=== PATIENT | female | born 1930 | race Caucasian/White ===

== ENCOUNTER 2018-12-20 08:54 | Inpatient (IN) | payer MEDICARE ==
--- NOTE | 2018-12-20 09:23 | ED ---
General Adult HPI - General Chief complaint: Shortness of Breath Stated complaint: POSS PNEUMONIA, SENT BY DR CLEANING Time Seen by Provider: 12/20/18 09:06 Source: patient, family, RN notes reviewed Mode of arrival: wheelchair Limitations: no limitations - History of Present Illness Initial comments: Patient is a pleasant 88-year-old female presenting to the emergency department with complaints of difficulty breathing. Onset of symptoms was 3-4 days ago. Patient has had intermittent subjective fevers and chills. Cough is rarely productive with noncolored sputum. Patient has some mild nasal congestion. No chest pain. No leg pain or leg swelling. No history of chronic lung problems. No history of COPD or asthma. Patient does have a distant history of smoking however quit 40 years ago. Patient did see her doctor this morning and was advised come to the emergency department secondary to low oxygen level. - Related Data Home Medications Medication Instructions Recorded Confirmed ALPRAZolam [Xanax] 0.25 mg PO BID 07/20/17 12/20/18 Hydrochlorothiazide [Hydrodiuril] 25 mg PO DAILY 07/20/17 12/20/18 Metoprolol Succinate [Toprol XL] 200 mg PO DAILY 07/20/17 12/20/18 Multivitamins, Thera [Multivitamin 1 tab PO DAILY 07/20/17 12/20/18 (formulary)] Olmesartan Medoxomil [Benicar] 40 mg PO DAILY 07/20/17 12/20/18 Omeprazole [PriLOSEC] 20 mg PO DAILY 07/20/17 12/20/18 Pravastatin Sodium [Pravachol] 40 mg PO DAILY 07/20/17 12/20/18 amLODIPine [Norvasc] 10 mg PO DAILY 07/20/17 12/20/18 cloNIDine HCL [Catapres] 0.1 mg PO TID 07/20/17 12/20/18 Albuterol Inhaler [Ventolin Hfa 1 - 2 puff INHALATION RT-Q6H PRN 12/20/18 12/20/18 Inhaler] Apixaban [Eliquis] 2.5 mg PO BID 12/20/18 12/20/18 Aspirin EC [Ecotrin Low Dose] 81 mg PO DAILY 12/20/18 12/20/18 Cilostazol [Pletal] 50 mg PO BID 12/20/18 12/20/18 Losartan Potassium 50 mg PO DAILY 12/20/18 12/20/18 Allergies Allergy/AdvReac Type Severity Reaction Status Date / Time bacitracin Allergy Unknown Verified 12/20/18 09:42 [From Neosporin ([id number])] codeine Allergy Unknown Verified 12/20/18 09:42 neomycin Allergy Unknown Verified 12/20/18 09:42 [From Neosporin ([id number])] polymyxin B Allergy Unknown Verified 12/20/18 09:42 [From Neosporin ([id number])] procaine [From Novocain] Allergy Unknown Verified 12/20/18 09:42 Review of Systems ROS Statement: Those systems with pertinent positive or pertinent negative responses have been documented in the HPI. ROS Other: All systems not noted in ROS Statement are negative. Constitutional: Denies: fever Eyes: Denies: eye pain ENT: Denies: ear pain Respiratory: Reports: cough, dyspnea Cardiovascular: Denies: chest pain, palpitations Endocrine: Reports: fatigue Gastrointestinal: Denies: abdominal pain Genitourinary: Denies: dysuria Musculoskeletal: Denies: back pain Skin: Denies: rash Neurological: Denies: weakness Past Medical History Past Medical History: Atrial Fibrillation, Coronary Artery Disease (CAD), CVA/TIA, Hyperlipidemia, Hypertension History of Any Multi-Drug Resistant Organisms: None Reported Past Surgical History: Appendectomy Additional Past Surgical History / Comment(s): "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 Past Anesthesia/Blood Transfusion Reactions: No Reported Reaction Past Psychological History: No Psychological Hx Reported Smoking Status: Never smoker Past Alcohol Use History: None Reported Past Drug Use History: None Reported General Exam Limitations: no limitations General appearance: alert, in no apparent distress Head exam: Present: atraumatic Eye exam: Present: normal appearance, PERRL ENT exam: Present: normal oropharynx Neck exam: Present: normal inspection Respiratory exam: Present: normal lung sounds bilaterally Cardiovascular Exam: Present: tachycardia, irregular rhythm GI/Abdominal exam: Present: soft. Absent: tenderness Extremities exam: Present: normal inspection. Absent: pedal edema, calf tenderness Neurological exam: Present: alert Psychiatric exam: Present: normal affect, normal mood Skin exam: Present: normal color Course Vital Signs 12/20/18 12/20/18 12/20/18 09:06 09:20 09:39 Temperature 97.5 F L Pulse Rate 116 H Respiratory 20 22 Rate Blood Pressure 131/70 O2 Sat by Pulse 93 L 94 L Oximetry 12/20/18 12/20/18 10:00 10:30 Temperature Pulse Rate 109 H 101 H Respiratory 20 20 Rate Blood Pressure 132/85 120/77 O2 Sat by Pulse 96 96 Oximetry - Reevaluation(s) Reevaluation #1: 12/20/18 10:48 There is concern for pneumonia. Patient does meet sepsis criteria based on concern for pneumonia and blood culture and lactic acid will be ordered. IV antibiotics will be ordered. EKG Findings - EKG Comments: EKG Findings:: A. fib with rate of 111. QRS 80. QT 280. QTC 380. Left axis. Diffuse Q waves. No acute ST change. Medical Decision Making - Medical Decision Making Patient reevaluated and resting comfortably in bed. Patient and family updated on results and plan. Dr. Cleaning has been paged for admission. - Lab Data Result diagrams: 12/20/18 09:54 12/20/18 09:54 Lab Results 12/20/18 12/20/18 Range/Units 09:54 09:54 WBC 16.1 H (3.8-10.6) k/uL RBC 5.88 H (3.80-5.40) m/uL Hgb 14.9 (11.4-16.0) gm/dL Hct 46.0 (34.0-46.0) % MCV 78.2 L (80.0-100.0) fL MCH 25.3 (25.0-35.0) pg MCHC 32.3 (31.0-37.0) g/dL RDW 15.4 (11.5-15.5) % Plt Count 373 (150-450) k/uL Neutrophils % 79 % Lymphocytes % 11 % Monocytes % 8 % Eosinophils % 1 % Basophils % 0 % Neutrophils # 12.7 H (1.3-7.7) k/uL Lymphocytes # 1.7 (1.0-4.8) k/uL Monocytes # 1.3 H (0-1.0) k/uL Eosinophils # 0.2 (0-0.7) k/uL Basophils # 0.1 (0-0.2) k/uL Sodium 126 L (137-145) mmol/L Potassium 4.4 (3.5-5.1) mmol/L Chloride 88 L (98-107) mmol/L Carbon Dioxide 28 (22-30) mmol/L Anion Gap 10 mmol/L BUN 17 (7-17) mg/dL Creatinine 0.95 (0.52-1.04) mg/dL Est GFR (CKD-EPI)AfAm 63 (>60 ml/min/1.73 sqM) Est GFR (CKD-EPI)NonAf 55 (>60 ml/min/1.73 sqM) Glucose 134 H (74-99) mg/dL Calcium 9.6 (8.4-10.2) mg/dL Total Bilirubin 1.5 H (0.2-1.3) mg/dL AST 29 (14-36) U/L ALT 20 (9-52) U/L Alkaline Phosphatase 102 (38-126) U/L Creatine Kinase 66 (30-135) U/L Total Protein 6.9 (6.3-8.2) g/dL Albumin 4.1 (3.5-5.0) g/dL - Radiology Data Radiology results: image reviewed (Chest x-ray shows right upper lobe opacity. Possible mass or pneumonia. Associated right effusion and atelectasis.) Critical Care Time Critical Care Time: Yes Total Critical Care Time: 33 Disposition Clinical Impression: Pneumonia, Sepsis Disposition: ADMITTED IP TO THIS HOSP Condition: Serious Is patient prescribed a controlled substance at d/c from ED?: No Referrals: Lionel Cleaning MD [Primary Care Provider] - 1-2 days Decision Time: 10:48
[2018-12-20 10:14] LABS: Basophils # (A) 0.1 k/uL (0-0.2); Basophils % (A) 0 %; Eosinophils # (A) 0.2 k/uL (0-0.7); Eosinophils % (A) 1 %; HGB 14.9 gm/dL (11.4-16.0); Lymphocytes # (A) 1.7 k/uL (1.0-4.8); Lymphocytes % (A) 11 %; MCH 25.3 pg (25.0-35.0); MCHC 32.3 g/dL (31.0-37.0); MCV 78.2 fL (80.0-100.0); Monocytes # (A) 1.3 k/uL (0-1.0); Monocytes % (A) 8 %; Neutrophils # (A) 12.7 k/uL (1.3-7.7); Neutrophils % (A) 79 %; Platelet Count 373 k/uL (150-450); RBC 5.88 m/uL (3.80-5.40); RDW 15.4 % (11.5-15.5); WBC 16.1 k/uL (3.8-10.6)
--- NOTE | 2018-12-20 10:26 | XR ---
EXAMINATION TYPE: XR chest 2V DATE OF EXAM: 12/20/2018 COMPARISON: NONE HISTORY: Difficulty breathing, cough and congestion TECHNIQUE: Frontal and lateral views of the chest are obtained. FINDINGS: There is abnormal right upper lobe, paratracheal density present. No pneumothorax. There i s blunting the right costophrenic angle, obscured right diaphragm. Heart is enlarged. Aorta is dense and likely ectatic. Patient is rotated. There are overlying cardiac leads. IMPRESSION: Findings may represent mass in the right upper lobe rather than pneumonia with associate d right pleural effusion and associated atelectasis. There is likely underlying cardiomegaly, aortic aneurysm. Consider chest CT.
[2018-12-20 10:32] LABS: Albumin 4.1 g/dL (3.5-5.0); Calcium 9.6 mg/dL (8.4-10.2); Potassium 4.4 mmol/L (3.5-5.1); Total Bilirubin 1.5 mg/dL (0.2-1.3); Total Protein 6.9 g/dL (6.3-8.2)
[2018-12-20] MEDS ORDERED: IPRATROPIUM-ALBUTEROL 3 ML NEB INHALATION PRN (10:49)
[2018-12-20] MEDS ORDERED: AZITHROMYCIN 500 MG in SODIUM CHLORIDE 0.9% 250 ML IVPB STA (10:49)
[2018-12-20] MEDS ORDERED: PNEUMONIA PROTOCOL UTILIZED 1 EACH MISC PO PRN (10:49)
[2018-12-20] MEDS ORDERED: RX INFO: IV CONTRAST WAS GIVEN 1 EACH MISC MISCELLANE PRN (10:50)
--- NOTE | 2018-12-20 11:32 | CT ---
EXAMINATION TYPE: CT chest w con DATE OF EXAM: 12/20/2018 COMPARISON: NONE HISTORY: Dyspnea CT DLP: 272.1 mGycm. Automated Exposure Control for Dose Reduction was Utilized. TECHNIQUE: CT scan of the thorax is performed following with IV Contrast, patient injected with 80 m L of Isovue 300. FINDINGS: LUNGS: There is a heterogenous right upper lobe consolidation measuring up to 6.5 x 5.6 cm on image 1 7 with surrounding pleural effusion and atelectasis. There is complete right upper lobe are collapsed . A moderate to large right pleural effusion is also seen with associated compressive atelectasis. Th ere is a suspicious pulmonary nodule in the left lower lobe near the interlobar fissure on image 38 m easuring 6 mm and spiculated left lower lobe pulmonary nodule on image 40 measuring 9 mm. Both are hi ghly suggestive of metastasis. MEDIASTINUM: The heart is enlarged with severe three-vessel coronary artery calcifications. No perica rdial effusion is seen. The ascending thoracic aorta is also enlarged measuring 4 cm. No evidence of thoracic aortic dissection is seen. Severe atherosclerosis of the thoracic aorta and its branches are noted. Descending thoracic aorta is within normal limits of size in its midportion and upper portion measuring up to 2.5 cm however distally just before the diaphragmatic hiatus there is aneurysmal dil atation measuring 3.6 x 3.5 cm. Main pulmonary artery is enlarged measuring 3.5 cm suggesting underly ing pulmonary arterial hypertension. There is narrowing of the superior vena cava caliber, and very d iminutive from local mass effect such as on image 28. Right hilar and mediastinal adenopathy cannot b e from the right hilar mass and/or consolidation. Prominent node in the aorticopulmonary wi ndow measures 9 mm in short axis. Subcarinal lymph node measures up to 1.5 cm in short axis and is ab normally enlarged. OTHER: There is a right breast spiculated mass measuring up to 3.2 x 2.1 cm with associated skin retr action and invasion of the right pectoralis major muscle with abutment of the pectoralis minor muscle . There is abnormal right axillary adenopathy with lymph node on image 23 measuring 1 cm in short axi s. Of the thyroid gland is seen and thyroid ultrasound is recommended on a nonemergent basis. Largest nodules noted in the left thyroid lobe extending to the isthmus. There is diffuse low-density of the liver most compatible with hepatic steatosis limiting evaluation for underlying hepatic masses. The entirety of the liver is not visualized on this exam. Multifocal scarring from infarct or prior injur y are seen within the left kidney. Ill-defined posterior cortex is seen on image 69, poorly evaluated with mass not excluded at this location. Left renal cyst measures 2.1 cm. Scattered colonic divertic matteo are seen. There is diffuse osseous demineralization. Lower thoracic compression deformities at T11 and T12 are age indeterminant as well as compression deformity at T6. These are mild. IMPRESSION: 1. Highly suspicious right breast mass with invasion of the pectoralis major muscle and abutment of t he pectoralis minor muscle and associated skin retraction as well as right axillary adenopathy. This should be considered neoplasm until proven otherwise. 2. Lobar collapse of the right upper lobe that is diffusely heterogenous in concerning for either syn chronous lung cancer with obstruction or metastasis from breast cancer with postobstructive right upp er lobar atelectasis. 3. Moderate to large right pleural effusion and associated multifocal atelectasis. 4. Highly suspicious left lower lobe pulmonary nodules concerning for metastasis with mediastinal maria guadalupe nopathy. 5. Diffuse osseous demineralization and age indeterminant compression deformities of T6, T11, and T12 . These do not appear as pathologic compression deformities and are overall mild. Correlate with poin t tenderness to determine acuity. 6. Heterogeneity and nodularity of the thyroid gland for which nonemergent follow-up thyroid ultrasou nd is recommended. 7. Aneurysmal dilatation of the ascending thoracic aorta and lower aspect of the descending thoracic aorta without dissection. 8. Severe three-vessel coronary atherosclerosis.
[2018-12-20 12:05] LABS: D-Dimer 0.62 mg/L FEU (<0.60); INR 1.1 (<1.2); Prothrombin Time 11.7 sec (9.0-12.0)
[2018-12-20] MEDS: SODIUM CHLORIDE 0.9% 1,000 ML IV SCH ×2 (13:03→22:03)
[2018-12-20] MEDS: ALPRAZolam 0.25 MG TAB PO PRN ×2 (17:30→22:07)
[2018-12-20] MEDS: cloNIDine HCL 0.1 MG TAB PO SCH ×2 (17:30→22:03)
--- NOTE | 2018-12-20 17:44 | HP ---
HISTORY AND PHYSICAL The patient is an 88-year-old white female who presented to her primary care physician's office with a complaint of shortness of breath. She stated she had been short of breath for approximately 5 days. She states that she believes she has a fever because she is experiencing chills, she has no pain, she states she does have sputum production which is white. The patient was brought into the hospital and in the hospital was noted to have a "spot in her right breast. She states that she believes that it started 15 years ago when a bra fit improperly and rubbed across that area causing a sore which never healed. The patient states she does not have any pain in her breast and that the area of concern she does not believe has changed much in size. FAMILY HISTORY: Negative. HORMONAL HISTORY: Menarche: [age]. Seven pregnancies, 4 children, 3 miscarriages. She did not breast feed. Her 1st child was born at 23. PAST SURGICAL HISTORY: 1. Appendectomy. 2. Vein removed from her arm to her leg for poor circulation. PAST MEDICAL HISTORY: 1. Shortness of breath. 2. Poor circulation. SOCIAL HISTORY: Smoked: Less than 1 pack per day for 15 years. Stopped thirty-five years ago. Alcohol: Negative. Drugs: Negative. REVIEW OF SYSTEMS: HEENT: Decreased hearing. Wears hearing aids. LUNGS: Shortness of breath, former smoker. HEART: Atrial fibrillation. GI: Negative. : Postmenopausal. MUSCULOSKELETAL: Negative. SKIN: The patient has easy bruising related to Eliquis. PSYCHIATRIC: Negative. ALLERGIES: CODEINE, NOVOCAIN, NEOSPORIN. NEUROLOGIC: CVA. PHYSICAL EXAM: HEENT: Pupils equal, round, reactive to light. LUNGS bilateral wheezing. HEART: Irregular heart beat, S1, S2 noted. ABDOMEN: Soft with no guarding or rebound. BREAST EXAMINATION: Right breast: Right upper outer quadrant region approximately 4 cm mass with evidence of breaking through the skin. It is not fixed to the chest wall. Right axilla: No adenopathy of concern. Left breast: Multi positional exam. No dominant mass or nodules of concern. Left axilla: No adenopathy of concern. EXTREMITIES: Patient is noted to have ecchymosis over extremities believed to be related to blood thinners. IMPRESSION: 1. Shortness of breath. 2. Sputum production. 3. Fever/chills as per history. 4. Breast lesion which has been present for many years. Most likely breast cancer. 5. Atrial fibrillation. 6. Patient on blood thinners. PLAN: 1. Thoracentesis as per Pulmonary. 2. We will review radiographs. 3. I would recommend core biopsy of lesion of concern in the right breast. This most likely represents a cancer. 4. Concern that patient may have metastatic disease and the fluid in her lung may be malignant in nature. 5. We will plan to do a core biopsy of breast on . Thank you for this dictation. Please note the son's phone #[phone] home and second number ([phone]) cell. MMODL / IJN: [id number] /
--- NOTE | 2018-12-20 18:00 | US ---
EXAMINATION TYPE: US chest DATE OF EXAM: 12/20/2018 COMPARISON: CT same date CLINICAL HISTORY: right pleural effusion. Right pleural effusion TECHNIQUE: Targeted ultrasound of the posterior lower right hemithorax EXAM MEASUREMENTS: Right Pleural Effusion pocket size: 11.3 cm Right skin surface to fluid distance: 2.4 cm Right side marked for possible thoracentesis outside the dept. Pulmonologists are able to review the images in the patient?s EMR. IMPRESSIONS: Large right pleural effusion.
[2018-12-20] MEDS ORDERED: ALPRAZolam 0.25 MG TAB PO SCH (21:00)
--- NOTE | 2018-12-21 01:32 | CONS ---
CONSULTATION HISTORY OF PRESENT ILLNESS: The patient is a pleasant 88-year-old white female of Dr. Cleaning who presented to the emergency department on 12/20/2018 with complaints of difficulty breathing. The onset of symptoms was last Wednesday, and this started with intermittent subjective fevers and chills. The patient did have a cough with production of non colored sputum. Did have some mild nasal congestion, denied any chest pain, she did feel increased shortness of breath, did not have any leg pain or leg swelling. Denies history of chronic lung problems. She does have a history of smoking. She quit smoking 35 years ago, but did have 25-30 years of smoking history. She went to see Dr. Cleaning in the office for evaluation of her symptoms and was advised to come to the emergency department related to low oxygen level. She was afebrile on presentation, she was found to be in atrial fibrillation RVR with a rate of 111. Chest x-ray was completed showing a right upper lobe opacity, possibly related to an underlying mass or pneumonia, and there was an associated right-sided pleural effusion and atelectasis. She did have leukocytosis with white blood cell count of 16.1, hemoglobin of 14.9, platelet count is 373, serum sodium was 126, potassium was 4.4, chloride was 88, CO2 was 28, BUN was 17, creatinine was 0.95. CT chest with contrast was completed showing a highly suspicious right breast mass with invasion of the pectorals major muscle and abutment of the pectoralis minor muscle and associated skin retraction as well as right axillary adenopathy. Lobar collapse of the right upper lobe. There is diffusely heterogeneous and concerning for either synchronous lung cancer with obstruction or metastasis from breast cancer with postobstructive right upper lobe or atelectasis. Moderate to right pleural effusion and associated multifocal atelectasis, and highly suspicious left lower lobe pulmonary nodule concerning for metastasis with mediastinal adenopathy. There was also diffuse osseous demineralization and compression deformities of T6, T11 and T12 that do not appear to be pathologic. Severe 3 vessel coronary artery atherosclerosis, and aneurysmal dilatation of the ascending thoracic aorta without dissection. The patient has a history of chronic atrial fibrillation. She is on chronic anticoagulation in the form of Eliquis, she has peripheral vascular disease. She is on Pletal, and baby aspirin on a daily basis. Other medical history includes CAD, CVA/TIA, hyperlipidemia, hypertension. REVIEW OF SYSTEMS: Patient reports shortness of breath and occasional cough and wheezing, does report subjective fevers and chills. HEENT: Reports no dry eyes, no vision changes and no irritation, no difficulty hearing and no ear pain, reports no nosebleeds or sinus problems. No sore throat, no bleeding gums or snoring. Neck: No lumps, goiter or pain. Breasts: Right breast asymmetry in the outer right upper quadrant, and dimpling reportedly from a bra, no pain, no discharge. Respiratory: Please refer to the history of present illness. Cardiovascular: No heart disease or hypertension, does report shortness of breath, no orthopnea or palpitations. GI: No nausea, vomiting, or indigestion. No jaundice. : No frequency, dysuria, or hematuria. Peripheral vascular: No swollen ankles. Musculoskeletal: No muscle aches. No muscle weakness, no arthralgias, no back pain, no swelling in extremities. PSYCH: No history of depression or psych illness. Neurologic: No seizures. No motor or sensory loss. No headaches. PAST MEDICAL HISTORY: Chronic atrial fibrillation, coronary artery disease, CVA/TIA, hyperlipidemia, hypertension. PAST SURGICAL HISTORY: Appendectomy. PHYSICAL EXAM: General exam: The patient is a pleasant 88-year-old white female, alert and oriented x3, in no apparent distress. HEENT exam: Atraumatic, normocephalic, normal appearance, PERRLA, normal oropharynx. Neck exam: Normal inspection. Respiratory exam: Lung sounds: Diminished breath sounds over right lower lobe, with some crackles over the left posterior lower bases. Cardiovascular exam: Irregular rate and rhythm, slightly tachycardic. No murmurs. Normal S1 and S2, no gallops, no rubs. CHEST exam: Right breast with indentation and dimpling in the right upper quadrant. Nipple without discharge. GI/abdominal exam: Soft, nontender. No organomegaly and no rebound. No guarding. EXTREMITIES: No clubbing, no edema, no cyanosis. 2+ pulses in upper and lower extremities. Musculoskeletal: Muscle strength and tone is normal. Neurologic: Alert and oriented x3, no focal neurological deficits. Vital signs: Temperature 97.5 degrees Fahrenheit, pulse rate is 116, atrial fibrillation, respiratory rate is 20, blood pressure is 131/70, O2 saturation is 93% on room air. Chest x-ray notes shows a right upper lobe opacity, possible mass or pneumonia and there is an associated right-sided pleural effusion and atelectasis. CT chest with contrast as mentioned above, with findings of highly suspicious right breast mass with invasion of the pectoralis major muscle and pectoralis minor muscle with a right axillary adenopathy, lower collapse of the right upper lobe concerning for a synchronous lung cancer with obstruction or metastasis from breast cancer with postobstructive right upper lobe atelectasis. Moderate to large right pleural effusion and associated multifocal atelectasis. Highly suspicious left lower lobe pulmonary nodules concerning for metastasis with mediastinal adenopathy. ASSESSMENT: 1. Acute hypoxic respiratory failure secondary to the possibility of pneumonia, and chest x-ray showed right upper lobe opacity with right pleural effusion and atelectasis, CT chest with contrast showed the possibility of right breast mass and lobar collapse of the right upper lobe concerning for lung cancer with obstruction or metastasis from breast cancer with postobstructive right upper lobe atelectasis. 2. Large right pleural effusion and associated multifocal atelectasis, we will obtain ultrasound of the chest to evaluate for size of the right pleural effusion. 3. Highly suspicious left lower lobe pulmonary nodules concerning for metastasis with mediastinal adenopathy. 4. Atrial fibrillation with RVR. 5. Chronic atrial fibrillation on chronic anticoagulation. 6. History of peripheral vascular disease. 7. Coronary artery disease. 8. Hypertension. 9. Hyperlipidemia. 10.History of cerebrovascular accident/transient ischemic attack. 11.History of nicotine dependence, currently in remission. The patient carries a 25- 30 pack-year smoking history. PLAN: We will continue with current antibiotic coverage with Zithromax and Rocephin, obtain sputum culture, we will obtain an ultrasound of the chest to evaluate the size of the right-sided pleural effusion, and we will hold the Eliquis today and tomorrow, with the possibility of right-sided thoracentesis on , and the fluid will be sent for analysis and cytology. CT chest findings are highly suspicious for metastatic breast cancer and hopefully will be able to obtain a diagnosis from the pleural fluid. For now, continue with current medical treatment. I performed a History & Physical Examination of the patient and discussed their management with nurse practitioner. I reviewed the nurse practitioner's note and agree with the documented findings and plan of care. This patient was seen and evaluated by Dr. Basha, all diagnostics including chest x- rays, CT chest with contrast, EKG, and vital signs have been reviewed by Dr. Last, and case was discussed with Dr. Last. MMSCOTT / IJN: [id number] /
[2018-12-21] MEDS: PRAVASTATIN SODIUM 40 MG TAB PO SCH (08:47)
[2018-12-21] MEDS: SODIUM CHLORIDE 0.9% 1,000 ML IV SCH ×2 (08:47→16:38)
[2018-12-21] MEDS: amLODIPine 10 MG TAB PO SCH (08:48)
[2018-12-21] MEDS: MULTIVITAMINS, THERA 1 EACH TAB PO SCH (08:48)
[2018-12-21] MEDS: AZITHROMYCIN 500 MG TAB PO SCH (08:48)
[2018-12-21] MEDS: LOSARTAN 50 MG TAB PO SCH (08:48)
[2018-12-21] MEDS: PANTOPRAZOLE 40 MG TABLET PO SCH (08:48)
[2018-12-21] MEDS: cloNIDine HCL 0.1 MG TAB PO SCH ×3 (08:48→21:04)
[2018-12-21] MEDS: HYDROCHLOROTHIAZIDE 25 MG TAB PO SCH (08:54)
[2018-12-21] MEDS ORDERED: OLMESARTAN MEDOXOMIL 40 MG PO SCH (09:00)
[2018-12-21] MEDS ORDERED: METOPROLOL SUCCINATE (ER) 100 MG TAB.ER.24H PO SCH (09:00)
[2018-12-21] MEDS: ALPRAZolam 0.25 MG TAB PO PRN ×2 (09:20→21:07)
[2018-12-21] MEDS ORDERED: IPRATROPIUM-ALBUTEROL 3 ML NEB INHALATION PRN (10:04)
[2018-12-21] MEDS: IPRATROPIUM-ALBUTEROL 3 ML NEB INHALATION SCH ×3 (10:14→20:49)
--- NOTE | 2018-12-21 11:26 | P.HPIM ---
History of Present Illness 88-year-old female presented to family physician with complaints of increasing shortness of breath. Patient had been treated outpatient for upper respiratory infection for about 3 months. On examination the emergency room found to have pleural effusion and a CAT scan showed breast mass. Patient has been refusing mammograms. States she's had some problem with that right breast for about 10 years. Patient has a history of chronic atrial fibrillation and coronary disease with hypertension. 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 Past Anesthesia/Blood Transfusion Reactions: No Reported Reaction Smoking Status: Former smoker - Past Family History Father Family Medical History: No Reported History Mother Family Medical History: No Reported History Medications and Allergies Home Medications Medication Instructions Recorded Confirmed Type ALPRAZolam [Xanax] 0.25 mg PO BID 07/20/17 12/20/18 History Hydrochlorothiazide [Hydrodiuril] 25 mg PO DAILY 07/20/17 12/20/18 History Metoprolol Succinate [Toprol XL] 200 mg PO DAILY 07/20/17 12/20/18 History Multivitamins, Thera [Multivitamin 1 tab PO DAILY 07/20/17 12/20/18 History (formulary)] Olmesartan Medoxomil [Benicar] 40 mg PO DAILY 07/20/17 12/20/18 History Omeprazole [PriLOSEC] 20 mg PO DAILY 07/20/17 12/20/18 History Pravastatin Sodium [Pravachol] 40 mg PO DAILY 07/20/17 12/20/18 History amLODIPine [Norvasc] 10 mg PO DAILY 07/20/17 12/20/18 History cloNIDine HCL [Catapres] 0.1 mg PO TID 07/20/17 12/20/18 History Albuterol Inhaler [Ventolin Hfa 1 - 2 puff INHALATION RT-Q6H PRN 12/20/18 12/20/18 History Inhaler] Apixaban [Eliquis] 2.5 mg PO BID 12/20/18 12/20/18 History Aspirin EC [Ecotrin Low Dose] 81 mg PO DAILY 12/20/18 12/20/18 History Cilostazol [Pletal] 50 mg PO BID 12/20/18 12/20/18 History Losartan Potassium 50 mg PO DAILY 12/20/18 12/20/18 History Allergies Allergy/AdvReac Type Severity Reaction Status Date / Time bacitracin Allergy Unknown Verified 12/20/18 09:42 [From Neosporin ([id number])] codeine Allergy Unknown Verified 12/20/18 09:42 neomycin Allergy Unknown Verified 12/20/18 09:42 [From Neosporin ([id number])] polymyxin B Allergy Unknown Verified 12/20/18 09:42 [From Neosporin ([id number])] procaine [From Novocain] Allergy Unknown Verified 12/20/18 09:42 Physical Exam Vitals: Vital Signs Temp Pulse Pulse Resp BP BP Pulse Ox 12/21/18 10:26 78 12/21/18 10:15 76 12/21/18 09:10 24 12/21/18 06:16 97.4 F L 71 24 141/76 97 12/20/18 23:30 98.4 F 102 H 24 120/74 94 L 12/20/18 20:00 24 12/20/18 16:17 96 12/20/18 14:30 98.0 F 112 H 18 134/71 97 12/20/18 12:10 98.2 F 100 20 143/92 95 Intake and Output 12/20/18 12/21/18 12/21/18 22:59 06:59 14:59 Intake Total 200 100 Balance 200 100 Intake: Oral 200 100 Other: # Voids 4 3 - Constitutional General appearance: mild distress - EENT Eyes: PERRLA Ears: bilateral: normal - Neck Neck: normal ROM - Respiratory Respiratory: bilateral: diminished - Cardiovascular Rhythm: irregularly irregular - Gastrointestinal General gastrointestinal: soft - Integumentary Integumentary: normal - Neurologic Neurologic: CNII-XII intact - Musculoskeletal Musculoskeletal: generalized weakness - Psychiatric Psychiatric: A&O x's 3, appropriate affect, intact judgment & insight Results CBC & Chem 7: 12/20/18 09:54 12/20/18 09:54 Labs: Abnormal Lab Results - Last 24 Hours (Table) 12/20/18 Range/Units 11:11 D-Dimer 0.62 H (<0.60) mg/L FEU Chest x-ray: report reviewed CT scan - chest: report reviewed Thrombosis Risk Factor Assmnt - Choose All That Apply Any of the Below Risk Factors Present?: Yes Each Factor Represents 1 point: Sepsis (< 1month), Serious lung disease incl. pneumonia (< 1month) Other Risk Factors: Yes Each Risk Factor Represents 3 Points: Age 75 years or older Other congenital or acquired thrombophilia - If yes, enter type in comment: No Thrombosis Risk Factor Assessment Total Risk Factor Score: 5 Thrombosis Risk Factor Assessment Level: High Risk Assessment and Plan Plan: Assessment Pneumonia with sepsis Breast cancer with metastatic disease to lungs new-onset Chronic atrial fibrillation Coronary disease CVA/TIA Hypertension Hyperlipidemia Hypoxic respiratory failure secondary to pleural effusion Plan Consultation with oncology Breast surgeon Pulmonology Thoracentesis plan as is breast biopsy Infectious disease for chronic from infection Patient to be transferred to monitor bed for atrial fibrillation with cardiology consult
--- NOTE | 2018-12-21 11:29 | P.PN ---
Subjective Progress Note Date: 12/21/18 Principal diagnosis: Acute hypoxic respiratory failure secondary to the possibility of pneumonia,, or possibility of metastatic breast cancer with obstruction and postobstructive right upper lobe atelectasis On 12/21/2016 patient seen in follow-up on medical surgical floor. She is resting comfortably in bed, in no acute distress, denies any chest pain, denies any worsening dyspnea. Hemodynamically on 4 L of oxygen with a pulse ox of 97%, she is afebrile, hemodynamically stable, lung sounds reveal diminished breath sounds at the bases, and some scattered rhonchi. Patient has been started on breathing treatments, antibiotics in the form of Zithromax and Rocephin. She has not been able to provide a sputum specimen. Blood culture is pending. follow up chest x-rays pending. Objective - Vital Signs Vital signs: Vital Signs Temp 97.4 F L 12/21/18 06:16 Pulse 78 12/21/18 10:26 Resp 24 12/21/18 09:10 BP 141/76 12/21/18 06:16 Pulse Ox 97 12/21/18 06:16 Intake & Output 12/20/18 12/21/18 12/21/18 18:59 06:59 18:59 Intake Total 300 Balance 300 Weight 73.028 kg Intake: Oral 300 Other: # Voids 3 - Exam GENERAL EXAM: Alert, active, on 4 L of oxygen with a pulse ox of 97%, comfortable in no apparent distress. HEAD: Normocephalic/atraumatic. EYES: Normal reaction of pupils, equal size. Conjunctiva pink, sclera white. NOSE: Clear with pink turbinates. THROAT: No erythema or exudates. NECK: No masses, no JVD, no thyroid enlargement, no adenopathy. CHEST: No chest wall deformity. Symmetrical expansion. LUNGS: Equal air entry with diminished breath sounds at the bases, with scattered rhonchi CVS: Regular rate and rhythm, normal S1 and S2, no gallops, no murmurs, no rubs ABDOMEN: Soft, nontender. No hepatosplenomegaly, normal bowel sounds, no guarding or rigidity. EXTREMITIES: No clubbing, no edema, no cyanosis, 2+ pulses and upper and lower extremities. MUSCULOSKELETAL: Muscle strength and tone normal. SPINE: No scoliosis or deformity SKIN: No rashes CENTRAL NERVOUS SYSTEM: Alert and oriented -3. No focal deficits, tone is normal in all 4 extremities. PSYCHIATRIC: Alert and oriented -3. Appropriate affect. Intact judgment and insight. - Labs CBC & Chem 7: 12/20/18 09:54 12/20/18 09:54 Labs: Abnormal Lab Results - Last 24 Hours (Table) 12/20/18 Range/Units 11:11 D-Dimer 0.62 H (<0.60) mg/L FEU Assessment and Plan Plan: Assessment: #1. Acute hypoxic respiratory failure secondary to the possibility of pneumonia, and the chest x-ray showed right upper lobe opacity with right pleural effusion and atelectasis, CT chest with contrast showed the possibility of right breast mass and lower collapse of the right upper lobe concerning for lung cancer with obstruction or metastasis from breast cancer with postobstructive right upper lobe atelectasis #2. Large right pleural effusion and associated multifocal atelectasis, ultrasound of the chest showed 11.3 cm pocket on the right, right-sided thoracentesis is planned for tomorrow, on 12/22/2018 #3. Highly suspicious left lower lobe pulmonary nodules concerning for metastasis with mediastinal adenopathy #4. Afib with RVR #5. Chronic atrial fibrillation on chronic anticoagulation #6. History of peripheral vascular disease #7. Coronary artery disease #8. Hypertension #9. Hyperlipidemia #10. History of CVA/TIA #11. History of nicotine dependence, currently in remission, carries 61-52-entj-year smoking history Plan: Continue current medical treatment, consult cardiology for A. fib with RVR, we will await their recommendation for anticoagulation, Eliquis, Pletal and aspirin remain on hold for right-sided thoracentesis tomorrow on oral 12/22/2018, continue nebulized bronchodilators 4 times daily and every 2 hours as needed. Obtain sputum culture, I performed a history & physical examination of the patient and discussed their management with my nurse practitioner, Angelica Cross. I reviewed the nurse practitioner's note and agree with the documented findings and plan of care. Lung sounds are positive for coarse rhonchi. The findings and the impression was discussed with the patient. I attest to the documentation by the nurse practitioner. Time with Patient: Less than 30
--- NOTE | 2018-12-21 11:40 | XR ---
EXAMINATION TYPE: XR chest 2V DATE OF EXAM: 12/21/2018 COMPARISON: 12/20/2018 HISTORY: Shortness of breath. Pneumonia. TECHNIQUE: Frontal and lateral views of the chest are obtained. FINDINGS: There is increasing right pleural effusion with associated right basilar airspace disease. Persistent right perihilar airspace disease is also seen. There is a large cardiac mediastinal silho uette and worsening of the interstitial edema, moderate. IMPRESSION: Worsening no moderate right pleural effusion and worsening interstitial edema also now m oderate. Findings likely relate to decompensated congestive heart failure.
[2018-12-21] MEDS ORDERED: HEPARIN SODIUM,PORCINE 5,000 UNIT/ML 1 ML VIAL IV PRN ×2 (14:32→15:32)
--- NOTE | 2018-12-21 14:43 | P.CRDCN ---
History of Present Illness History of present illness: This is a pleasant 88-year-old female past medical history significant for chronic persistent atrial fibrillation on fci anticoagulation with Eliquis, CVA in the past, hypertension, dyslipidemia and former nicotine dependence. She follows in the office with Dr. Lehman. She presented to the hospital yesterday with symptoms of shortness of breath. This has been going on intermittently for the previous one to 2 weeks. She saw her primary care physician and was given an inhaler. Inhaler did not seem to really help her symptoms. She went back to the office to see him yesterday and was sent into the hospital for further evaluation. Upon arrival a chest x-ray was obtained revealing a mass in the right upper lobe with associated right pleural effusion and atelectasis. CT of the chest was obtained that was highly suspicious right breast mass with invasion of the pectoris major muscle associated skin retraction as well as right axillary adenopathy considered neoplasm until proven otherwise, lobar collapse of the right upper lobe diffusely heterogenesis concerning for lung cancer with obstruction or metastasis from the breast cancer, moderate to large right pleural effusion associated multifocal atelectasis, left lower lobe nodules concerning for metastasis with mediastinal adenopathy, aneurysmal dilatation of the ascending thoracic aorta and severe triple vessel atherosclerosis. Ultrasound of the chest reveals a large right pleural effusion measuring 11.3 cm. She is scheduled for a thoracentesis tomorrow morning as well as a breast biopsy. Eliquis has been placed on hold. She is seen and examined sitting up in bed in mild respiratory distress. In the process of being transferred to telemetry bed for monitoring of her a-fib. EKG reveals atrial fibrillation heart rate of 111, left axis deviation, PVC and poor R-wave progression. Laboratory data reviewed, WBC 16.1, hemoglobin 14.9, platelets 373, d-dimer 0.62, sodium 126, potassium 4.4, creatinine 0.95, cardiac enzymes negative 1, and T proBNP 992. At the time of my exam: CONSTITUTIONAL: Denies fever. Denies chills. EYES: Denies blurred vision. Denies vision changes. Denies eye pain. EARS, NOSE, MOUTH & THROAT: Denies headache. Denies sore throat. Denies ear pain. CARDIOVASCULAR: Denies chest pain. Complains of shortness of breath. Denies orthopnea. Denies PND. Denies palpitations. RESPIRATORY: Complains of cough. GASTROINTESTINAL: Denies abdominal pain. Denies diarrhea. Denies constipation. Denies nausea. Denies vomiting. MUSCULOSKELETAL: Denies myalgias. INTEGUMENTARY: Denies pruitis. Denies rash. NEUROLOGIC: Denies numbness. Denies tingling. Denies weakness. PSYCHIATRIC: Denies anxiety. Denies depression. ENDOCRINE: Denies fatigue. Denies weight change. Denies polydipsia. Denies polyurina. GENITOURINARY: Denies burning, hematuria or urgency with micturation. HEMATOLOGIC: Denies history of anemia. Denies bleeding. Blood pressure 141/67 heart rate 105 afebrile maintaining oxygen saturation on nasal cannula GENERAL: This is a 88-year-old female in no apparent distress at the time of my examination. HEENT: Head is atraumatic, normocephalic. Pupils are equal, round. Sclerae anicteric. Conjunctivae are clear. Mucous membranes of the mouth are moist. Neck is supple. There is no jugular venous distention. No carotid bruit is heard. LUNGS: Scattered rhonchi, expiratory wheezes and no rales. No chest wall tenderness is noted on palpation or with deep breathing. HEART: Irregular rate and rhythm without murmurs, rubs or gallops. S1 and S2 heard. ABDOMEN: Soft, nontender. Bowel sounds are heard. No organomegaly noted. EXTREMITIES: No evidence of peripheral edema and no calf tenderness noted. VASCULAR: Radial and dorsalis pedis pulses palpated, no evidence of clubbing. NEUROLOGIC: Patient is awake, alert and oriented x3. ASSESSMENT Acute hypoxic respiratory failure secondary to large pleural effusion with concern for metastasis Leukocytosis Pleural effusion Chronic persistent atrial fibrillation on intermediate designer anti-coagulation. Has been on hold. Hypertension Dyslipidemia History of CVA PLAN Due to her history of chronic a-fib with history of CVA in the past, recommend initiation of heparin infusion to be discontinued 2 hours prior to thora centesis. Change beta brigitte to lorpessor 100 mg BID. Ongoing medical management. Thank you kindly for this consultation. Nurse Practitioner note has been reviewed, I agree with a documented findings and plan of care. Patient was seen and examined. 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 Past Anesthesia/Blood Transfusion Reactions: No Reported Reaction Smoking Status: Former smoker - Past Family History Father Family Medical History: No Reported History Mother Family Medical History: No Reported History Medications and Allergies Home Medications Medication Instructions Recorded Confirmed Type ALPRAZolam [Xanax] 0.25 mg PO BID 07/20/17 12/20/18 History Hydrochlorothiazide [Hydrodiuril] 25 mg PO DAILY 07/20/17 12/20/18 History Metoprolol Succinate [Toprol XL] 200 mg PO DAILY 07/20/17 12/20/18 History Multivitamins, Thera [Multivitamin 1 tab PO DAILY 07/20/17 12/20/18 History (formulary)] Olmesartan Medoxomil [Benicar] 40 mg PO DAILY 07/20/17 12/20/18 History Omeprazole [PriLOSEC] 20 mg PO DAILY 07/20/17 12/20/18 History Pravastatin Sodium [Pravachol] 40 mg PO DAILY 07/20/17 12/20/18 History amLODIPine [Norvasc] 10 mg PO DAILY 07/20/17 12/20/18 History cloNIDine HCL [Catapres] 0.1 mg PO TID 07/20/17 12/20/18 History Albuterol Inhaler [Ventolin Hfa 1 - 2 puff INHALATION RT-Q6H PRN 12/20/18 12/20/18 History Inhaler] Apixaban [Eliquis] 2.5 mg PO BID 12/20/18 12/20/18 History Aspirin EC [Ecotrin Low Dose] 81 mg PO DAILY 12/20/18 12/20/18 History Cilostazol [Pletal] 50 mg PO BID 12/20/18 12/20/18 History Losartan Potassium 50 mg PO DAILY 12/20/18 12/20/18 History Allergies Allergy/AdvReac Type Severity Reaction Status Date / Time bacitracin Allergy Unknown Verified 12/20/18 09:42 [From Neosporin ([id number])] codeine Allergy Unknown Verified 12/20/18 09:42 neomycin Allergy Unknown Verified 12/20/18 09:42 [From Neosporin ([id number])] polymyxin B Allergy Unknown Verified 12/20/18 09:42 [From Neosporin ([id number])] procaine [From Novocain] Allergy Unknown Verified 12/20/18 09:42 Physical Exam Vitals: Vital Signs Temp Pulse Pulse Resp BP Pulse Ox 12/21/18 13:02 98 F 105 H 19 141/67 97 12/21/18 10:26 78 12/21/18 10:15 76 12/21/18 09:10 24 12/21/18 06:16 97.4 F L 71 24 141/76 97 12/20/18 23:30 98.4 F 102 H 24 120/74 94 L 12/20/18 20:00 24 12/20/18 16:17 96 12/20/18 14:30 98.0 F 112 H 18 134/71 97 Intake and Output 12/20/18 12/21/18 12/21/18 22:59 06:59 14:59 Intake Total 200 100 Balance 200 100 Intake: Oral 200 100 Other: # Voids 4 3 Results 12/20/18 09:54 12/20/18 09:54 Current Medications Generic Name Dose Route Start Last Admin Trade Name Freq PRN Reason Stop Dose Admin Albuterol/Ipratropium 3 ml 12/21/18 12:00 12/21/18 10:14 Duoneb 0.5 Mg-3 Mg/3 Ml Soln INHALATION 3 ml RT-QID SUNNY Administration Albuterol/Ipratropium 3 ml 12/21/18 10:04 Duoneb 0.5 Mg-3 Mg/3 Ml Soln INHALATION RT-Q2H PRN shortness of breath Alprazolam 0.25 mg 12/20/18 17:17 12/21/18 09:20 Xanax PO 0.25 mg BID PRN Administration Anxiety Amlodipine Besylate 10 mg 12/21/18 09:00 12/21/18 08:48 Norvasc PO 10 mg DAILY SUNNY Administration Azithromycin 500 mg 12/21/18 09:00 12/21/18 08:48 Zithromax PO 500 mg DAILY SUNNY Administration Cefdinir 300 mg 12/22/18 09:00 Omnicef PO 12/24/18 21:01 BID SNUNY Clonidine 0.1 mg 12/20/18 16:00 12/21/18 08:48 Catapres PO 0.1 mg TID SUNNY Administration Hydrochlorothiazide 25 mg 12/21/18 09:00 12/21/18 08:54 Hydrodiuril PO 25 mg DAILY SUNNY Administration Sodium Chloride 1,000 mls @ 100 mls/hr 12/20/18 11:00 12/21/18 08:47 Saline 0.9% IV 100 mls/hr .Q10H SUNNY Administration Losartan Potassium 50 mg 12/21/18 09:00 12/21/18 08:48 Cozaar PO 50 mg DAILY SUNNY Administration Metoprolol Succinate 200 mg 12/21/18 09:00 12/21/18 08:48 Toprol Xl PO 200 mg DAILY SUNNY Administration Miscellaneous Information 1 each 12/20/18 10:49 Pneumonia Protocol Utilized PO ONCE PRN Per Protocol Miscellaneous Information 1 each 12/20/18 10:50 Rx Info: Iv Contrast Was Given MISCELLANE 12/22/18 10:50 DAILY PRN Per Protocol Multivitamins 1 each 12/21/18 09:00 12/21/18 08:48 Theragran PO 1 each DAILY SUNNY Administration Pantoprazole Sodium 40 mg 12/21/18 07:30 12/21/18 08:48 Protonix PO 40 mg [id number] SUNNY Administration Pravastatin Sodium 40 mg 12/21/18 09:00 12/21/18 08:47 Pravachol PO 40 mg DAILY SUNNY Administration Intake and Output 12/20/18 12/21/18 12/21/18 22:59 06:59 14:59 Intake Total 200 100 Balance 200 100 Intake: Oral 200 100 Other: # Voids 4 3 12/20/18 09:54 12/20/18 09:54
[2018-12-21] MEDS ORDERED: HEPARIN SOD,PORK IN 0.45% NACL 25,000 UNIT in 0.45% NACL 1 250ML.BAG IV SCH ×2 (14:45→15:45)
[2018-12-21 15:21] LABS: Partial Thromboplastin Time 22.8 sec (22.0-30.0); Prothrombin Time 11.1 sec (9.0-12.0)
[2018-12-21] MEDS ORDERED: HEPARIN SODIUM,PORCINE 5,000 UNIT/ML 1 ML VIAL IV ONE (15:32)
[2018-12-21 15:46] LABS: Basophils % (A) 0 %; Eosinophils # (A) 0.1 k/uL (0-0.7); Eosinophils % (A) 1 %; HCT 43.4 % (34.0-46.0); Hypochromasia Slight; Lymphocytes # (A) 1.1 k/uL (1.0-4.8); Lymphocytes % (A) 8 %; MCH 25.7 pg (25.0-35.0); MCHC 32.4 g/dL (31.0-37.0); MCV 79.2 fL (80.0-100.0); Mean Platelet Volume 8.5; Monocytes # (A) 1.2 k/uL (0-1.0); Monocytes % (A) 9 %; Neutrophils # (A) 10.8 k/uL (1.3-7.7); Neutrophils % (A) 81 %; Platelet Count 332 k/uL (150-450); RBC 5.47 m/uL (3.80-5.40); RDW 14.9 % (11.5-15.5); WBC 13.4 k/uL (3.8-10.6)
[2018-12-21] MEDS: METOPROLOL TARTRATE 50 MG TAB PO SCH (21:04)
--- NOTE | 2018-12-21 22:41 | P.CONS ---
History of Present Illness - Reason for Consult Consult date: 12/21/18 Right foot plantar wound Requesting physician: Lionel Cleaning - Chief Complaint Shortness of breath x weeks , pain right foot - History of Present Illness Patient is 88-year-old female well known to my service as the patient to follow with us in the wound care for her chronic callus to the right foot and a previous history of wound at the same location she was supposed to follow-up in the wound care center tomorrow, however the patient and her presenting to [facility] with chief complaints of increasing shortness of breath the patient missed her breathing has been getting worse for the last few weeks and has been taking outpatient setting with antibiotic and bronchodilator without any improvement with symptom has been shortness of breath with minimal exertion the patient denies significant chest pain did have very minimal cough Mobic up any sputum and no URI symptoms denies having any fever or chills patient on presentation did have a chest x-ray that was suspicious for right- sided mass is CT was done which has been suspicious for right breast tumor with collapse of the right upper lobe and concern for possible pneumonia this patient has been started on Rocephin and Zithromax and pulmonary swallowing the patient, as for as her right foot plantar callus patient has been complaining of some discomfort associated with it especially when she walks on it more of a dull aching pain 1-2 out of 10 and no radiation currently do not have any open wound or any drainage no swelling swelling or redness Review of Systems Positive points has been mentioned in HPI rest of the systems are negative Past Medical History Past Medical History: Atrial Fibrillation, CVA/TIA, GERD/Reflux, Hyperlipidemia, Hypertension Additional Past Medical History / Comment(s): 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 Past Anesthesia/Blood Transfusion Reactions: No Reported Reaction Smoking Status: Former smoker - Past Family History Father Family Medical History: No Reported History Mother Family Medical History: No Reported History Medications and Allergies Home Medications Medication Instructions Recorded Confirmed Type ALPRAZolam [Xanax] 0.25 mg PO BID 07/20/17 12/20/18 History Hydrochlorothiazide [Hydrodiuril] 25 mg PO DAILY 07/20/17 12/20/18 History Metoprolol Succinate [Toprol XL] 200 mg PO DAILY 07/20/17 12/20/18 History Multivitamins, Thera [Multivitamin 1 tab PO DAILY 07/20/17 12/20/18 History (formulary)] Olmesartan Medoxomil [Benicar] 40 mg PO DAILY 07/20/17 12/20/18 History Omeprazole [PriLOSEC] 20 mg PO DAILY 07/20/17 12/20/18 History Pravastatin Sodium [Pravachol] 40 mg PO DAILY 07/20/17 12/20/18 History amLODIPine [Norvasc] 10 mg PO DAILY 07/20/17 12/20/18 History cloNIDine HCL [Catapres] 0.1 mg PO TID 07/20/17 12/20/18 History Albuterol Inhaler [Ventolin Hfa 1 - 2 puff INHALATION RT-Q6H PRN 12/20/18 12/20/18 History Inhaler] Apixaban [Eliquis] 2.5 mg PO BID 12/20/18 12/20/18 History Aspirin EC [Ecotrin Low Dose] 81 mg PO DAILY 12/20/18 12/20/18 History Cilostazol [Pletal] 50 mg PO BID 12/20/18 12/20/18 History Losartan Potassium 50 mg PO DAILY 12/20/18 12/20/18 History Allergies Allergy/AdvReac Type Severity Reaction Status Date / Time bacitracin Allergy Unknown Verified 12/20/18 09:42 [From Neosporin ([id number])] codeine Allergy Unknown Verified 12/20/18 09:42 neomycin Allergy Unknown Verified 12/20/18 09:42 [From Neosporin ([id number])] polymyxin B Allergy Unknown Verified 12/20/18 09:42 [From Neosporin ([id number])] procaine [From Novocain] Allergy Unknown Verified 12/20/18 09:42 Physical Exam Vitals: Vital Signs Temp Pulse Pulse Resp BP Pulse Ox 12/21/18 13:02 98 F 105 H 19 141/67 97 12/21/18 10:26 78 12/21/18 10:15 76 12/21/18 09:10 24 12/21/18 06:16 97.4 F L 71 24 141/76 97 12/20/18 23:30 98.4 F 102 H 24 120/74 94 L 12/20/18 20:00 24 12/20/18 16:17 96 12/20/18 14:30 98.0 F 112 H 18 134/71 97 Intake and Output 12/20/18 12/21/18 12/21/18 22:59 06:59 14:59 Intake Total 200 100 Balance 200 100 Intake: Oral 200 100 Other: # Voids 4 3 GENERAL DESCRIPTION: An elderly female lying in bed, no distress. No tachypnea or accessory muscle of respiration use. HEENT: Shows Pallor , no scleral icterus. Oral mucous membrane is dry. No pharyngeal erythema or thrush NECK: Trachea central, no thyromegaly. LUNGS: Unlabored breathing. Decreased breath sound at the base. No wheeze or crackle. HEART: S1, S2, regular rate and rhythm. No loud murmur ABDOMEN: Soft, no tenderness , guarding or rigidity, no organomegaly EXTREMITIES: Right foot plantar aspect did have a callus with some overhanging margins and those were trimmed currently with no open wound no surrounding swelling redness or any drainage SKIN: No rash, no masses palpable. NEUROLOGICAL: The patient is awake, alert, oriented x3, mood and affect normal Results CBC & Chem 7: 12/21/18 14:56 12/20/18 09:54 Labs: Microbiology - Last 24 Hours (Table) 12/20/18 11:11 Blood Culture - Preliminary Blood No Growth after 24 hours Assessment and Plan Assessment: 1-patient with right foot plantar callus currently with no evidence of any open wound or cellulitis callus did have some overhanging edges that has been trimmed off at the bedside may have been contributing to some of the discomfort es pecially on walking 2-patient with increasing shortness of breath now with evidence of possible righ t breast tumor with secondary metastases to the lungs and a question of possible postoperative atelectasis versus pneumonia less likely but not entirely excluded in this patient currently with no fever or elevated white count Plan: 1-padding to the right foot plantar callus and may apply Vicks vapor rub to keep it soft 2-continue with Rocephin and Zithromax empirically 3-await breast biopsy and try to obtain sputum we will follow on clinical condition and culture to further adjust medication if needed Thank you for this consultation will follow this patient along with the Time with Patient: Greater than 30
--- NOTE | 2018-12-22 00:24 | P.CONS ---
History of Present Illness - Reason for Consult Consult date: 12/21/18 Breast mass, lung mass, shortness of breath - History of Present Illness The patient is an 88-year-old white female, who presented to the emergency room with complains of "just not feeling well", over the past week or so. Symptoms have been worse over the last 2-3 days, including progressive shortness of breath. The patient denies any pain or cough. In the emergency room, the patient underwent a CT scan which revealed a mass in the right breast with invasion into the pectoralis. In addition there was dense consolidation in the right upper lobe of the lung suggestive of mass with postobstructive changes, as well as a significant right pleural effusion. The patient was therefore admitted for further management and consult placed. She denied any prior history of malignancy. She stated that she has never had a mammogram done. She has been aware of the mass in the right breast and states that has been there for "years". Review of Systems Constitutional: Reports fatigue, Reports poor appetite, Reports weakness Eyes: denies blurred vision, denies pain Ears: bilateral: decreased hearing Ears, nose, mouth and throat: Denies headache, Denies sore throat Breasts: right: as per HPI, change in shape, masses, skin changes Cardiovascular: Reports palpitations, Reports shortness of breath Respiratory: Reports dyspnea Gastrointestinal: Denies abdominal pain, Denies diarrhea, Denies nausea, Denies vomiting Genitourinary: Denies dysuria, Denies hematuria Menstruation: Reports postmenopausal Musculoskeletal: Reports muscle weakness Integumentary: Reports lesions (Skin overlying the right breast) Neurological: Reports weakness Psychiatric: Denies anxiety, Denies depression Endocrine: Reports fatigue Hematologic/Lymphatic: Reports as per HPI Past Medical History Past Medical History: Atrial Fibrillation, CVA/TIA, GERD/Reflux, Hyperlipidemia, Hypertension Additional Past Medical History / Comment(s): 2012 CVA with slight R sided weakness, UTI, hematuria in the past, past plantar ulcer, PVD. 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 Past Anesthesia/Blood Transfusion Reactions: No Reported Reaction Smoking Status: Former smoker - Past Family History Father Family Medical History: No Reported History Mother Family Medical History: No Reported History Medications and Allergies Home Medications Medication Instructions Recorded Confirmed Type ALPRAZolam [Xanax] 0.25 mg PO BID 07/20/17 12/20/18 History Hydrochlorothiazide [Hydrodiuril] 25 mg PO DAILY 07/20/17 12/20/18 History Metoprolol Succinate [Toprol XL] 200 mg PO DAILY 07/20/17 12/20/18 History Multivitamins, Thera [Multivitamin 1 tab PO DAILY 07/20/17 12/20/18 History (formulary)] Olmesartan Medoxomil [Benicar] 40 mg PO DAILY 07/20/17 12/20/18 History Omeprazole [PriLOSEC] 20 mg PO DAILY 07/20/17 12/20/18 History Pravastatin Sodium [Pravachol] 40 mg PO DAILY 07/20/17 12/20/18 History amLODIPine [Norvasc] 10 mg PO DAILY 07/20/17 12/20/18 History cloNIDine HCL [Catapres] 0.1 mg PO TID 07/20/17 12/20/18 History Albuterol Inhaler [Ventolin Hfa 1 - 2 puff INHALATION RT-Q6H PRN 12/20/18 12/20/18 History Inhaler] Apixaban [Eliquis] 2.5 mg PO BID 12/20/18 12/20/18 History Aspirin EC [Ecotrin Low Dose] 81 mg PO DAILY 12/20/18 12/20/18 History Cilostazol [Pletal] 50 mg PO BID 12/20/18 12/20/18 History Losartan Potassium 50 mg PO DAILY 12/20/18 12/20/18 History Allergies Allergy/AdvReac Type Severity Reaction Status Date / Time bacitracin Allergy Unknown Verified 12/20/18 09:42 [From Neosporin ([id number])] codeine Allergy Unknown Verified 12/20/18 09:42 neomycin Allergy Unknown Verified 12/20/18 09:42 [From Neosporin ([id number])] polymyxin B Allergy Unknown Verified 12/20/18 09:42 [From Neosporin ([id number])] procaine [From Novocain] Allergy Unknown Verified 12/20/18 09:42 Physical Exam Vitals: Vital Signs Temp Pulse Pulse Resp BP BP Pulse Ox 12/21/18 10:26 78 12/21/18 10:15 76 12/21/18 09:10 24 12/21/18 06:16 97.4 F L 71 24 141/76 97 12/20/18 23:30 98.4 F 102 H 24 120/74 94 L 12/20/18 20:00 24 12/20/18 16:17 96 12/20/18 14:30 98.0 F 112 H 18 134/71 97 12/20/18 12:10 98.2 F 100 20 143/92 95 Intake and Output 12/20/18 12/21/18 12/21/18 22:59 06:59 14:59 Intake Total 200 100 Balance 200 100 Intake: Oral 200 100 Other: # Voids 4 3 - Constitutional General appearance: mild distress - EENT Eyes: EOMI, PERRLA ENT: hard of hearing Ears: bilateral: other (Bilateral hearing aids) - Respiratory Respiratory: right: diminished (rt lower 1/2), other (bronchial breath sounds RUL) - Cardiovascular Rhythm: irregularly irregular Heart sounds: normal: S1, S2 - Gastrointestinal General gastrointestinal: normal bowel sounds, soft - Integumentary Integumentary: ulcer (rt breast) - Neurologic Neurologic: CNII-XII intact - Musculoskeletal Possible mild lymphedema right upper extremity Musculoskeletal: generalized weakness, strength equal bilaterally - Psychiatric Psychiatric: A&O x's 3 Right breast examined, with RN as copyright manager Obvious mass hard, fixed, occupying lower outer quadrant of right breast. Skin is retracted and fixed to the mass, with overlying ulcer. Mass is fixed to underlying chest wall. Results CBC & Chem 7: 12/21/18 14:56 12/20/18 09:54 Labs: Abnormal Lab Results - Last 24 Hours (Table) 12/20/18 Range/Units 11:11 D-Dimer 0.62 H (<0.60) mg/L FEU Comments: Chest US report reviewed Chest x-ray: report reviewed CT scan - chest: report reviewed Assessment and Plan (1) Breast mass, right Narrative/Plan: The patient has a right-sided breast mass, with physical exam features highly suggestive of malignancy. This most likely is a neglected lesion, as the patient states it has been there for years. She has never had a mammogram before. The patient also has other lesions, as described in the CT scan. This time metastasis from breast cancer is most likely. However a separate primary such as lung cancer cannot be ruled out. The above clinical impression was discussed in detail with the patient. She was advised that the next step would be to get a tissue diagnosis. Breast biopsy is planned for 12/22/18. The patient will also need evaluation of her other lesions, rule out second primary, and also for staging. Thoracentesis was planned this time. I will also order breast cancer tumor markers, as well as complete staging studies with CT abdomen and pelvis and bone scan The patient had questions about treatment options. She was advised that he'll be able to give a more accurate information once pathology is finalized. If metastatic breast cancer is confirmed, then treatment options would depend on the marker status Current Visit: Yes Status: Acute Code(s): N63.10 - UNSPECIFIED LUMP IN THE RIGHT BREAST, UNSPECIFIED QUADRANT SNOMED Code(s): 16209285 (2) Lung mass Narrative/Plan: On based on imaging study, the patient likely has a mass in the right lung causing postobstructive pneumonia. She quit smoking more than 30 years ago. While primary lung cancer is in the differential, metastasis from the breast is more likely. The patient was therefore need evaluation of the same. Current Visit: Yes Status: Acute Code(s): R91.8 - OTHER NONSPECIFIC ABNORMAL FINDING OF LUNG FIELD SNOMED Code(s): 924058393 (3) Pleural effusion Narrative/Plan: Given the clinical situation, malignant etiology is suspected though parapneumonic effusion is also possible. As the patient is having difficulty breathing, thoracentesis planned for both therapeutic and diagnostic purposes. This is felt to be quite appropriate. Await cytology on the pleural fluid. If cytology were to show metastatic breast cancer, then it would prove stage IV disease Current Visit: Yes Status: Acute Code(s): J90 - PLEURAL EFFUSION, NOT ELSEWHERE CLASSIFIED SNOMED Code(s): 17597552 Plan: Therefore to the admitting service and other consultants for management of her other medical problem
[2018-12-22] MEDS: SODIUM CHLORIDE 0.9% 1,000 ML IV SCH ×2 (06:01→15:46)
[2018-12-22] MEDS: IPRATROPIUM-ALBUTEROL 3 ML NEB INHALATION SCH ×4 (07:49→20:26)
[2018-12-22] MEDS: METOPROLOL TARTRATE 50 MG TAB PO SCH ×2 (08:12→22:07)
[2018-12-22] MEDS: cloNIDine HCL 0.1 MG TAB PO SCH ×3 (08:13→23:36)
[2018-12-22] MEDS: LOSARTAN 50 MG TAB PO SCH (08:13)
[2018-12-22] MEDS: CEFDINIR 300 MG CAP PO SCH ×2 (08:13→22:08)
[2018-12-22] MEDS: PANTOPRAZOLE 40 MG TABLET PO SCH (08:13)
[2018-12-22] MEDS: HYDROCHLOROTHIAZIDE 25 MG TAB PO SCH (08:13)
[2018-12-22] MEDS: amLODIPine 10 MG TAB PO SCH (08:13)
[2018-12-22] MEDS: MULTIVITAMINS, THERA 1 EACH TAB PO SCH (08:13)
[2018-12-22] MEDS: AZITHROMYCIN 500 MG TAB PO SCH (08:14)
[2018-12-22] MEDS: PRAVASTATIN SODIUM 40 MG TAB PO SCH (08:14)
[2018-12-22 08:19] LABS: Basophils # (A) 0.1 k/uL (0-0.2); Basophils % (A) 1 %; Eosinophils # (A) 0.1 k/uL (0-0.7); Eosinophils % (A) 1 %; HCT 45.5 % (34.0-46.0); HGB 14.2 gm/dL (11.4-16.0); Hypochromasia Slight; Lymphocytes # (A) 1.7 k/uL (1.0-4.8); Lymphocytes % (A) 14 %; MCH 25.3 pg (25.0-35.0); MCHC 31.3 g/dL (31.0-37.0); MCV 80.9 fL (80.0-100.0); Mean Platelet Volume 7.6; Monocytes # (A) 0.9 k/uL (0-1.0); Monocytes % (A) 8 %; Neutrophils # (A) 9.1 k/uL (1.3-7.7); Neutrophils % (A) 75 %; Platelet Count 350 k/uL (150-450); RBC 5.62 m/uL (3.80-5.40); RDW 15.2 % (11.5-15.5); WBC 12.1 k/uL (3.8-10.6)
--- NOTE | 2018-12-22 08:48 | P.PN ---
Subjective Progress Note Date: 12/22/18 Principal diagnosis: Acute hypoxic respiratory failure secondary to possibility of pneumonia, possibility of metastatic breast cancer with obstruction and postobstructive right upper lobe atelectasis. The patient is seen today 12/22/2018 in follow-up on the regular medical floor. She is currently sitting up at the bedside. Awake and alert in no acute distress. Maintaining O2 saturations in the 90s on 4 L/m per nasal cannula. She's afebrile. Hemodynamically stable. Sputum and blood cultures reveal no growth. White count 12.1. Hemoglobin 14.2. Remains on DuoNeb inhalations, antibiotics in the form of Omnicef and azithromycin. Heparin drip. Objective - Vital Signs Vital signs: Vital Signs Temp 98.3 F 12/22/18 04:52 Pulse 104 H 12/22/18 08:02 Resp 20 12/22/18 08:00 BP 125/68 12/22/18 04:52 Pulse Ox 94 L 12/22/18 07:51 Intake & Output 12/21/18 12/22/18 12/22/18 18:59 06:59 18:59 Intake Total 240 198.996 Balance 240 198.996 Weight 75.5 kg Intake: Intake, IV Titration 198.996 Amount Heparin Sod,Pork in 0.45% 158.996 NaCl 25,000 unit In 0.45 % NaCl 1 250ml.bag @ 12 UNITS/KG/HR 8.763 mls/hr IV .Q24H SUNNY Rx#: [id number] Sodium Chloride 0.9% 1, 40 000 ml @ 100 mls/hr IV . Q10H SUNNY Rx#:[id number] Oral 240 Other: Voiding Method Toilet Toilet # Voids 1 3 - Exam - Exam GENERAL EXAM: Alert, active, on 4 L of oxygen with a pulse ox of 97%, comfortable in no apparent distress. HEAD: Normocephalic/atraumatic. EYES: Normal reaction of pupils, equal size. Conjunctiva pink, sclera white. NOSE: Clear with pink turbinates. THROAT: No erythema or exudates. NECK: No masses, no JVD, no thyroid enlargement, no adenopathy. CHEST: No chest wall deformity. Symmetrical expansion. LUNGS: Equal air entry with diminished breath sounds at the bases, with scattered rhonchi CVS: Regular rate and rhythm, normal S1 and S2, no gallops, no murmurs, no rubs ABDOMEN: Soft, nontender. No hepatosplenomegaly, normal bowel sounds, no guarding or rigidity. EXTREMITIES: No clubbing, no edema, no cyanosis, 2+ pulses and upper and lower extremities. MUSCULOSKELETAL: Muscle strength and tone normal. SPINE: No scoliosis or deformity SKIN: No rashes CENTRAL NERVOUS SYSTEM: No focal deficits, tone is normal in all 4 extremities. PSYCHIATRIC: Alert and oriented -3. Appropriate affect. Intact judgment and insight. - Labs CBC & Chem 7: 12/22/18 07:41 12/20/18 09:54 Labs: Abnormal Lab Results - Last 24 Hours (Table) 12/21/18 12/21/18 12/22/18 Range/Units 14:56 22:18 07:41 WBC 13.4 H 12.1 H (3.8-10.6) k/uL RBC 5.47 H 5.62 H (3.80-5.40) m/uL MCV 79.2 L (80.0-100.0) fL Neutrophils # 10.8 H 9.1 H (1.3-7.7) k/uL Monocytes # 1.2 H (0-1.0) k/uL APTT 49.6 H (22.0-30.0) sec Microbiology - Last 24 Hours (Table) 12/21/18 16:45 Gram Stain - Preliminary Sputum Sputum Culture - Preliminary 12/20/18 11:11 Blood Culture - Preliminary Blood No Growth after 24 hours Assessment and Plan Assessment: Assessment: #1. Acute hypoxic respiratory failure secondary to the possibility of pneumonia, and the chest x-ray showed right upper lobe opacity with right pleural effusion and atelectasis, CT chest with contrast showed the possibility of right breast mass and lower collapse of the right upper lobe concerning for lung cancer with obstruction or metastasis from breast cancer with postobstructive right upper lobe atelectasis #2. Large right pleural effusion and associated multifocal atelectasis, ult rasound of the chest showed 11.3 cm pocket on the right, right-sided thoracentesis is planned for today 12/22/2018 #3. Highly suspicious left lower lobe pulmonary nodules concerning for metastasis with mediastinal adenopathy #4. Afib with RVR, currently on a heparin drip. #5. Chronic atrial fibrillation on chronic anticoagulation #6. History of peripheral vascular disease #7. Coronary artery disease #8. Hypertension #9. Hyperlipidemia #10. History of CVA/TIA #11. History of nicotine dependence, currently in remission, carries 75-95-flgc-year smoking history Plan: The patient was seen and evaluated by Dr. Last. The plan is for a right-sided thoracentesis to be done today. Fluid will be sent for analysis and pathology. Heparin drip currently on hold. We will have a follow-up chest x-ray. Titrate down the FiO2 as tolerated. We'll continue with her current medications. Antibiotics per ID. Cardiology is on the case regarding the atrial fibrillation with rapid ventricular response. We will continue to follow make further recommendations based on her clinical status. I, the cosigning physician, performed a history & physical examination of the patient. Lungs sounds crackles in the bilateral posterior bases right greater than left. Maintaining good O2 saturations in the 90s on 4 L/m per nasal cannula.. I discussed the assessment and plan of care with my nurse practitioner, Dunia Jauregui. I attest to the above note as dictated by her.
--- NOTE | 2018-12-22 09:56 | XR ---
EXAMINATION TYPE: XR chest 1V DATE OF EXAM: 12/22/2018 COMPARISON: 12/21/2018 INDICATION: Postthoracentesis, right pleural effusion TECHNIQUE: Single frontal view of the chest is obtained. FINDINGS: The heart size is enlarged. The pulmonary vasculature is normal. There is a small right pleural effusion. This is diminished from comparison. Some residual adjacent c ompressive atelectasis may remain present. Minimal infiltrate may be at the left base. IMPRESSION: 1. No pneumothorax is evident post thoracentesis. 2. Small right pleural effusion, diminished postthoracentesis. 3. Mild bibasilar infiltrates.
[2018-12-22] MEDS: IOPAMIDOL-300 CONTRAST 30 ML VIAL (ORAL USE) PO PRN ×2 (10:49→11:43)
--- NOTE | 2018-12-22 11:15 | P.PCN ---
Date of Procedure: 12/22/18 Preoperative Diagnosis: Mass right breast Postoperative Diagnosis: same Procedure(s) Performed: Right breast core biopsy Anesthesia: local Surgeon: Daysi Estrelal Estimated Blood Loss (ml): 0 Pathology: other (Breast tissue) Condition: stable Disposition: floor Indications for Procedure: Palpable mass right breast Operative Findings: Palpable mass right breast with breakthrough the skin Description of Procedure: The patient was positioned on her hospital bed after informed consent was obtained. The area of concern was prepped using Betadine. A 9-gauge spring- loaded core biopsy needle was utilized to obtain the specimen. The skin was anesthetized using 1% lidocaine. A small kevan was made in the skin. 3 core biopsies were obtained. The specimen was sent to pathology. The patient tolerated the procedure in stable condition.
--- NOTE | 2018-12-22 12:03 | P.PN ---
Subjective Patient's respiratory status improved post thoracentesis. Breast biopsy completed. Had consultation with oncology PET scan and CAT scans ordered. Patient had consultation with cardiology regarding atrial fibrillation. Awaiting results from mild from Path nephrology and plan by Dr. Black Shaffer and Dr. Asher Objective - Vital Signs Vital signs: Vital Signs Temp 98.3 F 12/22/18 04:52 Pulse 104 H 12/22/18 08:02 Resp 20 12/22/18 08:00 BP 125/68 12/22/18 04:52 Pulse Ox 94 L 12/22/18 07:51 Intake & Output 12/21/18 12/22/18 12/22/18 18:59 06:59 18:59 Intake Total 240 198.996 Balance 240 198.996 Weight 75.5 kg Intake: Intake, IV Titration 198.996 Amount Heparin Sod,Pork in 0.45% 158.996 NaCl 25,000 unit In 0.45 % NaCl 1 250ml.bag @ 12 UNITS/KG/HR 8.763 mls/hr IV .Q24H SUNNY Rx#: [id number] Sodium Chloride 0.9% 1, 40 000 ml @ 100 mls/hr IV . Q10H SUNNY Rx#:[id number] Oral 240 Other: Voiding Method Toilet Toilet # Voids 1 3 - Constitutional General appearance: Present: mild distress - EENT Eyes: Present: PERRLA Ears: bilateral: normal - Neck Neck: Present: normal ROM - Respiratory Respiratory: bilateral: diminished - Cardiovascular Rhythm: regular - Gastrointestinal General gastrointestinal: Present: soft - Integumentary Integumentary: Present: normal - Neurologic Neurologic: Present: CNII-XII intact - Musculoskeletal Musculoskeletal: Present: generalized weakness - Psychiatric Psychiatric: Present: A&O x's 3, appropriate affect, intact judgment & insight - Labs CBC & Chem 7: 12/22/18 07:41 12/22/18 07:41 Labs: Abnormal Lab Results - Last 24 Hours (Table) 12/21/18 12/21/18 12/22/18 Range/Units 14:56 22:18 07:41 WBC 13.4 H 12.1 H (3.8-10.6) k/uL RBC 5.47 H 5.62 H (3.80-5.40) m/uL MCV 79.2 L (80.0-100.0) fL Neutrophils # 10.8 H 9.1 H (1.3-7.7) k/uL Monocytes # 1.2 H (0-1.0) k/uL APTT 49.6 H (22.0-30.0) sec Microbiology - Last 24 Hours (Table) 12/21/18 16:45 Gram Stain - Preliminary Sputum Sputum Culture - Preliminary 12/20/18 11:11 Blood Culture - Preliminary Blood No Growth after 24 hours - Imaging and Cardiology Chest x-ray: report reviewed Assessment and Plan Plan: Assessment Pneumonia sepsis Hypoxic respiratory failure secondary to pleural effusion Atrial fibrillation chronic History of coronary disease History of CVA/TIA Hypertension Hyperlipidemia 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 Black Shaffer Continue consultation with pulmonology and cardiology
[2018-12-22] MEDS: ACETAMINOPHEN TAB 500 MG TAB PO PRN (14:49)
--- NOTE | 2018-12-22 14:52 | NM ---
EXAMINATION TYPE: NM bone scan whole body DATE OF EXAM: 12/22/2018 COMPARISON: CT chest dated 12/20/[address] chest, abdomen, and pelvis of the same date. HISTORY: Breast mass and lung mass. Delayed whole-body scanning was performed following the injection of 22.6 mCi Tc 99m MDP. Images acq uired 4 hours post injection. FINDINGS: There is focal hypermetabolic uptake at the left lateral aspect of L1. When correlated with the CT ab domen pelvis of the same date there appears to be endplate destruction and Schmorl's node formation a t the site such as on coronal series 7 image 53. Additionally there is focal asymmetric uptake within the left sternoclavicular joint. There is osseous erosion on CT at this site on series 3 image 12 al though likely degenerative given the location. There is focal uptake within the right greater trochan ter without associated lesion on CT. There is symmetric uptake at the sacroiliac joints, mildly throu ghout the spine, and within the femoral acetabular joints. The multiple compression deformities withi n the thoracic spine do not exhibit focal uptake. IMPRESSION: 1. Focal radiotracer uptake of the left lateral margin of L1 corresponds to degenerative Schmorl's no de formation on CT and does not appear as a typical lytic lesion on CT. 2. Focal radiotracer uptake at the left sternoclavicular joint is seen with osseous erosion of the di stal clavicle however this appears also degenerative and is a typical location of degenerative change . 3. Focal radiotracer uptake of the right greater trochanter has no CT correlate and is also likely de generative. 4. No findings to suspect osseous metastatic disease at this time.
[2018-12-22] MEDS: ALPRAZolam 0.25 MG TAB PO PRN ×2 (16:50→23:36)
[2018-12-22 17:53] LABS: Appearance,BF Hazy; Nucleated Cells, Body Fluid 1300 /uL; RBC, Body Fluid 5800 /uL
--- NOTE | 2018-12-22 18:26 | CT ---
EXAMINATION TYPE: CT ChestAbdPelvis w con DATE OF EXAM: 12/22/2018 INDICATION: Breast/lung mass COMPARISON: 12/20/[address] DLP: 1094.7 mGycm CONTRAST: Performed with Oral Contrast and with IV Contrast, patient injected with 100 mL of Isovue 300. TECHNIQUE: Axial images at 5 mm thick sections. Reconstructed images in the coronal plane. Delayed images through the kidneys. FINDINGS: CT CHEST:3 cm mass along the right lateral breast region is evident. This does have extension which m ay pass the pectoralis major muscle. Thyroid as visualized appears heterogenous. Appears to be scattered hypodensities within the thyroid lobes. There is a consolidation at the superior medial right lobe. A small right pleural effusion is present . Some compressive atelectasis is adjacent to the pleural effusion. There are scattered areas of pneu monitis within the right middle lobe. A 0.4 cm nodular density is within the posterior right lower lo be. This may have been present previously but is better visualized on the current exam. The pleural e ffusion is smaller than prior. The pneumonitis changes in the right middle lobe is new. 0.6 cm densit y within the periphery of the right midlung may have been present previously as well, this could be l arger. Series 4 image 33. The left lung base is a 1.2 cm spiculated density suspicious for metastatic lesion. Series 4 image 40. Small nodule measuring 0.5 cm is at the left diaphragm. A posterior later al right diaphragm mass against the pleural margin may measure 0.7 cm. Nodular density within the vargas gula suspicious for metastatic lesion measuring 0.8 cm. Series 4 image 38. The soft tissue mass extending into the right hilum is surrounding the right main pulmonary artery wi th some narrowing present No enlarged mediastinal or hilar adenopathy is evident. The mass compressing the superior vena cava i s again demonstrated. Maximum narrowing is lateral dimension measuring 0.7 cm. The ascending aorta diameter at the level of the main pulmonary artery is 3.7 cm. The main pulmonary artery diameter at the bifurcation is 3.6 cm. The distal right main pulmonary artery measures 1.0 cm . The distal left main pulmonary artery measures 1.[address] ABDOMEN: Liver: Normal Spleen: Normal Pancreas: Normal Adrenal glands: The adrenal glands are normal. Gallbladder: Gallstones are present. Kidneys: No masses are evident. No hydronephrosis is present. There is a 2.0 cm cyst on the posteri or mid left kidney present previously Delayed images were obtained through the kidneys, which remain unremarkable. Aorta: Vascular calcification is within the aorta. Maximum AP dimension is 3.2 cm in the mid abdomin al aorta. Inferior vena cava: Normal. CT PELVIS: Multiple diverticuli are through the sigmoid colon. Oral contrast extends to the ascending colon. Aidan e persistent thickening through the proximal stomach is not excluded. This could be related to nondis tention. There are loops of bowel which are incompletely distended or lack oral contrast limiting the ir evaluation. Appendix: Not visualized Urinary bladder: Normal. Genitourinary structures: Uterus and adnexa are normal. No free fluid is within the pelvis. Osseous structures: No suspicious lytic or sclerotic lesions. Facet degenerative changes are within t he lower lumbar spine. IMPRESSIONS: 1. A mass within the right medial upper lobe extending into the mediastinum has compression of the padilla perior vena cava as well as the circumferential narrowing of the right distal main pulmonary artery. 2. Right breast mass. 3. Small to moderate right pleural effusion. 4. Bilateral lung masses suspicious for metastatic disease.
[2018-12-22 18:37] LABS: Mononuclear WBC,Body Fluid 96 %; Polynuclear WBC,Body Fluid 4 %; Total Cells Counted,Body Fluid 100
--- NOTE | 2018-12-22 19:43 | PN ---
PROGRESS NOTE DATE OF SERVICE: 12/22/2018. REASON FOR FOLLOWUP: 1. Right heel callus and wound. 2. Possible pneumonia. INTERVAL HISTORY: The patient is currently afebrile. The patient is status post breast biopsy and thoracocentesis. The patient's breathing has improved. No chest pain. No nausea, vomiting, abdominal pain, or denies any pain in the right foot wound area. PHYSICAL EXAMINATION: Blood pressure 118/72 with a pulse of 90, temperature 97.3, 99% on 4 L nasal cannula. General description is an elderly female up in the chair in no distress. Respiratory system: Unlabored breathing. Clear to auscultation. No wheeze or crackles. Heart S1, S2. Regular rate and rhythm. Abdomen soft, no tenderness. Right foot is currently dressed up. LABS: Hemoglobin is 14.8, white count 12.1, BUN of 14, creatinine 0.80. Sputum culture currently pending. DIAGNOSTIC IMPRESSION AND PLAN: 1. Patient admitted to the hospital with difficulty breathing. The patient did have evidence of right-sided pleural effusion and a question of possible malignancy versus pneumonia, clinically not behaving as pneumonia. Currently covered with Rocephin and Zithromax. Waiting for the culture to finalize. 2. Right foot plantar callus. Local care as ordered. Keep the area off the pressure. 3. Continue supportive care. MMODL / IJN: [id number] / [id number]
[2018-12-22] MEDS: APIXABAN 2.5 MG TABLET PO SCH (22:08)
--- NOTE | 2018-12-22 22:43 | PCN ---
PROCEDURE NOTE PROCEDURE PERFORMED: Right thoracentesis. OPERATORS: Dr. Last and Dr. Jauregui. REASON FOR PROCEDURES: Right pleural effusion. POSTOP DIAGNOSIS: Right pleural effusion. Indication Pleural effusion. A time-out was completed verifying correct patient, procedure, site, positioning , and implant (s) or special equipment if applicable. Ultrasound guidance was/was not used and appropriate fluid pocket was identified and marked. Patient was positioned, prepped and draped in usual sterile fashion. Lidocaine was used to anesthetize the area. A Thoracentesis catheter was introduced into the pleural space and fluid was removed. Blood loss was none. A chest x-ray was ordered to evaluate for pneumothorax. Total Fluid Removed: 950 mL Color of Fluid Fluid was sent for appropriate laboratory tests. Patient tolerated the procedure well and there were no complications. The right posterior chest was marked by ultrasound. The patient tolerated the procedure well. 950 mL of fluid was removed. The fluid was sent for analysis including microbiology chemistry and cytology. The chest x-ray will be ordered after the procedure to rule out pneumothorax. There was no immediate complication. The patient tolerated the procedure well. MMODL / IJN: [id number] /
[2018-12-23] MEDS: SODIUM CHLORIDE 0.9% 1,000 ML IV SCH ×2 (05:44→10:34)
[2018-12-23] MEDS: LOSARTAN 50 MG TAB PO SCH (07:56)
[2018-12-23] MEDS: HYDROCHLOROTHIAZIDE 25 MG TAB PO SCH (07:56)
[2018-12-23] MEDS: AZITHROMYCIN 500 MG TAB PO SCH (07:56)
[2018-12-23] MEDS: APIXABAN 2.5 MG TABLET PO SCH ×2 (07:57→20:52)
[2018-12-23] MEDS: amLODIPine 10 MG TAB PO SCH (07:57)
[2018-12-23] MEDS: PANTOPRAZOLE 40 MG TABLET PO SCH (07:57)
[2018-12-23] MEDS: CEFDINIR 300 MG CAP PO SCH ×2 (07:57→20:51)
[2018-12-23] MEDS: METOPROLOL TARTRATE 50 MG TAB PO SCH ×2 (08:00→20:51)
[2018-12-23] MEDS: MULTIVITAMINS, THERA 1 EACH TAB PO SCH (08:00)
[2018-12-23] MEDS: PRAVASTATIN SODIUM 40 MG TAB PO SCH (08:00)
[2018-12-23] MEDS: cloNIDine HCL 0.1 MG TAB PO SCH ×3 (08:03→20:52)
[2018-12-23 08:04] LABS: Basophils # (A) 0.1 k/uL (0-0.2); Basophils % (A) 0 %; Eosinophils # (A) 0.1 k/uL (0-0.7); Eosinophils % (A) 1 %; HCT 46.1 % (34.0-46.0); HGB 14.4 gm/dL (11.4-16.0); Hypochromasia Slight; Lymphocytes # (A) 1.5 k/uL (1.0-4.8); Lymphocytes % (A) 13 %; MCH 25.3 pg (25.0-35.0); MCHC 31.3 g/dL (31.0-37.0); MCV 80.8 fL (80.0-100.0); Mean Platelet Volume 7.7; Monocytes # (A) 0.8 k/uL (0-1.0); Monocytes % (A) 7 %; Neutrophils # (A) 8.5 k/uL (1.3-7.7); Neutrophils % (A) 77 %; Platelet Count 347 k/uL (150-450); RBC 5.71 m/uL (3.80-5.40); RDW 14.8 % (11.5-15.5)
--- NOTE | 2018-12-23 08:21 | PN ---
PROGRESS NOTE DATE OF SERVICE: December 23, 2018 This is an 88-year-old female who we were asked to see. She was admitted with a diagnosis of acute hypoxemic respiratory failure secondary to possible postobstructive pneumonia. The patient has a number of findings in her chest, which will be detailed later. Anyway, yesterday, we did a thoracentesis on the patient. She had a large right pleural effusion. About a L was removed. It does look suspicious for malignancy. It was darker in color and had some blood in it. It was sent for analysis. Most of the results are currently pending and cytology is pending. She did feel better after the procedure. In addition, the patient was thought to have suspicious left lower lobe pulmonary nodules, atrial fibrillation, peripheral vascular disease, CAD, hypertension, hyperlipidemia, and CVA. She was a smoker in the past. The CT scan of the chest shows a mass in the right medial upper lobe extending into the mediastinum with compression of the superior vena cava as well as circumferential narrowing of the right distal main pulmonary artery. There was a right breast mass, small moderate right-sided pleural effusion which was drained yesterday and bilateral lung masses suspicious for metastatic disease. Currently, the patient is feeling better. She is much less short of breath after the thoracentesis yesterday. I did not empty the entire lung. PHYSICAL EXAMINATION: VITAL SIGNS: Current vital signs include a temperature 98.3 heart rate 97, respiratory rate 20, blood pressure 137/84 mean 101. 4 L saturation 96% percent. GENERAL: She appears in no acute distress. She is breathing easier. HEENT examination is grossly unremarkable. Mucous membranes are moist. NECK: Supple. Full range of motion. No adenopathy. Neck veins are flat. CARDIOVASCULAR examination reveals regular rhythm and rate. Heart rate about 90 beats per minute. S1, S2 normal. No murmur. LUNGS: Diminished breath sounds at the right base. There is some dullness at the right base. A few scattered rhonchi and crackles are appreciated bilaterally. No wheezes. ABDOMEN: Soft. Bowel sounds are heard. EXTREMITIES are intact. No edema or cyanosis or clubbing. SKIN without rash. NEUROLOGIC examination is brief but nonfocal. LABS: No new labs from today as yet. The fluid was hazy in color. There is 5800 RBCs, 1300 WBCs. Of the WBCs, most were 96% were mononuclear cells, 4% polymorphonuclears neutrophils. Glucose in the fluid was 117. This does not look like an infectious pleural effusion. The rest of the chemistries are pending and cytology and microbiology of the fluid is also pending. Medications are reviewed. From the pulmonary standpoint, she remains on good antibiotics. She is both on Zithromax and Omnicef. I do not believe she needs both. Other medications include updrafts. ASSESSMENT: 1. Acute hypoxemic respiratory failure secondary to possible postobstructive pneumonia. 2. Abnormal CT scan of the chest showing a significant lesion in the right mid lung with involvement of the superior vena cava as well as narrowing of the right distal main pulmonary artery. In addition, the patient has a right breast mass, right- sided pleural effusion which was drained yesterday and bilateral lung masses suspicious for metastatic disease. 3. Large right-sided pleural effusion, status post thoracentesis on 12/22/2018. 4. Atrial fibrillation with RVR in a patient with chronic atrial fibrillation. 5. History of peripheral vascular disease. 6. Coronary artery disease. 7. Benign essential hypertension. 8. Hyperlipidemia. 9. Cerebrovascular accident. 10.Previous history of tobacco use. PLAN: The patient was placed back on the heparin after the procedure. The chest x-ray shows significantly reduced pleural effusion on the right, but the patient has still has some residual fluid. Chemistry and analysis of the fluid including cytology are currently pending. Respiratory status is improved. Her prognosis is very guarded. I suspect either primary lung cancer and/or metastatic breast cancer. MMODL / IJN: [id number] /
[2018-12-23] MEDS: IPRATROPIUM-ALBUTEROL 3 ML NEB INHALATION SCH ×4 (08:39→22:01)
--- NOTE | 2018-12-23 09:05 | P.PN ---
Progress Note - Text Progress Note Date: 12/23/18 This is a pleasant 88-year-old female patient who sees Dr. Cheung in the office as an outpatient with a past medical history significant for chronic persistent atrial fibrillation on oral anticoagulation, hypertension, and dyslipidemia, was admitted to the hospital was acute hypoxic respiratory failure and she was found to have large right pleural effusion. There was some concern about malignancy component. The patient underwent right thoracentesis 2 days ago. Around the procedure, we did stop the oral anticoagulation and started the patient on IV heparin and she is back on oral anticoagulation now. On follow-up with her today, December [id number], the patient seems to be feeling better indeterminable shortness of breath. No chest pain or chest discomfort which she is back on oral anticoagulation. Hemodynamically she is stable with a heart rate in the upper 90s to 100 but she is on 100 mg by mouth twice a day of metoprolol. From the cardiac standpoint of view, the patient can be discharged home. The results of the pathology still pending.
[2018-12-23 13:05] LABS: Total Protein, Body Fluid 2200 mg/dL
[2018-12-23] MEDS: ALPRAZolam 0.25 MG TAB PO PRN ×2 (14:32→22:51)
--- NOTE | 2018-12-23 14:35 | P.PN ---
Subjective 88-year-old the female was admitted for hypoxic respiratory failure found to have right-sided pleural effusion patient appears to have malignant effusion primary the being longer the breast mostly breast and patient underwent core biopsy of the breast. Patient is on 4 L of onset doesn't use any oxygen at home. appears to have postobstructive pneumonia for which patient is on antibiotic with Omnicef. There is a significant lesion in the my and mid right lung with involvement of superoir Vena cava. Constitutional: Denied any fatigue denied any fever. Cardio vascular: denied any chest pain, palpitations Gastrointestinal denied any nausea vomiting Pulmonary: Denied any shortness of breath cough Neurologic denied any new focal deficits All inpatient medications were reviewed and appropriate changes in these medications as dictated in the interval history and assessment and plan. Objective - Vital Signs Vital signs: Vital Signs Temp 98.1 F 12/23/18 12:01 Pulse 111 H 12/23/18 12:01 Resp 18 12/23/18 12:01 BP 136/66 12/23/18 12:01 Pulse Ox 96 12/23/18 12:01 Intake & Output 12/22/18 12/23/18 12/23/18 18:59 06:59 18:59 Intake Total 200 1000 Balance 200 1000 Weight 74.9 kg Intake: Intake, IV Titration 150 Amount Sodium Chloride 0.9% 1, 150 000 ml @ 100 mls/hr IV . Q10H [facility] Rx#:[id number] Oral 200 850 Other: Voiding Method Toilet Toilet # Voids 3 3 # Bowel Movements 1 - Exam PHYSICAL EXAMINATION: GENERAL: The patient is alert and oriented x3, not in any acute distress. Well developed, well nourished. HEENT: Pupils are round and equally reacting to light. EOMI. No scleral icterus. No conjunctival pallor. Normocephalic, atraumatic. No pharyngeal erythema. No thyromegaly. CARDIOVASCULAR: S1 and S2 present. No murmurs, rubs, or gallops. PULMONARY: Rhonchus breath sounds ABDOMEN: Soft, nontender, nondistended, normoactive bowel sounds. No palpable organomegaly. MUSCULOSKELETAL: No joint swelling or deformity. EXTREMITIES: No cyanosis, clubbing, or pedal edema. NEUROLOGICAL: Gross neurological examination did not reveal any focal deficits. SKIN: No rashes. - Labs CBC & Chem 7: 12/23/18 07:26 06/06/19 07:41 Labs: Abnormal Lab Results - Last 24 Hours (Table) 12/23/18 Range/Units 07:26 WBC 11.0 H (3.8-10.6) k/uL RBC 5.71 H (3.80-5.40) m/uL Hct 46.1 H (34.0-46.0) % Neutrophils # 8.5 H (1.3-7.7) k/uL Microbiology - Last 24 Hours (Table) 12/20/18 11:11 Blood Culture - Preliminary Blood No Growth after 72 hours 12/21/18 16:45 Gram Stain - Final Sputum Sputum Culture - Final 12/22/18 11:00 Gram Stain - Preliminary Pleural Fluid Body Fluid Culture - Preliminary 12/22/18 11:00 Acid Fast Bacilli Smear - Final Pleural Fluid Acid Fast Bacilli Culture - Preliminary 12/22/18 11:00 Fungal Culture - Preliminary Pleural Fluid Assessment and Plan Plan: Acute hypoxic respiratory failure secondary to the right-sided pleural effusion and postobstructive pneumonia patient is an above-mentioned antibiotics we'll continue to wean off oxygen and the patient 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 -Possible breast cancer, with possible metastases to the lung patient underwent core biopsy . Atrial fibrillation presently rate controlled, patient is on Eliquis which will be continued Peripheral vascular disease e Abdomen benign prostatic appropriate -Hyperlipidemia -CVA in the past
--- NOTE | 2018-12-24 00:05 | P.PN ---
Progress Note - Text Progress Note Date: 12/23/18 PROGRESS NOTE DATE OF SERVICE: 12/23/2018. REASON FOR FOLLOWUP: 1. Right heel callus and wound. 2. Possible pneumonia. INTERVAL HISTORY: The patient remains to be afebrile. The patient is status post breast biopsy and thoracocentesis on 12/22/2018. The patient is breathing comfortably No chest pain. No nausea, vomiting, abdominal pain, or denies any pain in the right foot wound area. PHYSICAL EXAMINATION: Blood pressure 138/82 with a pulse of 87, temperature 97.3, 99% on 4 L nasal cannula. General description is an elderly female up in the chair in no distress. Respiratory system: Unlabored breathing. Clear to auscultation. No wheeze or crackles. Heart S1, S2. Regular rate and rhythm. Abdomen soft, no tenderness. Right foot is currently dressed up. LABS: Reviewed. Sputum culture currently pending. DIAGNOSTIC IMPRESSION AND PLAN: 1. Patient admitted to the hospital with difficulty breathing source is multifactorial in this patient did have evidence of right-sided pleural effusion and a question of possible malignancy versus pneumonia, patient is currently covered with Rocephin and Zithromax, to continue while Waiting for the culture to finalize. 2. Right foot plantar callus. Local care as ordered. Keep the area off the pressure. Family at the bedside questions were answered
[2018-12-24 08:21] LABS: Calcium 9.6 mg/dL (8.4-10.2); Potassium 4.5 mmol/L (3.5-5.1)
[2018-12-24 08:27] LABS: Basophils % (A) 0 %; Eosinophils # (A) 0.1 k/uL (0-0.7); Eosinophils % (A) 1 %; HCT 45.2 % (34.0-46.0); HGB 14.4 gm/dL (11.4-16.0); Lymphocytes # (A) 1.4 k/uL (1.0-4.8); Lymphocytes % (A) 12 %; MCH 25.5 pg (25.0-35.0); MCHC 31.9 g/dL (31.0-37.0); Mean Platelet Volume 7.4; Monocytes # (A) 0.9 k/uL (0-1.0); Monocytes % (A) 8 %; Neutrophils # (A) 9.4 k/uL (1.3-7.7); Neutrophils % (A) 78 %; Platelet Count 441 k/uL (150-450); RBC 5.66 m/uL (3.80-5.40); RDW 14.3 % (11.5-15.5); WBC 12.1 k/uL (3.8-10.6)
[2018-12-24] MEDS: APIXABAN 2.5 MG TABLET PO SCH ×2 (08:41→20:24)
[2018-12-24] MEDS: PANTOPRAZOLE 40 MG TABLET PO SCH (08:41)
[2018-12-24] MEDS: LOSARTAN 50 MG TAB PO SCH (08:41)
[2018-12-24] MEDS: METOPROLOL TARTRATE 50 MG TAB PO SCH ×2 (08:41→20:24)
[2018-12-24] MEDS: cloNIDine HCL 0.1 MG TAB PO SCH ×3 (08:41→20:24)
[2018-12-24] MEDS: MULTIVITAMINS, THERA 1 EACH TAB PO SCH (08:41)
[2018-12-24] MEDS: amLODIPine 10 MG TAB PO SCH (08:41)
[2018-12-24] MEDS: AZITHROMYCIN 500 MG TAB PO SCH (08:42)
[2018-12-24] MEDS: PRAVASTATIN SODIUM 40 MG TAB PO SCH (08:42)
[2018-12-24] MEDS: CEFDINIR 300 MG CAP PO SCH ×2 (08:42→20:24)
--- NOTE | 2018-12-24 08:55 | PN ---
PROGRESS NOTE DATE OF SERVICE: 12/24/2018 This is an 88-year-old female who we were asked to see because of shortness of breath. The patient had a large pleural effusion. We did do a thoracentesis on her. It was a right-sided pleural effusion. About 1 L was removed. The fluid was suspicious for malignancy in my opinion. In addition, she had a breast lesion, which was biopsied by Dr. Zeny Estrella. It did come back showing malignancy. I suspect the fluid is malignant and likely related to the underlying breast cancer diagnosis. The fluid cytology is currently pending though. She is feeling clinically better. She does have a history of chronic atrial fibrillation, peripheral vascular disease, CAD, hypertension, hyperlipidemia, and CVA. Currently resting comfortably. Current vital signs show a temperature of 97.7 heart rate 100, respiratory rate 16, blood pressure 138/82 mean 100, 4 L saturations 95%. Appears in no acute distress. HEENT: Examination is grossly unremarkable. NECK: Supple. Full range of motion. No adenopathy. Neck veins are flat. CARDIOVASCULAR: Examination reveals a regular rhythm and rate. S1, S2 normal. No murmur. LUNGS: Reveal mostly clear breath sounds. There is some dullness at the right base. Crackles at the right base. Otherwise, breath sounds are equal bilaterally. ABDOMEN: Soft. Bowel sounds are heard. EXTREMITIES: Intact. No cyanosis, clubbing, or edema. SKIN: Without rash. NEUROLOGIC: Examination is brief but nonfocal. LAB DATA: Reviewed. Nothing back from today as yet. The pleural fluid appears not to be an exudate based on the chemistry. Pleural fluid cytology is currently pending. 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 Medications are reviewed. ASSESSMENT: 1. Acute hypoxemic respiratory failure secondary to possible postobstructive pneumonia. 2. Abnormal CT scan of the chest showing significant lesions in the right mid lung with involvement of the superior vena cava as well as narrowing of the right distal main pulmonary artery. In addition, the patient has a right breast mass which was recently biopsied and turned out to be positive for ductal carcinoma. 3. Large right-sided pleural effusion, status post thoracentesis on December 22, cytology pending. 4. Atrial fibrillation with rapid ventricular rate in a patient with chronic atrial fibrillation. 5. History of peripheral vascular disease. 6. Coronary artery disease. 7. Benign essential hypertension. 8. Hyperlipidemia. 9. Cerebrovascular accident. 10.Previous history of tobacco use. PLAN: The patient's overall prognosis remains very poor. Cytology is pending on the pleural fluid. The biopsy of the right breast was positive for ductal carcinoma. Additional recommendations and suggestions are forthcoming. Again prognosis in my opinion is very bad. Will continue to follow. MMODL / IJN: [id number] /
[2018-12-24] MEDS: IPRATROPIUM-ALBUTEROL 3 ML NEB INHALATION SCH ×4 (09:46→20:25)
[2018-12-24] MEDS ORDERED: ZOLPIDEM 5 MG TAB PO PRN (14:39)
--- NOTE | 2018-12-24 14:43 | P.PN ---
Subjective 88-year-old the female was admitted for hypoxic respiratory failure found to have right-sided pleural effusion patient appears to have malignant effusion primary the being longer the breast mostly breast and patient underwent core biopsy of the breast. Patient is on 4 L of onset doesn't use any oxygen at home. appears to have postobstructive pneumonia for which patient is on antibiotic with Omnicef. There is a significant lesion in the my and mid right lung with involvement of superoir Vena cava. 12/24/2018 Patient respiratory status improved, patient remains hyponatremic etiology of hyponatremia is not clear. Patient was started on free water restriction along with IV normal saline and will obtain urine random sodium urine random creatinine urine and serum osmolarity TSH and nephrology consultation Constitutional: Denied any fatigue denied any fever. Cardio vascular: denied any chest pain, palpitations Gastrointestinal denied any nausea vomiting Pulmonary: Denied any shortness of breath cough Neurologic denied any new focal deficits All inpatient medications were reviewed and appropriate changes in these medications as dictated in the interval history and assessment and plan. Objective - Vital Signs Vital signs: Vital Signs Temp 97.6 F 12/24/18 12:05 Pulse 86 12/24/18 12:21 Resp 16 12/24/18 12:05 BP 148/77 12/24/18 12:05 Pulse Ox 95 12/24/18 12:05 Intake & Output 12/23/18 12/24/18 12/24/18 18:59 06:59 18:59 Intake Total 1000 590 Balance 1000 590 Weight 75.07 kg Intake: Intake, IV Titration 150 Amount Sodium Chloride 0.9% 1, 150 000 ml @ 100 mls/hr IV . Q10H [facility] Rx#:[id number] Oral 850 590 Other: Voiding Method Bedside Commode Bedside Commode # Voids 3 7 1 # Bowel Movements 1 1 - Exam PHYSICAL EXAMINATION: GENERAL: The patient is alert and oriented x3, not in any acute distress. Well developed, well nourished. HEENT: Pupils are round and equally reacting to light. EOMI. No scleral icterus. No conjunctival pallor. Normocephalic, atraumatic. No pharyngeal erythema. No thyromegaly. CARDIOVASCULAR: S1 and S2 present. No murmurs, rubs, or gallops. PULMONARY: Rhonchus breath sounds ABDOMEN: Soft, nontender, nondistended, normoactive bowel sounds. No palpable organomegaly. MUSCULOSKELETAL: No joint swelling or deformity. EXTREMITIES: No cyanosis, clubbing, or pedal edema. NEUROLOGICAL: Gross neurological examination did not reveal any focal deficits. SKIN: No rashes. - Labs CBC & Chem 7: 12/24/18 07:43 12/24/18 07:43 Labs: Abnormal Lab Results - Last 24 Hours (Table) 12/22/18 12/24/18 12/24/18 Range/Units 11:00 07:43 07:43 WBC 12.1 H (3.8-10.6) k/uL RBC 5.66 H (3.80-5.40) m/uL Neutrophils # 9.4 H (1.3-7.7) k/uL Sodium 124 L (137-145) mmol/L Chloride 85 L (98-107) mmol/L Glucose 127 H (74-99) mg/dL Viral Test See Below H Microbiology - Last 24 Hours (Table) 12/20/18 11:11 Blood Culture - Preliminary Blood No Growth after 96 hours 12/22/18 11:00 Gram Stain - Preliminary Pleural Fluid Body Fluid Culture - Preliminary 12/21/18 16:45 Gram Stain - Final Sputum Sputum Culture - Final Assessment and Plan Plan: Acute hypoxic respiratory failure secondary to the right-sided pleural effusion and postobstructive pneumonia patient is an above-mentioned antibiotics we'll continue to wean off oxygen and the patient 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 Hyponatremia: Further evaluation as mentioned above patient appears to euvolemic hyponatremia -Possible breast cancer, with possible metastases to the lung patient underwent core biopsy . Atrial fibrillation presently rate controlled, patient is on Eliquis which will be continued Peripheral vascular disease e Abdomen benign prostatic appropriate -Hyperlipidemia -CVA in the past -Insomnia secondary to hospitalization asked nursing staff not to continuous pickling line pickler the patient in the middle of night and will use Ambien instead of Xanax
[2018-12-24 17:38] LABS: Creatinine,Urine Random 111.2 mg/dL
[2018-12-24] MEDS: SODIUM CHLORIDE 0.9% 1,000 ML IV SCH ×2 (18:17→20:30)
--- NOTE | 2018-12-24 19:37 | PN ---
PROGRESS NOTE DATE OF SERVICE: 12/24/2018. REASON FOR FOLLOWUP: 1. Abnormal x-ray with question of pneumonia. 2. Right foot plantar callus. INTERVAL HISTORY: The patient is currently afebrile. Patient has been breathing more comfortably. Patient denies having any chest pain or cough. No nausea, vomiting. No abdominal pain or any pain to the right foot area. PHYSICAL EXAMINATION: Blood pressure 142/77 with a pulse of 100, temperature 97.6. She is 95% on 2 L nasal cannula. General description is an elderly female up in the chair in no distress. RESPIRATORY SYSTEM: Unlabored breathing with decreased breath sounds in the base. No wheeze. HEART: S1, S2. Regular rate and rhythm. ABDOMEN: Soft, no tenderness. Right foot wound is currently dressed up. LABS: Hemoglobin is 14.4, white count 12.9, BUN of 13, creatinine 0.74. The sputum and the pleural culture so far negative. Blood cultures have been negative. DIAGNOSTIC IMPRESSION AND PLAN: 1. Patient admitted to the hospital with difficulty breathing. The patient did have evidence of a pleural effusion with CT done for possible mass to the lung versus possible pneumonia. The patient is not behaving as pneumonia, but currently covered with Rocephin and Zithromax. If cultures remain negative antibiotic can be safely discontinued. 2. Patient with right foot plantar callus. Local care to continue as ordered. Continue supportive care. MMODL / IJN: [id number] /
[2018-12-24] MEDS: ALPRAZolam 0.25 MG TAB PO PRN (22:22)
--- NOTE | 2018-12-25 00:10 | P.PN ---
Subjective Progress Note Date: 12/24/18 The patient remained short of breath, on oxygen. She states that she feels somewhat better after thoracentesis. Generalized weakness persists. No fevers or chills. Objective - Vital Signs Vital signs: Vital Signs Temp 98.4 F 12/24/18 20:23 Pulse 120 H 12/24/18 20:41 Resp 18 12/24/18 20:23 BP 134/75 12/24/18 20:23 Pulse Ox 97 12/24/18 20:26 Intake & Output 12/24/18 12/24/18 12/25/18 06:59 18:59 06:59 Intake Total 590 Balance 590 Weight 75.07 kg Intake: Oral 590 Other: Voiding Method Bedside Commode Toilet # Voids 7 1 1 # Bowel Movements 1 1 - Constitutional General appearance: Present: mild distress - EENT Eyes: Present: EOMI ENT: Present: hearing grossly normal, normal oropharynx - Respiratory Respiratory: right: diminished - Cardiovascular Rhythm: regular Heart sounds: normal: S1, S2 - Gastrointestinal General gastrointestinal: Present: soft - Neurologic Neurologic: Present: CNII-XII intact - Musculoskeletal Musculoskeletal: Present: generalized weakness, strength equal bilaterally - Psychiatric Psychiatric: Present: A&O x's 3, appropriate affect - Labs CBC & Chem 7: 12/24/18 07:43 12/24/18 19:01 Labs: Abnormal Lab Results - Last 24 Hours (Table) 12/22/18 12/24/18 12/24/18 Range/Units 11:00 07:43 07:43 WBC 12.1 H (3.8-10.6) k/uL RBC 5.66 H (3.80-5.40) m/uL Neutrophils # 9.4 H (1.3-7.7) k/uL Sodium 124 L (137-145) mmol/L Chloride 85 L (98-107) mmol/L Glucose 127 H (74-99) mg/dL Osmolality (280-301) mosm/kg Viral Test See Below H 12/24/18 12/24/18 Range/Units 07:43 19:01 WBC (3.8-10.6) k/uL RBC (3.80-5.40) m/uL Neutrophils # (1.3-7.7) k/uL Sodium 122 L (137-145) mmol/L Chloride (98-107) mmol/L Glucose (74-99) mg/dL Osmolality 259 L (280-301) mosm/kg Viral Test Microbiology - Last 24 Hours (Table) 12/20/18 11:11 Blood Culture - Preliminary Blood No Growth after 96 hours 12/22/18 11:00 Gram Stain - Preliminary Pleural Fluid Body Fluid Culture - Preliminary Assessment and Plan (1) Breast mass, right Narrative/Plan: The biopsy results are now available, and confirm ductal carcinoma of the breast. By markers are pending at this time. The pathology and implications were discussed with her in detail. The breast cancer is at least locally advanced. It is not known if the lung mass and pleural effusion represent metastatic disease or separate primary. The patient was advised that if the pleural fluid cytology also showed breast cancer, then this would prove stage IV disease. In that case the intent of treatment would be palliative. The actual treatment regimen will depend on the biomarker status. If the tumor was hormone receptor positive, then upfront hormonal manipulation would be the mainstay of treatment. However in case of triple negative disease, chemotherapeutic regimens would be the only treatment options. Current Visit: Yes Status: Acute Code(s): N63.10 - UNSPECIFIED LUMP IN THE RIGHT BREAST, UNSPECIFIED QUADRANT SNOMED Code(s): 22470760 (2) Lung mass Narrative/Plan: At this time it is not known of this represents metastatic disease or second primary. Cytology of the pleural fluid is pending. The patient was advised that - if the cytology shows breast cancer, then this would prove metastatic breast cancer. - If the cytology showed lung cancer, then this would indicate 2 separate primaries, with metastatic lung cancer and locally advanced breast cancer. - If the cytology was negative, and the nature of the lung mass and the pleural effusion would be still unknown. In that situation additional tissue diagnosis from the lung mass would need to be obtained. The patient and her family expressed understanding. Await cytology results. Current Visit: Yes Status: Acute Code(s): R91.8 - OTHER NONSPECIFIC ABNORMAL FINDING OF LUNG FIELD SNOMED Code(s): 826992465 (3) Pleural effusion Narrative/Plan: The patient is status post thoracentesis with cytology pending. As noted above cytology results will give us significant diagnostic and staging information. The patient still appears somewhat short of breath. If she has rapid recurrence of pleural effusion, then drainage catheter placement will need to be considered Current Visit: Yes Status: Acute Code(s): J90 - PLEURAL EFFUSION, NOT ELSEWHERE CLASSIFIED SNOMED Code(s): 92120863
[2018-12-25] MEDS: IPRATROPIUM-ALBUTEROL 3 ML NEB INHALATION SCH ×4 (07:40→21:24)
[2018-12-25] MEDS: PANTOPRAZOLE 40 MG TABLET PO SCH (07:43)
[2018-12-25 07:46] LABS: Basophils % (A) 0 %; Eosinophils # (A) 0.1 k/uL (0-0.7); Eosinophils % (A) 1 %; HCT 43.7 % (34.0-46.0); HGB 13.7 gm/dL (11.4-16.0); Hypochromasia Slight; Lymphocytes # (A) 1.3 k/uL (1.0-4.8); Lymphocytes % (A) 11 %; MCH 25.1 pg (25.0-35.0); MCHC 31.4 g/dL (31.0-37.0); Mean Platelet Volume 7.5; Monocytes # (A) 0.8 k/uL (0-1.0); Monocytes % (A) 7 %; Neutrophils # (A) 9.1 k/uL (1.3-7.7); Neutrophils % (A) 80 %; Platelet Count 378 k/uL (150-450); RBC 5.47 m/uL (3.80-5.40); RDW 15.1 % (11.5-15.5); WBC 11.5 k/uL (3.8-10.6)
[2018-12-25 08:04] LABS: Calcium 8.8 mg/dL (8.4-10.2); Magnesium 1.3 mg/dL (1.6-2.3); Potassium 4.4 mmol/L (3.5-5.1)
[2018-12-25] MEDS ORDERED: FUROSEMIDE 10 MG/ML 2 ML VIAL IV ONE ×2 (08:18→21:32)
--- NOTE | 2018-12-25 08:27 | P.NPCON ---
History of Present Illness - Reason for Consult hyponatremia - History of Present Illness Reason for consultation: Hyponatremia History of present illness: Patient is a 88-year-old female seen in consultation for hyponatremia. Patient presented to the hospital on December 20. At that time her sodium level was 126. Patient was taking hydrochlorothiazide as an outpatient. Patient presented to the hospital with shortness of breath going on for 3-4 days duration. She denies cough or fever. However she was noted to have a right-sided pleural effusion and underwent thoracentesis on December 22 1950 mL drained. She also underwent a biopsy of the breast mass which came positive for ductal carcinoma. Additionally she is noted to have bilateral lung masses as well as a mass within the right medial upper lobe extending into the mediastinum. Yesterday the patient was started on normal saline at 75 mL an hour and in the evening her sodium level dropped to 122. Overnight the fluids were decreased. Sodium level this morning is 125. Oral intake is fair. Patient does not like hospital food. No vomiting or diarrhea. She does have loose bowel movement. She has been voiding. No hematuria or dysuria. Denies any prior history of kidney disease. GFR is currently at baseline. Hemodynamically stable. Vital signs are stable. General: The patient appeared well nourished and normally developed. HEENT: Head exam is unremarkable. Neck is without jugular venous distension. LUNGS: Breath sounds decreased. HEART: Rate and Rhythm are regular. First and second heart sounds normal. No murmurs, rubs or gallops. ABDOMEN: Abdominal exam reveals normal bowel sounds. Non-tender and non- distended. No evidence of peritonitis. EXTREMITITES: No clubbing, cyanosis, or edema. 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 Past Anesthesia/Blood Transfusion Reactions: No Reported Reaction Smoking Status: Former smoker - Past Family History Father Family Medical History: No Reported History Mother Family Medical History: No Reported History Medications and Allergies Home Medications Medication Instructions Recorded Confirmed Type ALPRAZolam [Xanax] 0.25 mg PO BID 07/20/17 12/20/18 History Hydrochlorothiazide [Hydrodiuril] 25 mg PO DAILY 07/20/17 12/20/18 History Metoprolol Succinate [Toprol XL] 200 mg PO DAILY 07/20/17 12/20/18 History Multivitamins, Thera [Multivitamin 1 tab PO DAILY 07/20/17 12/20/18 History (formulary)] Olmesartan Medoxomil [Benicar] 40 mg PO DAILY 07/20/17 12/20/18 History Omeprazole [PriLOSEC] 20 mg PO DAILY 07/20/17 12/20/18 History Pravastatin Sodium [Pravachol] 40 mg PO DAILY 07/20/17 12/20/18 History amLODIPine [Norvasc] 10 mg PO DAILY 07/20/17 12/20/18 History cloNIDine HCL [Catapres] 0.1 mg PO TID 07/20/17 12/20/18 History Albuterol Inhaler [Ventolin Hfa 1 - 2 puff INHALATION RT-Q6H PRN 12/20/18 12/20/18 History Inhaler] Apixaban [Eliquis] 2.5 mg PO BID 12/20/18 12/20/18 History Aspirin EC [Ecotrin Low Dose] 81 mg PO DAILY 12/20/18 12/20/18 History Cilostazol [Pletal] 50 mg PO BID 12/20/18 12/20/18 History Losartan Potassium 50 mg PO DAILY 12/20/18 12/20/18 History Allergies Allergy/AdvReac Type Severity Reaction Status Date / Time bacitracin Allergy Unknown Verified 12/20/18 09:42 [From Neosporin ([id number])] codeine Allergy Unknown Verified 12/20/18 09:42 neomycin Allergy Unknown Verified 12/20/18 09:42 [From Neosporin ([id number]-[id number])] polymyxin B Allergy Unknown Verified 12/20/18 09:42 [From Neosporin ([id number])] procaine [From Novocain] Allergy Unknown Verified 12/20/18 09:42 Physical Exam Vitals: Vital Signs Temp Pulse Pulse Resp BP Pulse Ox 12/25/18 05:29 98.4 F 100 20 140/78 91 L 12/24/18 20:41 120 H 12/24/18 20:26 120 H 97 12/24/18 20:23 98.4 F 120 H 18 134/75 96 12/24/18 12:21 86 12/24/18 12:11 84 12/24/18 12:05 97.6 F 100 16 148/77 95 12/24/18 10:00 90 12/24/18 09:46 88 Intake and Output 12/24/18 12/25/18 12/25/18 22:59 06:59 14:59 Other: Voiding Method Toilet # Voids 1 2 # Bowel Movements 1 Weight 76.7 kg Results - Lab Results Most recent lab results Calcium 8.8 mg/dL (8.4-10.2) 12/25/18 06:56 Magnesium 1.3 mg/dL (1.6-2.3) L 12/25/18 06:56 12/25/18 06:56 12/25/18 06:56 Assessment and Plan Plan: Assessment: 1. Hyponatremia. Patient appears hypervolemic. Sodium level 125 this morning. Sodium level dropped to normal saline was started yesterday. Urine sodium is 57 and urine osmolality 544. 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 2. Hypomagnesemia from poor oral intake. 3. Breast mass status post biopsy which came back positive for ductal carcinoma. 4. Right-sided pleural effusion status post thoracentesis on December 22 - 950 mL drained. 5. Benign hypertension. Controlled. Plan: Hep-Lock IV fluids. Lasix 20 mg IV once today. 1500 mL fluid restriction. Encouraged oral intake. I will add ensure 3 times daily. Check TSH and uric acid level. Repeat sodium level this evening. Replace magnesium. 3 mg IV today. Thank you for the consultation. I will continue to follow the patient with you during her hospital stay.
[2018-12-25] MEDS: METOPROLOL TARTRATE 50 MG TAB PO SCH ×2 (08:37→21:06)
[2018-12-25] MEDS: cloNIDine HCL 0.1 MG TAB PO SCH ×3 (08:38→21:06)
[2018-12-25] MEDS: APIXABAN 2.5 MG TABLET PO SCH ×2 (08:38→21:06)
[2018-12-25] MEDS: amLODIPine 10 MG TAB PO SCH (08:38)
[2018-12-25] MEDS: MULTIVITAMINS, THERA 1 EACH TAB PO SCH (08:38)
[2018-12-25] MEDS: LOSARTAN 50 MG TAB PO SCH (08:38)
[2018-12-25] MEDS: PRAVASTATIN SODIUM 40 MG TAB PO SCH (08:40)
[2018-12-25] MEDS: AZITHROMYCIN 500 MG TAB PO SCH (08:40)
[2018-12-25] MEDS: MAGNESIUM SULFATE-D5W PMX 1 GM in DEXTROSE/WATER 1 100ML.BAG IVPB SCH ×3 (10:17→17:10)
[2018-12-25] MEDS: ONDANSETRON 4 MG/2 ML VIAL IVP PRN ×2 (11:14→21:08)
--- NOTE | 2018-12-25 12:51 | XR ---
EXAMINATION TYPE: XR chest 2V DATE OF EXAM: 12/25/2018 HISTORY: pleural effusion. REFERENCE: Previous study dated 12/22/2018. FINDINGS: There is an enlarging right pleural effusion. Heart size is obscured. Visualized portions o f the lungs are clear. IMPRESSION: ENLARGING RIGHT PLEURAL EFFUSION.
--- NOTE | 2018-12-25 14:27 | PN ---
PROGRESS NOTE . DATE OF SERVICE: 12/25/2018 This is an 88-year-old female who was admitted with a diagnosis of shortness of breath. She was found to have a large pleural effusion. We did a thoracentesis. Cytology is pending. She also had a right breast lesion biopsied by Dr. Zeny Chan. It did come back showing malignancy. It was positive for ductal carcinoma. Anyway, the cytology on the fluid is still pending. Today, she feels like she is breathing worse. She has got more shortness of breath. She does have a history of chronic atrial fibrillation, peripheral vascular occlusive disease, CAD, hypertension, hyperlipidemia, and CVA. She was given some IV Lasix today according to the nurse. PHYSICAL EXAMINATION: VITAL SIGNS: Currently, vital signs are reviewed. Temperature 98.4. Heart rate 100, respiratory rate 20, blood pressure 140/78, mean 98, 4 L saturation 91%. GENERAL: Appears in no acute distress. Does not appear to be tachypneic. No conversational dyspnea. No audible wheezing. She has got nasal O2 in place. HEENT examination is grossly unremarkable. NECK: Supple. Full range of motion. No adenopathy or thyromegaly. Neck veins are flat. CARDIOVASCULAR examination reveals regular rhythm rate. Heart rate 100. S1, S2 normal. No S3, S4, or murmur. LUNGS: Diminished breath sounds at both bases, right greater than left. There is some dullness at the right base. No crackles. A few scattered rhonchi. ABDOMEN: Soft. Bowel sounds are heard. EXTREMITIES are intact. No cyanosis, clubbing, or significant edema. SKIN without rash. NEUROLOGIC examination is brief but nonfocal. LABORATORY DATA: White count 11.5, hemoglobin 13.7, hematocrit 43.7, platelet count 378,000. Sodium 125, potassium 4.4, chloride 87, CO2 28, anion gap is 10, BUN and creatinine were 12 and 0.72. TSH is normal. A repeat chest x-ray is done by myself today. It shows a large reaccumulated right- sided effusion. Medications are reviewed. ASSESSMENT: 1. Acute hypoxemic respiratory failure secondary to postobstructive pneumonia. 2. Abnormal CT scan of the chest showing significant lesions in the right mid lung with involvement of the superior vena cava as well as narrowing of the right distal main pulmonary artery. In addition, the patient has a right breast mass which was recently biopsied and turned out to be positive for ductal carcinoma. 3. Large right-sided pleural effusion, status post thoracentesis on December 22, cytology pending, with significant recurrence of the fluid today. 4. Atrial fibrillation with RVR in a patient with chronic atrial fibrillation. 5. History of peripheral vascular disease. 6. Coronary artery disease. 7. Benign essential hypertension. 8. Hyperlipidemia. 9. Cerebrovascular accident. 10.Previous history of tobacco use. PLAN: The patient actually may have 2 primaries. The breast cancer may have spread to the lung and all the changes to relate to the breast cancer or she could have another cancer, i.e., lung cancer in addition to the breast malignancy. The patient's pleural fluid cytology is pending. That will help a lot. She will be back by tomorrow. In the meantime, she may benefit from another thoracentesis and/or PleurX catheter depending on what the fluid shows. Additional recommendations and suggestions are forthcoming. Prognosis is very poor given her age and current situation. We will continue to follow. MMODL / IJN: [id number] /
--- NOTE | 2018-12-25 15:53 | P.PN ---
Subjective 88-year-old the female was admitted for hypoxic respiratory failure found to have right-sided pleural effusion patient appears to have malignant effusion primary the being longer the breast mostly breast and patient underwent core biopsy of the breast. Patient is on 4 L of onset doesn't use any oxygen at home. appears to have postobstructive pneumonia for which patient is on antibiotic with Omnicef. There is a significant lesion in the my and mid right lung with involvement of superoir Vena cava. 12/24/2018 Patient respiratory status improved, patient remains hyponatremic etiology of hyponatremia is not clear. Patient was started on free water restriction along with IV normal saline and will obtain urine random sodium urine random creatinine urine and serum osmolarity TSH and nephrology consultation 12/25/2018 Patient's serum sodium did drop with IV fluids and appears to have hypervolemic hyponatremia patient was started on Lasix and patient had increasing pleural effusion on the right side which led to have an episode of hypoxemia last night Constitutional: Denied any fatigue denied any fever. Cardio vascular: denied any chest pain, palpitations Gastrointestinal denied any nausea vomiting Pulmonary: Patient does have shortness of breath Neurologic denied any new focal deficits All inpatient medications were reviewed and appropriate changes in these medications as dictated in the interval history and assessment and plan. Objective - Vital Signs Vital signs: Vital Signs Temp 98.1 F 12/25/18 14:30 Pulse 101 H 12/25/18 14:30 Resp 16 12/25/18 14:30 BP 127/72 12/25/18 14:30 Pulse Ox 94 L 12/25/18 14:30 Intake & Output 12/24/18 12/25/18 12/25/18 18:59 06:59 18:59 Intake Total 850 Balance 850 Weight 75.07 kg 76.7 kg Intake: Intake, IV Titration 250 Amount Magnesium Sulfate-D5w Pmx 100 1 gm In Dextrose/Water 1 100ml.bag @ 100 mls/hr IVPB Q1H [facility] Rx#: [id number] Sodium Chloride 0.9% 1, 150 000 ml @ 75 mls/hr IV . [id number] [facility] Rx#:[id number] Oral 600 Other: Voiding Method Toilet Bedside Commode # Voids 1 2 4 # Bowel Movements 1 1 3 - Exam PHYSICAL EXAMINATION: GENERAL: The patient is alert and oriented x3, not in any acute distress. Well developed, well nourished. HEENT: Pupils are round and equally reacting to light. EOMI. No scleral icterus. No conjunctival pallor. Normocephalic, atraumatic. No pharyngeal erythema. No thyromegaly. CARDIOVASCULAR: S1 and S2 present. No murmurs, rubs, or gallops. PULMONARY: Rhonchus breath sounds ABDOMEN: Soft, nontender, nondistended, normoactive bowel sounds. No palpable organomegaly. MUSCULOSKELETAL: No joint swelling or deformity. EXTREMITIES: No cyanosis, clubbing, or pedal edema. NEUROLOGICAL: Gross neurological examination did not reveal any focal deficits. SKIN: No rashes. - Labs CBC & Chem 7: 12/25/18 06:56 12/25/18 06:56 Labs: Abnormal Lab Results - Last 24 Hours (Table) 12/24/18 12/24/18 12/25/18 Range/Units 07:43 19:01 06:56 WBC 11.5 H (3.8-10.6) k/uL RBC 5.47 H (3.80-5.40) m/uL Neutrophils # 9.1 H (1.3-7.7) k/uL Sodium 122 L (137-145) mmol/L Chloride (98-107) mmol/L Glucose (74-99) mg/dL Osmolality 259 L (280-301) mosm/kg Magnesium (1.6-2.3) mg/dL 12/25/18 Range/Units 06:56 WBC (3.8-10.6) k/uL RBC (3.80-5.40) m/uL Neutrophils # (1.3-7.7) k/uL Sodium 125 L (137-145) mmol/L Chloride 87 L (98-107) mmol/L Glucose 115 H (74-99) mg/dL Osmolality (280-301) mosm/kg Magnesium 1.3 L (1.6-2.3) mg/dL Microbiology - Last 24 Hours (Table) 12/20/18 11:11 Blood Culture - Preliminary Blood No Growth after 120 hours 12/22/18 11:00 Gram Stain - Preliminary Pleural Fluid Body Fluid Culture - Preliminary Assessment and Plan Plan: Acute hypoxic respiratory failure secondary to the right-sided pleural effusion and postobstructive pneumonia patient is an above-mentioned antibiotics we'll continue to wean off oxygen and the patient 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 Patient's effusion appears to be getting worse Hyponatremia: Patient appears to have hypervolemic hyponatremia still remains a concern of his ADH patient was started on Lasix. will be on free water restriction -Possible breast cancer, with possible metastases to the lung patient underwent core biopsy . Atrial fibrillation presently rate controlled, patient is on Eliquis which will be continued Peripheral vascular disease e Abdomen benign prostatic appropriate -Hyperlipidemia -CVA in the past -Insomnia secondary to hospitalization asked nursing staff not to pickle maker the patient in the middle of night and will use Ambien instead of Xanax
--- NOTE | 2018-12-25 20:02 | PN ---
PROGRESS NOTE DATE OF SERVICE: 12/25/2018. REASON FOR FOLLOWUP: 1. Abnormal x-ray and question pneumonia. 2. Right foot callus. INTERVAL COURSE: Patient is afebrile. The patient did have a problem with shortness of breath this morning, but no chest pain. No cough. No nausea, vomiting. No abdominal pain or any diarrhea. Denies pain to the right foot area. PHYSICAL EXAMINATION: Blood pressure 127/72 with a pulse of 101, temperature 98.1. She is 94% on 4 L nasal cannula. General description is an elderly female up in a chair in no distress. RESPIRATORY SYSTEM: Unlabored breathing. Decreased breath sounds in the bases. No wheeze. HEART: S1, S2. Regular rate and rhythm. ABDOMEN: Soft, no tenderness. LABS: Hemoglobin is 13.4, white count of 11.5. BUN of 12, creatinine 0.72 improved. Culture has been negative so far. DIAGNOSTIC IMPRESSION AND PLAN: 1. Patient with admission to the hospital with difficulty breathing with evidence of possible pneumonia and pleural fluid. The patient did have a CT this morning showing large right-sided effusion. Pulmonary is following the patient, currently covered with . 2. Right foot plantar callus. Offloading. Keep the area moist. Continue supportive care. MMODL / IJN: [id number] /
[2018-12-25] MEDS: ALPRAZolam 0.25 MG TAB PO PRN (21:55)
[2018-12-26] MEDS: amLODIPine 10 MG TAB PO SCH (07:58)
[2018-12-26] MEDS: PRAVASTATIN SODIUM 40 MG TAB PO SCH (07:58)
[2018-12-26] MEDS: LOSARTAN 50 MG TAB PO SCH (07:58)
[2018-12-26] MEDS: MULTIVITAMINS, THERA 1 EACH TAB PO SCH (07:59)
[2018-12-26] MEDS: METOPROLOL TARTRATE 50 MG TAB PO SCH ×2 (07:59→21:41)
[2018-12-26] MEDS: APIXABAN 2.5 MG TABLET PO SCH ×2 (07:59→21:40)
[2018-12-26] MEDS: cloNIDine HCL 0.1 MG TAB PO SCH ×3 (07:59→21:41)
[2018-12-26] MEDS: PANTOPRAZOLE 40 MG TABLET PO SCH (07:59)
[2018-12-26] MEDS: AZITHROMYCIN 500 MG TAB PO SCH (07:59)
[2018-12-26 08:28] LABS: Basophils % (A) 0 %; Eosinophils # (A) 0.1 k/uL (0-0.7); Eosinophils % (A) 1 %; HCT 41.3 % (34.0-46.0); Hypochromasia Slight; Lymphocytes # (A) 1.1 k/uL (1.0-4.8); Lymphocytes % (A) 11 %; MCH 25.3 pg (25.0-35.0); MCHC 31.5 g/dL (31.0-37.0); MCV 80.4 fL (80.0-100.0); Mean Platelet Volume 7.9; Monocytes # (A) 0.8 k/uL (0-1.0); Monocytes % (A) 8 %; Neutrophils # (A) 7.9 k/uL (1.3-7.7); Neutrophils % (A) 79 %; Platelet Count 390 k/uL (150-450); RBC 5.13 m/uL (3.80-5.40); RDW 15.1 % (11.5-15.5)
[2018-12-26 08:46] LABS: Calcium 8.6 mg/dL (8.4-10.2); Magnesium 1.7 mg/dL (1.6-2.3); Potassium 4.5 mmol/L (3.5-5.1)
[2018-12-26] MEDS: IPRATROPIUM-ALBUTEROL 3 ML NEB INHALATION SCH ×4 (08:57→20:16)
--- NOTE | 2018-12-26 12:58 | PN ---
PROGRESS NOTE DATE OF SERVICE: 12/26/2018 REASON FOR FOLLOWUP: 1. Abnormal x-ray, question of pneumonia. 2. Right foot callus. INTERVAL HISTORY: The patient is afebrile. The patient has been comfortably. She denies having any chest pain. Occasional cough. No sputum production. No nausea, vomiting, abdominal pain or diarrhea. No pain to the right foot area. PHYSICAL EXAMINATION: On examination, blood pressure 150/78 with a pulse of 89, temperature 97.9. She is 93% on 4 L nasal cannula. General description is an elderly female up in the chair in no distress. RESPIRATORY SYSTEM: Unlabored breathing with decreased breath sounds in the bases. No wheeze. HEART: S1, S2. Regular rate and rhythm. ABDOMEN: Soft, no tenderness. LABS: Hemoglobin 13, white count of 10. BUN of 14, creatinine 0.75. Her blood and sputum cultures have been negative. DIAGNOSTIC IMPRESSION AND PLAN: 1. Patient with abnormal x-ray with pleural effusion, possible with question of possible disease, status post thoracocentesis with cytology currently pending. Cultures have been negative. Breast biopsy has been positive for malignancy. pneumonia. 2. Right foot plantar callus. Local care with . Continue supportive care. MMODL / IJN: [id number] /
--- NOTE | 2018-12-26 14:52 | P.PN ---
Subjective Progress Note Date: 12/26/18 Principal diagnosis: pleural Effusion Cytology reviewed and negative for malignant cells Objective - Vital Signs Vital signs: Vital Signs Temp 98.0 F 12/26/18 12:22 Pulse 80 12/26/18 13:36 Resp 16 12/26/18 12:22 BP 135/80 12/26/18 12:22 Pulse Ox 97 12/26/18 12:22 Intake & Output 12/25/18 12/26/18 12/26/18 18:59 06:59 18:59 Intake Total 1048 240 600 Balance 1048 240 600 Weight 75.9 kg Intake: Intake, IV Titration 250 Amount Magnesium Sulfate-D5w Pmx 100 1 gm In Dextrose/Water 1 100ml.bag @ 100 mls/hr IVPB Q1H [facility] Rx#: [id number] Sodium Chloride 0.9% 1, 150 000 ml @ 75 mls/hr IV . [id number] [facility] Rx#:[id number] Oral 798 240 600 Other: Voiding Method Bedside Commode Bedside Commode # Voids 4 1 2 # Bowel Movements 3 - Exam - Constitutional General appearance: Present: mild distress - EENT Eyes: Present: EOMI ENT: Present: hearing grossly normal, normal oropharynx - Respiratory Respiratory: right: diminished - Cardiovascular Rhythm: regular Heart sounds: normal: S1, S2 - Gastrointestinal General gastrointestinal: Present: soft - Neurologic Neurologic: Present: CNII-XII intact - Musculoskeletal Musculoskeletal: Present: generalized weakness, strength equal bilaterally - Psychiatric Psychiatric: Present: A&O x's 3, appropriate affect - Labs CBC & Chem 7: 12/26/18 07:07 12/26/18 07:07 Labs: Abnormal Lab Results - Last 24 Hours (Table) 12/25/18 12/26/18 12/26/18 Range/Units 17:14 07:07 07:07 Neutrophils # 7.9 H (1.3-7.7) k/uL Sodium 124 L 126 L (137-145) mmol/L Chloride 87 L (98-107) mmol/L Glucose 107 H (74-99) mg/dL Microbiology - Last 24 Hours (Table) 12/20/18 11:11 Blood Culture - Final Blood No Growth after 144 hours 12/22/18 11:00 Gram Stain - Final Pleural Fluid Body Fluid Culture - Final Assessment and Plan Plan: Neglected Right Breast mass: - The biopsy results are now available, and confirm ductal carcinoma of the breast. By markers are pending at this time. The pathology and implications were discussed with her in detail. The breast cancer is at least locally advanced. It is not known if the lung mass and pleural effusion represent metastatic disease or separate primary. The patient was advised that if the pleural fluid cytology also showed breast cancer, then this would prove stage IV disease. In that case the intent of treatment would be palliative. The actual treatment regimen will depend on the biomarker status. If the tumor was hormone receptor positive, then upfront hormonal manipulation would be the mainstay of treatment. However in case of triple negative disease, chemotherapeutic regimens would be the only treatment options. Lung mass: - At this time it is not known of this represents metastatic disease or second primary. Cytology of the pleural fluid is negative. The patient was advised that as this cytology was negative, and the nature of the lung mass and the pleural effusion would be still unknown. In that situation additional tissue diagnosis from the lung mass would need to be obtained. Right Pleural effusion - The patient is status post thoracentesis with cytology negative. Recommend Follow-up in office after discharge as molecular testing for ER/CO/HER2 are still pending, if positive can discuss initiation of hormonal or HER2 treatment
--- NOTE | 2018-12-26 14:53 | P.PN ---
Subjective 88-year-old the female was admitted for hypoxic respiratory failure found to have right-sided pleural effusion patient appears to have malignant effusion primary the being longer the breast mostly breast and patient underwent core biopsy of the breast. Patient is on 4 L of onset doesn't use any oxygen at home. appears to have postobstructive pneumonia for which patient is on antibiotic with Omnicef. There is a significant lesion in the my and mid right lung with involvement of superoir Vena cava. 12/24/2018 Patient respiratory status improved, patient remains hyponatremic etiology of hyponatremia is not clear. 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 Patient remains on 2 L of oxygen. Patient is requesting to go home patient heart rate is controlled patient is quite weak patient is high risk for readmission, because of high chance of recurrence of pleural effusion. Patient wanted to go home as well at rehab Constitutional: Denied any fatigue denied any fever. Cardio vascular: denied any chest pain, palpitations Gastrointestinal denied any nausea vomiting Pulmonary: Patient does have shortness of breath Neurologic denied any new focal deficits All inpatient medications were reviewed and appropriate changes in these medications as dictated in the interval history and assessment and plan. Objective - Vital Signs Vital signs: Vital Signs Temp 98.0 F 12/26/18 12:22 Pulse 80 12/26/18 13:36 Resp 16 12/26/18 12:22 BP 135/80 12/26/18 12:22 Pulse Ox 97 12/26/18 12:22 Intake & Output 12/25/18 12/26/18 12/26/18 18:59 06:59 18:59 Intake Total 1048 240 600 Balance 1048 240 600 Weight 75.9 kg Intake: Intake, IV Titration 250 Amount Magnesium Sulfate-D5w Pmx 100 1 gm In Dextrose/Water 1 100ml.bag @ 100 mls/hr IVPB Q1H [facility] Rx#: [id number] Sodium Chloride 0.9% 1, 150 000 ml @ 75 mls/hr IV . [id number] [facility] Rx#:[id number] Oral 798 240 600 Other: Voiding Method Bedside Commode Bedside Commode # Voids 4 1 2 # Bowel Movements 3 - Exam PHYSICAL EXAMINATION: GENERAL: The patient is alert and oriented x3, not in any acute distress. Well developed, well nourished. HEENT: Pupils are round and equally reacting to light. EOMI. No scleral icterus. No conjunctival pallor. Normocephalic, atraumatic. No pharyngeal erythema. No thyromegaly. CARDIOVASCULAR: S1 and S2 present. No murmurs, rubs, or gallops. PULMONARY: Rhonchus breath sounds ABDOMEN: Soft, nontender, nondistended, normoactive bowel sounds. No palpable organomegaly. MUSCULOSKELETAL: No joint swelling or deformity. EXTREMITIES: No cyanosis, clubbing, or pedal edema. NEUROLOGICAL: Gross neurological examination did not reveal any focal deficits. SKIN: No rashes. - Labs CBC & Chem 7: 12/26/18 07:07 12/26/18 07:07 Labs: Abnormal Lab Results - Last 24 Hours (Table) 12/25/18 12/26/18 12/26/18 Range/Units 17:14 07:07 07:07 Neutrophils # 7.9 H (1.3-7.7) k/uL Sodium 124 L 126 L (137-145) mmol/L Chloride 87 L (98-107) mmol/L Glucose 107 H (74-99) mg/dL Microbiology - Last 24 Hours (Table) 12/20/18 11:11 Blood Culture - Final Blood No Growth after 144 hours 12/22/18 11:00 Gram Stain - Final Pleural Fluid Body Fluid Culture - Final Assessment and Plan Plan: Acute hypoxic respiratory failure secondary to the right-sided pleural effusion and postobstructive pneumonia patient is an above-mentioned antibiotics we'll continue to wean off oxygen and the patient 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 Patient's effusion appears to be stable today Hyponatremia: Patient appears to have hypervolemic hyponatremia still remains a concern of his ADH patient was started on Lasix. will be on free water restriction no improvement in serum sodium -Possible breast cancer, with possible metastases to the lung patient underwent core biopsy . Which is showing invasive ductal carcinoma Atrial fibrillation presently rate controlled, patient is on Eliquis which will be continued Peripheral vascular disease e Abdomen benign prostatic appropriate -Hyperlipidemia -CVA in the past -Insomnia secondary to hospitalization
--- NOTE | 2018-12-26 15:28 | CDI ---
Documentation Clarification Form Date: 12/26/2018 3:16:32 PM From: Garima EstebanMelissaSADAF ji, CCDS Admit Date: 12/21/2018 10:49:00 AM Patient Name: Nikki Faith Visit Number: [id number] Discharge Date: ATTENTION: The Clinical Documentation Specialists (CDI) and [facility] Coding Staff appreciate your assistance in clarifying documentation. Please respond to the clarification below the line at the bottom and electronically sign. The CDI & [facility] Coding staff will review the response and follow-up if needed. Please note: Queries are made part of the Legal Health Record. If you have any questions, please contact the author of this message via ITS. Dr. Isabella Davis: Per the attending/admitting physician History & Physical: "Pneumonia with sepsis." Per the subsequent attending progress notes: "Patient appears to have postobstructive pneumonia on antibiotic Omnicef." History/Risk Factors: Atrial fibrillation, former smoker. Clinical Indicators: Presented with SOB & sputum production, fever & chills, diagnosed with pneumonia & sepsis, breast lesion which has now been diagnosed with possible stage IV breast CA with malignant pleural effusion & possible metastatic or primary lung lesion. Admission VS: T 97.5*, P 116^, R 20 (cough), BP 131/70, PO 93 ra Admission LAB: WBC 16.1^, neut 12.7^, Lactic acid (1.3) Blood culture: neg after 144 hrs, Sputum cs final: rare positive cocci, Body fluid culture: no organisms. Treatment: Albuterol INH, IV Azithromycin, IV Rocephin, IV fluid rate 100, Omnicef. Please clarify if the above diagnosis of pneumonia with sepsis was: Present/active this admission Treated and resolved this admission Ruled out Other, please specify Clinically unable to determine (Last Revision: April 2018-New) Present/active this admission MTDD
[2018-12-26] MEDS: FUROSEMIDE 10 MG/ML 2 ML VIAL IV SCH ×2 (15:48→21:42)
--- NOTE | 2018-12-26 15:55 | PN ---
PROGRESS NOTE The patient is seen for followup for hyponatremia. The patient had been on hydrochlorothiazide as outpatient, which is currently on hold. She was diagnosed with breast cancer. She also has bilateral lung masses. The serum sodium had dropped to 122 while patient was on saline from August 13 and therefore, currently she is off of IV fluids. The patient does state that she feels her legs are more swollen. She is currently not on any Lasix. She did receive a dose of IV Lasix yesterday at 20 mg. PHYSICAL EXAMINATION: On examination today, blood pressure is 135/80, heart rate 84 per minute. She is afebrile. Examination of the heart S1, S2. Examination of the lungs, bilateral breath sounds are heard. Decreased breath sounds at bases. Abdomen is soft, obese, nontender. Examination of lower extremities shows trace edema bilaterally. 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 LAB: Shows sodium 126 this morning, potassium 4.5, BUN 14, serum creatinine 0.75, hemoglobin of 13.0 g/dL. ASSESSMENT: 1. Hyponatremia. The patient is currently hypervolemic. 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 At this time, I will diurese the patient. Her sodium has improved since yesterday and she did get one dose of IV Lasix yesterday. I will repeat another dose of Lasix this morning and this evening and if her sodium does not improve significantly following the diuretics, she will be started on tolvaptan. The patient is encouraged to increase her oral intake and maintain some degree of free water restriction. 2. Breast cancer with lung masses with right pleural effusion, likely malignant. 3. Atrial fibrillation with controlled ventricular response maintained on Eliquis. PLAN: Repeat IV Lasix this morning and tonight. Repeat sodium this evening and had tolvaptan if serum sodium does not continue to improve. MMODL / IJN: [id number] /
--- NOTE | 2018-12-26 16:21 | P.PN ---
Subjective Progress Note Date: 12/26/18 Principal diagnosis: Acute hypoxic respiratory failure secondary to the possibility of pneumonia,, or possibility of metastatic breast cancer with obstruction and postobstructive right upper lobe atelectasis On 12/21/2016 patient seen in follow-up on medical surgical floor. She is resting comfortably in bed, in no acute distress, denies any chest pain, denies any worsening dyspnea. Hemodynamically on 4 L of oxygen with a pulse ox of 97%, she is afebrile, hemodynamically stable, lung sounds reveal diminished breath sounds at the bases, and some scattered rhonchi. Patient has been started on breathing treatments, antibiotics in the form of Zithromax and Rocephin. She has not been able to provide a sputum specimen. Blood culture is pending. follow up chest x-rays pending. On 12/26/2018 patient seen in follow-up on medical surgical floor. She is sitting up in the chair, in no acute distress, pulse ox on 4 L of oxygen is 97%, afebrile, hemodynamically stable, she does still get some shortness of breath with activity, otherwise no evidence of acute distress, no use of accessory muscles of breathing. Lung sounds are diminished. No rhonchi, no wheezing. Does have a congested nonproductive cough. Blood and sputum cultures show no growth, pleural blood cultures are negative thus far, preliminary Gram stain showed no growth after 4 days. The fluid cytology revealed no cytologically malignant cells. 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 Medical oncology is following, and awaiting the results of biomarkers. These labs have been reviewed, showing a white blood cell, 10.0, hemoglobin of 13.0, serum sodium of 126, potassium is 4.5, chloride is 87, CO2 is 30, BUN is 14, creatinine 0.75. Patient continues on Zithromax, nebulized bronchodilators. She was given a dose of Lasix today per nephrology. Objective - Vital Signs Vital signs: Vital Signs Temp 98.0 F 12/26/18 12:22 Pulse 80 12/26/18 13:36 Resp 16 12/26/18 12:22 BP 135/80 12/26/18 12:22 Pulse Ox 97 12/26/18 12:22 Intake & Output 12/25/18 12/26/18 12/26/18 18:59 06:59 18:59 Intake Total 1048 240 600 Balance 1048 240 600 Weight 75.9 kg 75.9 kg Intake: Intake, IV Titration 250 Amount Magnesium Sulfate-D5w Pmx 100 1 gm In Dextrose/Water 1 100ml.bag @ 100 mls/hr IVPB Q1H [facility] Rx#: [id number] Sodium Chloride 0.9% 1, 150 000 ml @ 75 mls/hr IV . [id number] [facility] Rx#:[id number] Oral 798 240 600 Other: Voiding Method Bedside Commode Bedside Commode # Voids 4 1 2 # Bowel Movements 3 - Exam GENERAL EXAM: Alert, active, on 4 L of oxygen with a pulse ox of 97%, comfortable in no apparent distress. HEAD: Normocephalic/atraumatic. EYES: Normal reaction of pupils, equal size. Conjunctiva pink, sclera white. NOSE: Clear with pink turbinates. THROAT: No erythema or exudates. NECK: No masses, no JVD, no thyroid enlargement, no adenopathy. CHEST: No chest wall deformity. Symmetrical expansion. LUNGS: Equal air entry with diminished breath sounds at the bases CVS: Regular rate and rhythm, normal S1 and S2, no gallops, no murmurs, no rubs ABDOMEN: Soft, nontender. No hepatosplenomegaly, normal bowel sounds, no guarding or rigidity. EXTREMITIES: No clubbing, no edema, no cyanosis, 2+ pulses and upper and lower extremities. MUSCULOSKELETAL: Muscle strength and tone normal. SPINE: No scoliosis or deformity SKIN: No rashes CENTRAL NERVOUS SYSTEM: Alert and oriented -3. No focal deficits, tone is normal in all 4 extremities. PSYCHIATRIC: Alert and oriented -3. Appropriate affect. Intact judgment and insight. - Labs CBC & Chem 7: 12/26/18 07:07 12/26/18 07:07 Labs: Abnormal Lab Results - Last 24 Hours (Table) 12/25/18 12/26/18 12/26/18 Range/Units 17:14 07:07 07:07 Neutrophils # 7.9 H (1.3-7.7) k/uL Sodium 124 L 126 L (137-145) mmol/L Chloride 87 L (98-107) mmol/L Glucose 107 H (74-99) mg/dL Microbiology - Last 24 Hours (Table) 12/20/18 11:11 Blood Culture - Final Blood No Growth after 144 hours 12/22/18 11:00 Gram Stain - Final Pleural Fluid Body Fluid Culture - Final Assessment and Plan Plan: Assessment: #1. Acute hypoxic respiratory failure secondary to the possibility of pneumonia, and the chest x-ray showed right upper lobe opacity with right pleural effusion and atelectasis, CT chest with contrast showed the possibility of right breast mass and lower collapse of the right upper lobe concerning for lung cancer with obstruction or metastasis from breast cancer with postobstructive right upper lobe atelectasis. Patient had right-sided thoracentesis on 12/22/2018 removal of 950 mL of pleural fluid and cytology and cultures were negative. Pleural fluid analysis showed transudative fluid #2. Large right pleural effusion and associated multifocal atelectasis, ultrasound of the chest showed 11.3 cm pocket on the right, right-sided thoracentesis is planned for tomorrow, on 12/22/2018 patient had right-sided thoracentesis, pleural fluid liters and cytology were negative #3. Highly suspicious left lower lobe pulmonary nodules concerning for metastasis with mediastinal adenopathy #4. Right breast lesion with biopsies positive for invasive moderately differentiated ductal carcinoma at least locally advanced #4. Afib with RVR #5. Chronic atrial fibrillation on chronic anticoagulation #6. History of peripheral vascular disease #7. Coronary artery disease #8. Hypertension #9. Hyperlipidemia #10. 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 Her now continue to monitor, continue current medical treatment. We'll obtain follow-up chest x-ray tomorrow I performed a history & physical examination of the patient and discussed their management with my nurse practitioner, Angelica Cross. I reviewed the nurse practitioner's note and agree with the documented findings and plan of care. Lung sounds are positive for coarse rhonchi. The findings and the impression was discussed with the patient. I attest to the documentation by the nurse practitioner. Time with Patient: Less than 30
[2018-12-26 16:35] LABS: CA27.29 Breast Ca Marker 62.5 U/mL (0.0-38.5)
[2018-12-26] MEDS ORDERED: TEMAZEPAM 7.5 MG CAP PO PRN (19:30)
[2018-12-26] MEDS: ALPRAZolam 0.25 MG TAB PO PRN (22:36)
[2018-12-26] MEDS: ACETAMINOPHEN TAB 500 MG TAB PO PRN (22:36)
[2018-12-27] MEDS: IPRATROPIUM-ALBUTEROL 3 ML NEB INHALATION SCH ×4 (08:18→20:29)
--- NOTE | 2018-12-27 09:18 | XR ---
EXAMINATION TYPE: XR chest 2V DATE OF EXAM: 12/27/2018 COMPARISON: 12/25/2018 HISTORY: Follow-up for right pleural effusion TECHNIQUE: Frontal and lateral views of the chest are obtained. FINDINGS: There is now complete opacification of the right hemithorax. No significant mediastinal sh ift is seen as it is unchanged from the prior and the patient is slightly rotated. There is mild diff use osseous demineralization and old fracture deformity of the right humerus. Mild degenerative ascencio es of the spine and moderate acromioclavicular arthropathy are also noted. Mild interstitial pulmonar y edema seen on the left. IMPRESSION: Now complete opacification of the right hemithorax, enlarging pleural effusion with comp onent of atelectasis suspected. Mild pulmonary vascular congestion is also seen on the left.
[2018-12-27] MEDS: AZITHROMYCIN 500 MG TAB PO SCH (09:35)
[2018-12-27] MEDS: PRAVASTATIN SODIUM 40 MG TAB PO SCH (09:35)
[2018-12-27] MEDS: FUROSEMIDE 10 MG/ML 2 ML VIAL IV SCH (09:35)
[2018-12-27] MEDS: LOSARTAN 50 MG TAB PO SCH (09:35)
[2018-12-27] MEDS: APIXABAN 2.5 MG TABLET PO SCH (09:35)
[2018-12-27] MEDS: MULTIVITAMINS, THERA 1 EACH TAB PO SCH (09:35)
[2018-12-27] MEDS: amLODIPine 10 MG TAB PO SCH (09:36)
[2018-12-27] MEDS: cloNIDine HCL 0.1 MG TAB PO SCH ×3 (09:36→22:14)
[2018-12-27] MEDS: METOPROLOL TARTRATE 50 MG TAB PO SCH ×2 (09:36→22:14)
[2018-12-27] MEDS: PANTOPRAZOLE 40 MG TABLET PO SCH (09:36)
[2018-12-27 12:19] LABS: Basophils % (A) 0 %; Eosinophils # (A) 0.1 k/uL (0-0.7); Eosinophils % (A) 1 %; HCT 41.4 % (34.0-46.0); HGB 13.3 gm/dL (11.4-16.0); Lymphocytes # (A) 0.7 k/uL (1.0-4.8); Lymphocytes % (A) 7 %; MCH 25.5 pg (25.0-35.0); MCHC 32.2 g/dL (31.0-37.0); MCV 79.4 fL (80.0-100.0); Mean Platelet Volume 7.2; Monocytes # (A) 0.7 k/uL (0-1.0); Monocytes % (A) 7 %; Neutrophils # (A) 7.7 k/uL (1.3-7.7); Neutrophils % (A) 83 %; Platelet Count 410 k/uL (150-450); RBC 5.21 m/uL (3.80-5.40); WBC 9.3 k/uL (3.8-10.6)
[2018-12-27 12:29] LABS: Calcium 8.7 mg/dL (8.4-10.2); Potassium 4.3 mmol/L (3.5-5.1)
--- NOTE | 2018-12-27 13:01 | P.PN ---
Subjective Progress Note Date: 12/27/18 Principal diagnosis: Acute hypoxic respiratory failure secondary to the possibility of pneumonia,, or possibility of metastatic breast cancer with obstruction and postobstructive right upper lobe atelectasis On 12/21/2016 patient seen in follow-up on medical surgical floor. She is resting comfortably in bed, in no acute distress, denies any chest pain, denies any worsening dyspnea. Hemodynamically on 4 L of oxygen with a pulse ox of 97%, she is afebrile, hemodynamically stable, lung sounds reveal diminished breath sounds at the bases, and some scattered rhonchi. Patient has been started on breathing treatments, antibiotics in the form of Zithromax and Rocephin. She has not been able to provide a sputum specimen. Blood culture is pending. follow up chest x-rays pending. On 12/26/2018 patient seen in follow-up on medical surgical floor. She is sitting up in the chair, in no acute distress, pulse ox on 4 L of oxygen is 97%, afebrile, hemodynamically stable, she does still get some shortness of breath with activity, otherwise no evidence of acute distress, no use of accessory muscles of breathing. Lung sounds are diminished. No rhonchi, no wheezing. Does have a congested nonproductive cough. Blood and sputum cultures show no growth, pleural blood cultures are negative thus far, preliminary Gram stain showed no growth after 4 days. The fluid cytology revealed no cytologically malignant cells. 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 Medical oncology is following, and awaiting the results of biomarkers. These labs have been reviewed, showing a white blood cell, 10.0, hemoglobin of 13.0, serum sodium of 126, potassium is 4.5, chloride is 87, CO2 is 30, BUN is 14, creatinine 0.75. Patient continues on Zithromax, nebulized bronchodilators. She was given a dose of Lasix today per nephrology. On 12/27/2018 patient seen in follow-up on medical surgical floor. She is sitting up in the chair, in no acute distress. She is on 4 L of oxygen with a pulse ox of 91-94%, afebrile, hemodynamically stable. Denies any worsening shortness of breath, lung sounds reveal some coarse rhonchi throughout, today's chest x-ray shows now complete opacification of the right hemithorax and enlarging pleural effusion with component of atelectasis and mild pulmonary vascular congestion. Patient is on IV Lasix 20 mg every 12 hours. We spoke today about possibility of bronchoscopy with biopsies of the right upper lobe mass, and the patient is undecided for now. Objective - Vital Signs Vital signs: Vital Signs Temp 97.7 F 12/27/18 11:17 Pulse 85 12/27/18 11:17 Resp 18 12/27/18 11:17 BP 121/65 12/27/18 11:17 Pulse Ox 91 L 12/27/18 11:17 Intake & Output 12/26/18 12/27/18 12/27/18 18:59 06:59 18:59 Intake Total 718 716 240 Balance 718 716 240 Weight 75.9 kg 75.4 kg Intake: Oral 718 716 240 Other: Voiding Method Bedside Commode Bedside Commode Bedside Commode # Voids 2 3 - Exam GENERAL EXAM: Alert, active, on 4 L of oxygen with a pulse ox of 94%, comfortable in no apparent distress. HEAD: Normocephalic/atraumatic. EYES: Normal reaction of pupils, equal size. Conjunctiva pink, sclera white. NOSE: Clear with pink turbinates. THROAT: No erythema or exudates. NECK: No masses, no JVD, no thyroid enlargement, no adenopathy. CHEST: No chest wall deformity. Symmetrical expansion. LUNGS: Equal air entry with diminished breath sounds at the bases, and scattered rhonchi CVS: Regular rate and rhythm, normal S1 and S2, no gallops, no murmurs, no rubs ABDOMEN: Soft, nontender. No hepatosplenomegaly, normal bowel sounds, no guarding or rigidity. EXTREMITIES: No clubbing, no edema, no cyanosis, 2+ pulses and upper and lower extremities. MUSCULOSKELETAL: Muscle strength and tone normal. SPINE: No scoliosis or deformity SKIN: No rashes CENTRAL NERVOUS SYSTEM: Alert and oriented -3. No focal deficits, tone is normal in all 4 extremities. PSYCHIATRIC: Alert and oriented -3. Appropriate affect. Intact judgment and insight. - Labs CBC & Chem 7: 12/27/18 11:42 12/27/18 11:42 Labs: Abnormal Lab Results - Last 24 Hours (Table) 12/26/18 12/26/1819 Range/Units 07:07 19:44 11:42 MCV 79.4 L (80.0-100.0) fL Lymphocytes # 0.7 L (1.0-4.8) k/uL Sodium 125 L (137-145) mmol/L Chloride (98-107) mmol/L Carbon Dioxide (22-30) mmol/L Glucose (74-99) mg/dL CA 27-29 62.5 H (0.0-38.5) U/mL 12/27/18 Range/Units 11:42 MCV (80.0-100.0) fL Lymphocytes # (1.0-4.8) k/uL Sodium 125 L (137-145) mmol/L Chloride 85 L (98-107) mmol/L Carbon Dioxide 32 H (22-30) mmol/L Glucose 116 H (74-99) mg/dL CA 27-29 (0.0-38.5) U/mL Microbiology - Last 24 Hours (Table) 12/20/18 11:11 Blood Culture - Final Blood No Growth after 144 hours 12/22/18 11:00 Gram Stain - Final Pleural Fluid Body Fluid Culture - Final Assessment and Plan Plan: Assessment: #1. Acute hypoxic respiratory failure secondary to the possibility of pneumonia, and the chest x-ray showed right upper lobe opacity with right pleural effusion and atelectasis, CT chest with contrast showed the possibility of right breast mass and lower collapse of the right upper lobe concerning for lung cancer with obstruction or metastasis from breast cancer with postobstructive right upper lobe atelectasis. Patient had right-sided thoracentesis on 12/22/2018 removal of 950 mL of pleural fluid and cytology and cultures were negative. Pleural fluid analysis showed transudative fluid #2. Large right pleural effusion and associated multifocal atelectasis, ultrasound of the chest showed 11.3 cm pocket on the right, right-sided thoracentesis is planned for tomorrow, on 12/22/2018 patient had right-sided thoracentesis, pleural fluid liters and cytology were negative #3. Highly suspicious left lower lobe pulmonary nodules concerning for metastasis with mediastinal adenopathy #4. Right breast lesion with biopsies positive for invasive moderately differentiated ductal carcinoma at least locally advanced #4. Afib with RVR #5. Chronic atrial fibrillation on chronic anticoagulation #6. History of peripheral vascular disease #7. Coronary artery disease #8. Hypertension #9. 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 Recurrent right pleural effusion, and today's chest x-ray shows complete opacification of the right hemithorax, and large pleural effusion with adjacent atelectasis. Clinically stable, on IV diuretics Plan: Chest x-ray has been reviewed, showing recurrent right-sided pleural effusion, and complete opacification of the right hemothorax, we'll continue with IV Lasix, clinically patient is stable, discussed possibility of bronchoscopy with biopsies the right upper lobe and the patient is undecided about that right now, will proceed with repeat right thoracentesis tomorrow. I performed a history & physical examination of the patient and discussed their management with my nurse practitioner, Angelica Cross. I reviewed the nurse practitioner's note and agree with the documented findings and plan of care. Lung sounds are positive for coarse rhonchi. The findings and the impression was discussed with the patient. I attest to the documentation by the nurse practitioner. Time with Patient: Less than 30
[2018-12-27] MEDS ORDERED: TOLVAPTAN 15 MG 1/2 TABLET PO ONE (13:14)
--- NOTE | 2018-12-27 14:02 | PN ---
PROGRESS NOTE Patient is seen for followup for hyponatremia which appears to be hypervolemic. Patient was started on Lasix yesterday. Her sodium level has stayed about the same at about 125 mEq/L. Overall, she states she is feeling slightly better. The patient is maintained on fluid restriction. Her urine osmolality was elevated at 544. CA 27 was elevated at 62.5. PHYSICAL EXAMINATION: Blood pressure this morning 121/65, heart rate 85 per minute. She is afebrile. Examination of the heart, S1, S2. Examination of the lungs, bilateral breath sounds are heard. Abdomen is soft, nontender. Examination of the lower extremities shows trace edema bilaterally. [employer] exam is grossly intact. ASSESSMENT: 1. Hyponatremia, mildly hypervolemic, maintained on Lasix. Serum sodium is about the same. 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 Continue with the Lasix for now. 2. Breast cancer with lung masses and right pleural effusion, likely malignant. 3. Atrial fibrillation with controlled ventricular response, maintained on Eliquis. PLAN: Continue with the Lasix, add tolvaptan and change the Lasix to p.o. Repeat labs this evening and again in a.m. MMODL / IJN: [id number] /
--- NOTE | 2018-12-27 14:02 | P.PN ---
Subjective Progress Note Date: 12/27/18 Principal diagnosis: pleural Effusion Cytology reviewed and negative for malignant cells therefore recommendations for Bronchoscopy and lung mass biopsy has been made. Objective - Vital Signs Vital signs: Vital Signs Temp 97.7 F 12/27/18 11:17 Pulse 85 12/27/18 11:17 Resp 18 12/27/18 11:17 BP 121/65 12/27/18 11:17 Pulse Ox 91 L 12/27/18 11:17 Intake & Output 12/26/18 12/27/18 12/27/18 18:59 06:59 18:59 Intake Total 718 716 240 Balance 718 716 240 Weight 75.9 kg 75.4 kg Intake: Oral 718 716 240 Other: Voiding Method Bedside Commode Bedside Commode Bedside Commode # Voids 2 3 - Exam - Constitutional General appearance: Present: mild distress - EENT Eyes: Present: EOMI ENT: Present: hearing grossly normal, normal oropharynx - Respiratory Respiratory: right: diminished - Cardiovascular Rhythm: regular Heart sounds: normal: S1, S2 - Gastrointestinal General gastrointestinal: Present: soft - Neurologic Neurologic: Present: CNII-XII intact - Musculoskeletal Musculoskeletal: Present: generalized weakness, strength equal bilaterally - Psychiatric Psychiatric: Present: A&O x's 3, appropriate affect - Labs CBC & Chem 7: 12/27/18 11:42 12/27/18 11:42 Labs: Abnormal Lab Results - Last 24 Hours (Table) 12/26/18 12/26/18 12/27/18 Range/Units 07:07 19:44 11:42 MCV 79.4 L (80.0-100.0) fL Lymphocytes # 0.7 L (1.0-4.8) k/uL Sodium 125 L (137-145) mmol/L Chloride (98-107) mmol/L Carbon Dioxide (22-30) mmol/L Glucose (74-99) mg/dL CA 27-29 62.5 H (0.0-38.5) U/mL 12/27/18 Range/Units 11:42 MCV (80.0-100.0) fL Lymphocytes # (1.0-4.8) k/uL Sodium 125 L (137-145) mmol/L Chloride 85 L (98-107) mmol/L Carbon Dioxide 32 H (22-30) mmol/L Glucose 116 H (74-99) mg/dL CA 27-29 (0.0-38.5) U/mL Microbiology - Last 24 Hours (Table) 12/20/18 11:11 Blood Culture - Final Blood No Growth after 144 hours Assessment and Plan Plan: Neglected Right Breast mass: - The biopsy results are now available, and confirm ductal carcinoma of the breast. ER/KS/HER2 testing still pending - The breast cancer is at least locally advanced. - If the tumor was hormone receptor positive, then upfront hormonal manipulation would be the mainstay of treatment. However in case of triple negative disease, chemotherapeutic regimens would be the only treatment options. Lung mass: - At this time it is not known of this represents metastatic disease or second primary. Cytology of the pleural fluid is negative. The patient was advised that as this cytology was negative, and the nature of the lung mass and the pleural effusion would be still unknown. In that situation additional tissue diagnosis from the lung mass would need to be obtained. - Dr. Antoine has discussed with pulmonary and will plan tissue biopsy of lung mass via bronchoscopy. Right Pleural effusion - The patient is status post thoracentesis with cytology negative. Await Biopsy of Lung mass and Pathology.
--- NOTE | 2018-12-27 14:21 | P.PN ---
Subjective 88-year-old the female was admitted for hypoxic respiratory failure found to have right-sided pleural effusion patient appears to have malignant effusion primary the being longer the breast mostly breast and patient underwent core biopsy of the breast. Patient is on 4 L of onset doesn't use any oxygen at home. appears to have postobstructive pneumonia for which patient is on antibiotic with Omnicef. There is a significant lesion in the my and mid right lung with involvement of superoir Vena cava. 12/24/2018 Patient respiratory status improved, patient remains hyponatremic etiology of hyponatremia is not clear. 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 Patient remains on 2 L of oxygen. Patient is requesting to go home patient heart rate is controlled patient is quite weak patient is high risk for readmission, because of high chance of recurrence of pleural effusion. Patient wanted to go home as well at rehab 12/27/2018 Apart from adenocarcinoma of the right breast patient may have another malignancy is a high school a possibility that patient has lung cancer. Had a lengthy discussion with the patient. A she has 2 options 1 to have treatment for her cancer #2 hospice. To make either decision will require a biopsy of the lung mass if it turns out to be lung cancer which has extremely poor prognosis , comfort care and hospice should because did at that time or if patient has breast cancer it's reasonable for her to get chemotherapy considering her good functionality in spite of his age. Patient is agreeable for bronchoscopy tomorrow. Her serum sodium remains at 125 minutes 4-5 Lasix. 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 Cardio vascular: denied any chest pain, palpitations Gastrointestinal denied any nausea vomiting Pulmonary: Patient does have shortness of breath Neurologic denied any new focal deficits All inpatient medications were reviewed and appropriate changes in these medications as dictated in the interval history and assessment and plan. Objective - Vital Signs Vital signs: Vital Signs Temp 97.7 F 12/27/18 11:17 Pulse 85 12/27/18 11:17 Resp 18 12/27/18 11:17 BP 121/65 12/27/18 11:17 Pulse Ox 91 L 12/27/18 11:17 Intake & Output 12/26/18 12/27/18 12/27/18 18:59 06:59 18:59 Intake Total 718 716 240 Balance 718 716 240 Weight 75.9 kg 75.4 kg Intake: Oral 718 716 240 Other: Voiding Method Bedside Commode Bedside Commode Bedside Commode # Voids 2 3 - Exam PHYSICAL EXAMINATION: GENERAL: The patient is alert and oriented x3, not in any acute distress. Well developed, well nourished. HEENT: Pupils are round and equally reacting to light. EOMI. No scleral icterus. No conjunctival pallor. Normocephalic, atraumatic. No pharyngeal erythema. No thyromegaly. CARDIOVASCULAR: S1 and S2 present. No murmurs, rubs, or gallops. PULMONARY: Rhonchus breath sounds bilaterally ABDOMEN: Soft, nontender, nondistended, normoactive bowel sounds. No palpable organomegaly. MUSCULOSKELETAL: No joint swelling or deformity. EXTREMITIES: No cyanosis, clubbing, or pedal edema. NEUROLOGICAL: Gross neurological examination did not reveal any focal deficits. SKIN: No rashes. - Labs CBC & Chem 7: 12/27/18 11:42 12/27/18 11:42 Labs: Abnormal Lab Results - Last 24 Hours (Table) 12/26/18 12/26/18 12/27/18 Range/Units 07:07 19:44 11:42 MCV 79.4 L (80.0-100.0) fL Lymphocytes # 0.7 L (1.0-4.8) k/uL Sodium 125 L (137-145) mmol/L Chloride (98-107) mmol/L Carbon Dioxide (22-30) mmol/L Glucose (74-99) mg/dL CA 27-29 62.5 H (0.0-38.5) U/mL 12/27/18 Range/Units 11:42 MCV (80.0-100.0) fL Lymphocytes # (1.0-4.8) k/uL Sodium 125 L (137-145) mmol/L Chloride 85 L (98-107) mmol/L Carbon Dioxide 32 H (22-30) mmol/L Glucose 116 H (74-99) mg/dL CA 27-29 (0.0-38.5) U/mL Microbiology - Last 24 Hours (Table) 12/20/18 11:11 Blood Culture - Final Blood No Growth after 144 hours Assessment and Plan Plan: Acute hypoxic respiratory failure secondary to the right-sided pleural effusion and postobstructive pneumonia patient is an above-mentioned antibiotics we'll continue to wean off oxygen and the patient 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 Patient's effusion appears to be stable today. 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 -Possible breast cancer, with possible metastases to the lung patient underwent core biopsy . Which is showing invasive ductal carcinoma Atrial fibrillation presently rate controlled, patient is on Eliquis which will be continued Peripheral vascular disease e Abdomen benign prostatic appropriate -Hyperlipidemia -CVA in the past -Insomnia secondary to hospitalization
--- NOTE | 2018-12-27 17:35 | PN ---
PROGRESS NOTE DATE OF SERVICE: 12/27/2018 REASON FOR FOLLOWUP: 1. Abnormal x-ray with possible effusion. 2. Right foot callus. INTERVAL HISTORY: The patient is currently afebrile. She is breathing more comfortably. Denies having any chest pain. Occasional cough. No abdominal pain or any diarrhea. No with the right foot callus area. PHYSICAL EXAMINATION: Blood pressure is 121/65 with a pulse of 85, temperature 97.7. She is 91% on 4 L nasal cannula. General description is an elderly female up in the chair in no distress. RESPIRATORY SYSTEM: Unlabored breathing with decreased breath sounds in the bases. No wheeze. HEART: S1, S2. Regular rate and rhythm. ABDOMEN: Soft. No tenderness. LABS: Hemoglobin 13.3, white count 9.3, BUN of 16, creatinine 0.71. Cultures remain negative. DIAGNOSTIC IMPRESSION AND PLAN: 1. Patient with abnormal x-ray with concern for likely underlying mass. Clinical suspicion low for underlying pneumonia; status post thoracocentesis cultures have been negative. 2. Right foot callus. No evidence of any cellulitis. Local care as ordered. Continue with supportive care. MMODL / IJN: [id number] /
[2018-12-27] MEDS ORDERED: HEPARIN SODIUM,PORCINE 5,000 UNIT/ML 1 ML VIAL IV PRN (20:00)
[2018-12-27] MEDS: HEPARIN SOD,PORK IN 0.45% NACL 25,000 UNIT in 0.45% NACL 1 250ML.BAG IV SCH (20:06)
[2018-12-27] MEDS: ALPRAZolam 0.25 MG TAB PO PRN (20:12)
[2018-12-27] MEDS: MELATONIN 5 MG TABLET PO SCH (22:14)
[2018-12-28] MEDS: IPRATROPIUM-ALBUTEROL 3 ML NEB INHALATION SCH ×4 (08:02→20:36)
[2018-12-28] MEDS ORDERED: FUROSEMIDE 40 MG TAB PO SCH (09:00)
[2018-12-28 09:31] LABS: Calcium 9.9 mg/dL (8.4-10.2); Potassium 4.7 mmol/L (3.5-5.1)
[2018-12-28 09:43] LABS: Basophils # (A) 0.1 k/uL (0-0.2); Basophils % (A) 1 %; Eosinophils # (A) 0.1 k/uL (0-0.7); Eosinophils % (A) 1 %; HCT 46.8 % (34.0-46.0); HGB 14.8 gm/dL (11.4-16.0); Hypochromasia Slight; Lymphocytes % (A) 17 %; MCH 25.7 pg (25.0-35.0); MCHC 31.6 g/dL (31.0-37.0); MCV 81.3 fL (80.0-100.0); Mean Platelet Volume 8.3; Monocytes # (A) 0.8 k/uL (0-1.0); Monocytes % (A) 7 %; Neutrophils # (A) 8.7 k/uL (1.3-7.7); Neutrophils % (A) 74 %; Platelet Count 366 k/uL (150-450); RBC 5.76 m/uL (3.80-5.40); WBC 11.8 k/uL (3.8-10.6)
[2018-12-28] MEDS: amLODIPine 10 MG TAB PO SCH (09:53)
[2018-12-28] MEDS: cloNIDine HCL 0.1 MG TAB PO SCH ×3 (09:54→21:17)
[2018-12-28] MEDS: LOSARTAN 50 MG TAB PO SCH (09:55)
[2018-12-28] MEDS: MULTIVITAMINS, THERA 1 EACH TAB PO SCH (09:55)
[2018-12-28] MEDS: METOPROLOL TARTRATE 50 MG TAB PO SCH ×2 (09:56→21:17)
[2018-12-28] MEDS: PRAVASTATIN SODIUM 40 MG TAB PO SCH (09:58)
[2018-12-28] MEDS: PANTOPRAZOLE 40 MG TABLET PO SCH (09:59)
[2018-12-28] MEDS: AZITHROMYCIN 500 MG TAB PO SCH (09:59)
--- NOTE | 2018-12-28 12:08 | PN ---
PROGRESS NOTE DATE OF SERVICE: 12/28/2018 REASON FOR FOLLOWUP: 1. Abnormal x-ray likely underlying malignancy less likely pneumonia. 2. Right foot callus. INTERVAL HISTORY: The patient is afebrile. The patient has been shortness of breath this morning. The bronchoscopy was and scheduled for a thoracocentesis today. No chest pain. No nausea, no vomiting. No abdominal pain or pain to the right foot plantar wound area. PHYSICAL EXAMINATION: On examination, her blood pressure is 151/82 with a pulse of 124, temperature 97.4. She is 92% on 6 L nasal cannula. General description is an elderly female up in the chair in no distress. RESPIRATORY SYSTEM: Unlabored breathing with decreased breath sounds at the bases. HEART: S1, S2. Regular rate and rhythm. ABDOMEN: Soft, no tenderness. Right foot currently with open wound. LABS: Hemoglobin is 14.8, white count 11.8. BUN of 15, creatinine 0.76. Pleural fluid culture negative. Blood culture negative. Sputum was negative. DIAGNOSTIC IMPRESSION AND PLAN: 1. Patient admitted to the hospital with difficulty breathing. The patient did have abnormal chest x-ray, more likely underlying malignancy less likely pneumonia. Scheduled for repeat thoracentesis to be done today followed by bronchoscopy. With the culture negative, no need for any systemic antibiotic therapy. 2. Patient with right foot plantar callus. Local care is ordered. Keep the area off the pressure. MMODL / IJN: [id number] /
--- NOTE | 2018-12-28 13:32 | CT ---
EXAMINATION TYPE: CT chest wo con DATE OF EXAM: 12/28/2018 COMPARISON: Chest x-ray 12/27/[address] dated 12/22/2018 HISTORY: Rt pleural effusion CT DLP: 518 mGycm. Automated Exposure Control for Dose Reduction was Utilized. TECHNIQUE: CT scan of the thorax is performed without IV contrast. FINDINGS: Lack of contrast could compromise sensitivity. LUNGS: The right hemithorax shows abnormal increased fluid with compressive atelectasis and right upp er lobe lung mass, the right lung is airless, right mainstem bronchus is occluded. Volume loss presen t in the right hemithorax. Stable nodularity present in the left lung. MEDIASTINUM: Lack of IV contrast is noted to limit evaluation for mediastinal and especially hilar ad enopathy. There are no definitive greater than 1 cm hilar or mediastinal lymph nodes. No cardiomega ly or pericardial effusion is seen. There are coronary artery calcifications, aorta is showing athero matous calcification, suspect there may be a calcified mitral annulus. OTHER: Right breast mass is again noted. IMPRESSION: Progression of findings seen on prior exam, occlusion of the right mainstem bronchus with an airless right hemithorax. Metastatic disease.
--- NOTE | 2018-12-28 14:01 | P.PN ---
Subjective Progress Note Date: 12/28/18 Principal diagnosis: pleural Effusion Cytology reviewed and negative for malignant cells therefore recommendations for Bronchoscopy and lung mass biopsy has been made. She was quite undecided on this as of yesterday. In the picture of requiring anticoagulation, SIADH, and possib le metastatic versus two primary cancers should assess for metastatic disease to brain. She has agreed to bronchoscopy although refuses imaging of brain Objective - Vital Signs Vital signs: Vital Signs Temp 97.8 F 12/28/18 12:05 Pulse 103 H 12/28/18 12:05 Resp 22 12/28/18 12:05 BP 123/72 12/28/18 12:05 Pulse Ox 92 L 12/28/18 12:05 Intake & Output 12/27/18 12/28/18 12/28/18 18:59 06:59 18:59 Intake Total 480 39.811 91.837 Balance 480 39.811 91.837 Weight 73.6 kg Intake: Intake, IV Titration 39.811 91.837 Amount Heparin Sod,Pork in 0.45% 39.811 91.837 NaCl 25,000 unit In 0.45 % NaCl 1 250ml.bag @ 12 UNITS/KG/HR 9.048 mls/hr IV .Q24H [facility] Rx#: [id number] Oral 480 Other: Voiding Method Bedside Commode Bedside Commode Bedside Commode # Voids 4 2 - Exam - Constitutional General appearance: Present: mild distress - EENT Eyes: Present: EOMI ENT: Present: hearing grossly normal, normal oropharynx - Respiratory Respiratory: right: diminished - Cardiovascular Rhythm: regular Heart sounds: normal: S1, S2 - Gastrointestinal General gastrointestinal: Present: soft - Neurologic Neurologic: Present: CNII-XII intact - Musculoskeletal Musculoskeletal: Present: generalized weakness, strength equal bilaterally - Psychiatric Psychiatric: Present: A&O x's 3, appropriate affect - Labs CBC & Chem 7: 12/28/18 08:51 12/28/18 08:51 Labs: Abnormal Lab Results - Last 24 Hours (Table) 12/27/18 12/28/18 12/28/18 Range/Units 23:53 08:51 08:51 WBC 11.8 H (3.8-10.6) k/uL RBC 5.76 H (3.80-5.40) m/uL Hct 46.8 H (34.0-46.0) % Neutrophils # 8.7 H (1.3-7.7) k/uL APTT 42.0 H (22.0-30.0) sec Sodium 133 L (137-145) mmol/L Chloride 91 L (98-107) mmol/L Carbon Dioxide 35 H (22-30) mmol/L Glucose 130 H (74-99) mg/dL 12/28/18 Range/Units 08:51 WBC (3.8-10.6) k/uL RBC (3.80-5.40) m/uL Hct (34.0-46.0) % Neutrophils # (1.3-7.7) k/uL APTT 56.5 H (22.0-30.0) sec Sodium (137-145) mmol/L Chloride (98-107) mmol/L Carbon Dioxide (22-30) mmol/L Glucose (74-99) mg/dL Assessment and Plan Plan: Neglected Right Breast mass: - The biopsy results are now available, and confirm ductal carcinoma of the breast. ER/CO/HER2 testing still pending - The breast cancer is at least locally advanced. - If the tumor was hormone receptor positive, then upfront hormonal manipulation would be the mainstay of treatment. However in case of triple negative disease, chemotherapeutic regimens would be the only treatment options. Lung mass: - At this time it is not known of this represents metastatic disease or second primary. Cytology of the pleural fluid is negative. The patient was advised that as this cytology was negative, and the nature of the lung mass and the pleural effusion would be still unknown. In that situation additional tissue diagnosis from the lung mass would need to be obtained. - Dr. Antoine has discussed with pulmonary and will plan tissue biopsy of lung mass via bronchoscopy. Right Pleural effusion - The patient is status post thoracentesis with cytology negative. Await Biopsy of Lung mass and Pathology. MRI Brain to Assess for metastatic Disease, patient initially refuses. CT Head with contrast if patient agrees Discussion regarding bronchoscopy and biopsy, she is agreeable, pulmonary plan to obtain tissue biopsy - prefer tissue biopsy as if pulmonary primary having enough tissue will give us options of molecular tests and potential treatments with Targeted therapies: (such as TKI) if positive which would be resonable and are relatively tolerable even at her age and other co-morbidities continue on heparin drip at this time in anticipation of procedure.
--- NOTE | 2018-12-28 14:18 | P.PN ---
Subjective Progress Note Date: 12/28/18 Principal diagnosis: Acute hypoxic respiratory failure secondary to the possibility of pneumonia,, or possibility of metastatic breast cancer with obstruction and postobstructive right upper lobe atelectasis On 12/21/2016 patient seen in follow-up on medical surgical floor. She is resting comfortably in bed, in no acute distress, denies any chest pain, denies any worsening dyspnea. Hemodynamically on 4 L of oxygen with a pulse ox of 97%, she is afebrile, hemodynamically stable, lung sounds reveal diminished breath sounds at the bases, and some scattered rhonchi. Patient has been started on breathing treatments, antibiotics in the form of Zithromax and Rocephin. She has not been able to provide a sputum specimen. Blood culture is pending. follow up chest x-rays pending. On 12/26/2018 patient seen in follow-up on medical surgical floor. She is sitting up in the chair, in no acute distress, pulse ox on 4 L of oxygen is 97%, afebrile, hemodynamically stable, she does still get some shortness of breath with activity, otherwise no evidence of acute distress, no use of accessory muscles of breathing. Lung sounds are diminished. No rhonchi, no wheezing. Does have a congested nonproductive cough. Blood and sputum cultures show no growth, pleural blood cultures are negative thus far, preliminary Gram stain showed no growth after 4 days. The fluid cytology revealed no cytologically malignant cells. 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 Medical oncology is following, and awaiting the results of biomarkers. These labs have been reviewed, showing a white blood cell, 10.0, hemoglobin of 13.0, serum sodium of 126, potassium is 4.5, chloride is 87, CO2 is 30, BUN is 14, creatinine 0.75. Patient continues on Zithromax, nebulized bronchodilators. She was given a dose of Lasix today per nephrology. On 12/27/2018 patient seen in follow-up on medical surgical floor. She is sitting up in the chair, in no acute distress. She is on 4 L of oxygen with a pulse ox of 91-94%, afebrile, hemodynamically stable. Denies any worsening shortness of breath, lung sounds reveal some coarse rhonchi throughout, today's chest x-ray shows now complete opacification of the right hemithorax and enlarging pleural effusion with component of atelectasis and mild pulmonary vascular congestion. Patient is on IV Lasix 20 mg every 12 hours. We spoke today about possibility of bronchoscopy with biopsies of the right upper lobe mass, and the patient is undecided for now. On 12/28/2018 patient seen in follow-up on medical surgical floor. SHe is currently on 6 L of oxygen with a pulse ox of 92%, she is afebrile. In no acute distress, oxygen requirement has increased. Yesterday chest x-ray revealed complete opacification of the right hemithorax and enlarging pleural effusion with component of atelectasis and pulmonary vascular congestion. However on phy sical exam there is air entry noted on the right side, and is unclear if pleural effusion is very large, and could possibly be related to postobstructive atelectasis, volume loss on the right. It was decided to proceed with the CT chest, and it showed right hemothorax the abnormal increased fluid with compressive atelectasis and right upper lobe lung mass, the right lung is airless, in the right mainstem bronchus is occluded, there is on loss present in the right hemothorax, and stable nodularity present in the left lung. Patient's Eliquis is on hold, patient was placed on IV heparin, which is on hold since this morning, for possibility of right-sided thoracentesis. Objective - Vital Signs Vital signs: Vital Signs Temp 97.8 F 12/28/18 12:05 Pulse 103 H 12/28/18 12:05 Resp 22 12/28/18 12:05 BP 123/72 12/28/18 12:05 Pulse Ox 92 L 12/28/18 12:05 Intake & Output 12/27/18 12/28/18 12/28/18 18:59 06:59 18:59 Intake Total 480 39.811 91.837 Balance 480 39.811 91.837 Weight 73.6 kg Intake: Intake, IV Titration 39.811 91.837 Amount Heparin Sod,Pork in 0.45% 39.811 91.837 NaCl 25,000 unit In 0.45 % NaCl 1 250ml.bag @ 12 UNITS/KG/HR 9.048 mls/hr IV .Q24H [facility] Rx#: [id number] Oral 480 Other: Voiding Method Bedside Commode Bedside Commode Bedside Commode # Voids 4 2 - Exam GENERAL EXAM: Alert, active, on 6 L of oxygen with a pulse ox of 94%, comfortable in no apparent distress. HEAD: Normocephalic/atraumatic. EYES: Normal reaction of pupils, equal size. Conjunctiva pink, sclera white. NOSE: Clear with pink turbinates. THROAT: No erythema or exudates. NECK: No masses, no JVD, no thyroid enlargement, no adenopathy. CHEST: No chest wall deformity. Symmetrical expansion. LUNGS: Equal air entry with diminished breath sounds at the bases, and scattered rhonchi CVS: Regular rate and rhythm, normal S1 and S2, no gallops, no murmurs, no rubs ABDOMEN: Soft, nontender. No hepatosplenomegaly, normal bowel sounds, no guarding or rigidity. EXTREMITIES: No clubbing, no edema, no cyanosis, 2+ pulses and upper and lower extremities. MUSCULOSKELETAL: Muscle strength and tone normal. SPINE: No scoliosis or deformity SKIN: No rashes CENTRAL NERVOUS SYSTEM: Alert and oriented -3. No focal deficits, tone is normal in all 4 extremities. PSYCHIATRIC: Alert and oriented -3. Appropriate affect. Intact judgment and insight. - Labs CBC & Chem 7: 12/28/18 08:51 12/28/18 08:51 Labs: Abnormal Lab Results - Last 24 Hours (Table) 12/27/18 12/28/18 12/28/18 Range/Units 23:53 08:51 08:51 WBC 11.8 H (3.8-10.6) k/uL RBC 5.76 H (3.80-5.40) m/uL Hct 46.8 H (34.0-46.0) % Neutrophils # 8.7 H (1.3-7.7) k/uL APTT 42.0 H (22.0-30.0) sec Sodium 133 L (137-145) mmol/L Chloride 91 L (98-107) mmol/L Carbon Dioxide 35 H (22-30) mmol/L Glucose 130 H (74-99) mg/dL 12/28/18 Range/Units 08:51 WBC (3.8-10.6) k/uL RBC (3.80-5.40) m/uL Hct (34.0-46.0) % Neutrophils # (1.3-7.7) k/uL APTT 56.5 H (22.0-30.0) sec Sodium (137-145) mmol/L Chloride (98-107) mmol/L Carbon Dioxide (22-30) mmol/L Glucose (74-99) mg/dL Assessment and Plan Plan: Assessment: #1. Acute hypoxic respiratory failure secondary to the possibility of pneumonia, and the chest x-ray showed right upper lobe opacity with right pleural effusion and atelectasis, CT chest with contrast showed the possibility of right breast mass and lower collapse of the right upper lobe concerning for lung cancer with obstruction or metastasis from breast cancer with postobstructive right upper lobe atelectasis. Patient had right-sided thoracentesis on 12/22/2018 removal of 950 mL of pleural fluid and cytology and cultures were negative. Pleural fluid analysis showed transudative fluid #2. Large right pleural effusion and associated multifocal atelectasis, ultrasound of the chest showed 11.3 cm pocket on the right, right-sided thoracentesis is planned for tomorrow, on 12/22/2018 patient had right-sided thoracentesis, pleural fluid liters and cytology were negative #3. Highly suspicious left lower lobe pulmonary nodules concerning for metastasis with mediastinal adenopathy #4. Right breast lesion with biopsies positive for invasive moderately differentiated ductal carcinoma at least locally advanced #4. Afib with RVR #5. Chronic atrial fibrillation on chronic anticoagulation #6. History of peripheral vascular disease #7. Coronary artery disease #8. Hypertension #9. Hyperlipidemia #10. 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 Recurrent right pleural effusion, and today's chest x-ray shows complete opacification of the right hemithorax, and large pleural effusion with adjacent atelectasis. Clinically stable, on IV diuretics Plan: Continue holding heparin, CT chest was obtained showing right hemithorax with abnormal increased fluid, and compressive atelectasis, volume loss, and occlusion of the right mainstem bronchus. We'll proceed with right-sided thoracentesis today, plan is proceed with bronchoscopy tomorrow for biopsies of the right upper lobe mass. I performed a history & physical examination of the patient and discussed their management with my nurse practitioner, Angelica Cross. I reviewed the nurse practitioner's note and agree with the documented findings and plan of care. Lung sounds are positive for coarse rhonchi. The findings and the impression was discussed with the patient. I attest to the documentation by the nurse prac titioner. Time with Patient: Less than 30
--- NOTE | 2018-12-28 15:21 | P.PN ---
Subjective 88-year-old the female was admitted for hypoxic respiratory failure found to have right-sided pleural effusion patient appears to have malignant effusion primary the being longer the breast mostly breast and patient underwent core biopsy of the breast. Patient is on 4 L of onset doesn't use any oxygen at home. appears to have postobstructive pneumonia for which patient is on antibiotic with Omnicef. There is a significant lesion in the my and mid right lung with involvement of superoir Vena cava. 12/24/2018 Patient respiratory status improved, patient remains hyponatremic etiology of hyponatremia is not clear. 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 Patient remains on 2 L of oxygen. Patient is requesting to go home patient heart rate is controlled patient is quite weak patient is high risk for readmission, because of high chance of recurrence of pleural effusion. Patient wanted to go home as well at rehab 12/27/2018 Apart from adenocarcinoma of the right breast patient may have another malignancy is a high school a possibility that patient has lung cancer. Had a lengthy discussion with the patient. A she has 2 options 1 to have treatment for her cancer #2 hospice. To make either decision will require a biopsy of the lung mass if it turns out to be lung cancer which has extremely poor prognosis , comfort care and hospice should because did at that time or if patient has breast cancer it's reasonable for her to get chemotherapy considering her good functionality in spite of his age. Patient is agreeable for bronchoscopy tomorrow. Her serum sodium remains at 125 minutes 4-5 Lasix. 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 Patient has other masses in the lung as well possibility of metastatic disease cannot be ruled out. Patient probably will need a bronchoscopy tomorrow have respiratory status is worse and is requiring more oxygen. Constitutional: Denied any fatigue denied any fever. Cardio vascular: denied any chest pain, palpitations Gastrointestinal denied any nausea vomiting Pulmonary: Patient does have shortness of breath Neurologic denied any new focal deficits All inpatient medications were reviewed and appropriate changes in these medications as dictated in the interval history and assessment and plan. Objective - Vital Signs Vital signs: Vital Signs Temp 97.8 F 12/28/18 12:05 Pulse 103 H 12/28/18 12:05 Resp 22 12/28/18 12:05 BP 123/72 12/28/18 12:05 Pulse Ox 92 L 12/28/18 12:05 Intake & Output 12/27/18 12/28/18 12/28/18 18:59 06:59 18:59 Intake Total 480 39.811 91.837 Balance 480 39.811 91.837 Weight 73.6 kg Intake: Intake, IV Titration 39.811 91.837 Amount Heparin Sod,Pork in 0.45% 39.811 91.837 NaCl 25,000 unit In 0.45 % NaCl 1 250ml.bag @ 12 UNITS/KG/HR 9.048 mls/hr IV .Q24H [facility] Rx#: [id number] Oral 480 Other: Voiding Method Bedside Commode Bedside Commode Bedside Commode # Voids 4 2 4 - Exam PHYSICAL EXAMINATION: GENERAL: The patient is alert and oriented x3, not in any acute distress. Well developed, well nourished. HEENT: Pupils are round and equally reacting to light. EOMI. No scleral icterus. No conjunctival pallor. Normocephalic, atraumatic. No pharyngeal erythema. No thyromegaly. CARDIOVASCULAR: S1 and S2 present. No murmurs, rubs, or gallops. PULMONARY: Rhonchus breath sounds in the left side very little air movement on the right side ABDOMEN: Soft, nontender, nondistended, normoactive bowel sounds. No palpable organomegaly. MUSCULOSKELETAL: No joint swelling or deformity. EXTREMITIES: No cyanosis, clubbing, or pedal edema. NEUROLOGICAL: Gross neurological examination did not reveal any focal deficits. SKIN: No rashes. - Labs CBC & Chem 7: 12/28/18 08:51 12/28/18 08:51 Labs: Abnormal Lab Results - Last 24 Hours (Table) 12/27/18 12/28/18 12/28/18 Range/Units 23:53 08:51 08:51 WBC 11.8 H (3.8-10.6) k/uL RBC 5.76 H (3.80-5.40) m/uL Hct 46.8 H (34.0-46.0) % Neutrophils # 8.7 H (1.3-7.7) k/uL APTT 42.0 H (22.0-30.0) sec Sodium 133 L (137-145) mmol/L Chloride 91 L (98-107) mmol/L Carbon Dioxide 35 H (22-30) mmol/L Glucose 130 H (74-99) mg/dL 12/28/18 Range/Units 08:51 WBC (3.8-10.6) k/uL RBC (3.80-5.40) m/uL Hct (34.0-46.0) % Neutrophils # (1.3-7.7) k/uL APTT 56.5 H (22.0-30.0) sec Sodium (137-145) mmol/L Chloride (98-107) mmol/L Carbon Dioxide (22-30) mmol/L Glucose (74-99) mg/dL Assessment and Plan Plan: Acute hypoxic respiratory failure secondary to the right-sided pleural effusion and postobstructive pneumonia patient is an above-mentioned antibiotics patient has complete right lung collapse because of the obstruction of the mass on the right main stem bronchus. 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 Improved now with Tolvaptan -Possible breast cancer, with possible metastases to the lung patient underwent core biopsy . Which is showing invasive ductal carcinoma Atrial fibrillation presently rate controlled, patient is on Eliquis which will be continued Peripheral vascular disease e Abdomen benign prostatic appropriate -Hyperlipidemia -CVA in the past -Insomnia secondary to hospitalization
--- NOTE | 2018-12-28 18:19 | XR ---
EXAMINATION: XR chest 1V DATE AND TIME: 12/28/2018 5:55 PM CLINICAL INDICATION: Dyspnea; thoracentesis TECHNIQUE: AP upright portable COMPARISON: 12/27/2018 at 8:54 AM FINDINGS: A white out of the right hemithorax remains, but the upper half of the right hemithorax is more lucen t than the prior study, consistent with the history of thoracentesis. A meniscus is seen at the right hilar level, consistent with at least moderate right pleural effusion presently, with complete silho uetting of the right hemidiaphragm. On the left, the lung is clear and well-expanded. The left pleural space is negative. No pneumothorax or other abnormal gas collections. No new radiographic findings. IMPRESSION: Postthoracentesis.
--- NOTE | 2018-12-28 20:41 | PN ---
PROGRESS NOTE Patient is seen for followup for hyponatremia. She did get a dose of tolvaptan yesterday. Patient is also maintained on Lasix. Her sodium did go up to 133 today. I will hold off on any further tolvaptan. We will repeat labs in a.m. At this time patient denies any significant complaints. PHYSICAL EXAMINATION: On examination today, she is comfortable. Blood pressure was 141/73, heart rate of about 100 per minute. Patient is afebrile. Examination of the heart S1 and S2. Examination of the lungs, bilateral breath sounds are heard. Decreased breath sounds bilateral bases, more on the right side. Abdomen is soft, nontender. Examination lower extremities shows no significant edema. LABS: Show sodium 133, potassium 4.7, hemoglobin 14.8. ASSESSMENT: 1. Hyponatremia secondary to SIADH status post one dose of tolvaptan yesterday. I will discontinue the Lasix and we will repeat labs in a.m. Serum sodium is up to 133 today. 2. Breast cancer with lung masses and right pleural effusion with a significant large effusion on the right side. 3. Atrial fibrillation with controlled ventricular response. PLAN: DC Lasix. Repeat labs in a.m.. MMODL / IJN: [id number] /
[2018-12-28] MEDS: ALPRAZolam 0.25 MG TAB PO PRN (21:17)
[2018-12-28] MEDS: MELATONIN 5 MG TABLET PO SCH (21:18)
[2018-12-28] MEDS: HEPARIN SOD,PORK IN 0.45% NACL 25,000 UNIT in 0.45% NACL 1 250ML.BAG IV SCH (21:20)
[2018-12-29] MEDS: TEMAZEPAM 7.5 MG CAP PO PRN ×2 (01:09→22:16)
--- NOTE | 2018-12-29 01:15 | PCN ---
PROCEDURE NOTE PREOPERATIVE DIAGNOSIS: Right-sided pleural effusion. POSTOP DIAGNOSIS: Right sided pleural effusion. Indication Pleural effusion. A time-out was completed verifying correct patient, procedure, site, positioning , and implant (s) or special equipment if applicable. Ultrasound guidance was not used and appropriate fluid pocket was identified and marked. Patient was positioned, prepped and draped in usual sterile fashion. Lidocaine was used to anesthetize the area. A Thoracentesis catheter was introduced into the pleural space and fluid was removed. Blood loss was none. A chest x-ray was ordered to evaluate for pneumothorax. Total Fluid Removed 1.2 L. Color of Fluid: Dark turbid yellowish in color. Fluid was sent for appropriate laboratory tests. Patient tolerated the procedure well and there were no complications. Same. Procedure was done without ultrasound guidance. A total of 1.2 L of pleural fluid was aspirated from the right lung without any major difficulties. No complications. No pneumothorax. The fluid was turbid yellowish in color. Bronchoscopy is to follow knowing that there was a cutoff sign and obstruction of the right mainstem bronchus is suspected on the CT scan findings. Bronchoscopies to follow in a.m. MMODL / IJN: [id number] /
[2018-12-29] MEDS: IPRATROPIUM-ALBUTEROL 3 ML NEB INHALATION SCH ×4 (07:30→19:32)
[2018-12-29] MEDS: METOPROLOL TARTRATE 50 MG TAB PO SCH ×2 (08:20→20:57)
[2018-12-29 09:37] LABS: Basophils # (A) 0.1 k/uL (0-0.2); Basophils % (A) 1 %; Eosinophils # (A) 0.1 k/uL (0-0.7); Eosinophils % (A) 1 %; HCT 47.6 % (34.0-46.0); HGB 14.8 gm/dL (11.4-16.0); Hypochromasia Slight; Lymphocytes # (A) 2.1 k/uL (1.0-4.8); Lymphocytes % (A) 16 %; MCH 25.2 pg (25.0-35.0); MCHC 31.1 g/dL (31.0-37.0); MCV 81.1 fL (80.0-100.0); Mean Platelet Volume 6.8; Monocytes # (A) 0.7 k/uL (0-1.0); Monocytes % (A) 6 %; Neutrophils # (A) 9.8 k/uL (1.3-7.7); Neutrophils % (A) 76 %; Platelet Count 382 k/uL (150-450); RBC 5.86 m/uL (3.80-5.40); RDW 15.3 % (11.5-15.5)
[2018-12-29 09:52] LABS: Calcium 9.4 mg/dL (8.4-10.2); Potassium 4.2 mmol/L (3.5-5.1)
[2018-12-29] MEDS ORDERED: IV FLUID CONTINUATION 1,000 ML IV ONE (11:00)
[2018-12-29] MEDS ORDERED: MIDAZOLAM 2 MG/2 ML VIAL ONE (11:19)
[2018-12-29] MEDS ORDERED: PROPOFOL 10 MG/ML 20 ML VIAL IV ONE (11:19)
[2018-12-29] MEDS ORDERED: KETAMINE 10 MG/ML 20 ML VIAL ONE (11:19)
[2018-12-29] MEDS ORDERED: LIDOCAINE 1% INJ 10MG/ML (20 ML MDV) ONE (11:19)
[2018-12-29] MEDS ORDERED: LIDOCAINE 2% INJ 20 MG/ML INTRATRACH ONE (11:23)
[2018-12-29] MEDS: HEPARIN SOD,PORK IN 0.45% NACL 25,000 UNIT in 0.45% NACL 1 250ML.BAG IV SCH (11:47)
[2018-12-29] MEDS: amLODIPine 10 MG TAB PO SCH (12:57)
[2018-12-29] MEDS: cloNIDine HCL 0.1 MG TAB PO SCH ×3 (12:57→20:56)
[2018-12-29] MEDS: LOSARTAN 50 MG TAB PO SCH (12:57)
[2018-12-29] MEDS: PANTOPRAZOLE 40 MG TABLET PO SCH (12:57)
[2018-12-29] MEDS: PRAVASTATIN SODIUM 40 MG TAB PO SCH (12:58)
[2018-12-29] MEDS: MULTIVITAMINS, THERA 1 EACH TAB PO SCH (12:58)
--- NOTE | 2018-12-29 13:39 | P.PN ---
Subjective Progress Note Date: 12/29/18 Principal diagnosis: Acute hypoxic respiratory failure secondary to possibility of pneumonia, possibility of metastatic breast cancer with obstruction and postobstructive right upper lobe atelectasis. Patient is seen today 12/29/2018 in follow-up on the regular medical floor. C urrently awake and alert in no acute distress. She is maintaining O2 saturations in the mid 90s on 6 L high flow nasal cannula. Currently afebrile. Hemodynamically stable. She is status post right-sided thoracentesis with 1.2 L of pleural fluid removed. Cultures and cytology pending. Sputum cultures revealed no growth. Blood cultures revealed no growth. White count 13.0. Hemoglobin 14.8. Creatinine 0.91. The plan is for bronchoscopy and possible biopsies today. Objective - Vital Signs Vital signs: Vital Signs Temp 98.2 F 12/29/18 12:50 Pulse 99 12/29/18 12:50 Resp 18 12/29/18 12:50 BP 123/67 12/29/18 12:50 Pulse Ox 96 12/29/18 12:50 Intake & Output 12/28/18 12/29/18 12/29/18 18:59 06:59 18:59 Intake Total 91.837 100 Output Total 1100 Balance -1008.163 100 Weight 70.1 kg Intake: IV 100 Intake, IV Titration 91.837 Amount Heparin Sod,Pork in 0.45% 91.837 NaCl 25,000 unit In 0.45 % NaCl 1 250ml.bag @ 12 UNITS/KG/HR 9.048 mls/hr IV .Q24H [facility] Rx#: [id number] Output: Other 1100 Other: Voiding Method Bedside Commode Bedside Commode Bedside Commode # Voids 4 2 - Exam - Exam GENERAL EXAM: Alert, active, on 6 L of oxygen with a pulse ox of 96%, comfortable in no apparent distress. HEAD: Normocephalic/atraumatic. EYES: Normal reaction of pupils, equal size. Conjunctiva pink, sclera white. NOSE: Clear with pink turbinates. THROAT: No erythema or exudates. NECK: No masses, no JVD, no thyroid enlargement, no adenopathy. CHEST: No chest wall deformity. Symmetrical expansion. LUNGS: Equal air entry with diminished breath sounds at the bases, with scattered rhonchi CVS: Regular rate and rhythm, normal S1 and S2, no gallops, no murmurs, no rubs ABDOMEN: Soft, nontender. No hepatosplenomegaly, normal bowel sounds, no guarding or rigidity. EXTREMITIES: No clubbing, no edema, no cyanosis, 2+ pulses and upper and lower extremities. MUSCULOSKELETAL: Muscle strength and tone normal. SPINE: No scoliosis or deformity SKIN: No rashes CENTRAL NERVOUS SYSTEM: No focal deficits, tone is normal in all 4 extremities. PSYCHIATRIC: Alert and oriented -3. Appropriate affect. Intact judgment and insight. - Labs CBC & Chem 7: 12/29/18 08:33 12/29/18 08:33 Labs: Abnormal Lab Results - Last 24 Hours (Table) 12/29/18 12/29/18 Range/Units 08:33 08:33 WBC 13.0 H (3.8-10.6) k/uL RBC 5.86 H (3.80-5.40) m/uL Hct 47.6 H (34.0-46.0) % Neutrophils # 9.8 H (1.3-7.7) k/uL Sodium 135 L (137-145) mmol/L Chloride 90 L (98-107) mmol/L Carbon Dioxide 37 H (22-30) mmol/L BUN 18 H (7-17) mg/dL Glucose 126 H (74-99) mg/dL Assessment and Plan Assessment: Assessment: #1. Acute hypoxic respiratory failure secondary to right upper lobe opacity with right pleural effusion and atelectasis, CT chest with contrast showed the possibility of right breast mass and lower collapse of the right upper lobe concerning for lung cancer with obstruction or metastasis from breast cancer with postobstructive right upper lobe atelectasis. Status post bronchoscopy with biopsies on 12/29/2018. #2. Large right pleural effusion and associated multifocal atelectasis, status post right-sided thoracentesis on 12/22/2018 and again on 12/28/2018 #3. Highly suspicious left lower lobe pulmonary nodules concerning for metastasis with mediastinal adenopathy #4. 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 #5. Chronic atrial fibrillation on chronic anticoagulation #6. History of peripheral vascular disease #7. Coronary artery disease #8. Hypertension #9. Hyperlipidemia #10. History of CVA/TIA #11. History of nicotine dependence, currently in remission, carries [id number]-year smoking history Plan: The patient was seen and evaluated by Dr. Mosley. The plan is for bronchoscopy with biopsies today. In the interim, we'll continue with the current treatment plan. Oncology is on the case. We will continue to follow and make further recommendations based on her clinical status. I, the cosigning physician, performed a history & physical examination of the patient. Lungs sounds crackles in the bilateral posterior bases right greater than left. Maintaining good O2 saturations in the 90s on 6 L/m per nasal cannula.. I discussed the assessment and plan of care with my nurse practitioner, Dunia Jauregui. I attest to the above note as dictated by her.
--- NOTE | 2018-12-29 14:04 | PN ---
PROGRESS NOTE Patient is seen for followup for hyponatremia. She received a dose of tolvaptan yesterday. His serum sodium continues to improve. Today it is at 135. Patient is off of her diuretics. Overall, she states she is feeling better. She did have thoracentesis done yesterday. PHYSICAL EXAMINATION: This morning, blood pressure was 121/67, heart rate 92 per minute. She is afebrile. Examination of the heart, S1, S2. Examination of the lungs, bilateral breath sounds are heard. Abdomen is soft, nontender. Examination of the lower extremities shows no significant edema. LABS: Show sodium 135, potassium 4.2, chloride 90, BUN 18, creatinine 0.9, hemoglobin 14.8 g/dL. ASSESSMENT: 1. Hyponatremia, euvolemic, significantly improved. Patient received one dose of tolvaptan on 12/27/2018. She is currently off of Lasix. Serum sodium continues to improve. Patient liberalized her fluid restriction. 2. Breast cancer with lung masses and right pleural effusion. Highly suspicious for malignant effusion. 3. Atrial fibrillation with controlled ventricular response. PLAN: Continue off of Lasix. Repeat labs in a.m. Liberalize fluid restriction and serum sodium is higher tomorrow. MMODL / IJN: [id number] /
--- NOTE | 2018-12-29 15:01 | P.PN ---
Subjective 88-year-old the female was admitted for hypoxic respiratory failure found to have right-sided pleural effusion patient appears to have malignant effusion primary the being longer the breast mostly breast and patient underwent core biopsy of the breast. Patient is on 4 L of onset doesn't use any oxygen at home. appears to have postobstructive pneumonia for which patient is on antibiotic with Omnicef. There is a significant lesion in the my and mid right lung with involvement of superoir Vena cava. 12/24/2018 Patient respiratory status improved, patient remains hyponatremic etiology of hyponatremia is not clear. 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 Patient remains on 2 L of oxygen. Patient is requesting to go home patient heart rate is controlled patient is quite weak patient is high risk for readmission, because of high chance of recurrence of pleural effusion. Patient wanted to go home as well at rehab 12/27/2018 Apart from adenocarcinoma of the right breast patient may have another malignancy is a high school a possibility that patient has lung cancer. Had a lengthy discussion with the patient. A she has 2 options 1 to have treatment for her cancer #2 hospice. To make either decision will require a biopsy of the lung mass if it turns out to be lung cancer which has extremely poor prognosis , comfort care and hospice should because did at that time or if patient has breast cancer it's reasonable for her to get chemotherapy considering her good functionality in spite of his age. Patient is agreeable for bronchoscopy tomorrow. Her serum sodium remains at 125 minutes 4-5 Lasix. 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 Patient has other masses in the lung as well possibility of metastatic disease cannot be ruled out. Patient probably will need a bronchoscopy tomorrow have respiratory status is worse and is requiring more oxygen. 12/29/2018 Patient remains on 6 L with saturating at 96% as well as the nursing staff to cut down the oxygen. Patient had a 1.2 L of fluid removed yesterday did patient had a bronchoscopy in biopsy today. Apparently her breast biopsy his hormone positive. Which has normally good prognosis. Constitutional: Denied any fatigue denied any fever. Cardio vascular: denied any chest pain, palpitations Gastrointestinal denied any nausea vomiting Pulmonary: Patient does have shortness of breath Neurologic denied any new focal deficits All inpatient medications were reviewed and appropriate changes in these medications as dictated in the interval history and assessment and plan. Objective - Vital Signs Vital signs: Vital Signs Temp 98.2 F 12/29/18 12:50 Pulse 99 12/29/18 12:50 Resp 18 12/29/18 12:50 BP 123/67 12/29/18 12:50 Pulse Ox 96 12/29/18 12:50 Intake & Output 12/28/18 12/29/18 12/29/18 18:59 06:59 18:59 Intake Total 91.837 100 Output Total 1100 Balance -1008.163 100 Weight 70.1 kg Intake: IV 100 Intake, IV Titration 91.837 Amount Heparin Sod,Pork in 0.45% 91.837 NaCl 25,000 unit In 0.45 % NaCl 1 250ml.bag @ 12 UNITS/KG/HR 9.048 mls/hr IV .Q24H [facility] Rx#: [id number] Output: Other 1100 Other: Voiding Method Bedside Commode Bedside Commode Bedside Commode # Voids 4 2 - Exam PHYSICAL EXAMINATION: GENERAL: The patient is alert and oriented x3, not in any acute distress. Well developed, well nourished. HEENT: Pupils are round and equally reacting to light. EOMI. No scleral icterus. No conjunctival pallor. Normocephalic, atraumatic. No pharyngeal erythema. No thyromegaly. CARDIOVASCULAR: S1 and S2 present. No murmurs, rubs, or gallops. PULMONARY: left-sided is clear good air entry right side decreased air entry with some rhonchus breath sounds ABDOMEN: Soft, nontender, nondistended, normoactive bowel sounds. No palpable organomegaly. MUSCULOSKELETAL: No joint swelling or deformity. EXTREMITIES: No cyanosis, clubbing, or pedal edema. NEUROLOGICAL: Gross neurological examination did not reveal any focal deficits. SKIN: No rashes. - Labs CBC & Chem 7: 12/29/18 08:33 12/29/18 08:33 Labs: Abnormal Lab Results - Last 24 Hours (Table) 12/29/18 12/29/18 Range/Units 08:33 08:33 WBC 13.0 H (3.8-10.6) k/uL RBC 5.86 H (3.80-5.40) m/uL Hct 47.6 H (34.0-46.0) % Neutrophils # 9.8 H (1.3-7.7) k/uL Sodium 135 L (137-145) mmol/L Chloride 90 L (98-107) mmol/L Carbon Dioxide 37 H (22-30) mmol/L BUN 18 H (7-17) mg/dL Glucose 126 H (74-99) mg/dL Assessment and Plan Plan: Acute hypoxic respiratory failure secondary to the right-sided pleural effusion and postobstructive pneumonia patient is an above-mentioned antibiotics patient has complete right lung collapse because of the obstruction of the mass on the right main stem bronchus. 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 Improved now with Tolvaptan, Tolvaptone was discontinued -Possible breast cancer, with possible metastases to the lung patient underwent core biopsy . Which is showing invasive ductal carcinoma, hormone positive Atrial fibrillation presently rate controlled, patient is on Eliquis which will be continued Peripheral vascular disease e Abdomen benign prostatic appropriate -Hyperlipidemia -CVA in the past -Insomnia secondary to hospitalization
--- NOTE | 2018-12-29 15:27 | P.PCN ---
Date of Procedure: 12/29/18 Preoperative Diagnosis: Right lung opacification secondary to atelectasis/pleural effusion Postoperative Diagnosis: 1 complete loss of the right upper lobe bronchus secondary to endobronchial tumor and extrinsic compression 2 narrowing of the bronchus intermedius, by around 50%, mainly due to extrinsic compression 3 atelectatic changes in the segments of the right lower lobe and the right middle lobe Procedure(s) Performed: \ Flexible bronchoscopy, endobronchial biopsy of the right upper lobe, endobronchial brushing of the right upper lobe Anesthesia: MAC Surgeon: Kennedy Mosley Estimated Blood Loss (ml): 0 Pathology: other Condition: stable Disposition: floor Operative Findings: This is a flexible bronchoscopy that was done in the endoscopy suite. Noted the patient underwent a right-sided thoracentesis yesterday knowing that the patient had a completely opacified right lung. CAT scan of the chest also showed compressive atelectasis of the right lung in addition to a right upper lobe mass that was causing complete obstruction of the right upper lobe bronchus. For that reason, the flexible bronchoscope was done to visualize the patency of the bronchus intermedius and in same time established patient diagnoses regarding the right upper lobe mass. This patient was brought into the endoscopy suite. A timeout was obtained. Consent was obtained. Under conscious sedation the flexible bronchoscope was inserted to the right nostril. Left upper airway. The bronchoscope was gradually advanced into the posterior nasopharynx, oropharynx, and then to the larynx. All of these upper airway structures were within normal limits. No evidence of any abnormalities in the upper airway. No evidence of any dynamic obstruction. Epiglottis was visualized. It was within normal limits. Bronchoscope was moved to the vallecula and then to the arytenoids and then to the course. The true and the false vocal cords were within normal limits. A total of 2 mL of 1% lidocaine was applied to the vocal cord and following that the bronchoscope was advanced into the upper trachea. Examination of the trachea was within normal limits. The distal trachea there was some bloody hemorrhagic secretions and the secretions were suctioned out. The bronchoscope was moved to the right mainstem bronchus. The right upper lobe uptake was identified. It was a slit opening with evidence of endobronchial tumor completely obstructing the right upper lobe bronchus. In fact I was unable to pass the bronchoscope into the right upper lobe. The inflammatory changes in the mucosa growth in the right upper lobe bronchus was probably malignant in nature was very friable especially to minor touch induced by the bronchoscope. Then the bronchoscope was moved to the bronchus intermedius and the airway was found to be narrowed and there was diminished of the airway caliber by around 50%. This was mainly extrinsic compression of auscultation. There was some bloody this or secretions that were playing the bronchus intermedius there were suctioned out. I was able to identify the right middle lobe and right lower lobe bronchus and the various segments of these airways were compressed probably related to passive atelectasis from underlying pleural effusion. No other bronchial lesions identified at this level. Then the bronchoscope was moved to the left side and examination of the left mainstem bronchus left upper lobe bronchus left lower lobe bronchus and the various segments were done and they were all within normal limits. The bronchoscope was then moved to the right upper lobe and endobronchial biopsies of the right upper lobe was done using a forceps and a total of 4-5 passes were taken. Following that, and the bronchial brushing of the right upper lobe was done. The samples were sent. No evidence of any active bleeding. The residual rest or secretions were suctioned out and the bronchoscope was removed and the patient was transferred to recovery in stable condition. The procedure was terminated. No complications. Further recommendations are to follow based on the findings.
--- NOTE | 2018-12-29 17:36 | P.PN ---
Subjective Progress Note Date: 12/29/18 Principal diagnosis: pleural Effusion Status post bronch and mass lung Objective - Vital Signs Vital signs: Vital Signs Temp 98.2 F 12/29/18 12:50 Pulse 95 12/29/18 16:00 Resp 18 12/29/18 15:47 BP 123/67 12/29/18 12:50 Pulse Ox 96 12/29/18 12:50 Intake & Output 12/28/18 12/29/18 12/29/18 18:59 06:59 18:59 Intake Total 91.837 340 Output Total 1100 Balance -1008.163 340 Weight 70.1 kg Intake: IV 100 Intake, IV Titration 91.837 Amount Heparin Sod,Pork in 0.45% 91.837 NaCl 25,000 unit In 0.45 % NaCl 1 250ml.bag @ 12 UNITS/KG/HR 9.048 mls/hr IV .Q24H [facility] Rx#: [id number] Oral 240 Output: Other 1100 Other: Voiding Method Bedside Commode Bedside Commode Bedside Commode # Voids 4 2 3 - Exam - Constitutional General appearance: Present: mild distress - EENT Eyes: Present: EOMI ENT: Present: hearing grossly normal, normal oropharynx - Respiratory Respiratory: right: diminished - Cardiovascular Rhythm: regular Heart sounds: normal: S1, S2 - Gastrointestinal General gastrointestinal: Present: soft - Neurologic Neurologic: Present: CNII-XII intact - Musculoskeletal Musculoskeletal: Present: generalized weakness, strength equal bilaterally - Psychiatric Psychiatric: Present: A&O x's 3, appropriate affect - Labs CBC & Chem 7: 12/29/18 08:33 12/29/18 08:33 Labs: Abnormal Lab Results - Last 24 Hours (Table) 12/29/18 12/29/18 Range/Units 08:33 08:33 WBC 13.0 H (3.8-10.6) k/uL RBC 5.86 H (3.80-5.40) m/uL Hct 47.6 H (34.0-46.0) % Neutrophils # 9.8 H (1.3-7.7) k/uL Sodium 135 L (137-145) mmol/L Chloride 90 L (98-107) mmol/L Carbon Dioxide 37 H (22-30) mmol/L BUN 18 H (7-17) mg/dL Glucose 126 H (74-99) mg/dL Assessment and Plan Plan: Neglected Right Breast mass: - The biopsy results are now available, and confirm ductal carcinoma of the breast. ER/[place]/HER2 testing still pending - The breast cancer is at least locally advanced. - If the tumor was hormone receptor positive, then upfront hormonal manipulation would be the mainstay of treatment. However in case of triple negative disease, chemotherapeutic regimens would be the only treatment options. Lung mass: - At this time it is not known of this represents metastatic disease or second primary. Cytology of the pleural fluid is negative. The patient was advised that as this cytology was negative, and the nature of the lung mass and the pleural effusion would be still unknown. In that situation additional tissue diagnosis from the lung mass would need to be obtained. - Dr. Antoine has discussed with pulmonary and will plan tissue biopsy of lung mass via bronchoscopy. Right Pleural effusion - The patient is status post thoracentesis with cytology negative. Await Biopsy of Lung mass and Pathology. refusing MRI brain Await results of mass
--- NOTE | 2018-12-29 18:19 | P.PN ---
Subjective Progress Note Date: 12/29/18 The patient is an 88-year-old white female who was admitted with shortness of breath. Patient on this admission was noted to have a palpable mass in her right breast. Core biopsy was obtained at the bedside which revealed an invasive ductal carcinoma which was ER/ID positive and HER-2 negative. The pat ient was also noted to have a pleural effusion which has been tapped and this was negative for malignancy. However a CAT scan revealed a cutoff sign in the bronchus any bronchoscopy was performed today. Results of this are pending. This information was discussed with the patient's daughter. Objective - Vital Signs Vital signs: Vital Signs Temp 98.2 F 12/29/18 12:50 Pulse 95 12/29/18 16:00 Resp 18 12/29/18 15:47 BP 123/67 12/29/18 12:50 Pulse Ox 96 12/29/18 12:50 Intake & Output 12/28/18 12/29/18 12/29/18 18:59 06:59 18:59 Intake Total 91.837 340 Output Total 1100 Balance -1008.163 340 Weight 70.1 kg Intake: IV 100 Intake, IV Titration 91.837 Amount Heparin Sod,Pork in 0.45% 91.837 NaCl 25,000 unit In 0.45 % NaCl 1 250ml.bag @ 12 UNITS/KG/HR 9.048 mls/hr IV .Q24H [facility] Rx#: [id number] Oral 240 Output: Other 1100 Other: Voiding Method Bedside Commode Bedside Commode Bedside Commode # Voids 4 2 3 - Constitutional General appearance: Present: average body habitus - Respiratory Respiratory: right: diminished, left: CTA - Cardiovascular Heart sounds: normal: S1, S2 - Musculoskeletal Musculoskeletal Comment(s): reclining in bed - Additional findings Additional findings: awaiting results of bronchoscopy - Labs CBC & Chem 7: 12/29/18 08:33 12/29/18 08:33 Labs: Abnormal Lab Results - Last 24 Hours (Table) 12/29/18 12/29/18 Range/Units 08:33 08:33 WBC 13.0 H (3.8-10.6) k/uL RBC 5.86 H (3.80-5.40) m/uL Hct 47.6 H (34.0-46.0) % Neutrophils # 9.8 H (1.3-7.7) k/uL Sodium 135 L (137-145) mmol/L Chloride 90 L (98-107) mmol/L Carbon Dioxide 37 H (22-30) mmol/L BUN 18 H (7-17) mg/dL Glucose 126 H (74-99) mg/dL Assessment and Plan Assessment: Impression/plan: 1. Right breast malignancy 2. fluid right pleural space 3. s/p bronchoscopy await pathology
[2018-12-29] MEDS: MELATONIN 5 MG TABLET PO SCH (20:57)
[2018-12-29] MEDS: ALPRAZolam 0.25 MG TAB PO PRN (22:16)
[2018-12-29] MEDS: LACTATED RINGERS 1,000 ML IV SCH (22:17)
[2018-12-30] MEDS: IPRATROPIUM-ALBUTEROL 3 ML NEB INHALATION SCH ×4 (07:29→19:29)
[2018-12-30] MEDS: PRAVASTATIN SODIUM 40 MG TAB PO SCH (08:15)
[2018-12-30] MEDS: MULTIVITAMINS, THERA 1 EACH TAB PO SCH (08:16)
[2018-12-30] MEDS: amLODIPine 10 MG TAB PO SCH (08:16)
[2018-12-30] MEDS: PANTOPRAZOLE 40 MG TABLET PO SCH (08:16)
[2018-12-30] MEDS: LOSARTAN 50 MG TAB PO SCH (08:16)
[2018-12-30] MEDS: METOPROLOL TARTRATE 50 MG TAB PO SCH ×2 (08:16→21:25)
[2018-12-30] MEDS: cloNIDine HCL 0.1 MG TAB PO SCH ×3 (08:16→21:25)
[2018-12-30 09:03] LABS: Basophils # (A) 0.1 k/uL (0-0.2); Basophils % (A) 1 %; Eosinophils # (A) 0.2 k/uL (0-0.7); Eosinophils % (A) 1 %; HCT 46.1 % (34.0-46.0); HGB 14.4 gm/dL (11.4-16.0); Hypochromasia Slight; Lymphocytes # (A) 1.8 k/uL (1.0-4.8); Lymphocytes % (A) 14 %; MCH 26.1 pg (25.0-35.0); MCHC 31.2 g/dL (31.0-37.0); MCV 83.8 fL (80.0-100.0); Mean Platelet Volume 7.1; Monocytes # (A) 0.7 k/uL (0-1.0); Monocytes % (A) 5 %; Neutrophils # (A) 9.8 k/uL (1.3-7.7); Neutrophils % (A) 78 %; Platelet Count 400 k/uL (150-450); RDW 14.3 % (11.5-15.5); WBC 12.6 k/uL (3.8-10.6)
--- NOTE | 2018-12-30 09:08 | PN ---
PROGRESS NOTE Patient is seen for followup for hyponatremia which was secondary to SIADH. The patient received a dose of tolvaptan yesterday. His serum sodium has improved to 135. We do not have labs from today yet. Patient also has a significant pleural effusion for which she received thoracenteses. Patient also had bronchoscopy which showed complete loss of right upper lobe bronchus secondary to the lung tumor as well as narrowing of the bronchus intermedius from extrinsic compression. On examination today, patient is comfortable. Blood pressure was 117/70, heart rate 80 per minute. She is afebrile. Examination of the heart, S1, S2. Examination of the lungs, bilateral breath sounds are heard. Abdomen is soft, nontender. Examination of the lower extremities shows no significant edema. [employer] exam is grossly intact. LABS: Show sodium 135, potassium 4.2, BUN 18, serum creatinine 0.9. ASSESSMENT: 1. Hyponatremia from SIADH, improved with one dose of tolvaptan and fluid restriction. Patient is comfortable. We will repeat labs today. Patient is stable for discharge from Nephrology standpoint. 2. Lung cancer with large pleural effusion. PLAN: Follow up as outpatient on the serum sodium levels and avoid excessive free water intake. MMODL / IJN: [id number] /
--- NOTE | 2018-12-30 12:29 | XR ---
EXAMINATION TYPE: XR chest 2V DATE OF EXAM: 12/30/2018 COMPARISON: 12/28/2018 HISTORY: Right lung opacity and pleural effusion TECHNIQUE: Frontal and lateral views of the chest are obtained. FINDINGS: There is improved aeration of the right lung in comparison to the prior of 12/28/2018. Ther e remains a smaller right pleural effusion and right basilar airspace disease. There is strand-like l eft basilar airspace disease also seen. There is a partially obscured cardiomediastinal silhouette wi th hazy border over the medial right upper lobe near the superior vena cava and azygos confluence. Th ere is generalized osseous demineralization present. IMPRESSION: Overall improved aeration of the lungs however there remains a small layering right pleu ral effusion and bibasilar airspace disease as well as hazy opacity overlying the medial right upper lobe.
--- NOTE | 2018-12-30 12:50 | P.PN ---
Subjective Progress Note Date: 12/30/18 Principal diagnosis: Acute hypoxic respiratory failure secondary to the possibility of pneumonia,, or possibility of metastatic breast cancer with obstruction and postobstructive right upper lobe atelectasis On 12/21/2016 patient seen in follow-up on medical surgical floor. She is resting comfortably in bed, in no acute distress, denies any chest pain, denies any worsening dyspnea. Hemodynamically on 4 L of oxygen with a pulse ox of 97%, she is afebrile, hemodynamically stable, lung sounds reveal diminished breath sounds at the bases, and some scattered rhonchi. Patient has been started on breathing treatments, antibiotics in the form of Zithromax and Rocephin. She has not been able to provide a sputum specimen. Blood culture is pending. follow up chest x-rays pending. On 12/26/2018 patient seen in follow-up on medical surgical floor. She is sitting up in the chair, in no acute distress, pulse ox on 4 L of oxygen is 97%, afebrile, hemodynamically stable, she does still get some shortness of breath with activity, otherwise no evidence of acute distress, no use of accessory muscles of breathing. Lung sounds are diminished. No rhonchi, no wheezing. Does have a congested nonproductive cough. Blood and sputum cultures show no growth, pleural blood cultures are negative thus far, preliminary Gram stain showed no growth after 4 days. The fluid cytology revealed no cytologically malignant cells. 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 Medical oncology is following, and awaiting the results of biomarkers. These labs have been reviewed, showing a white blood cell, 10.0, hemoglobin of 13.0, serum sodium of 126, potassium is 4.5, chloride is 87, CO2 is 30, BUN is 14, creatinine 0.75. Patient continues on Zithromax, nebulized bronchodilators. She was given a dose of Lasix today per nephrology. On 12/27/2018 patient seen in follow-up on medical surgical floor. She is sitting up in the chair, in no acute distress. She is on 4 L of oxygen with a pulse ox of 91-94%, afebrile, hemodynamically stable. Denies any worsening shortness of breath, lung sounds reveal some coarse rhonchi throughout, today's chest x-ray shows now complete opacification of the right hemithorax and enlarging pleural effusion with component of atelectasis and mild pulmonary vascular congestion. Patient is on IV Lasix 20 mg every 12 hours. We spoke today about possibility of bronchoscopy with biopsies of the right upper lobe mass, and the patient is undecided for now. On 12/28/2018 patient seen in follow-up on medical surgical floor. SHe is currently on 6 L of oxygen with a pulse ox of 92%, she is afebrile. In no acute distress, oxygen requirement has increased. Yesterday chest x-ray revealed complete opacification of the right hemithorax and enlarging pleural effusion with component of atelectasis and pulmonary vascular congestion. However on phy sical exam there is air entry noted on the right side, and is unclear if pleural effusion is very large, and could possibly be related to postobstructive atelectasis, volume loss on the right. It was decided to proceed with the CT chest, and it showed right hemothorax the abnormal increased fluid with compressive atelectasis and right upper lobe lung mass, the right lung is airless, in the right mainstem bronchus is occluded, there is on loss present in the right hemothorax, and stable nodularity present in the left lung. Patient's Eliquis is on hold, patient was placed on IV heparin, which is on hold since this morning, for possibility of right-sided thoracentesis. On 12/30/2018 patient seen in follow-up on medical surgical floor. Is on 6 L of oxygen with a pulse ox of 97%, FiO2 down to 4 L. We'll continue to wean, no worsening dyspnea. Follow-up chest x-ray was done today showing overall improved aeration of the lungs, however there remains a small layering right pleural effusion and bibasilar airspace disease and hazy opacity over the medial right upper lobe. Pleural fluid cytology and his transbronchial needle biopsy still pending. Cultures are negative thus far. No fever or chills. Today's labs have been reviewed, with blood cell count is 12.6, hemoglobin is 14.4, no BMP was done. Sounds reveal some limited crackles at the right lower lobe, otherwise good air entry bilaterally, no rhonchi or wheezing. Objective - Vital Signs Vital signs: Vital Signs Temp 97.9 F 12/30/18 05:24 Pulse 82 12/30/18 07:40 Resp 18 12/30/18 05:24 BP 117/70 12/30/18 05:24 Pulse Ox 97 12/30/18 05:24 Intake & Output 12/29/18 12/30/18 12/30/18 18:59 06:59 18:59 Intake Total 340 240 Balance 340 240 Weight 70.8 kg Intake: IV 100 Oral 240 240 Other: Voiding Method Bedside Commode Bedside Commode Bedside Commode # Voids 3 1 - Exam GENERAL EXAM: Alert, active, on 4 L of oxygen with a pulse ox of 94%, comfortable in no apparent distress. HEAD: Normocephalic/atraumatic. EYES: Normal reaction of pupils, equal size. Conjunctiva pink, sclera white. NOSE: Clear with pink turbinates. THROAT: No erythema or exudates. NECK: No masses, no JVD, no thyroid enlargement, no adenopathy. CHEST: No chest wall deformity. Symmetrical expansion. LUNGS: Equal air entry with rales at right lower lobe, no rhonchi, no wheezes CVS: Regular rate and rhythm, normal S1 and S2, no gallops, no murmurs, no rubs ABDOMEN: Soft, nontender. No hepatosplenomegaly, normal bowel sounds, no guarding or rigidity. EXTREMITIES: No clubbing, no edema, no cyanosis, 2+ pulses and upper and lower extremities. MUSCULOSKELETAL: Muscle strength and tone normal. SPINE: No scoliosis or deformity SKIN: No rashes CENTRAL NERVOUS SYSTEM: Alert and oriented -3. No focal deficits, tone is normal in all 4 extremities. PSYCHIATRIC: Alert and oriented -3. Appropriate affect. Intact judgment and insight. - Labs CBC & Chem 7: 12/30/18 07:53 12/29/18 08:33 Labs: Abnormal Lab Results - Last 24 Hours (Table) 12/30/18 Range/Units 07:53 WBC 12.6 H (3.8-10.6) k/uL RBC 5.50 H (3.80-5.40) m/uL Hct 46.1 H (34.0-46.0) % Neutrophils # 9.8 H (1.3-7.7) k/uL Assessment and Plan Plan: Assessment: #1. Acute hypoxic respiratory failure secondary to the possibility of pneumonia, and the chest x-ray showed right upper lobe opacity with right pleural effusion and atelectasis, CT chest with contrast showed the possibility of right breast mass and lower collapse of the right upper lobe concerning for lung cancer with obstruction or metastasis from breast cancer with postobstructive right upper lobe atelectasis. Patient had right-sided thoracentesis on 12/22/2018 removal of 950 mL of pleural fluid and cytology and cultures were negative. Pleural fluid analysis showed transudative fluid #2. Large right pleural effusion and associated multifocal atelectasis, ultrasound of the chest showed 11.3 cm pocket on the right, right-sided thoracentesis is planned for tomorrow, on 12/22/2018 patient had right-sided thoracentesis, pleural fluid cultures and cytology were negative #3. Highly suspicious left lower lobe pulmonary nodules concerning for metastasis with mediastinal adenopathy #4. Right breast lesion with biopsies positive for invasive moderately differentiated ductal carcinoma at least locally advanced #4. Afib with RVR #5. Chronic atrial fibrillation on chronic anticoagulation #6. History of peripheral vascular disease #7. Coronary artery disease #8. Hypertension #9. Hyperlipidemia #10. 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 Recurrent right pleural effusion, and today's chest x-ray shows complete opacification of the right hemithorax, and large pleural effusion with adjacent atelectasis. Clinically stable, on IV diuretics Plan: Biopsies, pleural fluid cytology still pending at this time, cultures are pending, no fever or chills, breathing is improving, no acute events overnight, wean FiO2, increase activity as tolerated, from pulmonary perspective patient is stable for discharge to subacute rehab, possibly [facility] today. Repeat chest x- ray has been reviewed by Dr. Mosley, showing overall improved aeration of the lungs and the small layering right pleural effusion and bibasilar airspace disease and opacity overlying the medial right upper lobe. She will need outpatient follow-up with Dr. Last in the office in 7-10 days. I performed a history & physical examination of the patient and discussed their management with my nurse practitioner, Angelica Cross. I reviewed the nurse practitioner's note and agree with the documented findings and plan of care. Lung sounds are positive for coarse rhonchi. The findings and the impression was discussed with the patient. I attest to the documentation by the nurse practitioner. Time with Patient: Less than 30
[2018-12-30] MEDS ORDERED: RX INFO: IV CONTRAST WAS GIVEN 1 EACH MISC MISCELLANE PRN (13:00)
--- NOTE | 2018-12-30 13:05 | P.PN ---
Subjective Progress Note Date: 12/30/18 Principal diagnosis: pleural Effusion Status post bronch and mass lung, await path. Molecular Breast testing did return and ER/MD 90% positive, HER2 0-1+ (neg) Will Initiate Arimidex and since Refusing MRI Brain will order CT Head Objective - Vital Signs Vital signs: Vital Signs Temp 98 F 12/30/18 12:55 Pulse 106 H 12/30/18 12:55 Resp 17 12/30/18 12:55 BP 132/72 12/30/18 12:55 Pulse Ox 96 12/30/18 12:55 Intake & Output 12/29/18 12/30/18 12/30/18 18:59 06:59 18:59 Intake Total 340 240 Balance 340 240 Weight 70.8 kg Intake: IV 100 Oral 240 240 Other: Voiding Method Bedside Commode Bedside Commode Bedside Commode # Voids 3 1 - Exam - Constitutional General appearance: Present: mild distress - EENT Eyes: Present: EOMI ENT: Present: hearing grossly normal, normal oropharynx - Respiratory Respiratory: right: diminished - Cardiovascular Rhythm: regular Heart sounds: normal: S1, S2 - Gastrointestinal General gastrointestinal: Present: soft - Neurologic Neurologic: Present: CNII-XII intact - Musculoskeletal Musculoskeletal: Present: generalized weakness, strength equal bilaterally - Psychiatric Psychiatric: Present: A&O x's 3, appropriate affect - Labs CBC & Chem 7: 12/30/18 07:53 12/29/18 08:33 Labs: Abnormal Lab Results - Last 24 Hours (Table) 12/30/18 Range/Units 07:53 WBC 12.6 H (3.8-10.6) k/uL RBC 5.50 H (3.80-5.40) m/uL Hct 46.1 H (34.0-46.0) % Neutrophils # 9.8 H (1.3-7.7) k/uL Assessment and Plan Plan: Neglected Right Breast mass: - The biopsy results are now available, and confirm ductal carcinoma of the breast. ER/MD/HER2 testing still pending - The breast cancer is at least locally advanced. - If the tumor was hormone receptor positive, then upfront hormonal manipulation would be the mainstay of treatment. However in case of triple negative disease, chemotherapeutic regimens would be the only treatment options. Lung mass: - At this time it is not known of this represents metastatic disease or second primary. Cytology of the pleural fluid is negative. The patient was advised that as this cytology was negative, and the nature of the lung mass and the pleural effusion would be still unknown. In that situation additional tissue diagnosis from the lung mass would need to be obtained. - Dr. Antoine has discussed with pulmonary and will plan tissue biopsy of lung mass via bronchoscopy. Right Pleural effusion - The patient is status post thoracentesis with cytology negative. Await Biopsy of Lung mass and Pathology. refusing MRI brain, CT with contrast ordered Molecular testing on Breast mass resulted, will order Anastrazole to start now and continue Follow-up Dr. Antoine next week Await results of mass patient and educated on anastrazole (hormonal therapy). the treatment plan related to recommendations for chemotherapy or radiation are unknown at thi s time until the pathology is resulted. If TRUDI is needed to improve overall performance status first than she will continue on anastrazole prior to initiation of chemotherapy
[2018-12-30] MEDS: ANASTROZOLE 1 MG TAB PO SCH (14:36)
--- NOTE | 2018-12-30 16:41 | CT ---
EXAMINATION TYPE: CT brain w con DATE OF EXAM: 12/30/2018 COMPARISON: Correlation CT chest 12/28/2018 HISTORY: 88-year-old female initial staging. History of breast cancer. TECHNIQUE: Contiguous axial scanning of the brain performed with IV Contrast, patient injected with 8 0ml mL of Isovue 300. Coronal/sagittal reconstructions performed. CT DLP: 1171 mGycm Automated exposure control for dose reduction was used. FINDINGS: Encephalomalacia along the left postcentral gyrus. Secondary ex vacuo enlargement of the adjacent atr ium of the left lateral ventricle. Mild generalized ventriculomegaly likely secondary to central cere bral atrophy. Moderate to severe confluent white matter hypodensities both cerebral hemispheres. 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 No midline shift or herniation. No effacement of basal subarachnoid cisterns. Dural venous sinuses are patent. There is a vague 4 mm focus of nodular enhancement in the left basal ganglia probably vasculature (re rossi to axial image 26). MRI can increase sensitivity. Leftward nasal septal deviation. Paranasal sinuses and mastoid air cells are well pneumatized. Orbits and globes are intact. IMPRESSION: 1. VAGUE NODULAR FOCUS OF ENHANCEMENT WITHIN THE LEFT BASAL GANGLIA SUSPECTED TO REPRESENT VASCULATUR E RATHER THAN A SOLITARY TINY BRAIN METASTASIS THERE IS NO SURROUNDING VASOGENIC EDEMA. MRI CAN PA OVIDE HIGHER SENSITIVITY. 2. OLD LEFT PARIETAL LOBE INFARCT AND MODERATE TO SEVERE CONFLUENT CHANGES OF CHRONIC SMALL VESSEL IS CHEMIC DISEASE. 3. 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
--- NOTE | 2018-12-30 16:47 | P.PN ---
Subjective 88-year-old the female was admitted for hypoxic respiratory failure found to have right-sided pleural effusion patient appears to have malignant effusion primary the being longer the breast mostly breast and patient underwent core biopsy of the breast. Patient is on 4 L of onset doesn't use any oxygen at home. appears to have postobstructive pneumonia for which patient is on antibiotic with Omnicef. There is a significant lesion in the my and mid right lung with involvement of superoir Vena cava. 12/24/2018 Patient respiratory status improved, patient remains hyponatremic etiology of hyponatremia is not clear. 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 Patient remains on 2 L of oxygen. Patient is requesting to go home patient heart rate is controlled patient is quite weak patient is high risk for readmission, because of high chance of recurrence of pleural effusion. Patient wanted to go home as well at rehab 12/27/2018 Apart from adenocarcinoma of the right breast patient may have another malignancy is a high school a possibility that patient has lung cancer. Had a lengthy discussion with the patient. A she has 2 options 1 to have treatment for her cancer #2 hospice. To make either decision will require a biopsy of the lung mass if it turns out to be lung cancer which has extremely poor prognosis , comfort care and hospice should because did at that time or if patient has breast cancer it's reasonable for her to get chemotherapy considering her good functionality in spite of his age. Patient is agreeable for bronchoscopy tomorrow. Her serum sodium remains at 125 minutes 4-5 Lasix. 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 Patient has other masses in the lung as well possibility of metastatic disease cannot be ruled out. Patient probably will need a bronchoscopy tomorrow have respiratory status is worse and is requiring more oxygen. 12/29/2018 Patient remains on 6 L with saturating at 96% as well as the nursing staff to cut down the oxygen. Patient had a 1.2 L of fluid removed yesterday did patient had a bronchoscopy in biopsy today. Apparently her breast biopsy his hormone positive. Which has normally good prognosis. 12/30/2018 Patient has significant clinical improvement in her respiratory status we're able to bring down her arms and to 3 L. Patient can be discharged to subacute rehabilitation on 3 L hopefully she'll not require that either down the line. Patient had a CAT scan of the head she showed some suspicious nodular lesion can be metastatic lesion MRi will be done as an outpatient. Patient is ready to be discharged but unfortunately patient will need prior authorization because of which patient may end up needing to stay until Wednesday Constitutional: Denied any fatigue denied any fever. Cardio vascular: denied any chest pain, palpitations Gastrointestinal denied any nausea vomiting Pulmonary: Patient does have shortness of breath Neurologic denied any new focal deficits All inpatient medications were reviewed and appropriate changes in these medications as dictated in the interval history and assessment and plan. Objective - Vital Signs Vital signs: Vital Signs Temp 98 F 12/30/18 12:55 Pulse 106 H 12/30/18 12:55 Resp 17 12/30/18 12:55 BP 132/72 12/30/18 12:55 Pulse Ox 96 12/30/18 16:39 Intake & Output 12/29/18 12/30/18 12/30/18 18:59 06:59 18:59 Intake Total 340 240 Balance 340 240 Weight 70.8 kg 70.8 kg Intake: IV 100 Oral 240 240 Other: Voiding Method Bedside Commode Bedside Commode Bedside Commode # Voids 3 1 - Exam PHYSICAL EXAMINATION: GENERAL: The patient is alert and oriented x3, not in any acute distress. Well developed, well nourished. HEENT: Pupils are round and equally reacting to light. EOMI. No scleral icterus. No conjunctival pallor. Normocephalic, atraumatic. No pharyngeal erythema. No thyromegaly. CARDIOVASCULAR: S1 and S2 present. No murmurs, rubs, or gallops. PULMONARY: left-sided is clear good air entry right side decreased air entry with some rhonchus breath sounds ABDOMEN: Soft, nontender, nondistended, normoactive bowel sounds. No palpable organomegaly. MUSCULOSKELETAL: No joint swelling or deformity. EXTREMITIES: No cyanosis, clubbing, or pedal edema. NEUROLOGICAL: Gross neurological examination did not reveal any focal deficits. SKIN: No rashes. - Labs CBC & Chem 7: 12/30/18 07:53 12/29/18 08:33 Labs: Abnormal Lab Results - Last 24 Hours (Table) 12/30/18 Range/Units 07:53 WBC 12.6 H (3.8-10.6) k/uL RBC 5.50 H (3.80-5.40) m/uL Hct 46.1 H (34.0-46.0) % Neutrophils # 9.8 H (1.3-7.7) k/uL Assessment and Plan Plan: Acute hypoxic respiratory failure secondary to the right-sided pleural effusion and postobstructive pneumonia patient is an above-mentioned antibiotics patient has complete right lung collapse because of the obstruction of the mass on the right main stem bronchus. 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 Improved now with Tolvaptan, Tolvaptone was discontinued -Possible breast cancer, with possible metastases to the lung patient underwent core biopsy . Which is showing invasive ductal carcinoma, hormone positive Puja patient has a solitary nodular suspicious lesion on the CAT scan will need an MRI. Atrial fibrillation presently rate controlled, patient is on Eliquis which will be continued Peripheral vascular disease e Abdomen benign prostatic appropriate -Hyperlipidemia -CVA in the past -Insomnia secondary to hospitalization
[2018-12-30] MEDS: LACTATED RINGERS 1,000 ML IV SCH (19:36)
[2018-12-30] MEDS: MELATONIN 5 MG TABLET PO SCH (20:59)
[2018-12-30] MEDS: TEMAZEPAM 7.5 MG CAP PO PRN (22:17)
[2018-12-30] MEDS: ALPRAZolam 0.25 MG TAB PO PRN (22:17)
[2018-12-31 07:32] LABS: Basophils # (A) 0.1 k/uL (0-0.2); Basophils % (A) 1 %; Eosinophils # (A) 0.2 k/uL (0-0.7); Eosinophils % (A) 2 %; HCT 41.6 % (34.0-46.0); HGB 13.2 gm/dL (11.4-16.0); Lymphocytes # (A) 0.9 k/uL (1.0-4.8); Lymphocytes % (A) 9 %; MCH 25.6 pg (25.0-35.0); MCHC 31.7 g/dL (31.0-37.0); MCV 80.8 fL (80.0-100.0); Mean Platelet Volume 6.9; Monocytes # (A) 0.6 k/uL (0-1.0); Monocytes % (A) 6 %; Neutrophils # (A) 8.3 k/uL (1.3-7.7); Neutrophils % (A) 81 %; Platelet Count 388 k/uL (150-450); RBC 5.14 m/uL (3.80-5.40); RDW 14.1 % (11.5-15.5); WBC 10.2 k/uL (3.8-10.6)
[2018-12-31] MEDS: IPRATROPIUM-ALBUTEROL 3 ML NEB INHALATION SCH ×4 (07:37→20:25)
[2018-12-31] MEDS: LOSARTAN 50 MG TAB PO SCH (09:21)
[2018-12-31] MEDS: MULTIVITAMINS, THERA 1 EACH TAB PO SCH (09:21)
[2018-12-31] MEDS: METOPROLOL TARTRATE 50 MG TAB PO SCH ×2 (09:21→23:09)
[2018-12-31] MEDS: cloNIDine HCL 0.1 MG TAB PO SCH ×3 (09:22→23:09)
[2018-12-31] MEDS: PANTOPRAZOLE 40 MG TABLET PO SCH (09:22)
[2018-12-31] MEDS: PRAVASTATIN SODIUM 40 MG TAB PO SCH (09:22)
[2018-12-31] MEDS: amLODIPine 10 MG TAB PO SCH (09:22)
[2018-12-31] MEDS: ANASTROZOLE 1 MG TAB PO SCH (09:22)
--- NOTE | 2018-12-31 11:13 | P.PN ---
Subjective 88-year-old the female was admitted for hypoxic respiratory failure found to have right-sided pleural effusion patient appears to have malignant effusion primary the being longer the breast mostly breast and patient underwent core biopsy of the breast. Patient is on 4 L of onset doesn't use any oxygen at home. appears to have postobstructive pneumonia for which patient is on antibiotic with Omnicef. There is a significant lesion in the my and mid right lung with involvement of superoir Vena cava. 12/24/2018 Patient respiratory status improved, patient remains hyponatremic etiology of hyponatremia is not clear. 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 Patient remains on 2 L of oxygen. Patient is requesting to go home patient heart rate is controlled patient is quite weak patient is high risk for readmission, because of high chance of recurrence of pleural effusion. Patient wanted to go home as well at rehab 12/27/2018 Apart from adenocarcinoma of the right breast patient may have another malignancy is a high school a possibility that patient has lung cancer. Had a lengthy discussion with the patient. A she has 2 options 1 to have treatment for her cancer #2 hospice. To make either decision will require a biopsy of the lung mass if it turns out to be lung cancer which has extremely poor prognosis , comfort care and hospice should because did at that time or if patient has breast cancer it's reasonable for her to get chemotherapy considering her good functionality in spite of his age. Patient is agreeable for bronchoscopy tomorrow. Her serum sodium remains at 125 minutes 4-5 Lasix. 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 Patient has other masses in the lung as well possibility of metastatic disease cannot be ruled out. Patient probably will need a bronchoscopy tomorrow have respiratory status is worse and is requiring more oxygen. 12/29/2018 Patient remains on 6 L with saturating at 96% as well as the nursing staff to cut down the oxygen. Patient had a 1.2 L of fluid removed yesterday did patient had a bronchoscopy in biopsy today. Apparently her breast biopsy his hormone positive. Which has normally good prognosis. 12/30/2018 Patient has significant clinical improvement in her respiratory status we're able to bring down her arms and to 3 L. Patient can be discharged to subacute rehabilitation on 3 L hopefully she'll not require that either down the line. Patient had a CAT scan of the head she showed some suspicious nodular lesion can be metastatic lesion MRi will be done as an outpatient. Patient is ready to be discharged but unfortunately patient will need prior authorization because of which patient may end up needing to stay until Wednesday12/31/2018 Patient is bit tachycardic clinically doing well no overnight events patient is awaiting disposition to subacute rehabilitation on Wednesday. Patient is presently on 4 L of oxygen and will try to wean it down Constitutional: Denied any fatigue denied any fever. Cardio vascular: denied any chest pain, palpitations Gastrointestinal denied any nausea vomiting Pulmonary: Patient does have shortness of breath Neurologic denied any new focal deficits All inpatient medications were reviewed and appropriate changes in these medications as dictated in the interval history and assessment and plan. Objective - Vital Signs Vital signs: Vital Signs Temp 97.7 F 12/31/18 05:36 Pulse 104 H 12/31/18 07:47 Resp 19 12/31/18 05:36 BP 146/89 12/31/18 05:36 Pulse Ox 94 L 12/31/18 05:36 Intake & Output 12/30/18 12/31/18 12/31/18 18:59 06:59 18:59 Intake Total 480 120 Balance 480 120 Weight 70.8 kg Intake: Oral 480 120 Other: Voiding Method Bedside Commode Bedside Commode # Voids 2 2 - Exam PHYSICAL EXAMINATION: GENERAL: The patient is alert and oriented x3, not in any acute distress. Well developed, well nourished. HEENT: Pupils are round and equally reacting to light. EOMI. No scleral icterus. No conjunctival pallor. Normocephalic, atraumatic. No pharyngeal erythema. No thyromegaly. CARDIOVASCULAR: S1 and S2 present. No murmurs, rubs, or gallops. PULMONARY: left-sided is clear good air entry right side decreased air entry with some rhonchus breath sounds ABDOMEN: Soft, nontender, nondistended, normoactive bowel sounds. No palpable organomegaly. MUSCULOSKELETAL: No joint swelling or deformity. EXTREMITIES: No cyanosis, clubbing, or pedal edema. NEUROLOGICAL: Gross neurological examination did not reveal any focal deficits. SKIN: No rashes. - Labs CBC & Chem 7: 12/31/18 06:54 12/29/18 08:33 Labs: Abnormal Lab Results - Last 24 Hours (Table) 12/31/18 Range/Units 06:54 Neutrophils # 8.3 H (1.3-7.7) k/uL Lymphocytes # 0.9 L (1.0-4.8) k/uL Assessment and Plan Plan: Acute hypoxic respiratory failure secondary to the right-sided pleural effusion and postobstructive pneumonia patient is an above-mentioned antibiotics patient has complete right lung collapse because of the obstruction of the mass on the right main stem bronchus. 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 Improved now with Tolvaptan, Tolvaptone was discontinued -Possible breast cancer, with possible metastases to the lung patient underwent core biopsy . Which is showing invasive ductal carcinoma, hormone positive pat ient has a solitary nodular suspicious lesion on the CAT scan will need an MRI. Atrial fibrillation presently rate controlled, patient is on Eliquis which will be continued Peripheral vascular disease e -Hyperlipidemia -CVA in the past -Insomnia secondary to hospitalization
--- NOTE | 2018-12-31 13:45 | P.PN ---
Subjective Progress Note Date: 12/31/18 Principal diagnosis: Acute hypoxic respiratory failure secondary to possibility of pneumonia, possibility of metastatic breast cancer with obstruction and postobstructive right upper lobe atelectasis. The patient is seen today 12/31/2018 in follow-up on the regular medical floor. She is currently sitting up at the bedside. Awake and alert in no acute distress. Maintaining O2 saturations in the 90s on 3 L/m per nasal cannula. She's afebrile. Bronchoscopy wash cultures reveal no growth. White count 10.2. Hemoglobin 13.2. Objective - Vital Signs Vital signs: Vital Signs Temp 98 F 12/31/18 12:28 Pulse 100 12/31/18 12:31 Resp 20 12/31/18 12:28 BP 120/70 12/31/18 12:28 Pulse Ox 94 L 12/31/18 12:28 Intake & Output 12/30/18 12/31/18 12/31/18 18:59 06:59 18:59 Intake Total 480 120 Balance 480 120 Weight 70.8 kg 71.781 kg Intake: Oral 480 120 Other: Voiding Method Bedside Commode Bedside Commode # Voids 2 2 - Exam - Exam GENERAL EXAM: Alert, active, on 3 L of oxygen with a pulse ox of 94%, comfortable in no apparent distress. HEAD: Normocephalic/atraumatic. EYES: Normal reaction of pupils, equal size. Conjunctiva pink, sclera white. NOSE: Clear with pink turbinates. THROAT: No erythema or exudates. NECK: No masses, no JVD, no thyroid enlargement, no adenopathy. CHEST: No chest wall deformity. Symmetrical expansion. LUNGS: Equal air entry with diminished breath sounds at the bases, with scattered rhonchi CVS: Regular rate and rhythm, normal S1 and S2, no gallops, no murmurs, no rubs ABDOMEN: Soft, nontender. No hepatosplenomegaly, normal bowel sounds, no guarding or rigidity. EXTREMITIES: No clubbing, no edema, no cyanosis, 2+ pulses and upper and lower extremities. MUSCULOSKELETAL: Muscle strength and tone normal. SPINE: No scoliosis or deformity SKIN: No rashes CENTRAL NERVOUS SYSTEM: No focal deficits, tone is normal in all 4 extremities. PSYCHIATRIC: Alert and oriented -3. Appropriate affect. Intact judgment and insight. - Labs CBC & Chem 7: 12/31/18 06:54 06/13/19 08:33 Labs: Abnormal Lab Results - Last 24 Hours (Table) 12/31/18 Range/Units 06:54 Neutrophils # 8.3 H (1.3-7.7) k/uL Lymphocytes # 0.9 L (1.0-4.8) k/uL Assessment and Plan Assessment: Assessment: #1. Acute hypoxic respiratory failure secondary to right upper lobe opacity with right pleural effusion and atelectasis, CT chest with contrast showed the possibility of right breast mass and lower collapse of the right upper lobe concerning for lung cancer with obstruction or metastasis from breast cancer with postobstructive right upper lobe atelectasis. Status post bronchoscopy with biopsies on 12/29/2018. Pathology pending. #2. Large right pleural effusion and associated multifocal atelectasis, status post right-sided thoracentesis on 12/22/2018 and again on 12/28/2018 #3. Highly suspicious left lower lobe pulmonary nodules concerning for metastasis with mediastinal adenopathy #4. 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 #5. Chronic atrial fibrillation on chronic anticoagulation #6. History of peripheral vascular disease #7. Coronary artery disease #8. Hypertension #9. Hyperlipidemia #10. History of CVA/TIA #11. History of nicotine dependence, currently in remission, carries [id number]-year smoking history Plan: The patient was seen and evaluated by Dr. Mosley. The patient is stable from the pulmonary standpoint. The plan is for transfer to [facility] on [facility] rehabilitation. In the interim, we'll continue with the current treatment plan. We will continue to follow and make further recommendations based on her clinical status. I, the cosigning physician, performed a history & physical examination of the patient. Lungs sounds crackles in the bilateral posterior bases. Maintaining good O2 saturations in the 90s on 3 L/m per nasal cannula.. I discussed the assessment and plan of care with my nurse practitioner, Dunia Jauregui. I attest to the above note as dictated by her.
[2018-12-31] MEDS: ALPRAZolam 0.25 MG TAB PO PRN ×2 (14:52→23:08)
[2018-12-31] MEDS: LACTATED RINGERS 1,000 ML IV SCH (20:44)
[2018-12-31] MEDS: MELATONIN 5 MG TABLET PO SCH (23:08)
[2018-12-31] MEDS: TEMAZEPAM 7.5 MG CAP PO PRN (23:08)
[2019-01-01] MEDS: IPRATROPIUM-ALBUTEROL 3 ML NEB INHALATION SCH ×4 (07:44→20:15)
[2019-01-01 08:04] LABS: Basophils # (A) 0.1 k/uL (0-0.2); Basophils % (A) 1 %; Eosinophils # (A) 0.2 k/uL (0-0.7); Eosinophils % (A) 2 %; HGB 13.1 gm/dL (11.4-16.0); Lymphocytes # (A) 1.1 k/uL (1.0-4.8); Lymphocytes % (A) 11 %; MCH 25.8 pg (25.0-35.0); MCHC 31.8 g/dL (31.0-37.0); MCV 80.9 fL (80.0-100.0); Monocytes # (A) 0.7 k/uL (0-1.0); Monocytes % (A) 7 %; Neutrophils # (A) 7.9 k/uL (1.3-7.7); Neutrophils % (A) 78 %; Platelet Count 388 k/uL (150-450); RBC 5.07 m/uL (3.80-5.40); RDW 14.1 % (11.5-15.5); WBC 10.1 k/uL (3.8-10.6)
[2019-01-01 08:07] LABS: Calcium 8.8 mg/dL (8.4-10.2)
[2019-01-01] MEDS: METOPROLOL TARTRATE 50 MG TAB PO SCH ×2 (09:18→22:04)
[2019-01-01] MEDS: LOSARTAN 50 MG TAB PO SCH (09:18)
[2019-01-01] MEDS: PANTOPRAZOLE 40 MG TABLET PO SCH (09:18)
[2019-01-01] MEDS: amLODIPine 10 MG TAB PO SCH (09:18)
[2019-01-01] MEDS: cloNIDine HCL 0.1 MG TAB PO SCH ×3 (09:18→22:04)
[2019-01-01] MEDS: PRAVASTATIN SODIUM 40 MG TAB PO SCH (09:19)
[2019-01-01] MEDS: MULTIVITAMINS, THERA 1 EACH TAB PO SCH (09:19)
[2019-01-01] MEDS: ANASTROZOLE 1 MG TAB PO SCH (09:19)
--- NOTE | 2019-01-01 10:14 | XR ---
EXAMINATION TYPE: XR chest 1V DATE OF EXAM: 01/01/2019 HISTORY: CHF. REFERENCE: Previous study dated 12/30/2018. FINDINGS: There is a pleural effusion on the right. This may have enlarged slightly from previous. Th ere is widening of the vascular pedicle. The left lung is clear. Heart size is obscured but appears e nlarged. IMPRESSION: 1. PROBABLE SLIGHT ENLARGEMENT OF THE PATIENT'S RIGHT PLEURAL EFFUSION. 2. RIGHT APICAL DENSITY MAY REFLECT LOCULATED FLUID, ECTATIC VESSELS OR INFILTRATE. CLINICAL CORRELAT ION WOULD BE SUGGESTED.
[2019-01-01 11:59] VITALS: RESP 18
--- NOTE | 2019-01-01 12:07 | P.PN ---
Subjective Progress Note Date: 01/01/19 The patient is improved after her second thoracentesis, though she continues to be short of breath, with generalized weakness. She has been started on anastrozole and reports no specific side effects so far Objective - Vital Signs Vital signs: Vital Signs Temp 98.2 F 01/01/19 11:58 Pulse 99 01/01/19 11:58 Resp 18 01/01/19 11:58 BP 119/99 01/01/19 11:58 Pulse Ox 96 01/01/19 11:58 Intake & Output 12/31/18 01/01/19 01/01/19 18:59 06:59 18:59 Intake Total 1100 940 Balance 1100 940 Weight 71.781 kg 72.6 kg Intake: Oral 1100 940 Other: Voiding Method Bedside Commode # Voids 2 # Bowel Movements 1 - Constitutional General appearance: Present: no acute distress - EENT Eyes: Present: EOMI ENT: Present: hearing grossly normal, normal oropharynx - Respiratory Respiratory: right: diminished (Right lower) - Cardiovascular Rhythm: regular Heart sounds: normal: S1, S2 - Gastrointestinal General gastrointestinal: Present: normal bowel sounds, soft - Musculoskeletal Musculoskeletal: Present: generalized weakness, strength equal bilaterally - Psychiatric Psychiatric: Present: A&O x's 3, appropriate affect - Labs CBC & Chem 7: 01/01/19 07:10 01/01/19 07:10 Labs: Abnormal Lab Results - Last 24 Hours (Table) 01/01/19 01/01/19 Range/Units 07:10 07:10 Neutrophils # 7.9 H (1.3-7.7) k/uL Sodium 130 L (137-145) mmol/L Chloride 91 L (98-107) mmol/L Carbon Dioxide 34 H (22-30) mmol/L Glucose 131 H (74-99) mg/dL Assessment and Plan (1) Carcinoma of right breast, estrogen and progesterone receptor positive Narrative/Plan: The patient's core biopsy of the right breast confirms invasive carcinoma, estrogen and placed receptor positive and her-2 negative. The patient has been started on an aromatase inhibitor, with good tolerance so far. At this time the concern is for metastatic disease in the lung. Staging studies with lung biopsy are pending at this time. If lung biopsy shows metastatic breast cancer, this would confirm stage IV disease. The patient would best be continued on systemic therapy with palliative intent. If she tolerates hormonal therapy well, CDK 4/6 inhibitor could potentially be added. Current Visit: Yes Status: Acute Code(s): C50.911 - MALIGNANT NEOPLASM OF UNSP SITE OF RIGHT FEMALE BREAST; Z17.0 - ESTROGEN RECEPTOR POSITIVE STATUS [ER+] SNOMED Code(s): 716564841 (2) Lung mass Narrative/Plan: Etiology is not known, as to whether this represents a new primary or metastatic disease from the breast. Bronchoscopy report reviewed, which showed significant obstruction with mass in the right upper lobe. Biopsies are pending. - If biopsy shows metastatic breast cancer, then the plan would be as noted above. - The biopsy shows lung primary, and the patient could potentially have 2 l ocally advanced primaries that could , at least theoretically, be treated with curative intent. The issue in that case would be the patient's age and performance status and ability to tolerate aggressive therapies. Current Visit: Yes Status: Acute Code(s): R91.8 - OTHER NONSPECIFIC ABNORMAL FINDING OF LUNG FIELD SNOMED Code(s): 373932290 (3) Pleural effusion Narrative/Plan: Initial cytology was negative. She had repeat cytology done with pathology pending. If cytology comes back positive for malignancy and this would also impact the patient's stage (especially 2 separate primaries are found), depending on its origin. The patient is symptomatically improved after repeat thoracentesis. If she continues to recur, then Pleurx catheter may need to be discussed even if the cytology is negative Current Visit: Yes Status: Acute Code(s): J90 - PLEURAL EFFUSION, NOT ELSEWHERE CLASSIFIED SNOMED Code(s): 71677900
[2019-01-01] MEDS: ALPRAZolam 0.25 MG TAB PO PRN ×2 (14:12→22:04)
--- NOTE | 2019-01-01 15:06 | P.PN ---
Subjective 88-year-old the female was admitted for hypoxic respiratory failure found to have right-sided pleural effusion patient appears to have malignant effusion primary the being longer the breast mostly breast and patient underwent core biopsy of the breast. Patient is on 4 L of onset doesn't use any oxygen at home. appears to have postobstructive pneumonia for which patient is on antibiotic with Omnicef. There is a significant lesion in the my and mid right lung with involvement of superoir Vena cava. 12/24/2018 Patient respiratory status improved, patient remains hyponatremic etiology of hyponatremia is not clear. 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 Patient remains on 2 L of oxygen. Patient is requesting to go home patient heart rate is controlled patient is quite weak patient is high risk for readmission, because of high chance of recurrence of pleural effusion. Patient wanted to go home as well at rehab 12/27/2018 Apart from adenocarcinoma of the right breast patient may have another malignancy is a high school a possibility that patient has lung cancer. Had a lengthy discussion with the patient. A she has 2 options 1 to have treatment for her cancer #2 hospice. To make either decision will require a biopsy of the lung mass if it turns out to be lung cancer which has extremely poor prognosis , comfort care and hospice should because did at that time or if patient has breast cancer it's reasonable for her to get chemotherapy considering her good functionality in spite of his age. Patient is agreeable for bronchoscopy tomorrow. Her serum sodium remains at 125 minutes 4-5 Lasix. 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 Patient has other masses in the lung as well possibility of metastatic disease cannot be ruled out. Patient probably will need a bronchoscopy tomorrow have respiratory status is worse and is requiring more oxygen. 12/29/2018 Patient remains on 6 L with saturating at 96% as well as the nursing staff to cut down the oxygen. Patient had a 1.2 L of fluid removed yesterday did patient had a bronchoscopy in biopsy today. Apparently her breast biopsy his hormone positive. Which has normally good prognosis. 12/30/2018 Patient has significant clinical improvement in her respiratory status we're able to bring down her arms and to 3 L. Patient can be discharged to subacute rehabilitation on 3 L hopefully she'll not require that either down the line. Patient had a CAT scan of the head she showed some suspicious nodular lesion can be metastatic lesion MRi will be done as an outpatient. Patient is ready to be discharged but unfortunately patient will need prior authorization because of which patient may end up needing to stay until Wednesday12/31/2018 Patient is bit tachycardic clinically doing well no overnight events patient is awaiting disposition to subacute rehabilitation on Wednesday. Patient is presently on 4 L of oxygen and will try to wean it down 01/01/2019 Patient respiratory status is fairly good. 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 Constitutional: Denied any fatigue denied any fever. Cardio vascular: denied any chest pain, palpitations Gastrointestinal denied any nausea vomiting Pulmonary: Patient does have shortness of breath Neurologic denied any new focal deficits All inpatient medications were reviewed and appropriate changes in these medications as dictated in the interval history and assessment and plan. Objective - Vital Signs Vital signs: Vital Signs Temp 98.2 F 01/01/19 11:58 Pulse 99 01/01/19 11:58 Resp 18 01/01/19 11:58 BP 119/99 01/01/19 11:58 Pulse Ox 96 01/01/19 11:58 Intake & Output 12/31/18 01/01/19 01/01/19 18:59 06:59 18:59 Intake Total 1100 940 Balance 1100 940 Weight 71.781 kg 72.6 kg Intake: Oral 1100 940 Other: Voiding Method Bedside Commode # Voids 2 3 # Bowel Movements 1 1 - Exam PHYSICAL EXAMINATION: GENERAL: The patient is alert and oriented x3, not in any acute distress. Well developed, well nourished. HEENT: Pupils are round and equally reacting to light. EOMI. No scleral icterus. No conjunctival pallor. Normocephalic, atraumatic. No pharyngeal erythema. No thyromegaly. CARDIOVASCULAR: S1 and S2 present. No murmurs, rubs, or gallops. PULMONARY: left-sided is clear good air entry right side decreased air entry with some rhonchus breath sounds ABDOMEN: Soft, nontender, nondistended, normoactive bowel sounds. No palpable organomegaly. MUSCULOSKELETAL: No joint swelling or deformity. EXTREMITIES: No cyanosis, clubbing, or pedal edema. NEUROLOGICAL: Gross neurological examination did not reveal any focal deficits. SKIN: No rashes. - Labs CBC & Chem 7: 01/01/19 07:10 01/01/19 07:10 Labs: Abnormal Lab Results - Last 24 Hours (Table) 01/01/19 01/01/19 Range/Units 07:10 07:10 Neutrophils # 7.9 H (1.3-7.7) k/uL Sodium 130 L (137-145) mmol/L Chloride 91 L (98-107) mmol/L Carbon Dioxide 34 H (22-30) mmol/L Glucose 131 H (74-99) mg/dL Assessment and Plan Plan: Acute hypoxic respiratory failure secondary to the right-sided pleural effusion and postobstructive pneumonia patient is an above-mentioned antibiotics patient has complete right lung collapse because of the obstruction of the mass on the right main stem bronchus. 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 Improved now with Tolvaptan, Tolvaptone was discontinued. Serum sodium has gone down to 1:30 patient Ativan fluid restriction -Possible breast cancer, with possible metastases to the lung patient underwent core biopsy . Which is showing invasive ductal carcinoma, hormone positive patient has a solitary nodular suspicious lesion on the CAT scan will need an MRI. Biopsy results from bronchoscopy are still pending Atrial fibrillation presently rate controlled, patient is on Eliquis which will be continued Peripheral vascular disease -Hyperlipidemia -CVA in the past -Insomnia secondary to hospitalization
[2019-01-01] MEDS: LACTATED RINGERS 1,000 ML IV SCH (19:41)
[2019-01-01] MEDS: MELATONIN 5 MG TABLET PO SCH (22:00)
[2019-01-01] MEDS: TEMAZEPAM 7.5 MG CAP PO PRN (22:04)
[2019-01-02] MEDS: amLODIPine 10 MG TAB PO SCH (08:07)
[2019-01-02] MEDS: PANTOPRAZOLE 40 MG TABLET PO SCH (08:07)
[2019-01-02] MEDS: ANASTROZOLE 1 MG TAB PO SCH (08:07)
[2019-01-02] MEDS: cloNIDine HCL 0.1 MG TAB PO SCH ×2 (08:07→15:30)
[2019-01-02] MEDS: PRAVASTATIN SODIUM 40 MG TAB PO SCH (08:08)
[2019-01-02] MEDS: MULTIVITAMINS, THERA 1 EACH TAB PO SCH (08:08)
[2019-01-02] MEDS: LOSARTAN 50 MG TAB PO SCH (08:08)
[2019-01-02] MEDS: METOPROLOL TARTRATE 50 MG TAB PO SCH (08:08)
[2019-01-02] MEDS: IPRATROPIUM-ALBUTEROL 3 ML NEB INHALATION SCH ×3 (08:46→16:07)
--- NOTE | 2019-01-02 08:53 | P.PN ---
Subjective Patient is seen in follow-up for hyponatremia. Etiology is SIADH. Sodium level was found to 130 as of yesterday. Labs from today are pending. She is maintained on fluid restriction. Oral intake is good. Good urine output. No vomiting or diarrhea. Vital signs are stable. General: The patient appeared well nourished and normally developed. HEENT: Head exam is unremarkable. Neck is without jugular venous distension. LUNGS: Lungs are clear to auscultation and percussion. Breath sounds decreased. HEART: Rate and Rhythm are regular. First and second heart sounds normal. No murmurs, rubs or gallops. ABDOMEN: Abdominal exam reveals normal bowel sounds. Non-tender and non- distended. No evidence of peritonitis. EXTREMITITES: Trace edema. Objective - Vital Signs Vital signs: Vital Signs Temp 97.9 F 01/02/19 04:55 Pulse 90 01/02/19 04:55 Resp 18 01/02/19 04:55 BP 129/79 01/02/19 04:55 Pulse Ox 92 L 01/02/19 04:55 Intake & Output 01/01/19 01/02/19 01/02/19 18:59 06:59 18:59 Intake Total 1340 590 500 Balance 1340 590 500 Weight 72 kg Intake: Oral 1340 590 500 Other: Voiding Method Bedside Commode # Voids 3 1 1 # Bowel Movements 1 1 - Labs CBC & Chem 7: 01/01/19 07:10 01/01/19 07:10 Assessment and Plan Plan: Assessment: 1. 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 Patient appears hypervolemic. Sodium level 130 as of yesterday. Urine sodium is 57 and urine osmolality 544. Status post 1 dose of Samsca. 2. Hypomagnesemia from poor oral intake. status post replacement. 3. Breast mass status post biopsy which came back positive for ductal carcinoma. 4. Right-sided pleural effusion status post thoracentesis x2. Cytology pending - oncology following. 5. Benign hypertension. Controlled. 6. 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 Plan: Maintain 1.5 L fluid restriction. Encouraged oral intake, particularly protein. Add Lasix 40 mg orally once daily. Follow-up morning labs. Potential discharge to [facility] today. Patient will need sodium and potassium level monitored every 2-3 days outpatient. Follow-up outpatient in the next 1-2 weeks.
[2019-01-02] MEDS ORDERED: FUROSEMIDE 40 MG TAB PO SCH (09:00)
[2019-01-02] MEDS ORDERED: POTASSIUM CHLORIDE ER 10 MEQ TAB.ER.PRT PO SCH (09:00)
[2019-01-02 09:22] LABS: Basophils # (A) 0.1 k/uL (0-0.2); Basophils % (A) 1 %; Eosinophils # (A) 0.2 k/uL (0-0.7); Eosinophils % (A) 2 %; HCT 42.4 % (34.0-46.0); HGB 13.6 gm/dL (11.4-16.0); Hypochromasia Moderate; Lymphocytes % (A) 9 %; MCH 26.4 pg (25.0-35.0); MCHC 32.1 g/dL (31.0-37.0); MCV 82.2 fL (80.0-100.0); Mean Platelet Volume 7.7; Monocytes # (A) 0.7 k/uL (0-1.0); Monocytes % (A) 6 %; Neutrophils # (A) 8.9 k/uL (1.3-7.7); Neutrophils % (A) 82 %; Platelet Count 417 k/uL (150-450); RBC 5.17 m/uL (3.80-5.40); WBC 10.9 k/uL (3.8-10.6)
[2019-01-02 09:30] LABS: Calcium 9.2 mg/dL (8.4-10.2); Magnesium 1.6 mg/dL (1.6-2.3); Potassium 4.4 mmol/L (3.5-5.1)
--- NOTE | 2019-01-02 11:34 | P.DS ---
Providers Date of admission: 12/21/18 10:49 Expected date of discharge: 01/02/19 Attending physician: Lionel Cleaning Consults: 12/20/18 10:49 Consult Physician Urgent Consulting Provider: Dante Last Consult Reason/Comments: dyspnea Do you want consulting provider notified?: Yes 12/20/18 13:12 Consult Physician Urgent Consulting Provider: Anderson Antoine Consult Reason/Comments: breast cancer with mets new diagnosis Do you want consulting provider notified?: Yes 12/20/18 13:15 Consult Physician Urgent Consulting Provider: Daysi Estrella Consult Reason/Comments: breast cancer new diagnosis Do you want consulting provider notified?: Yes 12/21/18 08:40 Consult Physician Routine Consulting Provider: Landry Yousif Consult Reason/Comments: Afib with RVR Do you want consulting provider notified?: Yes 12/21/18 09:42 Consult Physician Routine Consulting Provider: Ant Briscoe Consult Reason/Comments: right olf foot wound, known Do you want consulting provider notified?: Yes 12/24/18 14:34 Consult Physician Routine Consulting Provider: Elpidio Uriarte Consult Reason/Comments: Hyponatremia Do you want consulting provider notified?: Yes 12/25/18 17:03 Consult Physician Routine Consulting Provider: [facility] Consult Reason/Comments: A fib uncontrolled rate Do you want consulting provider notified?: Yes, Notify in am Primary care physician: Lionel Cleaning [facility] Course: 88-year-old female sent to the emergency room from physician's office with report of increasing shortness of breath. Patient was found to have metastatic breast cancer patient was evaluated by a breast surgeon Dr. Black Shaffer. Patient was evaluated by Dr. Asher treatment initiated. Patient was evaluated by pulmonology had thoracentesis 2 for pleural effusion. Patient developed hyponatremia was evaluated by nephrology and treated. Patient had uncontrolled atrial fibrillation evaluated and treated by cardiology plan is for transfer to [facility]. Patient needs BMP every 3 days to monitor of electrolyte imbalance. Assessment Acute hypoxic respiratory failure secondary to pleural effusion Right breast mass Post bronchoscopy with biopsy and thoracentesis 2 Large right pleural effusion Left upper lobe nodules concerned with metastatic cancer Invasive breast cancer differentiated ductal carcinoma Chronic atrial fibrillation History of peripheral vascular disease History of coronary disease Hypertension hyperlipidemia History of CVA TIA Plan Transfer to extended care [facility] BMP every 3 days follow-up with pulmonology oncology breast surgeon Dr. 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 Patient Condition at Discharge: Serious Plan - Discharge Summary Discharge Rx Participant: No New Discharge Prescriptions: New Anastrozole [Arimidex] 1 mg PO DAILY #30 tab Ipratropium-Albuterol Nebulize [Duoneb 0.5 mg-3 mg/3 ml Soln] 3 ml INHALATION RT-QID ampul.neb Potassium Chloride ER [K-Dur 10] 10 meq PO DAILY tab.er.prt Furosemide [Lasix] 40 mg PO DAILY tab Metoprolol Tartrate [Lopressor] 100 mg PO BID tab Acetaminophen Tab [Tylenol] 500 mg PO Q6HR PRN tab PRN Reason: Fever and/ or Mild Pain Continue cloNIDine HCL [Catapres] 0.1 mg PO TID Omeprazole [PriLOSEC] 20 mg PO DAILY ALPRAZolam [Xanax] 0.25 mg PO BID amLODIPine [Norvasc] 10 mg PO DAILY Pravastatin Sodium [Pravachol] 40 mg PO DAILY Multivitamins, Thera [Multivitamin (formulary)] 1 tab PO DAILY Losartan Potassium 50 mg PO DAILY Albuterol Inhaler [Ventolin Hfa Inhaler] 1 - 2 puff INHALATION RT-Q6H PRN PRN Reason: Shortness Of Breath Aspirin EC [Ecotrin Low Dose] 81 mg PO DAILY Discontinued Metoprolol Succinate [Toprol XL] 200 mg PO DAILY Olmesartan Medoxomil [Benicar] 40 mg PO DAILY Hydrochlorothiazide [Hydrodiuril] 25 mg PO DAILY Cilostazol [Pletal] 50 mg PO BID Apixaban [Eliquis] 2.5 mg PO BID Discharge Medication List ALPRAZolam [Xanax] 0.25 mg PO BID 07/20/17 [History] Multivitamins, Thera [Multivitamin (formulary)] 1 tab PO DAILY 07/20/17 [History] Omeprazole [PriLOSEC] 20 mg PO DAILY 07/20/17 [History] Pravastatin Sodium [Pravachol] 40 mg PO DAILY 07/20/17 [History] amLODIPine [Norvasc] 10 mg PO DAILY 07/20/17 [History] cloNIDine HCL [Catapres] 0.1 mg PO TID 07/20/17 [History] Albuterol Inhaler [Ventolin Hfa Inhaler] 1 - 2 puff INHALATION RT-Q6H PRN 12/20/18 [History] Aspirin EC [Ecotrin Low Dose] 81 mg PO DAILY 12/20/18 [History] Losartan Potassium 50 mg PO DAILY 12/20/18 [History] Anastrozole [Arimidex] 1 mg PO DAILY #30 tab 12/30/18 [Rx] Acetaminophen Tab [Tylenol] 500 mg PO Q6HR PRN tab 01/02/19 [Rx] Furosemide [Lasix] 40 mg PO DAILY tab 01/02/19 [Rx] Ipratropium-Albuterol Nebulize [Duoneb 0.5 mg-3 mg/3 ml Soln] 3 ml INHALATION RT-QID ampul.neb 01/02/19 [Rx] Metoprolol Tartrate [Lopressor] 100 mg PO BID tab 01/02/19 [Rx] Potassium Chloride ER [K-Dur 10] 10 meq PO DAILY tab.er.prt 01/02/19 [Rx] Follow up Appointment(s)/Referral(s): Lionel Cleaning MD [Primary Care Provider] - 1-2 days Anderson Antoine MD [STAFF PHYSICIAN] - 1 Week Black-Daysi Shaffer MD [STAFF PHYSICIAN] - 12/29/18 12:00 pm
[2019-01-02 12:14] VITALS: BP 114/69; TEMP 97.8
[2019-01-02 13:32] VITALS: BMI 24.1
[2019-01-02 13:55] VITALS: PULSE 92
[2019-01-02] MEDS: ALPRAZolam 0.25 MG TAB PO PRN (15:04)
== END 2019-01-02 18:05 | disposition home health service (06) | DRG 987 ==
LOC: EC 08:54 → 4MS4W 11:21 → OBSVTOIN 12-21 10:49 → 3NMEDONC 12-21 12:32
PROVIDERS: ADMIT Family Medicine; ATTEND Family Medicine
PROC: 0HDMXZZ Extraction of Right Foot Skin, External Approach (ICD-10-PCS; 2018-12-21)
PROC: 0HBT3ZX Excision of Right Breast, Percutaneous Approach, Diagnostic (ICD-10-PCS; principal; 2018-12-22)
PROC: 0W993ZX Drainage of Right Pleural Cavity, Percutaneous Approach, Diagnostic (ICD-10-PCS; 2018-12-22)
PROC: 0W993ZX Drainage of Right Pleural Cavity, Percutaneous Approach, Diagnostic (ICD-10-PCS; 2018-12-28)
PROC: 0BDF8ZX Extraction of Right Lower Lung Lobe, Via Natural or Artificial Opening Endoscopic, Diagnostic (ICD-10-PCS; 2018-12-29)
PROC: 0BBF8ZX Excision of Right Lower Lung Lobe, Via Natural or Artificial Opening Endoscopic, Diagnostic (ICD-10-PCS; 2018-12-29 11:00)
DX: C50.411 Malignant neoplasm of upper-outer quadrant of right female breast (principal); A41.9 Sepsis, unspecified organism; J18.9 Pneumonia, unspecified organism; J96.01 Acute respiratory failure with hypoxia; C78.01 Secondary malignant neoplasm of right lung; E22.2 Syndrome of inappropriate secretion of antidiuretic hormone; I48.1 Persistent atrial fibrillation; I69.351 Hemiplegia and hemiparesis following cerebral infarction affecting right dominant side; I87.1 Compression of vein; J91.0 Malignant pleural effusion; J98.11 Atelectasis; Z17.0 Estrogen receptor positive status [ER+]; E78.5 Hyperlipidemia, unspecified; E83.42 Hypomagnesemia; I10 Essential (primary) hypertension; I25.10 Atherosclerotic heart disease of native coronary artery without angina pectoris; I48.2 Chronic atrial fibrillation; I49.3 Ventricular premature depolarization; I71.2 Thoracic aortic aneurysm, without rupture; I73.9 Peripheral vascular disease, unspecified; J98.09 Other diseases of bronchus, not elsewhere classified; K21.9 Gastro-esophageal reflux disease without esophagitis; L84 Corns and callosities; Z79.01 Long term (current) use of anticoagulants; Z79.02 Long term (current) use of antithrombotics/antiplatelets; Z79.82 Long term (current) use of aspirin; Z79.899 Other long term (current) drug therapy; Z87.891 Personal history of nicotine dependence; Z98.42 Cataract extraction status, left eye; Z98.41 Cataract extraction status, right eye; Z96.1 Presence of intraocular lens; Z95.828 Presence of other vascular implants and grafts; Z87.440 Personal history of urinary (tract) infections; Z88.4 Allergy status to anesthetic agent; Z88.5 Allergy status to narcotic agent; Z88.8 Allergy status to other drugs, medicaments and biological substances
CPT/HCPCS: 31623; 31625; 36415; 70460; 71045; 71046; 71250; 71260; 74177; 76604; 78306; 80048; 80053; 82550; 82565; 82570; 82945; 83605; 83615; 83735; 83880; 83930; 83935; 84157; 84295; 84300; 84443; 84484; 84520; 85025; 85379; 85610; 85730; 86300; 87040; 87070; 87102; 87116; 87205; 87206; 87252; 87496; 87498; 87502; 87529; 87634; 87798; 88104; 88108; 88305; 88341; 88342; 89050; 93005; 94640; 94760; 99291

== ENCOUNTER → 2019-01-16 | Outpatient (CLI) | payer MEDICARE ==
--- NOTE | 2019-01-18 08:03 | BD ---
EXAMINATION TYPE: Axial Bone Density DATE OF EXAM: 01/16/2019 COMPARISON: 2013 CLINICAL HISTORY: Breast cancer, postmenopausal female. Osteoporosis screening. Height: 5 FT 6 IN Weight: 155 FRAX RISK QUESTIONS: RISK FACTORS HISTORY OF: Postmenopausal woman: APPROX 50'S Lost more than 2 inches in height since high school: YES MEDICATIONS: 1.334Additional Medications: ELIQUIS, ANASTROZOLE, TELMISARTAN, POTASSIUM CHLORIDE, FUROSEMIDE, METOP ROLOL, CLONIDINE,ECOTRINE, OMEPRAZOLE, [RAVASTATIN, ALPRAZOLAM,AMLODIPINE BESYLATE, Additional History: EXAM MEASUREMENTS: Bone mineral densitometry was performed using the [employer] System. Bone mineral density as measured about the Lumbar spine is: ----- L1-L4(G/cm2): 1.334 T Score Values are as follows: ----- L2: 1.0 ----- L3: 2.6 ----- L4: 1.6 ----- L1-L4: 1.3 Bone mineral density has: INCREASED 9.2 % since study of: 2013 Bone mineral density about the R hip (g/cm2): 0.913 Bone mineral density about the L hip (g/cm2): 1.015 T Score values are as follows: -----R Neck: -0.9 -----L Neck: -0.2 -----R Total: -1.6 -----L Total: -0.6 Bone mineral density has: DECREASED -10.0 % since study of: 2013 IMPRESSION: Osteopenia (T Score between -2.5 and -1). There is slightly increased risk of fracture and the patient may be considered for treatment. Re-Screen 2-5 years. NOTE: T-SCORE=SD OF THE YOUNG ADULT MEAN.
== END | disposition home or self-care (01) ==
LOC: RADBDWWP 14:59
PROVIDERS: ATTEND Internal Medicine Hematology & Oncology
DX: M85.88 Other specified disorders of bone density and structure, other site (principal); C50.411 Malignant neoplasm of upper-outer quadrant of right female breast; N95.1 Menopausal and female climacteric states; Z88.5 Allergy status to narcotic agent
CPT/HCPCS: 77080

== ENCOUNTER 2019-02-09 18:54 | Inpatient (IN) | payer MEDICARE ==
[2019-02-09] MEDS ORDERED: SODIUM CHLORIDE 0.9% 1,000 ML IV STA (19:02)
[2019-02-09] MEDS ORDERED: IPRATROPIUM-ALBUTEROL 3 ML NEB INHALATION STA (19:02)
--- NOTE | 2019-02-09 19:02 | ED ---
SOB HPI - General Chief Complaint: Shortness of Breath Stated Complaint: SOB Time Seen by Provider: 02/09/19 19:01 Source: patient, family Mode of arrival: wheelchair Limitations: no limitations - Related Data Home Medications Medication Instructions Recorded Confirmed Multivitamins, Thera [Multivitamin 1 tab PO DAILY 07/20/17 02/09/19 (formulary)] Omeprazole [PriLOSEC] 20 mg PO DAILY 07/20/17 02/09/19 amLODIPine [Norvasc] 10 mg PO DAILY 07/20/17 02/09/19 cloNIDine HCL [Catapres] 0.1 mg PO TID 07/20/17 02/09/19 Aspirin EC [Ecotrin Low Dose] 81 mg PO DAILY 12/20/18 02/09/19 Apixaban [Eliquis] 2.5 mg PO BID 02/09/19 02/09/19 Folic Acid 1 mg PO DAILY 02/09/19 02/09/19 LORazepam [Ativan] 0.5 mg PO DAILY@1400 02/09/19 02/09/19 LORazepam [Ativan] 1 mg PO HS 02/09/19 02/09/19 Prochlorperazine [Compazine] 10 mg PO TID 02/09/19 02/09/19 Telmisartan [Micardis] 40 mg PO DAILY 02/09/19 02/09/19 Previous Rx's Medication Instructions Recorded Anastrozole [Arimidex] 1 mg PO DAILY #30 tab 12/30/18 Furosemide [Lasix] 40 mg PO DAILY tab 01/02/19 Ipratropium-Albuterol Nebulize 3 ml INHALATION RT-QID ampul.neb 01/02/19 [Duoneb 0.5 mg-3 mg/3 ml Soln] Potassium Chloride ER [K-Dur 10] 10 meq PO DAILY tab.er.prt 01/02/19 Allergies Allergy/AdvReac Type Severity Reaction Status Date / Time bacitracin Allergy Unknown Verified 02/09/19 20:14 [From Neosporin ([id number])] codeine Allergy Unknown Verified 02/09/19 20:14 neomycin Allergy Unknown Verified 02/09/19 20:14 [From Neosporin ([id number])] polymyxin B Allergy Unknown Verified 02/09/19 20:14 [From Neosporin ([id number])] procaine [From Novocain] Allergy Unknown Verified 02/09/19 20:14 Review of Systems ROS Statement: Those systems with pertinent positive or pertinent negative responses have been documented in the HPI. ROS Other: All systems not noted in ROS Statement are negative. Past Medical History Past Medical History: Atrial Fibrillation, Cancer, CVA/TIA, GERD/Reflux, Hyperlipidemia, Hypertension Additional Past Medical History / Comment(s): 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 LUNG CANCER. 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 Past Anesthesia/Blood Transfusion Reactions: No Reported Reaction Past Psychological History: Anxiety Smoking Status: Former smoker - Past Family History Father Family Medical History: No Reported History Mother Family Medical History: No Reported History General Exam Limitations: no limitations Course Vital Signs 02/09/19 18:58 Temperature 97.8 F Pulse Rate 110 H Respiratory 22 Rate Blood Pressure 125/71 O2 Sat by Pulse 96 Oximetry Medical Decision Making - Lab Data Result diagrams: 02/09/19 19:30 02/09/19 19:30 Lab Results 02/09/19 02/09/19 02/09/19 Range/Units 19:30 19:30 19:30 WBC 15.2 H (3.8-10.6) k/uL RBC 5.00 (3.80-5.40) m/uL Hgb 13.0 (11.4-16.0) gm/dL Hct 40.2 (34.0-46.0) % MCV 80.4 (80.0-100.0) fL MCH 26.0 (25.0-35.0) pg MCHC 32.4 (31.0-37.0) g/dL RDW 14.8 (11.5-15.5) % Plt Count 307 (150-450) k/uL Neutrophils % 84 % Lymphocytes % 8 % Monocytes % 6 % Eosinophils % 1 % Basophils % 0 % Neutrophils # 12.8 H (1.3-7.7) k/uL Lymphocytes # 1.2 (1.0-4.8) k/uL Monocytes # 1.0 (0-1.0) k/uL Eosinophils # 0.1 (0-0.7) k/uL Basophils # 0.0 (0-0.2) k/uL PT (9.0-12.0) sec INR (<1.2) APTT (22.0-30.0) sec Sodium 130 L (137-145) mmol/L Potassium 4.3 (3.5-5.1) mmol/L Chloride 89 L (98-107) mmol/L Carbon Dioxide 32 H (22-30) mmol/L Anion Gap 9 mmol/L BUN 22 H (7-17) mg/dL Creatinine 0.77 (0.52-1.04) mg/dL Est GFR (CKD-EPI)AfAm 81 (>60 ml/min/1.73 sqM) Est GFR (CKD-EPI)NonAf 70 (>60 ml/min/1.73 sqM) Glucose 160 H (74-99) mg/dL Calcium 9.5 (8.4-10.2) mg/dL Magnesium 1.6 (1.6-2.3) mg/dL Total Bilirubin 0.7 (0.2-1.3) mg/dL AST 33 (14-36) U/L ALT 20 (9-52) U/L Alkaline Phosphatase 81 (38-126) U/L Creatine Kinase 48 (30-135) U/L Troponin I (0.000-0.034) ng/mL NT-Pro-B Natriuret Pep 2300 pg/mL Total Protein 6.6 (6.3-8.2) g/dL Albumin 4.0 (3.5-5.0) g/dL 02/09/19 02/09/19 Range/Units 19:30 19:30 WBC (3.8-10.6) k/uL RBC (3.80-5.40) m/uL Hgb (11.4-16.0) gm/dL Hct (34.0-46.0) % MCV (80.0-100.0) fL MCH (25.0-35.0) pg MCHC (31.0-37.0) g/dL RDW (11.5-15.5) % Plt Count (150-450) k/uL Neutrophils % % Lymphocytes % % Monocytes % % Eosinophils % % Basophils % % Neutrophils # (1.3-7.7) k/uL Lymphocytes # (1.0-4.8) k/uL Monocytes # (0-1.0) k/uL Eosinophils # (0-0.7) k/uL Basophils # (0-0.2) k/uL PT 11.7 (9.0-12.0) sec INR 1.1 (<1.2) APTT 26.1 (22.0-30.0) sec Sodium (137-145) mmol/L Potassium (3.5-5.1) mmol/L Chloride (98-107) mmol/L Carbon Dioxide (22-30) mmol/L Anion Gap mmol/L BUN (7-17) mg/dL Creatinine (0.52-1.04) mg/dL Est GFR (CKD-EPI)AfAm (>60 ml/min/1.73 sqM) Est GFR (CKD-EPI)NonAf (>60 ml/min/1.73 sqM) Glucose (74-99) mg/dL Calcium (8.4-10.2) mg/dL Magnesium (1.6-2.3) mg/dL Total Bilirubin (0.2-1.3) mg/dL AST (14-36) U/L ALT (9-52) U/L Alkaline Phosphatase (38-126) U/L Creatine Kinase (30-135) U/L Troponin I <0.012 (0.000-0.034) ng/mL NT-Pro-B Natriuret Pep pg/mL Total Protein (6.3-8.2) g/dL Albumin (3.5-5.0) g/dL - EKG Data -: EKG Interpreted by Me (EKG shows A. fib rate of 100, QRS 72, QTc 438) Disposition Clinical Impression: Acute exacerbation of chronic obstructive airways disease, Acute pulmonary edema, Congestive heart failure, Pleural effusion, Metastatic cancer to lung, Atrial fibrillation with RVR Disposition: ADMITTED IP TO THIS HOSP Condition: Fair Is patient prescribed a controlled substance at d/c from ED?: No Referrals: Lionel Cleaning MD [Primary Care Provider] - 1-2 days
[2019-02-09 19:47] LABS: Basophils % (A) 0 %; Eosinophils # (A) 0.1 k/uL (0-0.7); Eosinophils % (A) 1 %; HCT 40.2 % (34.0-46.0); Lymphocytes # (A) 1.2 k/uL (1.0-4.8); Lymphocytes % (A) 8 %; MCHC 32.4 g/dL (31.0-37.0); MCV 80.4 fL (80.0-100.0); Mean Platelet Volume 7.2; Monocytes % (A) 6 %; Neutrophils # (A) 12.8 k/uL (1.3-7.7); Neutrophils % (A) 84 %; Platelet Count 307 k/uL (150-450); RDW 14.8 % (11.5-15.5); WBC 15.2 k/uL (3.8-10.6)
[2019-02-09 19:56] LABS: Calcium 9.5 mg/dL (8.4-10.2); Magnesium 1.6 mg/dL (1.6-2.3); Potassium 4.3 mmol/L (3.5-5.1); Total Bilirubin 0.7 mg/dL (0.2-1.3); Total Protein 6.6 g/dL (6.3-8.2)
[2019-02-09 20:00] LABS: INR 1.1 (<1.2); Partial Thromboplastin Time 26.1 sec (22.0-30.0); Prothrombin Time 11.7 sec (9.0-12.0)
--- NOTE | 2019-02-09 20:00 | XR ---
EXAMINATION TYPE: XR chest 2V DATE OF EXAM: 02/09/2019 COMPARISON: 01/10/2019 HISTORY: Short of breath TECHNIQUE: Frontal and lateral views of the chest are obtained. FINDINGS: There is large right pleural effusion. There is no gross heart failure. There is infiltrat e right lower lobe. Heart is shifted slightly to the right side. There are chest leads. Bony thorax a ppears intact. There is evidence of old right humeral neck healed fracture. IMPRESSION: There is right pleural effusion and right lower lobe pneumonic consolidation and atelect asis increased compared to last exam. No gross heart failure.
[2019-02-09] MEDS ORDERED: DILTIAZEM 5 MG/ML 5 ML VIAL IVP STA ×2 (20:29→23:05)
[2019-02-09] MEDS ORDERED: ALBUTEROL NEBULIZED 2.5 MG/3 ML INHALATION PRN (20:29)
--- NOTE | 2019-02-09 20:48 | ED ---
SOB HPI - General Chief Complaint: Shortness of Breath Stated Complaint: SOB Time Seen by Provider: 02/09/19 19:01 Source: patient, family, RN notes reviewed, old records reviewed Mode of arrival: wheelchair Limitations: no limitations - History of Present Illness Initial Comments: This is an 88-year-old female the ER for evaluation. Patient was essay for evaluation regards to shortness of breath. Patient has significant shortness of breath sore throat, currently going to chemotherapy for both breast and lung C8. No fevers. Patient to chemotherapy yesterday symptoms of worsened felt the night and into today. Patient does not sleep well throughout the night MD Complaint: shortness of breath, cough -: days(s) (1) Severity: moderate Severity scale (1-10): 5 Consistency: constant, intermittent Improves With: nothing Worsens With: nothing Known History Of: asthma, other (atrial fibrillation) Context: other (recent chemotherapy) Associated Symptoms: fever, cough Treatments Prior to Arrival: none - Related Data Home Medications Medication Instructions Recorded Confirmed Multivitamins, Thera [Multivitamin 1 tab PO DAILY 07/20/17 02/09/19 (formulary)] Omeprazole [PriLOSEC] 20 mg PO DAILY 07/20/17 02/09/19 amLODIPine [Norvasc] 10 mg PO DAILY 07/20/17 02/09/19 cloNIDine HCL [Catapres] 0.1 mg PO TID 07/20/17 02/09/19 Aspirin EC [Ecotrin Low Dose] 81 mg PO DAILY 12/20/18 02/09/19 Apixaban [Eliquis] 2.5 mg PO BID 02/09/19 02/09/19 Folic Acid 1 mg PO DAILY 02/09/19 02/09/19 LORazepam [Ativan] 0.5 mg PO DAILY@1400 02/09/19 02/09/19 LORazepam [Ativan] 1 mg PO HS 02/09/19 02/09/19 Prochlorperazine [Compazine] 10 mg PO TID 02/09/19 02/09/19 Telmisartan [Micardis] 40 mg PO DAILY 02/09/19 02/09/19 Previous Rx's Medication Instructions Recorded Anastrozole [Arimidex] 1 mg PO DAILY #30 tab 12/30/18 Furosemide [Lasix] 40 mg PO DAILY tab 01/02/19 Ipratropium-Albuterol Nebulize 3 ml INHALATION RT-QID ampul.neb 01/02/19 [Duoneb 0.5 mg-3 mg/3 ml Soln] Potassium Chloride ER [K-Dur 10] 10 meq PO DAILY tab.er.prt 01/02/19 Allergies Allergy/AdvReac Type Severity Reaction Status Date / Time bacitracin Allergy Unknown Verified 02/09/19 20:14 [From Neosporin ([id number])] codeine Allergy Unknown Verified 02/09/19 20:14 neomycin Allergy Unknown Verified 02/09/19 20:14 [From Neosporin ([id number])] polymyxin B Allergy Unknown Verified 02/09/19 20:14 [From Neosporin ([id number])] procaine [From Novocain] Allergy Unknown Verified 02/09/19 20:14 Review of Systems ROS Statement: Those systems with pertinent positive or pertinent negative responses have been documented in the HPI. ROS Other: All systems not noted in ROS Statement are negative. Past Medical History Past Medical History: Atrial Fibrillation, Cancer, CVA/TIA, GERD/Reflux, Hyperlipidemia, Hypertension Additional Past Medical History / Comment(s): 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 LUNG CANCER. 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 Past Anesthesia/Blood Transfusion Reactions: No Reported Reaction Past Psychological History: Anxiety Smoking Status: Former smoker - Past Family History Father Family Medical History: No Reported History Mother Family Medical History: No Reported History General Exam Limitations: no limitations General appearance: alert, in no apparent distress Head exam: Present: atraumatic, normocephalic, normal inspection Eye exam: Present: normal appearance, PERRL, EOMI. Absent: scleral icterus, conjunctival injection, periorbital swelling ENT exam: Present: normal exam, mucous membranes moist Neck exam: Present: normal inspection. Absent: tenderness, meningismus, lymphadenopathy Respiratory exam: Present: normal lung sounds bilaterally. Absent: respiratory distress, wheezes, rales, rhonchi, stridor Cardiovascular Exam: Present: tachycardia, irregular rhythm, normal heart sounds. Absent: systolic murmur, diastolic murmur, rubs, gallop, clicks GI/Abdominal exam: Present: soft, normal bowel sounds. Absent: distended, tenderness, guarding, rebound, rigid Extremities exam: Present: normal inspection, full ROM, normal capillary refill. Absent: tenderness, pedal edema, joint swelling, calf tenderness Back exam: Present: normal inspection Neurological exam: Present: alert, oriented X3, CN II-XII intact Psychiatric exam: Present: normal affect, normal mood Skin exam: Present: warm, dry, intact, normal color. Absent: rash Course Vital Signs 02/09/19 18:58 Temperature 97.8 F Pulse Rate 110 H Respiratory 22 Rate Blood Pressure 125/71 O2 Sat by Pulse 96 Oximetry - Reevaluation(s) Reevaluation #1: 02/09/19 20:46 Medical records reviewed Reevaluation #2: 02/09/19 20:46 Patient's in no acute distress, no hypoxia Medical Decision Making - Medical Decision Making 88 female the ER for evaluation patient does say for evaluation of shortness of breath difficulty breathing after chemotherapy. Patient will be admitted for treatment of shortness of breath, evaluation by both oncology and pulmonology. Patient also in A. fib with RVR which is improved - Lab Data Result diagrams: 02/09/19 19:30 02/09/19 19:30 Lab Results 02/09/19 02/09/19 02/09/19 Range/Units 19:30 19:30 19:30 WBC 15.2 H (3.8-10.6) k/uL RBC 5.00 (3.80-5.40) m/uL Hgb 13.0 (11.4-16.0) gm/dL Hct 40.2 (34.0-46.0) % MCV 80.4 (80.0-100.0) fL MCH 26.0 (25.0-35.0) pg MCHC 32.4 (31.0-37.0) g/dL RDW 14.8 (11.5-15.5) % Plt Count 307 (150-450) k/uL Neutrophils % 84 % Lymphocytes % 8 % Monocytes % 6 % Eosinophils % 1 % Basophils % 0 % Neutrophils # 12.8 H (1.3-7.7) k/uL Lymphocytes # 1.2 (1.0-4.8) k/uL Monocytes # 1.0 (0-1.0) k/uL Eosinophils # 0.1 (0-0.7) k/uL Basophils # 0.0 (0-0.2) k/uL PT (9.0-12.0) sec INR (<1.2) APTT (22.0-30.0) sec Sodium 130 L (137-145) mmol/L Potassium 4.3 (3.5-5.1) mmol/L Chloride 89 L (98-107) mmol/L Carbon Dioxide 32 H (22-30) mmol/L Anion Gap 9 mmol/L BUN 22 H (7-17) mg/dL Creatinine 0.77 (0.52-1.04) mg/dL Est GFR (CKD-EPI)AfAm 81 (>60 ml/min/1.73 sqM) Est GFR (CKD-EPI)NonAf 70 (>60 ml/min/1.73 sqM) Glucose 160 H (74-99) mg/dL Calcium 9.5 (8.4-10.2) mg/dL Magnesium 1.6 (1.6-2.3) mg/dL Total Bilirubin 0.7 (0.2-1.3) mg/dL AST 33 (14-36) U/L ALT 20 (9-52) U/L Alkaline Phosphatase 81 (38-126) U/L Creatine Kinase 48 (30-135) U/L Troponin I (0.000-0.034) ng/mL NT-Pro-B Natriuret Pep 2300 pg/mL Total Protein 6.6 (6.3-8.2) g/dL Albumin 4.0 (3.5-5.0) g/dL 02/09/19 02/09/19 Range/Units 19:30 19:30 WBC (3.8-10.6) k/uL RBC (3.80-5.40) m/uL Hgb (11.4-16.0) gm/dL Hct (34.0-46.0) % MCV (80.0-100.0) fL MCH (25.0-35.0) pg MCHC (31.0-37.0) g/dL RDW (11.5-15.5) % Plt Count (150-450) k/uL Neutrophils % % Lymphocytes % % Monocytes % % Eosinophils % % Basophils % % Neutrophils # (1.3-7.7) k/uL Lymphocytes # (1.0-4.8) k/uL Monocytes # (0-1.0) k/uL Eosinophils # (0-0.7) k/uL Basophils # (0-0.2) k/uL PT 11.7 (9.0-12.0) sec INR 1.1 (<1.2) APTT 26.1 (22.0-30.0) sec Sodium (137-145) mmol/L Potassium (3.5-5.1) mmol/L Chloride (98-107) mmol/L Carbon Dioxide (22-30) mmol/L Anion Gap mmol/L BUN (7-17) mg/dL Creatinine (0.52-1.04) mg/dL Est GFR (CKD-EPI)AfAm (>60 ml/min/1.73 sqM) Est GFR (CKD-EPI)NonAf (>60 ml/min/1.73 sqM) Glucose (74-99) mg/dL Calcium (8.4-10.2) mg/dL Magnesium (1.6-2.3) mg/dL Total Bilirubin (0.2-1.3) mg/dL AST (14-36) U/L ALT (9-52) U/L Alkaline Phosphatase (38-126) U/L Creatine Kinase (30-135) U/L Troponin I <0.012 (0.000-0.034) ng/mL NT-Pro-B Natriuret Pep pg/mL Total Protein (6.3-8.2) g/dL Albumin (3.5-5.0) g/dL - Radiology Data Radiology results: report reviewed (Chest x-rays show significant pleural effusion, known CA), image reviewed Critical Care Time Critical Care Time: Yes Disposition Clinical Impression: Acute exacerbation of chronic obstructive airways disease, Acute pulmonary edema, Congestive heart failure, Pleural effusion, Metastatic cancer to lung, Atrial fibrillation with RVR Disposition: ADMITTED IP TO THIS HOSP Condition: Fair Referrals: Lionel Cleaning MD [Primary Care Provider] - 1-2 days
[2019-02-09] MEDS ORDERED: LORazepam 1 MG TAB PO PRN (23:32)
[2019-02-10] MEDS: METOPROLOL TARTRATE 12.5 MG TAB PO SCH ×3 (00:03→21:49)
[2019-02-10] MEDS ORDERED: IPRATROPIUM-ALBUTEROL 3 ML NEB INHALATION PRN ×2 (00:18→14:45)
[2019-02-10] MEDS: DILTIAZEM 125 MG in SODIUM CHLORIDE 0.9% 100 ML IV SCH ×2 (08:43→21:14)
[2019-02-10] MEDS: IPRATROPIUM-ALBUTEROL 3 ML NEB INHALATION SCH ×5 (08:55→19:21)
--- NOTE | 2019-02-10 09:03 | CONS ---
CONSULTATION CHIEF COMPLAINT: Shortness of breath. Nikki is an 88-year-old lady with history of lung cancer, chronic atrial fibrillation, hypertension, who is admitted to the hospital with shortness of breath. She seems short of breath at rest. Does not have any leg edema. Does not have any sustained palpitations and she denies any chest pain. She has a combination of lung cancer and breast cancer and is receiving chemotherapy for the same. A chest x-ray on this admission revealed right-sided pleural effusion and possible underlying pneumonia. She has underlying CAD and also has ascending aortic aneurysm. At the time of my evaluation, she remains in atrial fibrillation with poorly controlled ventricular rate. She received Cardizem boluses, but she is not on any Cardizem drip. Her white cell count was elevated, but the hemoglobin is normal. Potassium is normal as is the creatinine. BNP is 2300 and troponin is normal. Patient's shortness of breath is probably related to the underlying pleural effusion and possible pneumonia and lung cancer. She is not in congestive heart failure and elevated BNP is of no clinical significance. The patient is in atrial fibrillation with poorly controlled ventricular rate. I am going to start her on Cardizem drip 10 mg an hour and I expect her heart rate to be controlled with this. PAST MEDICAL HISTORY: Past medical history is significant for hypertension, atrial fibrillation, breast cancer and lung cancer. MEDICATIONS: Medications at home include: Catapres 0.1 t.i.d., Norvasc 10 q. Daily, Micardis, Compazine, K-Dur, Ativan, DuoNeb, Lasix, aspirin, Eliquis, and Arimidex. ALLERGIES: The patient is allergic to CODEINE, NEOMYCIN, POLYMYXIN and BACITRACIN. FAMILY HISTORY: Family history is negative for premature coronary artery disease. SOCIAL HISTORY: Social history is negative for current smoking, EtOH abuse, or drug abuse. REVIEW OF SYSTEMS: HEENT is unremarkable. CARDIAC: As described above. RESPIRATORY: As described above. GI: Negative. GENITOURINARY: Negative. ALLERGY/IMMUNOLOGY: Negative. SKIN: Negative. MUSCULOSKELETAL: Significant for arthritis. PSYCHOSOCIAL: Negative. ENDOCRINE: Negative. HEMATOLOGICAL: Negative. DERM: Negative. CONSTITUTIONAL: Negative. ONCOLOGICAL: Significant for breast and lung cancer. STATIONARY [employer] FIREMAN: Negative. Rest of the system review is not relevant. PHYSICAL EXAMINATION: On exam, heart rate is 127 beats per minute. Blood pressure is 147/82. Respiratory rate 18. Chest exam reveals good air entry bilaterally. Heart exam reveals first and second heart sounds, irregular rhythm. Systolic murmur at the left lower sternal border. Abdomen is soft. Examination of extremities did not reveal any edema. Peripheral pulses are felt. ASSESSMENT: 1. Shortness of breath secondary to pleural effusion and possible pneumonia and underlying lung cancer. 2. Chronic atrial fibrillation with poorly controlled ventricular rate. 3. Hypertension. PLAN: I will start the patient on Cardizem drip and will adjust medications as needed based on how she responds to therapy. I do not have a recent echocardiogram on her so I am going to obtain an echo. MMODL / IJN: [id number] /
--- NOTE | 2019-02-10 13:00 | ECHOF ---
Referral Reason:afib MEASUREMENTS -------- HEIGHT: 170.2 cm WEIGHT: 69.9 kg BP: 147/87 IVSd: 0.9 cm (0.6 - 1.1) LVIDd: 3.4 cm (3.9 - 5.3) LVPWd: 0.9 cm (0.6 - 1.1) IVSs: 1.2 cm LVIDs: 2.4 cm LVPWs: 1.2 cm LA Diam: 3.1 cm (2.7 - 3.8) LAESV Index (A-L): 25.11 ml/m Ao Diam: 2.9 cm (2.0 - 3.7) AV Cusp: 1.7 cm (1.5 - 2.6) MV E Kris: 1.18 m/s MV DecT: 115 ms MV A Kris: 0.34 m/s MV E/A Ratio: 3.47 AV maxP.80 mmHg AV meanP.60 mmHg AR PHT: 420 ms RAP: 5.00 mmHg RVSP: 41.21 mmHg FINDINGS -------- Atrial fibrillation. This was a technically adequate study. Overall left ventricular systolic function is normal with, an EF between 55 - 60 %. The right ventricle is normal in size and function. The left atrium is mildly dilated. The right atrium is mildly enlarged. Interatrial and interventricular septum intact. There is mild aortic valve sclerosis. There is mild aortic regurgitation. There is no evidence of aortic stenosis. The mitral valve leaflets are mildly thickened. Mild mitral annular calcification present. Mild m itral regurgitation is present. Kcrk-um-pbpkqxrk tricuspid regurgitation present. There is no evidence of pulmonary hypertension. The right ventricular systolic pressure, as measured by Doppler, is 41.21mmHg , with a peak/mean gra dient measuring {TV maxPG} / {TV meanPG}. Trace/mild (physiologic) pulmonic regurgitation. The aortic root size is normal. IVC Not well visulized. The pericardium is normal. CONCLUSIONS -------- 1. Atrial fibrillation. 2. This was a technically adequate study. 3. The right ventricle is normal in size and function. 4. The left atrium is mildly dilated. 5. The right atrium is mildly enlarged. 6. Interatrial and interventricular septum intact. 7. There is mild aortic valve sclerosis. 8. There is mild aortic regurgitation. 9. There is no evidence of aortic stenosis. 10. The mitral valve leaflets are mildly thickened. 11. Mild mitral annular calcification present. 12. Mild mitral regurgitation is present. 13. Thhc-sy-gwofduvf tricuspid regurgitation present. 14. There is no evidence of pulmonary hypertension. 15. The right ventricular systolic pressure, as measured by Doppler, is 41.21mmHg. 16. , with a peak/mean gradient measuring {TV maxPG} / {TV meanPG}. 17. Trace/mild (physiologic) pulmonic regurgitation. 18. The aortic root size is normal. 19. IVC Not well visulized. 20. The pericardium is normal. FOOD SAFETY OFFICER: Danielle Olmstead RDCS
[2019-02-10] MEDS ORDERED: ALPRAZolam 0.25 MG TAB PO PRN (14:51)
--- NOTE | 2019-02-10 15:15 | P.CNPUL ---
History of Present Illness Consult date: 02/10/19 Reason for consult: pleural effusion History of present illness: 88-year-old female patient presented to the ED complaining of shortness of breat h. The patient had some increased dyspnea sore throat. No fever. No chills. No chest pain. No angina no swelling lower extremities. She is known to have stage IV non-small cell lung cancer and this was diagnosed during an earlier evaluation where the patient was found to have a right upper lobe mass and the right-sided pleural effusion during which the patient underwent a thoracentesis at a total of 1.2 L of pleural fluid was aspirated from the right lung and fluid cytology was positive for lung cancer. The right upper lobe biopsy was also positive for lung cancer which was in the form of poor differentiated adenocarcinoma of lung primary. During the workup in the hospital the patient was also found to have a breast lesion and a biopsy of the breast lesion showed infiltrating ductal carcinoma and this was done on the right. She is known to have multiple other medical problems included coronary artery disease, hypertension, hyperlipidemia, previous history of CVA and chronic atrial fibrillation. She was referred for hematology oncology and she was started on treatment with systemic chemotherapy. The patient apparently took her first session. I'm not sure this is a conventional chemotherapy versus immunotherapy. During this current admission, the patient was already seen by cardiology. Echocardiogram was done and it showed an EF around 55-60%. The patient continued to have difficult to control atrial fibrillation with increased ventricular rate and she was given Cardizem bolus and following that she was placed on a Cardizem drip. Troponin was normal. BNP level was 2300. Chest x- ray showed a recurrence of the right-sided pleural effusion. Currently Cardizem running at 10 mg an hour. The white cell count is at 15.2. BUN is at 22 creatinine 0.7. Review of Systems Constitutional: Reports fatigue, Reports poor appetite, Reports weakness Eyes: denies as per HPI, denies blurred vision, denies bulging eye, denies decreased vision, denies diplopia, denies discharge, denies dry eye, denies irritation, denies itching, denies pain, denies photophobia, denies loss of peripheral vision, denies loss of vision, denies tunnel vision/blind spots Ears: deny: decreased hearing, ear discharge, earache, tinnitus Ears, nose, mouth and throat: Denies headache, Denies sore throat Breasts: absent: as per HPI, change in shape, gynecomastia, masses, nipple discharge, pain, skin changes, swelling Cardiovascular: Reports decreased exercise tolerance, Reports dyspnea on exertion, Reports rapid heart beat, Reports shortness of breath Respiratory: Reports cough, Reports dyspnea Gastrointestinal: Reports as per HPI Genitourinary: Reports as per HPI Menstruation: Reports as per HPI Musculoskeletal: Reports as per HPI Musculoskeletal: bilateral: ankle swelling, absent: ankle pain, ankle stiffness Integumentary: Reports as per HPI Neurological: Reports as per HPI Psychiatric: Reports as per HPI Endocrine: Reports as per HPI Hematologic/Lymphatic: Reports as per HPI Allergic/Immunologic: Reports as per HPI Past Medical History Past Medical History: Atrial Fibrillation, Cancer, CVA/TIA, GERD/Reflux, Hyperlipidemia, Hypertension Additional Past Medical History / Comment(s): Poor differentiated adenocarcinoma of the lung, stage IV, infiltrating ductal carcinoma of the breast, chronic hypoxic respiratory failure, chronic atrial fibrillation, history of CVA with right-sided weakness, history of peripheral vascular disease, hyperlipidemia History of Any Multi-Drug Resistant Organisms: None Reported Past Surgical History: Appendectomy Additional Past Surgical History / Comment(s): R femoral angiogram, R leg stents, "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 Right-sided thoracentesis, bronchoscopy with transbronchial biopsy of the right upper lobe Past Anesthesia/Blood Transfusion Reactions: No Reported Reaction Past Psychological History: Anxiety Additional Psychological History / Comment(s): Pt resides with her spouse. She uses a cane or walker to ambulate. She drives. Smoking Status: Former smoker Past Alcohol Use History: None Reported Additional Past Alcohol Use History / Comment(s): Pt started smoking in 1959 and quit in 1979. Past Drug Use History: None Reported - Past Family History Father Family Medical History: No Reported History, Cancer, COPD Mother Family Medical History: No Reported History Medications and Allergies Home Medications Medication Instructions Recorded Confirmed Type RX: Multivitamins, Thera 1 tab PO DAILY 07/20/17 02/09/19 History [Multivitamin (formulary)] RX: Omeprazole [PriLOSEC] 20 mg PO DAILY 07/20/17 02/09/19 History RX: amLODIPine [Norvasc] 10 mg PO DAILY 07/20/17 02/09/19 History RX: cloNIDine HCL [Catapres] 0.1 mg PO TID 07/20/17 02/09/19 History RX: Aspirin EC [Ecotrin Low Dose] 81 mg PO DAILY 12/20/18 02/09/19 History RX: Anastrozole [Arimidex] 1 mg PO DAILY #30 tab 12/30/18 02/09/19 Rx RX: Furosemide [Lasix] 40 mg PO DAILY tab 01/02/19 02/09/19 Rx RX: Ipratropium-Albuterol Nebulize 3 ml INHALATION RT-QID ampul.neb 01/02/19 02/09/19 Rx [Duoneb 0.5 mg-3 mg/3 ml Soln] RX: Potassium Chloride ER [K-Dur 10 meq PO DAILY tab.er.prt 01/02/19 02/09/19 Rx 10] Apixaban [Eliquis] 2.5 mg PO BID 02/09/19 02/09/19 History LORazepam [Ativan] 0.5 mg PO DAILY@1400 02/09/19 02/09/19 History LORazepam [Ativan] 1 mg PO HS 02/09/19 02/09/19 History Prochlorperazine [Compazine] 10 mg PO TID 02/09/19 02/09/19 History RX: Folic Acid 1 mg PO DAILY 02/09/19 02/09/19 History Telmisartan [Micardis] 40 mg PO DAILY 02/09/19 02/09/19 History Allergies Allergy/AdvReac Type Severity Reaction Status Date / Time bacitracin Allergy Unknown Verified 02/09/19 20:14 [From Neosporin ([id number])] codeine Allergy Unknown Verified 02/09/19 20:14 neomycin Allergy Unknown Verified 02/09/19 20:14 [From Neosporin ([id number])] polymyxin B Allergy Unknown Verified 02/09/19 20:14 [From Neosporin ([id number])] procaine [From Novocain] Allergy Unknown Verified 02/09/19 20:14 Physical Exam Vitals: Vital Signs Temp Pulse Pulse Resp BP BP Pulse Ox 02/10/19 12:09 88 02/10/19 12:00 98.5 F 121 H 16 147/86 93 L 02/10/19 11:58 80 02/10/19 08:19 98.3 F 127 H 20 147/87 92 L 02/10/19 04:00 98.4 F 115 H 18 138/71 99 02/10/19 01:57 90 18 124/64 94 L 02/09/19 23:59 98.3 F 91 16 131/76 96 02/09/19 23:40 120 H 18 169/95 90 L 02/09/19 23:24 86 02/09/19 23:14 109 H 02/09/19 23:10 98.0 F 124 H 24 179/100 84 L 02/09/19 22:32 98.0 F 135 H 18 179/100 84 L 02/09/19 21:40 104 H 19 149/97 93 L 02/09/19 21:10 101 H 18 139/84 93 L 02/09/19 20:10 93 20 139/82 89 L 02/09/19 19:50 116/66 02/09/19 19:30 97 23 116/66 95 02/09/19 19:24 114 H 30 H 96 02/09/19 18:58 97.8 F 110 H 22 125/71 96 Intake and Output 02/10/19 02/10/19 02/10/19 06:59 14:59 22:59 Intake Total 720 Balance 720 Intake: Oral 720 Other: Voiding Method Toilet Toilet # Voids 1 1 Weight 70.9 kg 70.9 kg GENERAL EXAM: Alert, active, on 3 L of oxygen with a pulse ox of 94%, comfortable in no apparent distress. HEAD: Normocephalic/atraumatic. EYES: Normal reaction of pupils, equal size. Conjunctiva pink, sclera white. NOSE: Clear with pink turbinates. THROAT: No erythema or exudates. NECK: No masses, no JVD, no thyroid enlargement, no adenopathy. CHEST: No chest wall deformity. Symmetrical expansion. LUNGS: Diminished breath on the right lung base along with some dullness to percussion on examination. CVS: Regular rate and rhythm, normal S1 and S2, no gallops, no murmurs, no rubs ABDOMEN: Soft, nontender. No hepatosplenomegaly, normal bowel sounds, no guarding or rigidity. EXTREMITIES: No clubbing, no edema, no cyanosis, 2+ pulses and upper and lower extremities. MUSCULOSKELETAL: Muscle strength and tone normal. SPINE: No scoliosis or deformity SKIN: No rashes CENTRAL NERVOUS SYSTEM: No focal deficits, tone is normal in all 4 extremities. PSYCHIATRIC: Alert and oriented -3. Appropriate affect. Intact judgment and insight. Results - Laboratory Findings CBC and BMP: 02/09/19 19:30 02/09/19 19:30 PT/INR, D-dimer PT 11.7 sec (9.0-12.0) 02/09/19 19:30 INR 1.1 (<1.2) 02/09/19 19:30 Abnormal lab findings: Abnormal Labs 02/09/19 02/09/19 19:30 19:30 WBC 15.2 H Neutrophils # 12.8 H Sodium 130 L Chloride 89 L Carbon Dioxide 32 H BUN 22 H Glucose 160 H - Diagnostic Findings Chest x-ray: image reviewed Assessment and Plan Plan: 1 acute on chronic shortness of breath mainly due to reactivation of a right- sided pleural effusion and development of rapid ventricular response in the setting of chronic atrial fibrillation. The patient had a chest x-ray that showed a moderate to large right-sided pleural effusion. The atrial fibrilla tion is being controlled with a Cardizem drip for now 2 acute on chronic hypoxic respiratory failure secondary to above 3 stage IV poorly differentiated adenocarcinoma of the lung currently on treat ment. The patient had malignant right-sided pleural effusion and she is post thoracentesis on 12/28/2018 were a total of 1.2 L of pleural fluid was drained from the right lung 4. 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 5. Chronic atrial fibrillation on chronic anticoagulation 6. History of peripheral vascular disease 7. Coronary artery disease 8. Hypertension 9. Hyperlipidemia 10. History of CVA/TIA 11. History of nicotine dependence, currently in remission, carries 42-30-licz-year smoking history Plan Hold anticoagulation for now. We'll discuss the possibility of thoracentesis once the patient is off the anticoagulants versus a Pleurx catheter insertion. The patient is on the undergone 2 thoracentesis back in December. It is likely that she may benefit from a Pleurx catheter insertion due to the rapid atrial fibrillation of a right-sided pleural effusion. Meanwhile, continue treatment of lung cancer. Continue treatment of breast cancer with Arimidex. Management of atrial fibrillation per cardiology and the patient is in a Cardizem drip. We'll continue to follow.
--- NOTE | 2019-02-10 16:07 | P.CONS ---
History of Present Illness - Reason for Consult Consult date: 02/10/19 Breast and Lung Cancer on Chemotherapy Requesting physician: Rick Conti - Chief Complaint Sob - History of Present Illness Mrs. Faith is a very pleasant elderly woman who was initially seen in consultation at [facility] after she presented to emergency for complaints of "just not feeling well the past week or so". Initial inpatient consultation 12.21.18. Symptoms have been worse over the last 2-3 days, with main complaint of progressive shortness of breath. She denied fever, pain or cough. In the emergency room, the patient underwent a CT scan of the lung, which revealed a mass in the right breast with invasion into the pectoralis. In addition there was dense consolidation in the right upper lobe of the lung suggestive of mass with postobstructive changes, as well as a significant right pleural effusion. The patient was therefore admitted for further management and consult placed. She denied any prior history of malignancy. She stated that she has never had a mammogram done. She has been aware of the mass in the right breast and states that has been there for "years". 12.22.18 -CT scan Chest/Abdomen/Pelvis: - Right Medial upper lobe mass extending into the mediastinum has compression of superior vena cava as well as circumferential narrowing of the right distal main pulmonary artery - Right Breast Mass - Bilateral Lung Masses Transbronchial Biopsy RUL - Consistent primary Pulmonary adenocarcinoma 12.28.18: Thoracentesis right pleural fluid metastatic adenocarcinoma Right Breast Mass with invasion of the pectoralis major muscle and abutment of the pectoralis minor, skin retraction as well as right axillary adenopathy 12.22.18 - Pathology Positive for right breast cancer ER and [place] Positive 12.30.18: Arimidex initiated T11 and T12 compression deformities (Non pathological Diffuse osseous demineralization. 12.22.18: Bone scan without evidence of metastatic disease. MRI Brain - Refused inpatient CT Brain with contrast Vague Nodular focus of enhancement within left basal ganglia likley vascular rather than solitary brain met, no vasogenic edema noted. 01/10/19: Patient presents with daughter, she is still weak and wearing 24 hour oxygen although doing well. We reviewed pathology results and potential treatment options. Plan in place to obtain next gen, continue arimidex and obtain bone density. The patient was seen by radiation oncology and was to start palliative radiation to the primary lung site. She is tolerating Arimidex well. NGS and PDL 1 were negative other than 5-10% of PD L1 positivity noted Last office visit She denied any fevers/chills/nausea/vomiting. Appetite is reduced but she feels that she is maintaining her by mouth intake. She continues to be quite weak and need a wheelchair for a significant elevation. She is on oxygen [id number]. However she states that at home she is able to mostly perform her ADLs. She is complaining of shoulder pain on the right side, controlled by Tylenol. She does have some constipation. . She completed cycle one of Carboplatin, Amta and Keytruda, she continues on arimidex. She has increased pulmonary effusion and sob. She is asking for the ativan to help her, I stopped the xanax as does not need both. Discussed with pulm, likely stefanie nichole. Review of Systems A 14 point review of systems was assessed and completed and are all negative except for HPI Past Medical History Past Medical History: Atrial Fibrillation, Cancer, CVA/TIA, GERD/Reflux, Hyperlipidemia, Hypertension Additional Past Medical History / Comment(s): Poor differentiated adenocarcinoma of the lung, stage IV, infiltrating ductal carcinoma of the breast, chronic hypoxic respiratory failure, chronic atrial fibrillation, history of CVA with right-sided weakness, history of peripheral vascular disease, hyperlipidemia History of Any Multi-Drug Resistant Organisms: None Reported Past Surgical History: Appendectomy Additional Past Surgical History / Comment(s): R femoral angiogram, R leg stents, "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 Right-sided thoracentesis, bronchoscopy with transbronchial biopsy of the right upper lobe Past Anesthesia/Blood Transfusion Reactions: No Reported Reaction Past Psychological History: Anxiety Additional Psychological History / Comment(s): Pt resides with her spouse. She uses a cane or walker to ambulate. She drives. Smoking Status: Former smoker Past Alcohol Use History: None Reported Additional Past Alcohol Use History / Comment(s): Pt started smoking in 1959 and quit in 1979. Past Drug Use History: None Reported - Past Family History Father Family Medical History: No Reported History, Cancer, COPD Mother Family Medical History: No Reported History Medications and Allergies Home Medications Medication Instructions Recorded Confirmed Type Multivitamins, Thera [Multivitamin 1 tab PO DAILY 07/20/17 02/09/19 History (formulary)] Omeprazole [PriLOSEC] 20 mg PO DAILY 07/20/17 02/09/19 History amLODIPine [Norvasc] 10 mg PO DAILY 07/20/17 02/09/19 History cloNIDine HCL [Catapres] 0.1 mg PO TID 07/20/17 02/09/19 History Aspirin EC [Ecotrin Low Dose] 81 mg PO DAILY 12/20/18 02/09/19 History Anastrozole [Arimidex] 1 mg PO DAILY #30 tab 12/30/18 02/09/19 Rx Furosemide [Lasix] 40 mg PO DAILY tab 01/02/19 02/09/19 Rx Ipratropium-Albuterol Nebulize 3 ml INHALATION RT-QID ampul.neb 01/02/19 02/09/19 Rx [Duoneb 0.5 mg-3 mg/3 ml Soln] Potassium Chloride ER [K-Dur 10] 10 meq PO DAILY tab.er.prt 01/02/19 02/09/19 Rx Apixaban [Eliquis] 2.5 mg PO BID 02/09/19 02/09/19 History Folic Acid 1 mg PO DAILY 02/09/19 02/09/19 History LORazepam [Ativan] 0.5 mg PO DAILY@1400 02/09/19 02/09/19 History LORazepam [Ativan] 1 mg PO HS 02/09/19 02/09/19 History Prochlorperazine [Compazine] 10 mg PO TID 02/09/19 02/09/19 History Telmisartan [Micardis] 40 mg PO DAILY 02/09/19 02/09/19 History Allergies Allergy/AdvReac Type Severity Reaction Status Date / Time bacitracin Allergy Unknown Verified 02/09/19 20:14 [From Neosporin ([id number])] codeine Allergy Unknown Verified 02/09/19 20:14 neomycin Allergy Unknown Verified 02/09/19 20:14 [From Neosporin ([id number])] polymyxin B Allergy Unknown Verified 02/09/19 20:14 [From Neosporin ([id number])] procaine [From Novocain] Allergy Unknown Verified 02/09/19 20:14 Physical Exam Vitals: Vital Signs Temp Pulse Pulse Resp BP BP Pulse Ox 02/10/19 12:09 88 02/10/19 12:00 98.5 F 121 H 16 147/86 93 L 02/10/19 11:58 80 02/10/19 08:19 98.3 F 127 H 20 147/87 92 L 02/10/19 04:00 98.4 F 115 H 18 138/71 99 02/10/19 01:57 90 18 124/64 94 L 02/09/19 23:59 98.3 F 91 16 131/76 96 02/09/19 23:40 120 H 18 169/95 90 L 02/09/19 23:24 86 02/09/19 23:14 109 H 02/09/19 23:10 98.0 F 124 H 24 179/100 84 L 02/09/19 22:32 98.0 F 135 H 18 179/100 84 L 02/09/19 21:40 104 H 19 149/97 93 L 02/09/19 21:10 101 H 18 139/84 93 L 02/09/19 20:10 93 20 139/82 89 L 02/09/19 19:50 116/66 02/09/19 19:30 97 23 116/66 95 02/09/19 19:24 114 H 30 H 96 02/09/19 18:58 97.8 F 110 H 22 125/71 96 Intake and Output 02/10/19 02/10/19 02/10/19 06:59 14:59 22:59 Intake Total 720 Balance 720 Intake: Oral 720 Other: Voiding Method Toilet Toilet # Voids 1 1 Weight 70.9 kg 70.9 kg Gen: Alert and Oriented, NADweak, Cachetic Head: NCNT Neck Supple Heart Tachy Lungs Mildncreased effort Diminished Abdomen: S/ND/NT Ext: No Rash, No Edema, Equal Strength Psych: Calm and Coroperative Neuro: No Focal Deficits Noted. Results CBC & Chem 7: 02/09/19 19:30 02/09/19 19:30 Labs: Abnormal Lab Results - Last 24 Hours (Table) 02/09/19 02/09/19 Range/Units 19:30 19:30 WBC 15.2 H (3.8-10.6) k/uL Neutrophils # 12.8 H (1.3-7.7) k/uL Sodium 130 L (137-145) mmol/L Chloride 89 L (98-107) mmol/L Carbon Dioxide 32 H (22-30) mmol/L BUN 22 H (7-17) mg/dL Glucose 160 H (74-99) mg/dL Chest x-ray: report reviewed Assessment and Plan Plan: Assessment and recommendations: Adenocarcinoma of the Lung - Status POst cycle one with Carbo, Almta and Keytruda Hx: Breast Cancer: - Continue Arimidex Acute respiratory Failure: - Increased Pleural effusions - Pulmonary Following - Continue supportive Care Hyponatremia: - LIkely secondary dehydration Anxiety and Nausea relieved with current ativan regimen. Stop Xanax (does not need both) Ok for pleurex Will re-evaluate cancer treatment after discharge.
--- NOTE | 2019-02-10 16:27 | HP ---
HISTORY AND PHYSICAL CHIEF COMPLAINT: Shortness of breath. HISTORY OF PRESENT ILLNESS: 88-year-old woman with a past medical history of atrial fibrillation, history of CVA, TIA, GERD, hypertension, hyperlipidemia, history of CVA, history of appendectomy, history of anxiety being followed by Dr. Lionel Cleaning in the outpatient setting was also seen by Dr. Mosley previously. The patient had a pleural aspiration of the right side. The bronchoscope brushing showed evidence of poorly differentiated non-small cell carcinoma. The patient apparently was having chemotherapy. The patient was having increased shortness of breath and the patient came to [facility] and right lower pneumonia and effusion was suspected. Patient admitted to the hospital for further evaluation and treatment. Patient was also noted to have atrial fibrillation with fast ventricular rate also. There is no history of any fever, rigors or chills. No headache, loss of consciousness or seizures at this time. PAST MEDICAL HISTORY: History of atrial fibrillation, history of CVA, TIA, GERD, hyperlipidemia, hypertension, CVA with right-sided weakness, history of anxiety. MEDICATIONS: Home medications are: 1. Clonidine 0.1 p.o. t.i.d. 2. Norvasc 10 mg p.o. daily. 3. Micardis 40 mg p.o. daily. 4. Compazine 10 mg p.o. t.i.d. 5. K-Dur 10 mg. 6. Prilosec 20 mg p.o. 7. Multivitamins one p.o. daily. 8. Ativan 1 mg q.h.s., 0.5 mg p.o. daily. 9. DuoNeb q.i.d. 10.Lasix 40 mg p.o. daily. 11.Folic acid 1 mg p.o. daily. 12.Ecotrin 81 mg p.o. daily. 13.Eliquis 2.5 mg p.o. b.i.d. 14.Arimidex 1 mg p.o. daily. ALLERGIES: NEOSPORIN, CODEINE, POLYMYXIN B AND PROCAINE. FAMILY HISTORY: No history of heart disease or strokes in the family. SOCIAL HISTORY: Previous history of smoking. No history of current smoking or alcohol. REVIEW OF SYSTEMS: ENT: Diminished hearing or vision. CARDIOVASCULAR: As mentioned mentioned earlier. RESPIRATORY: As mentioned earlier. GI: No nausea or vomiting. no dysuria or hematuria. NERVOUS SYSTEM: No numbness or weakness. ALLERGY/IMMUNOLOGY: No asthma or hayfever. MUSCULOSKELETAL as mentioned earlier. HEMATOLOGY/ONCOLOGY: No history of anemia. ENDOCRINE: As mentioned earlier. CONSTITUTIONAL: As mentioned earlier. DERMATOLOGY: Negative. RHEUMATOLOGY negative. PSYCHIATRY as mentioned earlier. PHYSICAL EXAMINATION: Alert and oriented x3. The pulse is 121, irregular. Blood pressure 147/80, respirations 16, temperature 98.4, pulse ox 98% on 2 L. HEENT: Conjunctivae normal. Oral mucosa moist. NECK is no jugular venous distention. No carotid bruit. No lymph node enlargement. CARDIOVASCULAR: S1, S2 irregular. RESPIRATORY: Breath sounds diminished in the bases. Bilateral scattered rhonchi and crackles. Expiratory wheezing also present. ABDOMEN: Soft, nontender. No mass palpable. NERVOUS SYSTEM: Higher functions as mentioned earlier. Moves all four extremities. No focal motor or sensory deficits. LYMPHATICS: No lymph nodes palpable in the neck, axillae or groin. SKIN: No ulcers, rashes or bleeding. JOINTS: No active deforming arthropathy. LABS: At this time which were reviewed shows labs are reviewed. Sodium 130 and WBC 15.8, hemoglobin 13 and CO2 is 32. Potassium 4.3. Troponin less than 0.0120. ProBNP is 2300. ASSESSMENT: 1. Shortness of breath, multifactorial, possibly right lower pneumonia, shortness of breath with possible chronic obstructive pulmonary disease acute exacerbation as well as metastatic lung cancer with non-small cell lung cancer, poorly differentiated. 2. with acute hypoxic hypercarbic respiratory failure, present on admission. 3. History of breast cancer. 4. Increased WBC. 5. Atrial fibrillation with fast ventricular rate. 6. Cerebrovascular accident, transient ischemic attack. 7. Gastroesophageal reflux disease. 8. Hypertension. 9. Hyperlipidemia. 10.History of cerebrovascular accident with right-sided weakness. 11.History of plantar ulcer and peripheral vascular disease. 12.History of appendectomy. 13.History of anxiety. 14.Remote history of nicotine dependence. RECOMMENDATIONS AND DISCUSSION: In this 88-year-old woman who presented with multiple complex medical issues, we will monitor the patient closely. Continue the current medications and we will optimize bronchodilators. I would recommend empiric antibiotics. Cardizem drip. Otherwise, resume the home medications. Closely follow with Pulmonary and Cardiology. The patient still has pleural effusion on the right side. The patient history of thoracocentesis. I would recommend Dr. Mosley to evaluate the fluid and then see whether any thoracocentesis might help her out. Otherwise, we will continue to monitor. Prognosis guarded. Further recommendations to follow. Discussed with the patient and family. A copy of this forwarded to Dr. Cleaning who is the primary physician. Discussed with family at length. MMODL / IJN: [id number] /
[2019-02-10] MEDS: ANASTROZOLE 1 MG TAB PO SCH (17:02)
[2019-02-10] MEDS: cloNIDine HCL 0.1 MG TAB PO SCH ×2 (17:02→21:49)
[2019-02-10] MEDS: PROCHLORPERAZINE 10 MG TAB PO SCH ×2 (17:02→21:50)
[2019-02-10] MEDS: methylPREDNISolone SOD SUCCI 125 MG/2 ML VIAL IV SCH ×2 (17:02→23:36)
[2019-02-10] MEDS: FUROSEMIDE 10 MG/ML 4 ML VIAL IV SCH (17:03)
[2019-02-10] MEDS: PIPERACILLIN-TAZOBACTAM 3.375 GM in SODIUM CHLORIDE 0.9% 100 ML IVPB SCH ×2 (17:03→23:36)
[2019-02-10 17:04] LABS: Glucose,Whole Blood 120 mg/dL (75-99)
[2019-02-10 17:08] LABS: Basophils % (A) 0 %; Eosinophils # (A) 0.1 k/uL (0-0.7); Eosinophils % (A) 0 %; HGB 14.3 gm/dL (11.4-16.0); Lymphocytes # (A) 1.4 k/uL (1.0-4.8); Lymphocytes % (A) 10 %; MCH 25.4 pg (25.0-35.0); MCV 81.7 fL (80.0-100.0); Mean Platelet Volume 7.4; Monocytes # (A) 0.6 k/uL (0-1.0); Monocytes % (A) 4 %; Neutrophils # (A) 11.7 k/uL (1.3-7.7); Neutrophils % (A) 84 %; Platelet Count 290 k/uL (150-450); RBC 5.62 m/uL (3.80-5.40); RDW 14.9 % (11.5-15.5); WBC 13.9 k/uL (3.8-10.6)
[2019-02-10] MEDS: INSULIN ASPART (NovoLOG) 100 UNIT/ML VIAL SQ SCH ×2 (17:12→21:50)
[2019-02-10 17:21] LABS: Albumin 4.2 g/dL (3.5-5.0); Calcium 9.5 mg/dL (8.4-10.2); Potassium 4.6 mmol/L (3.5-5.1); Total Protein 7.1 g/dL (6.3-8.2)
[2019-02-10 18:46] LABS: Appearance,Urine Clear (Clear); Bilirubin,Urine Negative (Negative); Blood,Urine Negative (Negative); Color,Urine Yellow; Glucose,Urine (UA) Negative (Negative); Ketones,Urine Negative (Negative); Leukocyte Esterase,Urine Negative (Negative); Nitrite,Urine Negative (Negative); Protein,Urine 2+ (Negative); RBC,Urine 1 /hpf (0-5); Specific Gravity,Urine 1.009 (1.001-1.035); Squamous Epithelial Cell,Urine <1 /hpf (0-4); Urobilinogen,Urine <2.0 mg/dL (<2.0); WBC,Urine 1 /hpf (0-5)
[2019-02-10] MEDS: BUDESONIDE 1 MG/2 ML NEBU INHALATION SCH (19:20)
[2019-02-10] MEDS: FORMOTEROL FUMARATE 20 MCG/2 ML NEBU INHALATION SCH (19:31)
[2019-02-10 20:40] LABS: Glucose,Whole Blood 282 mg/dL (75-99)
[2019-02-10] MEDS: APIXABAN 2.5 MG TABLET PO SCH (21:49)
[2019-02-10] MEDS: LORazepam 1 MG TAB PO SCH (21:49)
[2019-02-11 06:23] LABS: Glucose,Whole Blood 180 mg/dL (75-99)
[2019-02-11] MEDS: methylPREDNISolone SOD SUCCI 125 MG/2 ML VIAL IV SCH ×4 (06:32→23:36)
[2019-02-11] MEDS: PANTOPRAZOLE 40 MG TABLET PO SCH (06:33)
[2019-02-11] MEDS: INSULIN ASPART (NovoLOG) 100 UNIT/ML VIAL SQ SCH ×4 (06:33→21:34)
[2019-02-11 06:43] LABS: Basophils % (A) 0 %; Eosinophils % (A) 0 %; HCT 41.9 % (34.0-46.0); HGB 13.1 gm/dL (11.4-16.0); Lymphocytes # (A) 0.3 k/uL (1.0-4.8); Lymphocytes % (A) 3 %; MCH 25.5 pg (25.0-35.0); MCHC 31.2 g/dL (31.0-37.0); MCV 81.9 fL (80.0-100.0); Mean Platelet Volume 7.4; Monocytes # (A) 0.2 k/uL (0-1.0); Monocytes % (A) 2 %; Neutrophils # (A) 10.1 k/uL (1.3-7.7); Neutrophils % (A) 95 %; Platelet Count 266 k/uL (150-450); RBC 5.11 m/uL (3.80-5.40); WBC 10.6 k/uL (3.8-10.6)
[2019-02-11 07:20] LABS: Calcium 9.7 mg/dL (8.4-10.2); Potassium 4.2 mmol/L (3.5-5.1)
[2019-02-11] MEDS: DILTIAZEM 125 MG in SODIUM CHLORIDE 0.9% 100 ML IV SCH ×2 (08:29→21:36)
[2019-02-11] MEDS: cloNIDine HCL 0.1 MG TAB PO SCH ×3 (08:37→21:32)
[2019-02-11] MEDS: ANASTROZOLE 1 MG TAB PO SCH (08:37)
[2019-02-11] MEDS: FUROSEMIDE 10 MG/ML 4 ML VIAL IV SCH (08:37)
[2019-02-11] MEDS: PIPERACILLIN-TAZOBACTAM 3.375 GM in SODIUM CHLORIDE 0.9% 100 ML IVPB SCH ×3 (08:37→23:37)
[2019-02-11] MEDS: METOPROLOL TARTRATE 12.5 MG TAB PO SCH (08:37)
[2019-02-11] MEDS: PROCHLORPERAZINE 10 MG TAB PO SCH ×3 (08:37→21:36)
[2019-02-11] MEDS: MULTIVITAMINS, THERA 1 EACH TAB PO SCH (08:37)
[2019-02-11] MEDS: ASPIRIN 81 MG PO SCH (08:37)
[2019-02-11] MEDS: POTASSIUM CHLORIDE ER 10 MEQ TAB.ER.PRT PO SCH (08:37)
[2019-02-11] MEDS ORDERED: amLODIPine 10 MG TAB PO SCH (09:00)
[2019-02-11] MEDS: IPRATROPIUM-ALBUTEROL 3 ML NEB INHALATION SCH ×4 (09:29→20:47)
[2019-02-11 11:55] LABS: Glucose,Whole Blood 192 mg/dL (75-99)
[2019-02-11] MEDS: FOLIC ACID 1 MG TAB PO SCH (12:17)
--- NOTE | 2019-02-11 12:18 | P.PN ---
Subjective Progress Note Date: 02/11/19 Mike is an 88-year-old female patient presented to the ED complaining of shortness of breath. The patient had some increased dyspnea sore throat. No fever. No chills. No chest pain. No angina no swelling lower extremities. She is known to have stage IV non-small cell lung cancer and this was diagnosed during an earlier evaluation where the patient was found to have a right upper lobe mass and the right-sided pleural effusion during which the patient underwent a thoracentesis at a total of 1.2 L of pleural fluid was aspirated from the right lung and fluid cytology was positive for lung cancer. The right upper lobe biopsy was also positive for lung cancer which was in the form of poor differentiated adenocarcinoma of lung primary. During the workup in the hospital the patient was also found to have a breast lesion and a biopsy of the breast lesion showed infiltrating ductal carcinoma and this was done on the right. She is known to have multiple other medical problems included coronary artery disease, hypertension, hyperlipidemia, previous history of CVA and chronic atrial fibrillation. She was referred for hematology oncology and she was started on treatment with systemic chemotherapy. The patient apparently took her first session. was seen yesterday in consultation by Dr. Lehman, he initiated a Cardizem drip for A. fib with RVR. Her heart rate this morning is in the low 100s. Echocardiogram with Doppler study was performed which revealed an ejection fraction of 55-60%, mild to moderate tricuspid regurg. Blood pressure 132/68 with a heart rate in the low 100s, 94% on 3 L of oxygen. Objective - Vital Signs Vital signs: Vital Signs Temp 98.2 F 02/11/19 11:47 Pulse 103 H 02/11/19 11:47 Resp 20 02/11/19 11:47 BP 132/68 02/11/19 11:47 Pulse Ox 94 L 02/11/19 11:47 Intake & Output 02/10/19 02/11/19 02/11/19 18:59 06:59 18:59 Intake Total 942 125 352.5 Output Total 400 300 Balance 542 125 52.5 Weight 70.9 kg 58 kg Intake: Intake, IV Titration 125 112.5 Amount Diltiazem 125 mg In 125 112.5 Sodium Chloride 0.9% 100 ml @ 10 MG/HR 10 mls/hr IV .[id number] [facility] Rx#: [id number] Oral 942 240 Output: Urine 400 300 Other: Voiding Method Toilet Bedside Commode Bedside Commode # Voids 1 2 1 # Bowel Movements 0 - Exam HEAD: Normocephalic/atraumatic. EYES: Normal reaction of pupils, equal size. Conjunctiva pink, sclera white. NOSE: Clear with pink turbinates. THROAT: No erythema or exudates. NECK: No masses, no JVD, no thyroid enlargement, no adenopathy. CHEST: No chest wall deformity. Symmetrical expansion. LUNGS: Diminished breath on the right lung base along with some dullness to percussion on examination. CVS: Heart S1 and S2 irregularly irregular a systolic murmur is heard ABDOMEN: Soft, nontender. No hepatosplenomegaly, normal bowel sounds, no guarding or rigidity. EXTREMITIES: No clubbing, no edema, no cyanosis, 2+ pulses and upper and lower extremities. MUSCULOSKELETAL: Muscle strength and tone normal. SPINE: No scoliosis or deformity SKIN: No rashes CENTRAL NERVOUS SYSTEM: No focal deficits, tone is normal in all 4 extremities. PSYCHIATRIC: Alert and oriented -3. Appropriate affect. Intact judgment and insight. - Labs CBC & Chem 7: 02/11/19 05:34 02/11/19 05:34 Labs: Abnormal Lab Results - Last 24 Hours (Table) 02/10/19 02/10/19 02/10/19 Range/Units 16:33 16:33 17:02 WBC 13.9 H (3.8-10.6) k/uL RBC 5.62 H (3.80-5.40) m/uL Neutrophils # 11.7 H (1.3-7.7) k/uL Lymphocytes # (1.0-4.8) k/uL Sodium 131 L (137-145) mmol/L Chloride 88 L (98-107) mmol/L Carbon Dioxide 33 H (22-30) mmol/L BUN 22 H (7-17) mg/dL Glucose 117 H (74-99) mg/dL POC Glucose (mg/dL) 120 H (75-99) mg/dL Urine Protein (Negative) 02/10/19 02/10/19 02/11/19 Range/Units 17:06 20:39 05:34 WBC (3.8-10.6) k/uL RBC (3.80-5.40) m/uL Neutrophils # 10.1 H (1.3-7.7) k/uL Lymphocytes # 0.3 L (1.0-4.8) k/uL Sodium (137-145) mmol/L Chloride (98-107) mmol/L Carbon Dioxide (22-30) mmol/L BUN (7-17) mg/dL Glucose (74-99) mg/dL POC Glucose (mg/dL) 282 H (75-99) mg/dL Urine Protein 2+ H (Negative) 02/11/19 02/11/19 02/11/19 Range/Units 05:34 06:21 11:53 WBC (3.8-10.6) k/uL RBC (3.80-5.40) m/uL Neutrophils # (1.3-7.7) k/uL Lymphocytes # (1.0-4.8) k/uL Sodium 131 L (137-145) mmol/L Chloride 88 L (98-107) mmol/L Carbon Dioxide 31 H (22-30) mmol/L BUN 26 H (7-17) mg/dL Glucose 182 H (74-99) mg/dL POC Glucose (mg/dL) 180 H 192 H (75-99) mg/dL Urine Protein (Negative) Assessment and Plan Plan: Assessment and plan 1 acute on chronic shortness of breath mainly due to reactivation of a right- sided pleural effusion and development of rapid ventricular response in the setting of chronic atrial fibrillation. The patient had a chest x-ray that showed a moderate to large right-sided pleural effusion. 2 acute on chronic hypoxic respiratory failure secondary to above 3 stage IV poorly differentiated adenocarcinoma of the lung currently on treatment. The patient had malignant right-sided pleural effusion and she is post thoracentesis on 12/28/2018 were a total of 1.2 L of pleural fluid was drained from the right lung 4. 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 5. Chronic atrial fibrillation on chronic anticoagulation 6. History of peripheral vascular disease 7. Coronary artery disease 8. Hypertension 9. Hyperlipidemia 10. History of CVA/TIA 11. History of nicotine dependence, currently in remission, carries [id number]-year smoking history Plan We will increase the dose of beta brigitte to 25 mg one tablet by mouth twice a day, if heart rate remains under good control we can discontinue the Gary palomares. Anticoagulation was placed on hold today because the patient will under go Doppler attacks catheter placement by pulmonary on Wednesday. Continue you to follow. DNP note has been reviewed, I agree with a documented findings and plan of care. Patient was seen and examined.
[2019-02-11] MEDS ORDERED: METOPROLOL TARTRATE 12.5 MG TAB PO STA (12:25)
[2019-02-11] MEDS: LOSARTAN 50 MG TAB PO SCH (12:30)
[2019-02-11] MEDS: BUDESONIDE 1 MG/2 ML NEBU INHALATION SCH ×2 (13:05→20:47)
[2019-02-11] MEDS: FORMOTEROL FUMARATE 20 MCG/2 ML NEBU INHALATION SCH ×2 (13:05→20:47)
--- NOTE | 2019-02-11 13:18 | P.GSCN ---
<Kam Sommer - Last Filed: 02/11/19 12:57> History of Present Illness Consult date: 02/11/19 Reason for Consult: Recurrent right malignant pleural effusion, evaluate for Pleurx catheter placem ent. Requesting physician: Kennedy Mosley History of present illness: This is an 88-year-old female patient who is followed by Dr. Lionel Cleaning on an outpatient basis. She has a past medical history significant for a recent diagnosis of stage IV non-small cell lung cancer with a right upper lobe mass, recurrent right-sided pleural effusion status post thoracentesis on 12/22/2018 with 950 mL of fluid removed and on 12/29/2018 with 1.2 L of fluid removed, she also has a history of a recent diagnosis of a right breast lesion with a biopsy positive for infiltrating ductal carcinoma, hypertension, hyperlipidemia, coronary artery disease, history of CVA with residual right upper extremity weakness and chronic atrial fibrillation on eliquis for anticoagulation. She presented to the emergency department here at [facility] with complaints of shortness of breath and a sore throat. She denies any complaints of pain, fever, chills, edema, hemoptysis or recent trauma. A chest x-ray was completed in the emergency department which showed her to have a right pleural effusion and right lower lobe pneumonic consolidation and atelectasis which was increased compared to her last exam. A 12-lead EKG was also completed which dem onstrated atrial fibrillation with premature ventricular complex, and left axis deviation with a heart rate of 100 BPM. She also had a 2-D echocardiogram completed which was negative for any pericardial effusion, demonstrated an overall left ventricular systolic function to be normal with an ejection fraction between 55 and 60%, mild aortic valve regurgitation, mild mitral valve regurgitation, mild to moderate tricuspid valve regurgitation and trace to mild pulmonic valve regurgitation. Her initial laboratory results showed a WBC count of 15.2, sodium 130, BUN 22, creatinine 0.77 and a troponin less than 0.012. Subsequently due to the patient's recent history of thoracentesis, and recurrent pleural effusion a consult was placed to Dr. Jay Sheridan from cardiothoracic surgery for evaluation and recommendations on a Pleurx catheter placement. Review of Systems A 14 point review of systems was completed and was negative except as mentioned in HPI. Past Medical History Past Medical History: Atrial Fibrillation, Coronary Artery Disease (CAD), Cancer, CVA/TIA, GERD/Reflux, Hyperlipidemia, Hypertension, Vascular Disorder Additional Past Medical History / Comment(s): Poor differentiated adenocarcinoma of the lung, stage IV, infiltrating ductal carcinoma of the breast, chronic hypoxic respiratory failure, chronic atrial fibrillation, history of CVA with right-sided weakness, history of peripheral vascular disease, hyperlipidemia History of Any Multi-Drug Resistant Organisms: None Reported Past Surgical History: Appendectomy, Tonsillectomy Additional Past Surgical History / Comment(s): R femoral angiogram, R leg s tents, "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 Right-sided thoracentesis, bronchoscopy with transbronchial biopsy of the right upper lobe Past Anesthesia/Blood Transfusion Reactions: No Reported Reaction Past Psychological History: Anxiety Additional Psychological History / Comment(s): Pt resides with her spouse. She uses a cane or walker to ambulate. She drives. Smoking Status: Former smoker Past Alcohol Use History: None Reported Additional Past Alcohol Use History / Comment(s): Pt started smoking in 1959 and quit in 1979. Past Drug Use History: None Reported - Past Family History Father Family Medical History: No Reported History, Cancer, COPD, Myocardial Infarction ([place]) Mother Family Medical History: Cancer Medications and Allergies Home Medications Medication Instructions Recorded Confirmed Type Multivitamins, Thera [Multivitamin 1 tab PO DAILY 07/20/17 02/09/19 History (formulary)] Omeprazole [PriLOSEC] 20 mg PO DAILY 07/20/17 02/09/19 History amLODIPine [Norvasc] 10 mg PO DAILY 07/20/17 02/09/19 History cloNIDine HCL [Catapres] 0.1 mg PO TID 07/20/17 02/09/19 History Aspirin EC [Ecotrin Low Dose] 81 mg PO DAILY 12/20/18 02/09/19 History Anastrozole [Arimidex] 1 mg PO DAILY #30 tab 12/30/18 02/09/19 Rx Furosemide [Lasix] 40 mg PO DAILY tab 01/02/19 02/09/19 Rx Ipratropium-Albuterol Nebulize 3 ml INHALATION RT-QID ampul.neb 01/02/19 02/09/19 Rx [Duoneb 0.5 mg-3 mg/3 ml Soln] Potassium Chloride ER [K-Dur 10] 10 meq PO DAILY tab.er.prt 01/02/19 02/09/19 Rx Apixaban [Eliquis] 2.5 mg PO BID 02/09/19 02/09/19 History Folic Acid 1 mg PO DAILY 02/09/19 02/09/19 History LORazepam [Ativan] 0.5 mg PO DAILY@1400 02/09/19 02/09/19 History LORazepam [Ativan] 1 mg PO HS 02/09/19 02/09/19 History Prochlorperazine [Compazine] 10 mg PO TID 02/09/19 02/09/19 History Telmisartan [Micardis] 40 mg PO DAILY 02/09/19 02/09/19 History Allergies Allergy/AdvReac Type Severity Reaction Status Date / Time bacitracin Allergy Unknown Verified 02/09/19 20:14 [From Neosporin ([id number])] codeine Allergy Unknown Verified 02/09/19 20:14 neomycin Allergy Unknown Verified 02/09/19 20:14 [From Neosporin ([id number])] polymyxin B Allergy Unknown Verified 02/09/19 20:14 [From Neosporin ([id number])] procaine [From Novocain] Allergy Unknown Verified 02/09/19 20:14 Surgical - Exam Vital Signs Temp Pulse Resp BP Pulse Ox 97.8 F 110 H 22 125/71 96 02/09/19 18:58 02/09/19 18:58 02/09/19 18:58 02/09/19 18:58 02/09/19 18:58 - General well developed, no distress, no pain, chronically ill - Eyes PERRL, normal ocular movement - ENT normal pinna, normal nares, normal mucosa, no congestion, decreased hearing (Bilateral ear hearing aids), dentures - Neck Neck is supple, no lymphadenopathy, no thyroidomegaly appreciated no masses, no bruits, trachea midline, no venous distension - Respiratory Lung sounds with coarse rhonchi throughout, diminished to a right lower lobe. Respirations are symmetrical and nonlabored. Oxygen saturation on 3 L nasal cannula with oxygen saturations 94%. Nonproductive loose cough. - Cardiovascular Irregular rhythm with controlled rate. S1 and S2 present, negative for S3, gallop or murmur. No edema present. Cardizem drip infusing at 10 mg per hour. - Abdomen Abdomen is soft, nontender and nondistended. Active bowel sounds all 4 quadrants. No guarding or rigidity. No organomegaly appreciated. - Genitourinary Deferred - Rectum Deferred - Integumentary Skin is warm and dry. No clubbing or cyanosis present. no rash, no growths, no abnormal pigmentation - Neurologic normal coordination, normal sensation - Musculoskeletal Generalized weakness, right upper extremity weakness residual from past CVA. normal gait, normal posture - Psychiatric oriented to time, oriented to person, oriented to place, speech is normal, memory intact Results - Labs 02/11/19 05:34 02/11/19 05:34 Abnormal Lab Results - Last 24 Hours (Table) 02/10/19 02/10/19 02/10/19 Range/Units 16:33 16:33 17:02 WBC 13.9 H (3.8-10.6) k/uL RBC 5.62 H (3.80-5.40) m/uL Neutrophils # 11.7 H (1.3-7.7) k/uL Lymphocytes # (1.0-4.8) k/uL Sodium 131 L (137-145) mmol/L Chloride 88 L (98-107) mmol/L Carbon Dioxide 33 H (22-30) mmol/L BUN 22 H (7-17) mg/dL Glucose 117 H (74-99) mg/dL POC Glucose (mg/dL) 120 H (75-99) mg/dL Urine Protein (Negative) 02/10/19 02/10/19 02/11/19 Range/Units 17:06 20:39 05:34 WBC (3.8-10.6) k/uL RBC (3.80-5.40) m/uL Neutrophils # 10.1 H (1.3-7.7) k/uL Lymphocytes # 0.3 L (1.0-4.8) k/uL Sodium (137-145) mmol/L Chloride (98-107) mmol/L Carbon Dioxide (22-30) mmol/L BUN (7-17) mg/dL Glucose (74-99) mg/dL POC Glucose (mg/dL) 282 H (75-99) mg/dL Urine Protein 2+ H (Negative) 02/11/19 02/11/19 02/11/19 Range/Units 05:34 06:21 11:53 WBC (3.8-10.6) k/uL RBC (3.80-5.40) m/uL Neutrophils # (1.3-7.7) k/uL Lymphocytes # (1.0-4.8) k/uL Sodium 131 L (137-145) mmol/L Chloride 88 L (98-107) mmol/L Carbon Dioxide 31 H (22-30) mmol/L BUN 26 H (7-17) mg/dL Glucose 182 H (74-99) mg/dL POC Glucose (mg/dL) 180 H 192 H (75-99) mg/dL Urine Protein (Negative) Diabetes panel 02/10/19 02/11/19 Range/Units 16:33 05:34 Sodium 131 L 131 L (137-145) mmol/L Potassium 4.6 4.2 (3.5-5.1) mmol/L Chloride 88 L 88 L (98-107) mmol/L Carbon Dioxide 33 H 31 H (22-30) mmol/L BUN 22 H 26 H (7-17) mg/dL Creatinine 0.87 0.96 (0.52-1.04) mg/dL Glucose 117 H 182 H (74-99) mg/dL Calcium 9.5 9.7 (8.4-10.2) mg/dL AST 33 (14-36) U/L ALT 26 (9-52) U/L Alkaline Phosphatase 89 (38-126) U/L Total Protein 7.1 (6.3-8.2) g/dL Albumin 4.2 (3.5-5.0) g/dL Calcium panel 02/10/19 02/11/19 Range/Units 16:33 05:34 Calcium 9.5 9.7 (8.4-10.2) mg/dL Albumin 4.2 (3.5-5.0) g/dL Pituitary panel 02/10/19 02/11/19 Range/Units 16:33 05:34 Sodium 131 L 131 L (137-145) mmol/L Potassium 4.6 4.2 (3.5-5.1) mmol/L Chloride 88 L 88 L (98-107) mmol/L Carbon Dioxide 33 H 31 H (22-30) mmol/L BUN 22 H 26 H (7-17) mg/dL Creatinine 0.87 0.96 (0.52-1.04) mg/dL Glucose 117 H 182 H (74-99) mg/dL Calcium 9.5 9.7 (8.4-10.2) mg/dL Adrenal panel 02/10/19 02/11/19 Range/Units 16:33 05:34 Sodium 131 L 131 L (137-145) mmol/L Potassium 4.6 4.2 (3.5-5.1) mmol/L Chloride 88 L 88 L (98-107) mmol/L Carbon Dioxide 33 H 31 H (22-30) mmol/L BUN 22 H 26 H (7-17) mg/dL Creatinine 0.87 0.96 (0.52-1.04) mg/dL Glucose 117 H 182 H (74-99) mg/dL Calcium 9.5 9.7 (8.4-10.2) mg/dL Total Bilirubin 1.0 (0.2-1.3) mg/dL AST 33 (14-36) U/L ALT 26 (9-52) U/L Alkaline Phosphatase 89 (38-126) U/L Total Protein 7.1 (6.3-8.2) g/dL Albumin 4.2 (3.5-5.0) g/dL - Imaging Chest x-ray: report reviewed, image reviewed Assessment and Plan Assessment: 1. Recurrent right-sided malignant effusion 2. Acute on chronic dyspnea 3. Stage IV poorly differentiated adenocarcinoma of the lung, status post one treatment of chemotherapy 4. 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 Hypertension 6. Hyperlipidemia 7. History of CVA/TIA, residual right upper extremity weakness 8. Coronary artery disease 9. Chronic atrial fibrillation, on chronic anticoagulation 10. Remote history of nicotine dependence quit smoking about 25-30 years ago Plan: The patient was seen and examined on the 3 cardiac stepdown unit. Her chart and diagnostics were reviewed. Her case was discussed with Dr. Jay Sheridan from cardiothoracic surgery. The patient's son was present at her bedside. Agree with holding anticoagulation for now for possible Pleurx catheter placement on 02/14/2019. We will order an incentive spirometry to be used every hour while awake. Continue GI and DVT prophylaxis. Cancer treatment recommendations per oncology. Bronchodilators and oxygen management per Dr. Mosley. Atrial fibrillation management per cardiology recommendations. More recommendations to follow based on patient's clinical course. Thank you Dr. Mosley for this consult and we look forward to working with you in the care of your patient. Time with Patient: Greater than 30 <Jay Sheridan - Last Filed: 02/14/19 12:42> Surgical - Exam Vital Signs Temp Pulse Resp BP Pulse Ox 97.8 F 110 H 22 125/71 96 02/09/19 18:58 02/09/19 18:58 02/09/19 18:58 02/09/19 18:58 02/09/19 18:58 Results - Labs 02/14/19 06:48 02/14/19 06:48 Abnormal Lab Results - Last 24 Hours (Table) 02/13/19 02/13/19 02/14/19 Range/Units 17:30 19:53 06:11 RDW (11.5-15.5) % Neutrophils # (1.3-7.7) k/uL Lymphocytes # (1.0-4.8) k/uL APTT (22.0-30.0) sec Sodium (137-145) mmol/L Chloride (98-107) mmol/L Carbon Dioxide (22-30) mmol/L BUN (7-17) mg/dL Glucose (74-99) mg/dL POC Glucose (mg/dL) 152 H 162 H 159 H (75-99) mg/dL 02/14/19 02/14/19 02/14/19 Range/Units 06:48 06:48 06:48 RDW 16.3 H (11.5-15.5) % Neutrophils # 9.8 H (1.3-7.7) k/uL Lymphocytes # 0.3 L (1.0-4.8) k/uL APTT 63.8 H (22.0-30.0) sec Sodium 134 L (137-145) mmol/L Chloride 91 L (98-107) mmol/L Carbon Dioxide 36 H (22-30) mmol/L BUN 51 H (7-17) mg/dL Glucose 164 H (74-99) mg/dL POC Glucose (mg/dL) (75-99) mg/dL 02/14/19 Range/Units 11:55 RDW (11.5-15.5) % Neutrophils # (1.3-7.7) k/uL Lymphocytes # (1.0-4.8) k/uL APTT (22.0-30.0) sec Sodium (137-145) mmol/L Chloride (98-107) mmol/L Carbon Dioxide (22-30) mmol/L BUN (7-17) mg/dL Glucose (74-99) mg/dL POC Glucose (mg/dL) 144 H (75-99) mg/dL Diabetes panel 02/14/19 Range/Units 06:48 Sodium 134 L (137-145) mmol/L Potassium 4.3 (3.5-5.1) mmol/L Chloride 91 L (98-107) mmol/L Carbon Dioxide 36 H (22-30) mmol/L BUN 51 H (7-17) mg/dL Creatinine 0.80 (0.52-1.04) mg/dL Glucose 164 H (74-99) mg/dL Calcium 8.9 (8.4-10.2) mg/dL Calcium panel 02/14/19 Range/Units 06:48 Calcium 8.9 (8.4-10.2) mg/dL Pituitary panel 02/14/19 Range/Units 06:48 Sodium 134 L (137-145) mmol/L Potassium 4.3 (3.5-5.1) mmol/L Chloride 91 L (98-107) mmol/L Carbon Dioxide 36 H (22-30) mmol/L BUN 51 H (7-17) mg/dL Creatinine 0.80 (0.52-1.04) mg/dL Glucose 164 H (74-99) mg/dL Calcium 8.9 (8.4-10.2) mg/dL Adrenal panel 02/14/19 Range/Units 06:48 Sodium 134 L (137-145) mmol/L Potassium 4.3 (3.5-5.1) mmol/L Chloride 91 L (98-107) mmol/L Carbon Dioxide 36 H (22-30) mmol/L BUN 51 H (7-17) mg/dL Creatinine 0.80 (0.52-1.04) mg/dL Glucose 164 H (74-99) mg/dL Calcium 8.9 (8.4-10.2) mg/dL Assessment and Plan Plan: The patient was seen and examined. I agree with the above assessment and plan. The patient is an 88-year-old female who presented to the hospital with shortness of breath. She was recently diagnosed with stage IV lung cancer as well as breast cancer. She was found to have a large right pleural effusion which has been drained on 2 separate occasions. Cytology is consistent with metastatic adenocarcinoma. Placement of a Pleurx catheter is recommended. The risks, benefits, and alternatives to this procedure were discussed with the patient. All of her questions were answered. We will hold her anticoagulation for now and plan on performing the procedure within the next several days. In the meantime, should she become severely symptomatic, then she would benefit from a repeat thoracentesis.
[2019-02-11] MEDS ORDERED: HEPARIN SODIUM,PORCINE 5,000 UNIT/ML 1 ML VIAL IV PRN (13:20)
--- NOTE | 2019-02-11 13:24 | P.PN ---
Subjective Progress Note Date: 02/11/19 Principal diagnosis: Right-sided pleural effusion 88-year-old female patient presented to the ED complaining of shortness of breath. The patient had some increased dyspnea sore throat. No fever. No chills. No chest pain. No angina no swelling lower extremities. She is known to have stage IV non-small cell lung cancer and this was diagnosed during an earlier evaluation where the patient was found to have a right upper lobe mass and the right-sided pleural effusion during which the patient underwent a thoracentesis at a total of 1.2 L of pleural fluid was aspirated from the right lung and fluid cytology was positive for lung cancer. The right upper lobe biopsy was also positive for lung cancer which was in the form of poor differentiated adenocarcinoma of lung primary. During the workup in the hospital the patient was also found to have a breast lesion and a biopsy of the breast lesion showed infiltrating ductal carcinoma and this was done on the right. She is known to have multiple other medical problems included coronary artery disease, hypertension, hyperlipidemia, previous history of CVA and chronic atrial fibrillation. She was referred for hematology oncology and she was started on treatment with systemic chemotherapy. The patient apparently too k her first session. I'm not sure this is a conventional chemotherapy versus immunotherapy. During this current admission, the patient was already seen by cardiology. Echocardiogram was done and it showed an EF around 55-60%. The patient continued to have difficult to control atrial fibrillation with increased ventricular rate and she was given Cardizem bolus and following that she was placed on a Cardizem drip. Troponin was normal. BNP level was 2300. Chest x- ray showed a recurrence of the right-sided pleural effusion. Currently Cardizem running at 10 mg an hour. The white cell count is at 15.2. BUN is at 22 creatinine 0.7. On 02/11/2019 patient seen in follow-up on selective care unit, she is awake and alert, in no acute distress, she is currently on 3 L of oxygen with a pulse ox of 94%, denies any chest pain, denies any worsening shortness of breath, remains in A. fib with a rate of 103-126, on Cardizem drip for rate control, she is on Eliquis, we will start patient on IV heparin for anticoagulation, we will consult surgical services for placement of right-sided Pleurx catheter. The patient said that she decided to stop chemotherapy related to extreme weakness, patient is hardly able to walk. She remains on IV diuretics, 40 mg and she is in positive fluid balance. These labs have been reviewed, CBC is pretty unremarkable, sodium is 131, potassium is 4.2, chloride is 88, CO2 31, B1 is 26 and creatinine 0.96 Objective - Vital Signs Vital signs: Vital Signs Temp 98.2 F 02/11/19 11:47 Pulse 88 02/11/19 13:05 Resp 20 02/11/19 11:47 BP 132/68 02/11/19 11:47 Pulse Ox 94 L 02/11/19 11:47 Intake & Output 02/10/19 02/11/19 02/11/19 18:59 06:59 18:59 Intake Total 942 125 352.5 Output Total 400 300 Balance 542 125 52.5 Weight 70.9 kg 58 kg Intake: Intake, IV Titration 125 112.5 Amount Diltiazem 125 mg In 125 112.5 Sodium Chloride 0.9% 100 ml @ 10 MG/HR 10 mls/hr IV .[id number] [facility] Rx#: [id number] Oral 942 240 Output: Urine 400 300 Other: Voiding Method Toilet Bedside Commode Bedside Commode # Voids 1 2 1 # Bowel Movements 0 - Exam GENERAL EXAM: Alert, pleasant, 88-year-old white female, 3 L of oxygen with a pulse ox of 94%, comfortable in no apparent distress. HEAD: Normocephalic/atraumatic. EYES: Normal reaction of pupils, equal size. Conjunctiva pink, sclera white. NOSE: Clear with pink turbinates. THROAT: No erythema or exudates. NECK: No masses, no JVD, no thyroid enlargement, no adenopathy. CHEST: No chest wall deformity. Symmetrical expansion. LUNGS: Equal air entry with diminished breath sounds at the right base with the scattered bibasilar crackles CVS: Regular rate and rhythm, normal S1 and S2, no gallops, no murmurs, no rubs ABDOMEN: Soft, nontender. No hepatosplenomegaly, normal bowel sounds, no guarding or rigidity. EXTREMITIES: No clubbing, no edema, no cyanosis, 2+ pulses and upper and lower extremities. MUSCULOSKELETAL: Muscle strength and tone normal. SPINE: No scoliosis or deformity SKIN: No rashes CENTRAL NERVOUS SYSTEM: Alert and oriented -3. No focal deficits, tone is normal in all 4 extremities. PSYCHIATRIC: Alert and oriented -3. Appropriate affect. Intact judgment and insight. - Labs CBC & Chem 7: 02/11/19 05:34 02/11/19 05:34 Labs: Abnormal Lab Results - Last 24 Hours (Table) 02/10/19 02/10/19 02/10/19 Range/Units 16:33 16:33 17:02 WBC 13.9 H (3.8-10.6) k/uL RBC 5.62 H (3.80-5.40) m/uL Neutrophils # 11.7 H (1.3-7.7) k/uL Lymphocytes # (1.0-4.8) k/uL Sodium 131 L (137-145) mmol/L Chloride 88 L (98-107) mmol/L Carbon Dioxide 33 H (22-30) mmol/L BUN 22 H (7-17) mg/dL Glucose 117 H (74-99) mg/dL POC Glucose (mg/dL) 120 H (75-99) mg/dL Urine Protein (Negative) 02/10/19 02/10/19 02/11/19 Range/Units 17:06 20:39 05:34 WBC (3.8-10.6) k/uL RBC (3.80-5.40) m/uL Neutrophils # 10.1 H (1.3-7.7) k/uL Lymphocytes # 0.3 L (1.0-4.8) k/uL Sodium (137-145) mmol/L Chloride (98-107) mmol/L Carbon Dioxide (22-30) mmol/L BUN (7-17) mg/dL Glucose (74-99) mg/dL POC Glucose (mg/dL) 282 H (75-99) mg/dL Urine Protein 2+ H (Negative) 02/11/19 02/11/19 02/11/19 Range/Units 05:34 06:21 11:53 WBC (3.8-10.6) k/uL RBC (3.80-5.40) m/uL Neutrophils # (1.3-7.7) k/uL Lymphocytes # (1.0-4.8) k/uL Sodium 131 L (137-145) mmol/L Chloride 88 L (98-107) mmol/L Carbon Dioxide 31 H (22-30) mmol/L BUN 26 H (7-17) mg/dL Glucose 182 H (74-99) mg/dL POC Glucose (mg/dL) 180 H 192 H (75-99) mg/dL Urine Protein (Negative) Assessment and Plan Plan: Assessment: 1 acute on chronic shortness of breath mainly due to reactivation of a right- sided pleural effusion and development of rapid ventricular response in the setting of chronic atrial fibrillation. The patient had a chest x-ray that showed a moderate to large right-sided pleural effusion. The atrial fibrillation is being controlled with a Cardizem drip for now 2 acute on chronic hypoxic respiratory failure secondary to above 3 stage IV poorly differentiated adenocarcinoma of the lung currently on treatment. The patient had malignant right-sided pleural effusion and she is post thoracentesis on 12/28/2018 were a total of 1.2 L of pleural fluid was drained from the right lung 4. 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 5. Chronic atrial fibrillation on chronic anticoagulation 6. History of peripheral vascular disease 7. Coronary artery disease 8. Hypertension 9. Hyperlipidemia 10. History of CVA/TIA 11. History of nicotine dependence, currently in remission, carries 79-82-maec-year smoking history Plan: We will stop the Eliquis, consult cardiothoracic surgery for placement of Pleurx catheter. Start low intensity heparin drip for anticoagulation for atrial fibrillation, we'll start at 2100 tonight. No bolus. Patient is maintaining oxygenation on 2 L, seems to be pretty comfortable, no worsening shortness of breath right now. Continue with IV diuretics, will follow I performed a history & physical examination of the patient and discussed their management with my nurse practitioner, Angelica Cross. I reviewed the nurse practitioner's note and agree with the documented findings and plan of care. Lung sounds are positive for diminished breath sounds at the right base, with bibasilar crackles. The findings and the impression was discussed with the patient. I attest to the documentation by the nurse practitioner. Time with Patient: Less than 30
[2019-02-11] MEDS ORDERED: LORazepam 0.5 MG TAB PO SCH (14:00)
[2019-02-11] MEDS: LORazepam 0.5 MG TAB PO SCH (14:02)
[2019-02-11 14:41] LABS: Basophils % (A) 0 %; Eosinophils % (A) 0 %; HCT 44.4 % (34.0-46.0); HGB 13.7 gm/dL (11.4-16.0); Hypochromasia Moderate; Lymphocytes # (A) 0.4 k/uL (1.0-4.8); Lymphocytes % (A) 2 %; MCH 26.2 pg (25.0-35.0); MCHC 30.8 g/dL (31.0-37.0); MCV 85.1 fL (80.0-100.0); Mean Platelet Volume 7.8; Monocytes # (A) 0.2 k/uL (0-1.0); Monocytes % (A) 1 %; Neutrophils # (A) 16.4 k/uL (1.3-7.7); Neutrophils % (A) 96 %; Platelet Count 271 k/uL (150-450); RBC 5.21 m/uL (3.80-5.40); RDW 15.7 % (11.5-15.5)
[2019-02-11 14:48] LABS: Partial Thromboplastin Time 24.5 sec (22.0-30.0); Prothrombin Time 10.4 sec (9.0-12.0)
[2019-02-11 16:51] LABS: Glucose,Whole Blood 208 mg/dL (75-99)
--- NOTE | 2019-02-11 20:22 | PN ---
PROGRESS NOTE DATE OF SERVICE: 02/11/2019 This 88-year-old woman was admitted with shortness of breath, has multiple etiology possibly. Patient also has right sided pneumonia and pleural effusion. Also possible COPD acute exacerbation. Patient being managed conservatively. The patient was also seen by Cardiology and Pulmonology and Dr. Mosley recommended surgery and possible PleurX drainage also because of the metastatic malignancy. No chest pain. No palpitations. No fever. PAST MEDICAL HISTORY: Reviewed. REVIEW OF SYSTEMS: CARDIOVASCULAR: No angina or palpitations otherwise as mentioned earlier. RESPIRATORY: As mentioned earlier. GI no nausea or vomiting. no dysuria or hematuria. NERVOUS SYSTEM: As mentioned earlier. HEMATOLOGY/ONCOLOGY: As mentioned earlier. CURRENT MEDICATIONS: Reviewed and include: 1. DuoNeb q.i.d. and p.r.n. 2. Arimidex 1 mg p.o. daily. 3. Aspirin 81 mg. 4. Pulmicort 1 mg b.i.d. 5. Catapres. 6. Diltiazem. 7. Folic acid. 8. Perforomist. 9. Lasix. 10.Heparin. 11.NovoLog. 12.Ativan. 13.Cozaar. 14.Solu-Medrol 60 IV q.6h. 15.Lopressor. 16.Multivitamins. 17.Protonix. 18.Zosyn IV. 19.Compazine 10 mg p.o. t.i.d. PHYSICAL EXAM: Patient is alert, oriented x3. Pulse is 107, regular. Blood pressure 128/60, respiration 20, temperature is 98.2, pulse ox 98% on 3 L. HEENT: Conjunctivae normal. Oral mucosa moist. NECK is no jugular venous distention. No carotid bruit. No lymph node enlargement. CARDIOVASCULAR SYSTEM: S1, S2 muffled. RESPIRATIONS: Breath sounds diminished in the bases. Breathing efforts are markedly increased. Bilateral scattered rhonchi and crackles. Expiratory wheezing also present. ABDOMEN: Soft, nontender. No mass palpable. LEGS: No edema. No swelling. NERVOUS SYSTEM: Higher functions as mentioned earlier. Moves all 4 limbs. No focal motor or sensory deficits. LYMPHATICS: No lymph nodes palpable in the neck, axillae or groin. SKIN: No ulcers, rashes or bleeding. JOINTS: No active deforming arthropathy. LABS: WBC 17, hemoglobin 13.7, sodium 131. Other labs are noted. ASSESSMENT: 1. Shortness of breath possibly multifactorial with possible right lower pneumonia, gram-negative as well as chronic obstructive pulmonary disease acute exacerbation as well as metastatic lung cancer, stage IV with non-small cell poorly differentiated. 2. Recurrent right pleural effusion, possibly malignant pleural effusion. 3. Acute hypercarbic respiratory failure, present on admission. 4. History of breast cancer. 5. Increased WBC. 6. Atrial fibrillation with fast ventricular rate. 7. Cerebrovascular accident. 8. Transient ischemic attack. 9. History of gastroesophageal reflux disease. 10.Hypertension. 11.Hyperlipidemia. 12.History of cerebrovascular accident with right-sided weakness. 13.History of plantar ulcer and peripheral vascular disease. 14.History of appendectomy. 15.History of anxiety. 16.Remote history of nicotine dependence. RECOMMENDATIONS AND DISCUSSION: In this 88-year-old woman who presented with multiple complex medical issues, we will monitor the patient closely. Continue the current medications, management and symptomatic treatment. Continue with bronchodilators. Continue with empiric antibiotics and steroids. Otherwise, possible PleurX drainage by Cardiothoracic surgery. Prognosis guarded because of multiple complex medical issues. Further recommendations to follow. Discussed with family at length. Please see orders for details. MMODL / IJN: [id number] /
[2019-02-11 20:39] LABS: Glucose,Whole Blood 257 mg/dL (75-99)
[2019-02-11 21:09] LABS: Glucose,Whole Blood 232 mg/dL (75-99)
[2019-02-11] MEDS: APIXABAN 2.5 MG TABLET PO SCH (21:12)
[2019-02-11] MEDS: METOPROLOL TARTRATE 25 MG TAB PO SCH (21:32)
[2019-02-11] MEDS: LORazepam 1 MG TAB PO SCH (21:32)
[2019-02-11] MEDS: HEPARIN SOD,PORK IN 0.45% NACL 25,000 UNIT in 0.45% NACL 1 250ML.BAG IV SCH (21:33)
[2019-02-12 04:34] LABS: Calcium 9.5 mg/dL (8.4-10.2); Potassium 4.2 mmol/L (3.5-5.1)
[2019-02-12 05:38] LABS: Basophils % (A) 0 %; Eosinophils % (A) 0 %; HGB 12.7 gm/dL (11.4-16.0); Hypochromasia Slight; Lymphocytes # (A) 0.3 k/uL (1.0-4.8); Lymphocytes % (A) 2 %; MCH 25.9 pg (25.0-35.0); MCV 83.8 fL (80.0-100.0); Mean Platelet Volume 7.7; Monocytes # (A) 0.1 k/uL (0-1.0); Monocytes % (A) 1 %; Neutrophils # (A) 16.2 k/uL (1.3-7.7); Neutrophils % (A) 97 %; Platelet Count 254 k/uL (150-450); RBC 4.89 m/uL (3.80-5.40); RDW 15.4 % (11.5-15.5); WBC 16.8 k/uL (3.8-10.6)
[2019-02-12 06:35] LABS: Glucose,Whole Blood 167 mg/dL (75-99)
[2019-02-12] MEDS: methylPREDNISolone SOD SUCCI 125 MG/2 ML VIAL IV SCH ×3 (06:37→18:20)
[2019-02-12] MEDS: PANTOPRAZOLE 40 MG TABLET PO SCH (06:38)
[2019-02-12] MEDS: INSULIN ASPART (NovoLOG) 100 UNIT/ML VIAL SQ SCH ×4 (06:38→21:08)
--- NOTE | 2019-02-12 07:24 | XR ---
EXAMINATION TYPE: XR chest 1V portable DATE OF EXAM: 02/12/2019 HISTORY: Recurrent right pleural effusion. REFERENCE: Previous study dated 02/09/2019. FINDINGS: There is worsening opacity of the right lung. This is now totally opaque. This obscures hea rt size. The left lung appears clear. IMPRESSION: WORSENING OPACITY OF THE RIGHT LUNG.
[2019-02-12] MEDS: FOLIC ACID 1 MG TAB PO SCH (08:14)
[2019-02-12] MEDS: POTASSIUM CHLORIDE ER 10 MEQ TAB.ER.PRT PO SCH (08:14)
[2019-02-12] MEDS: MULTIVITAMINS, THERA 1 EACH TAB PO SCH (08:14)
[2019-02-12] MEDS: ASPIRIN 81 MG PO SCH (08:14)
[2019-02-12] MEDS: METOPROLOL TARTRATE 25 MG TAB PO SCH (08:14)
[2019-02-12] MEDS: cloNIDine HCL 0.1 MG TAB PO SCH ×3 (08:14→21:00)
[2019-02-12] MEDS: PROCHLORPERAZINE 10 MG TAB PO SCH ×4 (08:15→21:09)
[2019-02-12] MEDS: ANASTROZOLE 1 MG TAB PO SCH (08:15)
[2019-02-12] MEDS: PIPERACILLIN-TAZOBACTAM 3.375 GM in SODIUM CHLORIDE 0.9% 100 ML IVPB SCH ×2 (08:19→15:35)
[2019-02-12] MEDS: FUROSEMIDE 10 MG/ML 4 ML VIAL IV SCH (08:19)
[2019-02-12] MEDS: DILTIAZEM 125 MG in SODIUM CHLORIDE 0.9% 100 ML IV SCH ×2 (08:20→21:09)
[2019-02-12] MEDS: FORMOTEROL FUMARATE 20 MCG/2 ML NEBU INHALATION SCH ×2 (08:48→20:14)
[2019-02-12] MEDS: IPRATROPIUM-ALBUTEROL 3 ML NEB INHALATION SCH ×4 (08:48→20:05)
[2019-02-12] MEDS: BUDESONIDE 1 MG/2 ML NEBU INHALATION SCH ×2 (08:48→20:05)
--- NOTE | 2019-02-12 10:47 | P.PN ---
Subjective Progress Note Date: 02/12/19 Principal diagnosis: Recurrent right malignant pleural effusion, history of recent diagnosis of stage IV non-small cell lung cancer with a right upper lobe mass, recurrent right-si ded pleural effusion status post thoracentesis on 12/22/2018 with 950 ml of fluid removed and on 12/29/2017 with 1.2 L of fluid removed, history of recent diagnosis of right breast lesion with biopsy positive for infiltrating ductal carcinoma, hypertension, hyperlipidemia, coronary artery coronary disease, history of CVA/TIA with residual right upper extremity weakness and chronic atrial fibrillation on chronic anticoagulation Eliquis at home. The patient is currently sitting up to the bedside chair in the 3 S cardiac stepdown unit. She is in no acute distress. Her is at her bedside. She denies any complaints of pain although reports that she does have some episodes of shortness of breath with activity. Her oxygen saturation is 92% on 4 L nasal cannula. She is achieving less than 500 mL on her incentive spirometry with much encouragement. Her chest x-ray this morning demonstrates a worsening pasty of the right lung. Her Eliquis remains on hold and she is on a heparin drip at this time. She remains on a Cardizem drip at 10 mg per hour for her atrial fibrillation. Objective - Vital Signs Vital signs: Vital Signs Temp 98.4 F 02/12/19 08:00 Pulse 112 H 02/12/19 09:12 Resp 20 02/12/19 08:00 BP 141/73 02/12/19 08:00 Pulse Ox 91 L 02/12/19 08:00 Intake & Output 02/11/19 02/12/19 02/12/19 18:59 06:59 18:59 Intake Total 992.5 176.852 227.333 Output Total 400 Balance 592.5 176.852 227.333 Weight 59.5 kg Intake: IV 280 Diltiazem 125 mg In 80 Sodium Chloride 0.9% 100 ml @ 10 MG/HR 10 mls/hr IV .[id number] [facility] Rx#: [id number] Piperacillin-Tazobactam 3 200 .375 gm In Sodium Chloride 0.9% 100 ml @ 25 mls/hr IVPB Q8HR [facility] Rx# :[id number] Intake, IV Titration 112.5 176.852 107.333 Amount Diltiazem 125 mg In 112.5 125 107.333 Sodium Chloride 0.9% 100 ml @ 10 MG/HR 10 mls/hr IV .[id number] [facility] Rx#: [id number] Heparin Sod,Pork in 0.45% 51.852 NaCl 25,000 unit In 0.45 % NaCl 1 250ml.bag @ 12 UNITS/KG/HR 6.96 mls/hr IV .Q24H [facility] Rx#: [id number] Oral 600 120 Output: Urine 400 Other: Voiding Method Bedside Commode Bedside Commode # Voids 1 1 1 # Bowel Movements 0 - Constitutional General appearance: Present: cooperative, no acute distress - Respiratory Details: Lungs sounds essentially diminished to her right lobes, crackles to her bilateral bases. Respirations are symmetrical and nonlabored. Oxygen saturation is 92% on 4 L nasal cannula. Achieving less than 500 mL on her incentive spirometry. - Cardiovascular Details: Irregular rhythm with controlled rate, consistent with atrial fibrillation. S1 and S2 present, negative for S3, gallop or murmur. +1 edema to her right upper extremity. - Gastrointestinal Gastrointestinal Comment(s): Abdomen soft, nontender and nondistended. Hypoactive bowel sounds present in all 4 abdominal quadrants. No organomegaly May clean appreciated. Tolerating oral intake. - Genitourinary Genitourinary Comment(s): Continues to void. - Integumentary Integumentary Comment(s): Skin is warm and dry. No clubbing or cyanosis is present. No rash or abnormal pigmentation is present. - Neurologic Neurologic: Present: CNII-XII intact - Musculoskeletal Musculoskeletal Comment(s): Right upper extremity weakness. Musculoskeletal: Present: gait normal, generalized weakness, strength equal bilaterally - Psychiatric Psychiatric: Present: A&O x's 3, appropriate affect, intact judgment & insight - Allied health notes Allied health notes reviewed: nursing - Labs CBC & Chem 7: 02/12/19 03:59 02/12/19 03:59 Labs: Abnormal Lab Results - Last 24 Hours (Table) 02/11/19 02/11/19 02/11/19 Range/Units 11:53 13:48 16:47 WBC 17.0 H (3.8-10.6) k/uL MCHC 30.8 L (31.0-37.0) g/dL RDW 15.7 H (11.5-15.5) % Neutrophils # 16.4 H (1.3-7.7) k/uL Lymphocytes # 0.4 L (1.0-4.8) k/uL APTT (22.0-30.0) sec Sodium (137-145) mmol/L Chloride (98-107) mmol/L Carbon Dioxide (22-30) mmol/L BUN (7-17) mg/dL Glucose (74-99) mg/dL POC Glucose (mg/dL) 192 H 208 H (75-99) mg/dL 02/11/19 02/11/19 02/12/19 Range/Units 20:37 21:08 03:59 WBC 16.8 H (3.8-10.6) k/uL MCHC (31.0-37.0) g/dL RDW (11.5-15.5) % Neutrophils # 16.2 H (1.3-7.7) k/uL Lymphocytes # 0.3 L (1.0-4.8) k/uL APTT (22.0-30.0) sec Sodium (137-145) mmol/L Chloride (98-107) mmol/L Carbon Dioxide (22-30) mmol/L BUN (7-17) mg/dL Glucose (74-99) mg/dL POC Glucose (mg/dL) 257 H 232 H (75-99) mg/dL 02/12/19 02/12/19 02/12/19 Range/Units 03:59 03:59 06:33 WBC (3.8-10.6) k/uL MCHC (31.0-37.0) g/dL RDW (11.5-15.5) % Neutrophils # (1.3-7.7) k/uL Lymphocytes # (1.0-4.8) k/uL APTT 35.1 H (22.0-30.0) sec Sodium 128 L (137-145) mmol/L Chloride 88 L (98-107) mmol/L Carbon Dioxide 31 H (22-30) mmol/L BUN 31 H (7-17) mg/dL Glucose 162 H (74-99) mg/dL POC Glucose (mg/dL) 167 H (75-99) mg/dL - Imaging and Cardiology Chest x-ray: report reviewed, image reviewed Assessment and Plan Assessment: 1. Recurrent right-sided malignant effusion 2. Acute on chronic dyspnea 3. Stage IV poorly differentiated adenocarcinoma of the lung, status post one treatment of chemotherapy 4. 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 Hypertension 6. Hyperlipidemia 7. History of CVA/TIA, residual right upper extremity weakness 8. Coronary artery disease 9. Chronic atrial fibrillation, on chronic anticoagulation 10. Remote history of nicotine dependence quit smoking about 25-30 years ago Plan: 1. The patient will be scheduled for a right Pleurx catheter placement to be performed by Dr. Jay Sheridan on January. 2. Continue to hold her Eliquis in anticipation for Pleurx catheter placement. 3. Obtain consent for Pleurx catheter placement. 4. The patient may require a right thoracentesis prior to her Pleurx catheter placement on Wednesday if her respiratory status changes. 5. Continue to monitor her daily chest x-rays. 6. Atrial fibrillation management per cardiology recommendations. 7. More recommendations to follow based on patient's clinical course. Time with Patient: Greater than 30
--- NOTE | 2019-02-12 11:23 | P.PN ---
Subjective Progress Note Date: 02/12/19 Mike is an 88-year-old female patient presented to the ED complaining of shortness of breath. The patient had some increased dyspnea sore throat. No fever. No chills. No chest pain. No angina no swelling lower extremities. She is known to have stage IV non-small cell lung cancer and this was diagnosed during an earlier evaluation where the patient was found to have a right upper lobe mass and the right-sided pleural effusion during which the patient underwent a thoracentesis at a total of 1.2 L of pleural fluid was aspirated from the right lung and fluid cytology was positive for lung cancer. The right upper lobe biopsy was also positive for lung cancer which was in the form of poor differentiated adenocarcinoma of lung primary. During the workup in the hospital the patient was also found to have a breast lesion and a biopsy of the breast lesion showed infiltrating ductal carcinoma and this was done on the right. She is known to have multiple other medical problems included coronary artery disease, hypertension, hyperlipidemia, previous history of CVA and chronic atrial fibrillation. She was referred for hematology oncology and she was started on treatment with systemic chemotherapy. The patient apparently took her first session. was seen yesterday in consultation by Dr. Lehman, he initiated a Cardizem drip for A. fib with RVR. Her heart rate this morning is in the low 100s. Echocardiogram with Doppler study was performed which revealed an ejection fraction of 55-60%, mild to moderate tricuspid regurg. Blood pressure 132/68 with a heart rate in the low 100s, 94% on 3 L of oxygen. 02/12/2019 Patient was seen and examined this morning, heart rate 90s low 100s, continues to be on IV Cardizem drip. Continue current dose of IV Lasix, we will increase the dose of metoprolol to 50 mg twice a day. Attempt to discontinue the Cardizem drip. Objective - Vital Signs Vital signs: Vital Signs Temp 98.4 F 02/12/19 08:00 Pulse 112 H 02/12/19 09:12 Resp 20 02/12/19 08:00 BP 141/73 02/12/19 08:00 Pulse Ox 91 L 02/12/19 08:00 Intake & Output 02/11/19 02/12/19 02/12/19 18:59 06:59 18:59 Intake Total 992.5 176.852 227.333 Output Total 400 Balance 592.5 176.852 227.333 Weight 59.5 kg Intake: IV 280 Diltiazem 125 mg In 80 Sodium Chloride 0.9% 100 ml @ 10 MG/HR 10 mls/hr IV .[id number] [facility] Rx#: [id number] Piperacillin-Tazobactam 3 200 .375 gm In Sodium Chloride 0.9% 100 ml @ 25 mls/hr IVPB Q8HR [facility] Rx# :[id number] Intake, IV Titration 112.5 176.852 107.333 Amount Diltiazem 125 mg In 112.5 125 107.333 Sodium Chloride 0.9% 100 ml @ 10 MG/HR 10 mls/hr IV .[id number] [facility] Rx#: [id number] Heparin Sod,Pork in 0.45% 51.852 NaCl 25,000 unit In 0.45 % NaCl 1 250ml.bag @ 12 UNITS/KG/HR 6.96 mls/hr IV .Q24H [facility] Rx#: [id number] Oral 600 120 Output: Urine 400 Other: Voiding Method Bedside Commode Bedside Commode Bedside Commode # Voids 1 1 1 # Bowel Movements 0 - Exam HEAD: Normocephalic/atraumatic. EYES: Normal reaction of pupils, equal size. Conjunctiva pink, sclera white. NOSE: Clear with pink turbinates. THROAT: No erythema or exudates. NECK: No masses, no JVD, no thyroid enlargement, no adenopathy. CHEST: No chest wall deformity. Symmetrical expansion. LUNGS: Diminished breath on the right lung base along with some dullness to percussion on examination. CVS: Heart S1 and S2 irregularly irregular a systolic murmur is heard ABDOMEN: Soft, nontender. No hepatosplenomegaly, normal bowel sounds, no guarding or rigidity. EXTREMITIES: No clubbing, no edema, no cyanosis, 2+ pulses and upper and lower extremities. MUSCULOSKELETAL: Muscle strength and tone normal. SPINE: No scoliosis or deformity SKIN: No rashes CENTRAL NERVOUS SYSTEM: No focal deficits, tone is normal in all 4 extremities. PSYCHIATRIC: Alert and oriented -3. Appropriate affect. Intact judgment and insight. - Labs CBC & Chem 7: 02/12/19 03:59 02/12/19 03:59 Labs: Abnormal Lab Results - Last 24 Hours (Table) 02/11/19 02/11/19 02/11/19 Range/Units 11:53 13:48 16:47 WBC 17.0 H (3.8-10.6) k/uL MCHC 30.8 L (31.0-37.0) g/dL RDW 15.7 H (11.5-15.5) % Neutrophils # 16.4 H (1.3-7.7) k/uL Lymphocytes # 0.4 L (1.0-4.8) k/uL APTT (22.0-30.0) sec Sodium (137-145) mmol/L Chloride (98-107) mmol/L Carbon Dioxide (22-30) mmol/L BUN (7-17) mg/dL Glucose (74-99) mg/dL POC Glucose (mg/dL) 192 H 208 H (75-99) mg/dL 02/11/19 02/11/19 02/12/19 Range/Units 20:37 21:08 03:59 WBC 16.8 H (3.8-10.6) k/uL MCHC (31.0-37.0) g/dL RDW (11.5-15.5) % Neutrophils # 16.2 H (1.3-7.7) k/uL Lymphocytes # 0.3 L (1.0-4.8) k/uL APTT (22.0-30.0) sec Sodium (137-145) mmol/L Chloride (98-107) mmol/L Carbon Dioxide (22-30) mmol/L BUN (7-17) mg/dL Glucose (74-99) mg/dL POC Glucose (mg/dL) 257 H 232 H (75-99) mg/dL 02/12/19 02/12/19 02/12/19 Range/Units 03:59 03:59 06:33 WBC (3.8-10.6) k/uL MCHC (31.0-37.0) g/dL RDW (11.5-15.5) % Neutrophils # (1.3-7.7) k/uL Lymphocytes # (1.0-4.8) k/uL APTT 35.1 H (22.0-30.0) sec Sodium 128 L (137-145) mmol/L Chloride 88 L (98-107) mmol/L Carbon Dioxide 31 H (22-30) mmol/L BUN 31 H (7-17) mg/dL Glucose 162 H (74-99) mg/dL POC Glucose (mg/dL) 167 H (75-99) mg/dL Assessment and Plan Plan: Assessment and plan 1 acute on chronic shortness of breath mainly due to reactivation of a right- sided pleural effusion and development of rapid ventricular response in the setting of chronic atrial fibrillation. The patient had a chest x-ray that showed a moderate to large right-sided pleural effusion. 2 acute on chronic hypoxic respiratory failure secondary to above 3 stage IV poorly differentiated adenocarcinoma of the lung currently on treatment. The patient had malignant right-sided pleural effusion and she is p ost thoracentesis on 12/28/2018 were a total of 1.2 L of pleural fluid was drained from the right lung 4. 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 5. Chronic atrial fibrillation on chronic anticoagulation 6. History of peripheral vascular disease 7. Coronary artery disease 8. Hypertension 9. Hyperlipidemia 10. History of CVA/TIA 11. History of nicotine dependence, currently in remission, carries [id number]-qyjl-year smoking history Plan We will increase the dose of beta brigitte to 50 mg one tablet by mouth twice a day, if heart rate remains under good control we can discontinue the Cardizem drip. Resume Eliquis when cleared by pulmonary service. DNP note has been reviewed, I agree with a documented findings and plan of care. Patient was seen and examined.
[2019-02-12] MEDS: LOSARTAN 50 MG TAB PO SCH (11:44)
[2019-02-12 11:55] LABS: Glucose,Whole Blood 153 mg/dL (75-99)
[2019-02-12] MEDS: DOCUSATE 100 MG CAP PO SCH ×2 (12:21→20:59)
--- NOTE | 2019-02-12 13:21 | P.PN ---
Subjective Progress Note Date: 02/12/19 88-year-old female patient presented to the ED complaining of shortness of breath. The patient had some increased dyspnea sore throat. No fever. No chills. No chest pain. No angina no swelling lower extremities. She is known to have stage IV non-small cell lung cancer and this was diagnosed during an earlier evaluation where the patient was found to have a right upper lobe mass and the right-sided pleural effusion during which the patient underwent a thoracentesis at a total of 1.2 L of pleural fluid was aspirated from the right lung and fluid cytology was positive for lung cancer. The right upper lobe biopsy was also positive for lung cancer which was in the form of poor differentiated adenocarcinoma of lung primary. During the workup in the hospital the patient was also found to have a breast lesion and a biopsy of the breast lesion showed infiltrating ductal carcinoma and this was done on the right. She is known to have multiple other medical problems included coronary artery disease, hypertension, hyperlipidemia, previous history of CVA and chronic atrial fibrillation. She was referred for hematology oncology and she was started on treatment with systemic chemotherapy. The patient apparently took her first session. I'm not sure this is a conventional chemotherapy versus immunotherapy. During this current admission, the patient was already seen by cardiology. Echocardiogram was done and it showed an EF around 55-60%. The patient continued to have difficult to control atrial fibrillation with increased ventricular rate and she was given Cardizem bolus and following that she was placed on a Cardizem drip. Troponin was normal. BNP level was 2300. Chest x- ray showed a recurrence of the right-sided pleural effusion. Currently Cardizem running at 10 mg an hour. The white cell count is at 15.2. BUN is at 22 creatinine 0.7. On 02/11/2019 patient seen in follow-up on selective care unit, she is awake and alert, in no acute distress, she is currently on 3 L of oxygen with a pulse ox of 94%, denies any chest pain, denies any worsening shortness of breath, remains in A. fib with a rate of 103-126, on Cardizem drip for rate control, she is on Eliquis, we will start patient on IV heparin for anticoagulation, we will consult surgical services for placement of right-sided Pleurx catheter. The patient said that she decided to stop chemotherapy related to extreme weakness, patient is hardly able to walk. She remains on IV diuretics, 40 mg and she is in positive fluid balance. These labs have been reviewed, CBC is pretty unremarkable, sodium is 131, potassium is 4.2, chloride is 88, CO2 31, B1 is 26 and creatinine 0.96 On 02/12/2019, the patient is essentially the same. Nevertheless, the chest x- ray from today shows complete opacification of the right lung. She remains on oxygen at 3 L per minute nasal cannula. She is able to lay down flat. She is in atrial fibrillation pH is on a Cardizem drip for rate control. Her Eliquis is on hold and the patient was switched IV heparin. Pending for a Pleurx catheter insertion early next week. No chest pain. No altered mentation. No other complaints otherwise for now. The antibiotic coverage is IV Zosyn which is an empiric antibiotic coverage for now. She remains on IV Solu-Medrol. She is on DuoNeb the right treatment [id number]. Objective - Vital Signs Vital signs: Vital Signs Temp 97.6 F 02/12/19 11:33 Pulse 114 H 02/12/19 12:22 Resp 20 02/12/19 11:33 BP 115/70 02/12/19 11:33 Pulse Ox 97 02/12/19 11:33 Intake & Output 02/11/19 02/12/19 02/12/19 18:59 06:59 18:59 Intake Total 992.5 176.852 227.333 Output Total 400 400 Balance 592.5 176.852 -172.667 Weight 59.5 kg Intake: IV 280 Diltiazem 125 mg In 80 Sodium Chloride 0.9% 100 ml @ 10 MG/HR 10 mls/hr IV .[id number] [facility] Rx#: [id number] Piperacillin-Tazobactam 3 200 .375 gm In Sodium Chloride 0.9% 100 ml @ 25 mls/hr IVPB Q8HR [facility] Rx# :[id number] Intake, IV Titration 112.5 176.852 107.333 Amount Diltiazem 125 mg In 112.5 125 107.333 Sodium Chloride 0.9% 100 ml @ 10 MG/HR 10 mls/hr IV .[id number] [facility] Rx#: [id number] Heparin Sod,Pork in 0.45% 51.852 NaCl 25,000 unit In 0.45 % NaCl 1 250ml.bag @ 12 UNITS/KG/HR 6.96 mls/hr IV .Q24H [facility] Rx#: [id number] Oral 600 120 Output: Urine 400 400 Other: Voiding Method Bedside Commode Bedside Commode Bedside Commode # Voids 1 1 1 # Bowel Movements 0 0 - Exam GENERAL EXAM: Alert, pleasant, 88-year-old white female, 3 L of oxygen with a pulse ox of 94%, comfortable in no apparent distress. HEAD: Normocephalic/atraumatic. EYES: Normal reaction of pupils, equal size. Conjunctiva pink, sclera white. NOSE: Clear with pink turbinates. THROAT: No erythema or exudates. NECK: No masses, no JVD, no thyroid enlargement, no adenopathy. CHEST: No chest wall deformity. Symmetrical expansion. LUNGS: Equal air entry with diminished breath sounds at the right base with the scattered bibasilar crackles CVS: Regular rate and rhythm, normal S1 and S2, no gallops, no murmurs, no rubs ABDOMEN: Soft, nontender. No hepatosplenomegaly, normal bowel sounds, no guarding or rigidity. EXTREMITIES: No clubbing, no edema, no cyanosis, 2+ pulses and upper and lower extremities. MUSCULOSKELETAL: Muscle strength and tone normal. SPINE: No scoliosis or deformity SKIN: No rashes CENTRAL NERVOUS SYSTEM: Alert and oriented -3. No focal deficits, tone is normal in all 4 extremities. PSYCHIATRIC: Alert and oriented -3. Appropriate affect. Intact judgment and insight. - Labs CBC & Chem 7: 02/12/19 03:59 02/12/19 03:59 Labs: Abnormal Lab Results - Last 24 Hours (Table) 02/11/19 02/11/19 02/11/19 Range/Units 13:48 16:47 20:37 WBC 17.0 H (3.8-10.6) k/uL MCHC 30.8 L (31.0-37.0) g/dL RDW 15.7 H (11.5-15.5) % Neutrophils # 16.4 H (1.3-7.7) k/uL Lymphocytes # 0.4 L (1.0-4.8) k/uL APTT (22.0-30.0) sec Sodium (137-145) mmol/L Chloride (98-107) mmol/L Carbon Dioxide (22-30) mmol/L BUN (7-17) mg/dL Glucose (74-99) mg/dL POC Glucose (mg/dL) 208 H 257 H (75-99) mg/dL 02/11/19 02/12/19 02/12/19 Range/Units 21:08 03:59 03:59 WBC 16.8 H (3.8-10.6) k/uL MCHC (31.0-37.0) g/dL RDW (11.5-15.5) % Neutrophils # 16.2 H (1.3-7.7) k/uL Lymphocytes # 0.3 L (1.0-4.8) k/uL APTT (22.0-30.0) sec Sodium 128 L (137-145) mmol/L Chloride 88 L (98-107) mmol/L Carbon Dioxide 31 H (22-30) mmol/L BUN 31 H (7-17) mg/dL Glucose 162 H (74-99) mg/dL POC Glucose (mg/dL) 232 H (75-99) mg/dL 02/12/19 02/12/19 02/12/19 Range/Units 03:59 06:33 11:52 WBC (3.8-10.6) k/uL MCHC (31.0-37.0) g/dL RDW (11.5-15.5) % Neutrophils # (1.3-7.7) k/uL Lymphocytes # (1.0-4.8) k/uL APTT 35.1 H (22.0-30.0) sec Sodium (137-145) mmol/L Chloride (98-107) mmol/L Carbon Dioxide (22-30) mmol/L BUN (7-17) mg/dL Glucose (74-99) mg/dL POC Glucose (mg/dL) 167 H 153 H (75-99) mg/dL Assessment and Plan Plan: 1 acute on chronic shortness of breath mainly due to reactivation of a right- sided pleural effusion and development of rapid ventricular response in the setting of chronic atrial fibrillation. The patient had a chest x-ray that showed a moderate to large right-sided pleural effusion. The atrial fibrillation is being controlled with a Cardizem drip for now 2 acute on chronic hypoxic respiratory failure secondary to above 3 stage IV poorly differentiated adenocarcinoma of the lung currently on treatment. The patient had malignant right-sided pleural effusion and she is post thoracentesis on 12/28/2018 were a total of 1.2 L of pleural fluid was drained from the right lung 4. 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 5. Chronic atrial fibrillation on chronic anticoagulation 6. History of peripheral vascular disease 7. Coronary artery disease 8. Hypertension 9. Hyperlipidemia 10. History of CVA/TIA 11. History of nicotine dependence, currently in remission, carries 62-21-gcek-year smoking history Plan Use IV heparin. Stop Eliavery. Discussed the case with the family and were going to proceed with a Pleurx catheter insertion by next week,. The patient has metastatic stage IV poorly differentiated lung cancer and she has made up her mind not to receive any further chemotherapy in the future. Based on that, she will need Pleurx catheter insertion for palliative reasons. Keep her on IV heparin for now. We'll continue to follow.
[2019-02-12] MEDS: LORazepam 0.5 MG TAB PO SCH (14:06)
[2019-02-12 17:02] LABS: Glucose,Whole Blood 259 mg/dL (75-99)
[2019-02-12] MEDS: LORazepam 1 MG TAB PO SCH (20:59)
[2019-02-12] MEDS: METOPROLOL TARTRATE 50 MG TAB PO SCH (20:59)
[2019-02-12 21:01] LABS: Glucose,Whole Blood 176 mg/dL (75-99)
[2019-02-12] MEDS: HEPARIN SOD,PORK IN 0.45% NACL 25,000 UNIT in 0.45% NACL 1 250ML.BAG IV SCH (21:06)
--- NOTE | 2019-02-12 21:10 | PN ---
PROGRESS NOTE DATE OF SERVICE: 02/12/2019. This 88-year-old woman who was admitted with shortness of breath also had right pleural effusion. Patient with multiple other medical problems including possible pneumonia and also malignancy as well. Dr. Mosley is following the patient closely, recommending cardiothoracic surgery to insert a PleurX drainage catheter. No chest pain. No palpitations. No fever. EXAM: Alert and oriented x2. Pulse is 111, blood pressure 129/72, respiration 20, temperature 97.7, pulse ox 98% on 4 L. HEENT: Conjunctivae normal. NECK: No jugular venous distention. CARDIOVASCULAR: S1, S2 muffled. RESPIRATORY: Breath sounds diminished in the bases. A few scattered rhonchi and crackles. Breath sounds diminished in both bases. ABDOMEN: Soft, nontender. LEGS: No focal deficits. LABS: APTT 34.1. WBC 16.8, sodium is 128. ASSESSMENT: 1. Shortness of breath possibly multifactorial with possible right lower pneumonia gram-negative as well as chronic obstructive pulmonary disease acute exacerbation as well as metastatic lung cancer stage IV with non-small cell poorly differentiated carcinoma. 2. Recurrent right pleural effusion status post possibly malignant pleural effusion. 3. Acute hypoxic respiratory failure present on admission. 4. History of breast cancer. 5. 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 6. Increased WBC. 7. Atrial fibrillation with fast ventricular rate. 8. Cerebrovascular accident history. 9. History of transient ischemic attack. 10.History of gastroesophageal reflux disease. 11.Hypertension. 12.Hyperlipidemia. 13.History of cerebrovascular accident with right-sided weakness. 14.History of plantar ulcer with peripheral vascular disease. 15.History of appendectomy. 16.History of anxiety. 17.Remote history of nicotine dependence. RECOMMENDATIONS AND DISCUSSION: I recommend to continue current medications and symptomatic treatment. Repeat labs. We will continue to monitor. Repeat labs are ordered. Otherwise, closely follow with Dr. Mosley. Possible PleurX drainage by Cardiothoracic Surgery on Wednesday. Continue to monitor. Further recommendations to follow. Dr. Cleaning will follow. MMODL / IJN: [id number] /
[2019-02-13] MEDS: methylPREDNISolone SOD SUCCI 125 MG/2 ML VIAL IV SCH ×5 (00:54→23:07)
[2019-02-13] MEDS: PIPERACILLIN-TAZOBACTAM 3.375 GM in SODIUM CHLORIDE 0.9% 100 ML IVPB SCH ×4 (00:54→23:08)
[2019-02-13 06:38] LABS: Basophils % (A) 0 %; Eosinophils % (A) 0 %; HCT 40.9 % (34.0-46.0); HGB 12.8 gm/dL (11.4-16.0); Lymphocytes # (A) 0.4 k/uL (1.0-4.8); Lymphocytes % (A) 2 %; MCH 25.5 pg (25.0-35.0); MCHC 31.3 g/dL (31.0-37.0); MCV 81.3 fL (80.0-100.0); Monocytes # (A) 0.2 k/uL (0-1.0); Monocytes % (A) 1 %; Neutrophils # (A) 14.8 k/uL (1.3-7.7); Neutrophils % (A) 96 %; Platelet Count 255 k/uL (150-450); RBC 5.02 m/uL (3.80-5.40); WBC 15.4 k/uL (3.8-10.6)
[2019-02-13 06:42] LABS: Glucose,Whole Blood 152 mg/dL (75-99)
[2019-02-13] MEDS: PANTOPRAZOLE 40 MG TABLET PO SCH (06:48)
[2019-02-13] MEDS: INSULIN ASPART (NovoLOG) 100 UNIT/ML VIAL SQ SCH ×4 (06:48→20:05)
[2019-02-13 07:00] LABS: Calcium 9.4 mg/dL (8.4-10.2); Potassium 4.4 mmol/L (3.5-5.1)
[2019-02-13] MEDS: FORMOTEROL FUMARATE 20 MCG/2 ML NEBU INHALATION SCH ×2 (07:08→20:16)
[2019-02-13] MEDS: BUDESONIDE 1 MG/2 ML NEBU INHALATION SCH ×2 (07:08→20:16)
[2019-02-13] MEDS: IPRATROPIUM-ALBUTEROL 3 ML NEB INHALATION SCH ×4 (07:08→20:16)
--- NOTE | 2019-02-13 07:09 | XR ---
EXAMINATION TYPE: XR chest 1V portable DATE OF EXAM: 02/13/2019 COMPARISON: Prior chest x-ray 02/12/2019 HISTORY: Recurrent malignant effusion TECHNIQUE: Single frontal view of the chest is obtained. FINDINGS: Right hemithorax is opacified as on prior. Patient is rotated. No evident pneumothorax. Ap ical pleural thickening noted on the left. Probable subsegmental atelectatic changes present at the l eft lung base. Heart is obscured. Aorta is dense. There are overlying cardiac leads. IMPRESSION: Stable findings. Right pleural effusion and associated atelectasis
[2019-02-13] MEDS: DOCUSATE 100 MG CAP PO SCH ×2 (08:15→20:05)
[2019-02-13] MEDS: FOLIC ACID 1 MG TAB PO SCH (08:15)
[2019-02-13] MEDS: METOPROLOL TARTRATE 50 MG TAB PO SCH ×3 (08:15→23:06)
[2019-02-13] MEDS: ASPIRIN 81 MG PO SCH (08:15)
[2019-02-13] MEDS: MULTIVITAMINS, THERA 1 EACH TAB PO SCH (08:15)
[2019-02-13] MEDS: POTASSIUM CHLORIDE ER 10 MEQ TAB.ER.PRT PO SCH (08:15)
[2019-02-13] MEDS: cloNIDine HCL 0.1 MG TAB PO SCH ×3 (08:15→23:07)
[2019-02-13] MEDS: FUROSEMIDE 10 MG/ML 4 ML VIAL IV SCH (08:16)
[2019-02-13] MEDS: PROCHLORPERAZINE 10 MG TAB PO SCH ×3 (08:20→23:06)
[2019-02-13] MEDS: ANASTROZOLE 1 MG TAB PO SCH (08:20)
[2019-02-13] MEDS: DILTIAZEM 125 MG in SODIUM CHLORIDE 0.9% 100 ML IV SCH (08:23)
--- NOTE | 2019-02-13 09:05 | P.PN ---
Subjective Progress Note Date: 02/13/19 Principal diagnosis: Recurrent right malignant pleural effusion, recent diagnosis of stage IV non- small cell lung cancer with a right upper lobe mass, recurrent right-sided pleural effusion status post thoracentesis on 12/22/2018 with 950 ml of fluid removed and on 12/28/2018 with 1.2 L of fluid removed, recent diagnosis of right breast lesion with biopsy positive for infiltrating ductal carcinoma. Previous medical history of previous nicotine dependence, quit smoking about 25-30 years ago, hypertension, hyperlipidemia, coronary artery coronary disease, CVA/TIA with residual right upper extremity weakness and chronic atrial fibrillation on chronic Eliquis at home for anticoagulation. The patient is sitting up in bed in no acute distress receiving updraft treatment. States she feels slightly better than when she was admitted. Continues to have shortness of breath with exertion, and does appear mildly dyspneic. Plan is for Pleurx catheter placement tomorrow. Objective - Vital Signs Vital signs: Vital Signs Temp 98.2 F 02/13/19 04:00 Pulse 106 H 02/13/19 07:25 Resp 20 02/13/19 04:00 BP 144/76 02/13/19 04:00 Pulse Ox 93 L 02/13/19 04:00 Intake & Output 02/12/19 02/13/19 02/13/19 18:59 06:59 18:59 Intake Total 737.333 265.07 352.333 Output Total 1100 200 Balance -362.667 65.07 352.333 Weight 82 kg Intake: Intake, IV Titration 107.333 265.07 112.333 Amount Diltiazem 125 mg In 107.333 125 112.333 Sodium Chloride 0.9% 100 ml @ 10 MG/HR 10 mls/hr IV .[id number] [facility] Rx#: [id number] Heparin Sod,Pork in 0.45% 140.07 NaCl 25,000 unit In 0.45 % NaCl 1 250ml.bag @ 12 UNITS/KG/HR 6.96 mls/hr IV .Q24H [facility] Rx#: [id number] Oral 630 240 Output: Urine 1100 200 Other: Voiding Method Bedside Commode Bedside Commode # Voids 1 1 # Bowel Movements 0 - Constitutional General appearance: Present: cooperative, no acute distress - Respiratory Details: Lungs sounds diminished bilaterally, right greater than left, expiratory wheezes heard bilaterally. Respirations even, slightly dyspneic. Currently on 4 L nasal cannula with oxygen saturation 93%. - Cardiovascular Details: S1, S2 present. Irregular rate and rhythm, atrial fibrillation on telemetry. Palpable peripheral pulses bilaterally. Trace right upper extremity edema present. SCDs present. - Gastrointestinal Gastrointestinal Comment(s): Abdomen soft, nontender, nondistended. Hypoactive bowel sounds present 4 quadrants. Tolerating diet. - Genitourinary Genitourinary Comment(s): Continues to void. - Integumentary Integumentary Comment(s): Skin is warm and dry. - Neurologic Neurologic: Present: CNII-XII intact - Musculoskeletal Musculoskeletal Comment(s): Right upper extremity weakness present - Psychiatric Psychiatric: Present: A&O x's 3, appropriate affect, intact judgment & insight - Allied health notes Allied health notes reviewed: nursing - Labs CBC & Chem 7: 02/13/19 06:21 02/13/19 06:21 Labs: Abnormal Lab Results - Last 24 Hours (Table) 02/12/19 02/12/19 02/12/19 Range/Units 11:52 13:12 16:46 WBC (3.8-10.6) k/uL Neutrophils # (1.3-7.7) k/uL Lymphocytes # (1.0-4.8) k/uL APTT 49.2 H (22.0-30.0) sec Sodium (137-145) mmol/L Chloride (98-107) mmol/L Carbon Dioxide (22-30) mmol/L BUN (7-17) mg/dL Glucose (74-99) mg/dL POC Glucose (mg/dL) 153 H 259 H (75-99) mg/dL 02/12/19 02/13/19 02/13/19 Range/Units 20:59 06:21 06:21 WBC 15.4 H (3.8-10.6) k/uL Neutrophils # 14.8 H (1.3-7.7) k/uL Lymphocytes # 0.4 L (1.0-4.8) k/uL APTT (22.0-30.0) sec Sodium 131 L (137-145) mmol/L Chloride 90 L (98-107) mmol/L Carbon Dioxide 34 H (22-30) mmol/L BUN 39 H (7-17) mg/dL Glucose 152 H (74-99) mg/dL POC Glucose (mg/dL) 176 H (75-99) mg/dL 02/13/19 02/13/19 Range/Units 06:21 06:40 WBC (3.8-10.6) k/uL Neutrophils # (1.3-7.7) k/uL Lymphocytes # (1.0-4.8) k/uL APTT 66.8 H (22.0-30.0) sec Sodium (137-145) mmol/L Chloride (98-107) mmol/L Carbon Dioxide (22-30) mmol/L BUN (7-17) mg/dL Glucose (74-99) mg/dL POC Glucose (mg/dL) 152 H (75-99) mg/dL - Imaging and Cardiology Chest x-ray: report reviewed, image reviewed Assessment and Plan Assessment: 1. Recurrent right-sided malignant effusion, status post thoracentesis 12/22/2018 with removal of 950 mL fluid and 12/28/2018 with 1.2 L fluid removal 2. Recent diagnosis of stage IV poorly differentiated adenocarcinoma of the lung, status post one chemotherapy treatment 3. Recent diagnosis invasive moderately differentiated ductal carcinoma of the right breast 4. Acute on chronic dyspnea 5. History of hypertension 6. History of hyperlipidemia 7. History of CVA/TIA, residual right upper extremity weakness 8. Coronary artery disease 9. Chronic atrial fibrillation, on Eliquis for chronic anticoagulation 10. Previous nicotine dependence, quit smoking about 25-30 years ago Plan: 1. The patient is scheduled for a right Pleurx catheter placement by Dr. Sheridan tomorrow, January. She will be nothing by mouth after midnight. 2. Continue to hold her Eliquis in anticipation for Pleurx catheter placement. May restart after placement. 3. Wean O2 as tolerated. Encourage incentive spirometry 10 times every hour while awake. 4. Bronchodilators, steroids per pulmonology. 5. Continue to monitor her daily chest x-rays. 6. Increase activity, ambulate as tolerated. PT/OT following. 7. GI/DVT prophylaxis. 8. Atrial fibrillation management per cardiology recommendations. 9. More recommendations to follow based on patient's clinical course. Time with Patient: Greater than 30
--- NOTE | 2019-02-13 09:41 | P.PN ---
Subjective Progress Note Date: 02/13/19 Mike is an 88-year-old female patient presented to the ED complaining of shortness of breath. The patient had some increased dyspnea sore throat. No fever. No chills. No chest pain. No angina no swelling lower extremities. She is known to have stage IV non-small cell lung cancer and this was diagnosed during an earlier evaluation where the patient was found to have a right upper lobe mass and the right-sided pleural effusion during which the patient underwent a thoracentesis at a total of 1.2 L of pleural fluid was aspirated from the right lung and fluid cytology was positive for lung cancer. The right upper lobe biopsy was also positive for lung cancer which was in the form of poor differentiated adenocarcinoma of lung primary. During the workup in the hospital the patient was also found to have a breast lesion and a biopsy of the breast lesion showed infiltrating ductal carcinoma and this was done on the right. She is known to have multiple other medical problems included coronary artery disease, hypertension, hyperlipidemia, previous history of CVA and chronic atrial fibrillation. She was referred for hematology oncology and she was started on treatment with systemic chemotherapy. The patient apparently took her first session. was seen yesterday in consultation by Dr. Lehman, he initiated a Cardizem drip for A. fib with RVR. Her heart rate this morning is in the low 100s. Echocardiogram with Doppler study was performed which revealed an ejection fraction of 55-60%, mild to moderate tricuspid regurg. Blood pressure 132/68 with a heart rate in the low 100s, 94% on 3 L of oxygen. 02/12/2019 Patient was seen and examined this morning, heart rate 90s low 100s, continues to be on IV Cardizem drip. Continue current dose of IV Lasix, we will increase the dose of metoprolol to 50 mg twice a day. Attempt to discontinue the Cardizem drip. 02/13/2019 Patient seen and examined this morning, still appears to be short of breath, poor appetite. Heart rate in the 90s this morning, we'll increase her dose of beta brigitte and discontinue the Cardizem drip today. Continue current dose of IV Lasix. Patient is scheduled today to undergo placement of a Pleurx catheter. Objective - Vital Signs Vital signs: Vital Signs Temp 98.2 F 02/13/19 04:00 Pulse 106 H 02/13/19 07:25 Resp 20 02/13/19 04:00 BP 144/76 02/13/19 04:00 Pulse Ox 93 L 02/13/19 04:00 Intake & Output 02/12/19 02/13/19 02/13/19 18:59 06:59 18:59 Intake Total 737.333 265.07 352.333 Output Total 1100 200 Balance -362.667 65.07 352.333 Weight 82 kg Intake: Intake, IV Titration 107.333 265.07 112.333 Amount Diltiazem 125 mg In 107.333 125 112.333 Sodium Chloride 0.9% 100 ml @ 10 MG/HR 10 mls/hr IV .[id number] [facility] Rx#: [id number] Heparin Sod,Pork in 0.45% 140.07 NaCl 25,000 unit In 0.45 % NaCl 1 250ml.bag @ 12 UNITS/KG/HR 6.96 mls/hr IV .Q24H [facility] Rx#: [id number] Oral 630 240 Output: Urine 1100 200 Other: Voiding Method Bedside Commode Bedside Commode # Voids 1 1 # Bowel Movements 0 - Exam HEAD: Normocephalic/atraumatic. EYES: Normal reaction of pupils, equal size. Conjunctiva pink, sclera white. NOSE: Clear with pink turbinates. THROAT: No erythema or exudates. NECK: No masses, no JVD, no thyroid enlargement, no adenopathy. CHEST: No chest wall deformity. Symmetrical expansion. LUNGS: Diminished breath on the right lung base along with some dullness to percussion on examination. CVS: Heart S1 and S2 irregularly irregular a systolic murmur is heard ABDOMEN: Soft, nontender. No hepatosplenomegaly, normal bowel sounds, no guarding or rigidity. EXTREMITIES: No clubbing, no edema, no cyanosis, 2+ pulses and upper and lower extremities. MUSCULOSKELETAL: Muscle strength and tone normal. SPINE: No scoliosis or deformity SKIN: No rashes CENTRAL NERVOUS SYSTEM: No focal deficits, tone is normal in all 4 extremities. PSYCHIATRIC: Alert and oriented -3. Appropriate affect. Intact judgment and insight. - Labs CBC & Chem 7: 02/13/19 06:21 02/13/19 06:21 Labs: Abnormal Lab Results - Last 24 Hours (Table) 02/12/19 02/12/19 02/12/19 Range/Units 11:52 13:12 16:46 WBC (3.8-10.6) k/uL Neutrophils # (1.3-7.7) k/uL Lymphocytes # (1.0-4.8) k/uL APTT 49.2 H (22.0-30.0) sec Sodium (137-145) mmol/L Chloride (98-107) mmol/L Carbon Dioxide (22-30) mmol/L BUN (7-17) mg/dL Glucose (74-99) mg/dL POC Glucose (mg/dL) 153 H 259 H (75-99) mg/dL 02/12/19 02/13/19 02/13/19 Range/Units 20:59 06:21 06:21 WBC 15.4 H (3.8-10.6) k/uL Neutrophils # 14.8 H (1.3-7.7) k/uL Lymphocytes # 0.4 L (1.0-4.8) k/uL APTT (22.0-30.0) sec Sodium 131 L (137-145) mmol/L Chloride 90 L (98-107) mmol/L Carbon Dioxide 34 H (22-30) mmol/L BUN 39 H (7-17) mg/dL Glucose 152 H (74-99) mg/dL POC Glucose (mg/dL) 176 H (75-99) mg/dL 02/13/19 02/13/19 Range/Units 06:21 06:40 WBC (3.8-10.6) k/uL Neutrophils # (1.3-7.7) k/uL Lymphocytes # (1.0-4.8) k/uL APTT 66.8 H (22.0-30.0) sec Sodium (137-145) mmol/L Chloride (98-107) mmol/L Carbon Dioxide (22-30) mmol/L BUN (7-17) mg/dL Glucose (74-99) mg/dL POC Glucose (mg/dL) 152 H (75-99) mg/dL Assessment and Plan Plan: Assessment and plan 1 acute on chronic shortness of breath mainly due to reactivation of a right- sided pleural effusion and development of rapid ventricular response in the setting of chronic atrial fibrillation. The patient had a chest x-ray that showed a moderate to large right-sided pleural effusion. 2 acute on chronic hypoxic respiratory failure secondary to above 3 stage IV poorly differentiated adenocarcinoma of the lung currently on treatment. The patient had malignant right-sided pleural effusion and she is po st thoracentesis on 12/28/2018 were a total of 1.2 L of pleural fluid was drained from the right lung 4. 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 5. Chronic atrial fibrillation on chronic anticoagulation 6. History of peripheral vascular disease 7. Coronary artery disease 8. Hypertension 9. Hyperlipidemia 10. History of CVA/TIA 11. History of nicotine dependence, currently in remission, carries 34-83-hthp-year smoking history Plan We will increase the dose of beta brigitte to 50 mg one tablet by mouth three times a day, discontinue IV Cardizem .patient will have placement of Pleurx catheter today, then once okay from pulmonary perspective her Eliquis will be resumed. DNP note has been reviewed, I agree with a documented findings and plan of care. Patient was seen and examined.
--- NOTE | 2019-02-13 11:50 | P.PN ---
Subjective Progress Note Date: 02/13/19 Principal diagnosis: SOB Preparing for pleurex cath, still short of breath. Cardizem drip. Objective - Vital Signs Vital signs: Vital Signs Temp 98.0 F 02/13/19 08:00 Pulse 104 H 02/13/19 10:59 Resp 20 02/13/19 08:00 BP 136/78 02/13/19 08:00 Pulse Ox 94 L 02/13/19 08:00 Intake & Output 02/12/19 02/13/19 02/13/19 18:59 06:59 18:59 Intake Total 737.333 265.07 352.333 Output Total 1100 200 Balance -362.667 65.07 352.333 Weight 82 kg Intake: Intake, IV Titration 107.333 265.07 112.333 Amount Diltiazem 125 mg In 107.333 125 112.333 Sodium Chloride 0.9% 100 ml @ 10 MG/HR 10 mls/hr IV .[id number] [facility] Rx#: [id number] Heparin Sod,Pork in 0.45% 140.07 NaCl 25,000 unit In 0.45 % NaCl 1 250ml.bag @ 12 UNITS/KG/HR 6.96 mls/hr IV .Q24H [facility]NY Rx#: [id number] Oral 630 240 Output: Urine 1100 200 Other: Voiding Method Bedside Commode Bedside Commode # Voids 1 1 # Bowel Movements 0 - Exam Gen: Alert and Oriented, NADweak, Cachetic Head: NCNT Neck Supple Heart Tachy Lungs Mildncreased effort Diminished Abdomen: S/ND/NT Ext: No Rash, No Edema, Equal Strength Psych: Calm and Coroperative Neuro: No Focal Deficits Noted. - Labs CBC & Chem 7: 02/13/19 06:21 02/13/19 06:21 Labs: Abnormal Lab Results - Last 24 Hours (Table) 02/12/19 02/12/19 02/12/19 Range/Units 11:52 13:12 16:46 WBC (3.8-10.6) k/uL Neutrophils # (1.3-7.7) k/uL Lymphocytes # (1.0-4.8) k/uL APTT 49.2 H (22.0-30.0) sec Sodium (137-145) mmol/L Chloride (98-107) mmol/L Carbon Dioxide (22-30) mmol/L BUN (7-17) mg/dL Glucose (74-99) mg/dL POC Glucose (mg/dL) 153 H 259 H (75-99) mg/dL 02/12/19 02/13/19 02/13/19 Range/Units 20:59 06:21 06:21 WBC 15.4 H (3.8-10.6) k/uL Neutrophils # 14.8 H (1.3-7.7) k/uL Lymphocytes # 0.4 L (1.0-4.8) k/uL APTT (22.0-30.0) sec Sodium 131 L (137-145) mmol/L Chloride 90 L (98-107) mmol/L Carbon Dioxide 34 H (22-30) mmol/L BUN 39 H (7-17) mg/dL Glucose 152 H (74-99) mg/dL POC Glucose (mg/dL) 176 H (75-99) mg/dL 02/13/19 02/13/19 Range/Units 06:21 06:40 WBC (3.8-10.6) k/uL Neutrophils # (1.3-7.7) k/uL Lymphocytes # (1.0-4.8) k/uL APTT 66.8 H (22.0-30.0) sec Sodium (137-145) mmol/L Chloride (98-107) mmol/L Carbon Dioxide (22-30) mmol/L BUN (7-17) mg/dL Glucose (74-99) mg/dL POC Glucose (mg/dL) 152 H (75-99) mg/dL Assessment and Plan Plan: Assessment and recommendations: Adenocarcinoma of the Lung - Status POst cycle one with Carbo, Almta and Keytruda Hx: Breast Cancer: - Continue Arimidex Acute respiratory Failure: - Increased Pleural effusions - Pulmonary Following - Continue supportive Care Hyponatremia: - LIkely secondary dehydration Anxiety and Nausea relieved with current ativan regimen. Stop Xanax (does not need both) Ok for pleurex - planning this week Will re-evaluate cancer treatment after discharge.
--- NOTE | 2019-02-13 11:53 | P.PN ---
Subjective Patient sitting in chair at bedside noted dyspnea with rhonchi and wheezing plan is for Pleurx tomorrow with surgical cardiology. Patient continues with consultation of oncology cardiology pulmonology and cardiac surgeon Objective - Vital Signs Vital signs: Vital Signs Temp 98.0 F 02/13/19 08:00 Pulse 104 H 02/13/19 10:59 Resp 20 02/13/19 08:00 BP 136/78 02/13/19 08:00 Pulse Ox 94 L 02/13/19 08:00 Intake & Output 02/12/19 02/13/19 02/13/19 18:59 06:59 18:59 Intake Total 737.333 265.07 352.333 Output Total 1100 200 Balance -362.667 65.07 352.333 Weight 82 kg Intake: Intake, IV Titration 107.333 265.07 112.333 Amount Diltiazem 125 mg In 107.333 125 112.333 Sodium Chloride 0.9% 100 ml @ 10 MG/HR 10 mls/hr IV .[id number] [facility] Rx#: [id number] Heparin Sod,Pork in 0.45% 140.07 NaCl 25,000 unit In 0.45 % NaCl 1 250ml.bag @ 12 UNITS/KG/HR 6.96 mls/hr IV .Q24H [facility] Rx#: [id number] Oral 630 240 Output: Urine 1100 200 Other: Voiding Method Bedside Commode Bedside Commode # Voids 1 1 # Bowel Movements 0 - Constitutional General appearance: Present: mild distress - EENT Eyes: Present: PERRLA Ears: bilateral: normal - Neck Neck: Present: normal ROM - Respiratory Respiratory: bilateral: diminished, rhonchi, wheezing - Cardiovascular Rhythm: regular - Gastrointestinal General gastrointestinal: Present: soft - Integumentary Integumentary: Present: normal - Neurologic Neurologic: Present: CNII-XII intact - Musculoskeletal Musculoskeletal Comment(s): Able to stand only with assistance Musculoskeletal: Present: generalized weakness - Psychiatric Psychiatric: Present: A&O x's 3, appropriate affect, intact judgment & insight - Labs CBC & Chem 7: 02/13/19 06:21 02/13/19 06:21 Labs: Abnormal Lab Results - Last 24 Hours (Table) 02/12/19 02/12/19 02/12/19 Range/Units 11:52 13:12 16:46 WBC (3.8-10.6) k/uL Neutrophils # (1.3-7.7) k/uL Lymphocytes # (1.0-4.8) k/uL APTT 49.2 H (22.0-30.0) sec Sodium (137-145) mmol/L Chloride (98-107) mmol/L Carbon Dioxide (22-30) mmol/L BUN (7-17) mg/dL Glucose (74-99) mg/dL POC Glucose (mg/dL) 153 H 259 H (75-99) mg/dL 02/12/19 02/13/19 02/13/19 Range/Units 20:59 06:21 06:21 WBC 15.4 H (3.8-10.6) k/uL Neutrophils # 14.8 H (1.3-7.7) k/uL Lymphocytes # 0.4 L (1.0-4.8) k/uL APTT (22.0-30.0) sec Sodium 131 L (137-145) mmol/L Chloride 90 L (98-107) mmol/L Carbon Dioxide 34 H (22-30) mmol/L BUN 39 H (7-17) mg/dL Glucose 152 H (74-99) mg/dL POC Glucose (mg/dL) 176 H (75-99) mg/dL 02/13/19 02/13/19 Range/Units 06:21 06:40 WBC (3.8-10.6) k/uL Neutrophils # (1.3-7.7) k/uL Lymphocytes # (1.0-4.8) k/uL APTT 66.8 H (22.0-30.0) sec Sodium (137-145) mmol/L Chloride (98-107) mmol/L Carbon Dioxide (22-30) mmol/L BUN (7-17) mg/dL Glucose (74-99) mg/dL POC Glucose (mg/dL) 152 H (75-99) mg/dL - Imaging and Cardiology Chest x-ray: report reviewed Assessment and Plan Plan: Assessment Dyspnea secondary to right lower lobe pneumonia continued right pleural effusion Acute hypoxic respiratory failure present on admission History of breast cancer on chemotherapy Hyponatremia Leukocytosis Atrial fibrillation with RVR History of CVA/TIA History of GERD Hypertension Hyperlipidemia Peripheral vascular disease Anxiety history Plan Continue consultation with oncology cardiology pulmonology and surgical cardiology Pleur-evacs scheduled for tomorrow Possible thoracentesis today
[2019-02-13 12:17] LABS: Glucose,Whole Blood 220 mg/dL (75-99)
--- NOTE | 2019-02-13 15:14 | P.PN ---
Subjective Progress Note Date: 02/13/19 Principal diagnosis: Right-sided pleural effusion 88-year-old female patient presented to the ED complaining of shortness of breath. The patient had some increased dyspnea sore throat. No fever. No chills. No chest pain. No angina no swelling lower extremities. She is known to have stage IV non-small cell lung cancer and this was diagnosed during an earlier evaluation where the patient was found to have a right upper lobe mass and the right-sided pleural effusion during which the patient underwent a thoracentesis at a total of 1.2 L of pleural fluid was aspirated from the right lung and fluid cytology was positive for lung cancer. The right upper lobe biopsy was also positive for lung cancer which was in the form of poor differentiated adenocarcinoma of lung primary. During the workup in the hospital the patient was also found to have a breast lesion and a biopsy of the breast lesion showed infiltrating ductal carcinoma and this was done on the right. She is known to have multiple other medical problems included coronary artery disease, hypertension, hyperlipidemia, previous history of CVA and chronic atrial fibrillation. She was referred for hematology oncology and she was started on treatment with systemic chemotherapy. The patient apparently too k her first session. I'm not sure this is a conventional chemotherapy versus immunotherapy. During this current admission, the patient was already seen by cardiology. Echocardiogram was done and it showed an EF around 55-60%. The patient continued to have difficult to control atrial fibrillation with increased ventricular rate and she was given Cardizem bolus and following that she was placed on a Cardizem drip. Troponin was normal. BNP level was 2300. Chest x- ray showed a recurrence of the right-sided pleural effusion. Currently Cardizem running at 10 mg an hour. The white cell count is at 15.2. BUN is at 22 creatinine 0.7. On 02/11/2019 patient seen in follow-up on selective care unit, she is awake and alert, in no acute distress, she is currently on 3 L of oxygen with a pulse ox of 94%, denies any chest pain, denies any worsening shortness of breath, remains in A. fib with a rate of 103-126, on Cardizem drip for rate control, she is on Eliquis, we will start patient on IV heparin for anticoagulation, we will consult surgical services for placement of right-sided Pleurx catheter. The patient said that she decided to stop chemotherapy related to extreme weakness, patient is hardly able to walk. She remains on IV diuretics, 40 mg and she is in positive fluid balance. These labs have been reviewed, CBC is pretty unremarkable, sodium is 131, potassium is 4.2, chloride is 88, CO2 31, B1 is 26 and creatinine 0.96 On 02/13/2019 patient seen in follow-up on selective care unit. She is resting in bed, currently dyspneic, but no acute distress, she is currently on 4 L of oxygen and the pulse ox of 94%, hemodynamically stable, slightly tachycardic at times, she is in atrial fibrillation, and her heart rate is in the low 100s. Follow-up chest x-ray today was obtained, showing stable findings of the right hemithorax opacification related to a large recurrent right-sided plural effusion. Patient is scheduled for Pleurx catheter tomorrow by CT surgery, in the meanwhile she continues on IV Lasix daily, she is on Cardizem and heparin drip, and IV steroids at 60 mg every 6 hours. Objective - Vital Signs Vital signs: Vital Signs Temp 98.0 F 02/13/19 08:00 Pulse 93 02/13/19 12:00 Resp 20 02/13/19 12:00 BP 114/71 02/13/19 12:00 Pulse Ox 94 L 02/13/19 12:00 Intake & Output 02/12/19 02/13/19 02/13/19 18:59 06:59 18:59 Intake Total 737.333 265.07 712.333 Output Total 1100 200 Balance -362.667 65.07 712.333 Weight 82 kg Intake: Intake, IV Titration 107.333 265.07 112.333 Amount Diltiazem 125 mg In 107.333 125 112.333 Sodium Chloride 0.9% 100 ml @ 10 MG/HR 10 mls/hr IV .[id number] [facility] Rx#: [id number] Heparin Sod,Pork in 0.45% 140.07 NaCl 25,000 unit In 0.45 % NaCl 1 250ml.bag @ 12 UNITS/KG/HR 6.96 mls/hr IV .Q24H [facility] Rx#: [id number] Oral 630 600 Output: Urine 1100 200 Other: Voiding Method Bedside Commode Bedside Commode # Voids 1 1 2 # Bowel Movements 0 - Exam GENERAL EXAM: Alert, pleasant, 88-year-old white female, 4 L of oxygen with a pulse ox of 94%, comfortable in no apparent distress. HEAD: Normocephalic/atraumatic. EYES: Normal reaction of pupils, equal size. Conjunctiva pink, sclera white. NOSE: Clear with pink turbinates. THROAT: No erythema or exudates. NECK: No masses, no JVD, no thyroid enlargement, no adenopathy. CHEST: No chest wall deformity. Symmetrical expansion. LUNGS: Equal air entry with diminished breath sounds at the right base with the scattered bibasilar crackles CVS: Regular rate and rhythm, normal S1 and S2, no gallops, no murmurs, no rubs ABDOMEN: Soft, nontender. No hepatosplenomegaly, normal bowel sounds, no guarding or rigidity. EXTREMITIES: No clubbing, no edema, no cyanosis, 2+ pulses and upper and lower extremities. MUSCULOSKELETAL: Muscle strength and tone normal. SPINE: No scoliosis or deformity SKIN: No rashes CENTRAL NERVOUS SYSTEM: Alert and oriented -3. No focal deficits, tone is normal in all 4 extremities. PSYCHIATRIC: Alert and oriented -3. Appropriate affect. Intact judgment and insight. - Labs CBC & Chem 7: 02/13/19 06:21 02/13/19 06:21 Labs: Abnormal Lab Results - Last 24 Hours (Table) 02/12/19 02/12/19 02/13/19 Range/Units 16:46 20:59 06:21 WBC 15.4 H (3.8-10.6) k/uL Neutrophils # 14.8 H (1.3-7.7) k/uL Lymphocytes # 0.4 L (1.0-4.8) k/uL APTT (22.0-30.0) sec Sodium (137-145) mmol/L Chloride (98-107) mmol/L Carbon Dioxide (22-30) mmol/L BUN (7-17) mg/dL Glucose (74-99) mg/dL POC Glucose (mg/dL) 259 H 176 H (75-99) mg/dL 02/13/19 02/13/19 02/13/19 Range/Units 06:21 06:21 06:40 WBC (3.8-10.6) k/uL Neutrophils # (1.3-7.7) k/uL Lymphocytes # (1.0-4.8) k/uL APTT 66.8 H (22.0-30.0) sec Sodium 131 L (137-145) mmol/L Chloride 90 L (98-107) mmol/L Carbon Dioxide 34 H (22-30) mmol/L BUN 39 H (7-17) mg/dL Glucose 152 H (74-99) mg/dL POC Glucose (mg/dL) 152 H (75-99) mg/dL 02/13/19 Range/Units 12:14 WBC (3.8-10.6) k/uL Neutrophils # (1.3-7.7) k/uL Lymphocytes # (1.0-4.8) k/uL APTT (22.0-30.0) sec Sodium (137-145) mmol/L Chloride (98-107) mmol/L Carbon Dioxide (22-30) mmol/L BUN (7-17) mg/dL Glucose (74-99) mg/dL POC Glucose (mg/dL) 220 H (75-99) mg/dL Assessment and Plan Plan: Assessment: 1 acute on chronic shortness of breath mainly due to reactivation of a right- sided pleural effusion and development of rapid ventricular response in the setting of chronic atrial fibrillation. The patient had a chest x-ray that showed a moderate to large right-sided pleural effusion. The atrial fibrillation is being controlled with a Cardizem drip for now 2 acute on chronic hypoxic respiratory failure secondary to above 3 stage IV poorly differentiated adenocarcinoma of the lung currently on treatment. The patient had malignant right-sided pleural effusion and she is post thoracentesis on 12/28/2018 were a total of 1.2 L of pleural fluid was drained from the right lung 4. 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 5. Chronic atrial fibrillation on chronic anticoagulation 6. History of peripheral vascular disease 7. Coronary artery disease 8. Hypertension 9. Hyperlipidemia 10. History of CVA/TIA 11. History of nicotine dependence, currently in remission, carries [id number]-[id number]-year smoking history Plan: Continue with IV diuretics, today's follow-up chest x-ray shows stable findings of right hemithorax opacification related to large malignant pleural effusion, patient schedule for Pleurx placement tomorrow, if she develops worsening shortness of breath, we may consider proceeding with the right-sided recently cyst in the meanwhile continue with current medical treatment. I performed a history & physical examination of the patient and discussed their management with my nurse practitioner, Angelica Cross. I reviewed the nurse practitioner's note and agree with the documented findings and plan of care. Lung sounds are positive for diminished breath sounds at the right base, with bibasilar crackles. The findings and the impression was discussed with the patient. I attest to the documentation by the nurse practitioner. Time with Patient: Less than 30
[2019-02-13 17:32] LABS: Glucose,Whole Blood 152 mg/dL (75-99)
[2019-02-13] MEDS: LORazepam 0.5 MG TAB PO SCH (18:15)
[2019-02-13 19:55] LABS: Glucose,Whole Blood 162 mg/dL (75-99)
[2019-02-13] MEDS: LORazepam 1 MG TAB PO SCH (20:05)
[2019-02-14] MEDS: HEPARIN SOD,PORK IN 0.45% NACL 25,000 UNIT in 0.45% NACL 1 250ML.BAG IV SCH (04:00)
[2019-02-14 06:13] LABS: Glucose,Whole Blood 159 mg/dL (75-99)
[2019-02-14] MEDS: methylPREDNISolone SOD SUCCI 125 MG/2 ML VIAL IV SCH ×3 (06:17→18:43)
[2019-02-14] MEDS: INSULIN ASPART (NovoLOG) 100 UNIT/ML VIAL SQ SCH ×4 (06:17→22:58)
[2019-02-14 07:37] LABS: Calcium 8.9 mg/dL (8.4-10.2)
[2019-02-14 07:38] LABS: INR 1.1 (<1.2); Partial Thromboplastin Time 63.8 sec (22.0-30.0); Prothrombin Time 11.5 sec (9.0-12.0)
[2019-02-14 07:44] LABS: Potassium 4.3 mmol/L (3.5-5.1)
[2019-02-14 08:06] LABS: Anisocytosis Slight; Basophils % (A) 0 %; Eosinophils # (A) 0.1 k/uL (0-0.7); Eosinophils % (A) 1 %; HCT 42.1 % (34.0-46.0); HGB 13.2 gm/dL (11.4-16.0); Lymphocytes # (A) 0.3 k/uL (1.0-4.8); Lymphocytes % (A) 3 %; MCH 25.8 pg (25.0-35.0); MCHC 31.3 g/dL (31.0-37.0); MCV 82.4 fL (80.0-100.0); Mean Platelet Volume 8.7; Monocytes # (A) 0.1 k/uL (0-1.0); Monocytes % (A) 1 %; Neutrophils # (A) 9.8 k/uL (1.3-7.7); Neutrophils % (A) 95 %; Platelet Count 210 k/uL (150-450); RDW 16.3 % (11.5-15.5); WBC 10.3 k/uL (3.8-10.6)
[2019-02-14] MEDS: BUDESONIDE 1 MG/2 ML NEBU INHALATION SCH ×3 (08:53→22:22)
[2019-02-14] MEDS: FORMOTEROL FUMARATE 20 MCG/2 ML NEBU INHALATION SCH ×3 (08:53→22:22)
[2019-02-14] MEDS: METOPROLOL TARTRATE 50 MG TAB PO SCH ×3 (08:53→23:04)
[2019-02-14] MEDS: IPRATROPIUM-ALBUTEROL 3 ML NEB INHALATION SCH ×5 (08:53→22:21)
[2019-02-14] MEDS: PIPERACILLIN-TAZOBACTAM 3.375 GM in SODIUM CHLORIDE 0.9% 100 ML IVPB SCH ×2 (08:54→16:55)
[2019-02-14] MEDS ORDERED: IV FLUID CONTINUATION 1,000 ML IV ONE (09:52)
[2019-02-14] MEDS ORDERED: KETAMINE 10 MG/ML 20 ML VIAL ONE (10:16)
[2019-02-14] MEDS ORDERED: LIDOCAINE 1% INJ 10MG/ML (20 ML MDV) SQ ONE ×2 (10:35)
--- NOTE | 2019-02-14 11:32 | FL ---
EXAMINATION TYPE: FL fluoroscopy <1hr DATE OF EXAM: 02/14/2019 CLINICAL HISTORY: Pleurx catheter placement. Fluoroscopy documentation. TECHNIQUE: Fluoroscopy. COMPARISON: None. FINDINGS: Fluoroscopic guidance was provided during procedure performed by Dr. Sheridan. A total of 1 minute and 14 seconds of fluoroscopic time was utilized during the procedure and 1 spot images was ac quired. IMPRESSION: As Above.
[2019-02-14] MEDS ORDERED: ACETAMINOPHEN TAB 500 MG TAB PO PRN (11:36)
--- NOTE | 2019-02-14 12:03 | XR ---
EXAMINATION TYPE: XR chest 1V portable DATE OF EXAM: 02/14/2019 COMPARISON: 02/13/2019 HISTORY: Chest tube placement TECHNIQUE: Single frontal view of the chest is obtained. FINDINGS: Chest tube seen overlying the right hemithorax and there is interval marked reduction in a mount of opacification with some persistent density involving the lower lobe and upper lobe lung apex . Diffuse osteopenia and arthropathy of the shoulders. Heart size normal. No sizable pneumothorax. Athe rosclerotic change aorta. IMPRESSION: Chest tube insertion with significant interval reduction in amount of right-sided consol idation and pleural effusion.
[2019-02-14 12:09] LABS: Glucose,Whole Blood 144 mg/dL (75-99)
[2019-02-14] MEDS: MULTIVITAMINS, THERA 1 EACH TAB PO SCH (12:40)
[2019-02-14] MEDS: POTASSIUM CHLORIDE ER 10 MEQ TAB.ER.PRT PO SCH (12:40)
[2019-02-14] MEDS: FOLIC ACID 1 MG TAB PO SCH (12:40)
[2019-02-14] MEDS: cloNIDine HCL 0.1 MG TAB PO SCH ×3 (12:40→22:58)
[2019-02-14] MEDS: DOCUSATE 100 MG CAP PO SCH ×2 (12:40→22:58)
[2019-02-14] MEDS: PANTOPRAZOLE 40 MG TABLET PO SCH (12:40)
[2019-02-14] MEDS: ASPIRIN 81 MG PO SCH (12:41)
[2019-02-14] MEDS: FUROSEMIDE 10 MG/ML 4 ML VIAL IV SCH (12:41)
[2019-02-14] MEDS: PROCHLORPERAZINE 10 MG TAB PO SCH ×2 (12:41→16:56)
[2019-02-14] MEDS: ANASTROZOLE 1 MG TAB PO SCH (12:41)
--- NOTE | 2019-02-14 13:16 | P.PN ---
Subjective Progress Note Date: 02/14/19 Principal diagnosis: SOB Preparing for pleurex cathon 02/15/19, Objective - Vital Signs Vital signs: Vital Signs Temp 97.3 F L 02/14/19 11:32 Pulse 114 H 02/14/19 12:02 Resp 18 02/14/19 12:02 BP 151/78 02/14/19 12:02 Pulse Ox 97 02/14/19 12:02 Intake & Output 02/13/19 02/14/19 02/14/19 18:59 06:59 18:59 Intake Total 952.333 250 450 Output Total 600 2250 Balance 952.333 -350 -1800 Weight 71.3 kg Intake: IV 450 Intake, IV Titration 112.333 250 Amount Diltiazem 125 mg In 112.333 Sodium Chloride 0.9% 100 ml @ 10 MG/HR 10 mls/hr IV .[id number] [facility] Rx#: [id number] Heparin Sod,Pork in 0.45% 250 NaCl 25,000 unit In 0.45 % NaCl 1 250ml.bag @ 12 UNITS/KG/HR 6.96 mls/hr IV .Q24H [facility] Rx#: [id number] Oral 840 Output: Urine 600 1100 Pleural Fluid 1150 Other: Voiding Method Toilet # Voids 2 1 - Exam Gen: Alert and Oriented, NADweak, Cachetic Head: NCNT Neck Supple Heart Tachy Lungs Mildncreased effort Diminished Abdomen: S/ND/NT Ext: No Rash, No Edema, Equal Strength Psych: Calm and Coroperative Neuro: No Focal Deficits Noted. - Labs CBC & Chem 7: 02/14/19 06:48 02/14/19 06:48 Labs: Abnormal Lab Results - Last 24 Hours (Table) 02/13/19 02/13/19 02/14/19 Range/Units 17:30 19:53 06:11 RDW (11.5-15.5) % Neutrophils # (1.3-7.7) k/uL Lymphocytes # (1.0-4.8) k/uL APTT (22.0-30.0) sec Sodium (137-145) mmol/L Chloride (98-107) mmol/L Carbon Dioxide (22-30) mmol/L BUN (7-17) mg/dL Glucose (74-99) mg/dL POC Glucose (mg/dL) 152 H 162 H 159 H (75-99) mg/dL 02/14/19 02/14/19 02/14/19 Range/Units 06:48 06:48 06:48 RDW 16.3 H (11.5-15.5) % Neutrophils # 9.8 H (1.3-7.7) k/uL Lymphocytes # 0.3 L (1.0-4.8) k/uL APTT 63.8 H (22.0-30.0) sec Sodium 134 L (137-145) mmol/L Chloride 91 L (98-107) mmol/L Carbon Dioxide 36 H (22-30) mmol/L BUN 51 H (7-17) mg/dL Glucose 164 H (74-99) mg/dL POC Glucose (mg/dL) (75-99) mg/dL 02/14/19 Range/Units 11:55 RDW (11.5-15.5) % Neutrophils # (1.3-7.7) k/uL Lymphocytes # (1.0-4.8) k/uL APTT (22.0-30.0) sec Sodium (137-145) mmol/L Chloride (98-107) mmol/L Carbon Dioxide (22-30) mmol/L BUN (7-17) mg/dL Glucose (74-99) mg/dL POC Glucose (mg/dL) 144 H (75-99) mg/dL Assessment and Plan Plan: Assessment and recommendations: Adenocarcinoma of the Lung - Status POst cycle one with Carbo, [place] and Keytruda Hx: Breast Cancer: - Continue Arimidex Acute respiratory Failure: - Increased Pleural effusions - Pulmonary Following - Continue supportive Care Hyponatremia: - LIkely secondary dehydration Anxiety and Nausea relieved with current ativan regimen. Stop Xanax (does not need both) Ok for pleurex - planning Will re-evaluate cancer treatment after discharge. Further saystemic chemotherapy not necess recommended at this time.
--- NOTE | 2019-02-14 13:22 | P.DS ---
Providers Date of admission: 02/09/19 20:29 Expected date of discharge: 02/14/19 Attending physician: Lionel Cleaning Consults: 02/09/19 20:29 Consult Physician Routine Consulting Provider: Vicky Rose Consult Reason/Comments: chf Do you want consulting provider notified?: Yes 02/09/19 20:31 Consult Physician Routine Consulting Provider: Kennedy Mosley Consult Reason/Comments: effusion Do you want consulting provider notified?: Yes Consult Physician Urgent Consulting Provider: Anderson Antoine Consult Reason/Comments: known Do you want consulting provider notified?: Yes 02/11/19 11:24 Consult Physician Routine Consulting Provider: Jay Sheridan Consult Reason/Comments: recurrent pleural effusion, pleurix catheter Do you want consulting provider notified?: Yes Primary care physician: Lionel Cleaning Hospital Course: 88-year-old female presented the emergency room with complaints of increasing shortness of breath. Patient has a history of COPD metastatic lung disease stage IV and no breast cancer. Patient is a history of atrial fibrillation with RVR plan is for transfer to extended care facility for rehab Assessment Shortness of breath with possible right lower lobe pneumonia COPD exacerbation as well as metastatic lung cancer stage IV Recurrent right pleural effusion malignant pleural effusion Acute hypoxic Crestor he failure History of breast cancer on chemotherapy Hyponatremia Atrial fibrillation with RVR history of CVA/TIA history of GERD hypertension Hyperlipidemia Pleurx tube inserted by cardiac surgeon Plan transfer to extended care facility for rehab Patient Condition at Discharge: Fair Plan - Discharge Summary Discharge Rx Participant: No New Discharge Prescriptions: New Amoxicillin/Potassium Clav [Augmentin 875-125 Tablet] 1 tab PO Q12HR #14 tab Docusate [Colace] 100 mg PO BID cap Metoprolol Tartrate [Lopressor] 50 mg PO TID tab predniSONE 0 mg PO DIRECTED #40 tab Budesonide [Pulmicort] 1 mg INHALATION RT-BID nebu Acetaminophen Tab [Tylenol] 1,000 mg PO Q6HR PRN tab PRN Reason: Fever And/ Or Pain Continue cloNIDine HCL [Catapres] 0.1 mg PO TID Omeprazole [PriLOSEC] 20 mg PO DAILY Multivitamins, Thera [Multivitamin (formulary)] 1 tab PO DAILY Aspirin EC [Ecotrin Low Dose] 81 mg PO DAILY Anastrozole [Arimidex] 1 mg PO DAILY #30 tab Ipratropium-Albuterol Nebulize [Duoneb 0.5 mg-3 mg/3 ml Soln] 3 ml INHALATION RT-QID ampul.neb Potassium Chloride ER [K-Dur 10] 10 meq PO DAILY tab.er.prt Furosemide [Lasix] 40 mg PO DAILY tab Prochlorperazine [Compazine] 10 mg PO TID Folic Acid 1 mg PO DAILY LORazepam [Ativan] 0.5 mg PO DAILY@1400 #3 tablet Discontinued amLODIPine [Norvasc] 10 mg PO DAILY LORazepam [Ativan] 1 mg PO HS Telmisartan [Micardis] 40 mg PO DAILY Apixaban [Eliquis] 2.5 mg PO BID Discharge Medication List Multivitamins, Thera [Multivitamin (formulary)] 1 tab PO DAILY 07/20/17 [History] Omeprazole [PriLOSEC] 20 mg PO DAILY 07/20/17 [History] cloNIDine HCL [Catapres] 0.1 mg PO TID 07/20/17 [History] Aspirin EC [Ecotrin Low Dose] 81 mg PO DAILY 12/20/18 [History] Anastrozole [Arimidex] 1 mg PO DAILY #30 tab 12/30/18 [Rx] Furosemide [Lasix] 40 mg PO DAILY tab 01/02/19 [Rx] Ipratropium-Albuterol Nebulize [Duoneb 0.5 mg-3 mg/3 ml Soln] 3 ml INHALATION RT-QID ampul.neb 01/02/19 [Rx] Potassium Chloride ER [K-Dur 10] 10 meq PO DAILY tab.er.prt 01/02/19 [Rx] Folic Acid 1 mg PO DAILY 02/09/19 [History] Prochlorperazine [Compazine] 10 mg PO TID 02/09/19 [History] Acetaminophen Tab [Tylenol] 1,000 mg PO Q6HR PRN tab 02/14/19 [Rx] Amoxicillin/Potassium Clav [Augmentin 875-125 Tablet] 1 tab PO Q12HR #14 tab 02/14/19 [Rx] Budesonide [Pulmicort] 1 mg INHALATION RT-BID nebu 02/14/19 [Rx] Docusate [Colace] 100 mg PO BID cap 02/14/19 [Rx] LORazepam [Ativan] 0.5 mg PO DAILY@1400 #3 tablet 02/14/19 [Rx] Metoprolol Tartrate [Lopressor] 50 mg PO TID tab 02/14/19 [Rx] predniSONE 0 mg PO DIRECTED #40 tab 02/14/19 [Rx] Follow up Appointment(s)/Referral(s): Lionel Cleaning MD [Primary Care Provider] - 1-2 days Discharge Disposition: TRANSFER TO SNF/ECF
[2019-02-14 14:44] VITALS: BMI 24.6
--- NOTE | 2019-02-14 15:42 | P.PN ---
Subjective Progress Note Date: 02/14/19 Principal diagnosis: Right-sided pleural effusion 88-year-old female patient presented to the ED complaining of shortness of breath. The patient had some increased dyspnea sore throat. No fever. No chills. No chest pain. No angina no swelling lower extremities. She is known to have stage IV non-small cell lung cancer and this was diagnosed during an earlier evaluation where the patient was found to have a right upper lobe mass and the right-sided pleural effusion during which the patient underwent a thoracentesis at a total of 1.2 L of pleural fluid was aspirated from the right lung and fluid cytology was positive for lung cancer. The right upper lobe biopsy was also positive for lung cancer which was in the form of poor differentiated adenocarcinoma of lung primary. During the workup in the hospital the patient was also found to have a breast lesion and a biopsy of the breast lesion showed infiltrating ductal carcinoma and this was done on the right. She is known to have multiple other medical problems included coronary artery disease, hypertension, hyperlipidemia, previous history of CVA and chronic atrial fibrillation. She was referred for hematology oncology and she was started on treatment with systemic chemotherapy. The patient apparently too k her first session. I'm not sure this is a conventional chemotherapy versus immunotherapy. During this current admission, the patient was already seen by cardiology. Echocardiogram was done and it showed an EF around 55-60%. The patient continued to have difficult to control atrial fibrillation with increased ventricular rate and she was given Cardizem bolus and following that she was placed on a Cardizem drip. Troponin was normal. BNP level was 2300. Chest x- ray showed a recurrence of the right-sided pleural effusion. Currently Cardizem running at 10 mg an hour. The white cell count is at 15.2. BUN is at 22 creatinine 0.7. On 02/11/2019 patient seen in follow-up on selective care unit, she is awake and alert, in no acute distress, she is currently on 3 L of oxygen with a pulse ox of 94%, denies any chest pain, denies any worsening shortness of breath, remains in A. fib with a rate of 103-126, on Cardizem drip for rate control, she is on Eliquis, we will start patient on IV heparin for anticoagulation, we will consult surgical services for placement of right-sided Pleurx catheter. The patient said that she decided to stop chemotherapy related to extreme weakness, patient is hardly able to walk. She remains on IV diuretics, 40 mg and she is in positive fluid balance. These labs have been reviewed, CBC is pretty unremarkable, sodium is 131, potassium is 4.2, chloride is 88, CO2 31, B1 is 26 and creatinine 0.96 On 02/13/2019 patient seen in follow-up on selective care unit. She is resting in bed, currently dyspneic, but no acute distress, she is currently on 4 L of oxygen and the pulse ox of 94%, hemodynamically stable, slightly tachycardic at times, she is in atrial fibrillation, and her heart rate is in the low 100s. Follow-up chest x-ray today was obtained, showing stable findings of the right hemithorax opacification related to a large recurrent right-sided plural effusion. Patient is scheduled for Pleurx catheter tomorrow by CT surgery, in the meanwhile she continues on IV Lasix daily, she is on Cardizem and heparin drip, and IV steroids at 60 mg every 6 hours. On 02/14/2019 patient is seen in follow-up on selective care unit, she had a Ple urx catheter placed in the right pleural space, and there has been 1150 ML of pleural fluid drained. Patient states she still short of breath, as a week congested cough, she is not able to clear secretions very well, she is on 4 L of oxygen with a pulse ox of 98%, slightly tachycardic with a heart rate of 103 to 118 BPM. Denies chest pain, lung sounds reveal diffuse rhonchi throughout the lung hernandez, better air entry noted bilaterally, no fever or chills, incentive spirometry effort is barely 200. Patient states she feels foggy, for the last 2 days, weak, her appetite has been poor. Hemodynamically stable, hemodynamically stable, follow-up chest x-ray after the Pleurx catheter insertion showed significant interval reduction in the amount of right-sided consolidation and pleural effusion. Objective - Vital Signs Vital signs: Vital Signs Temp 97.3 F L 02/14/19 11:32 Pulse 103 H 02/14/19 12:55 Resp 18 02/14/19 12:02 BP 152/85 02/14/19 12:55 Pulse Ox 98 02/14/19 12:55 Intake & Output 02/13/19 02/14/19 02/14/19 18:59 06:59 18:59 Intake Total 952.333 250 450 Output Total 600 2250 Balance 952.333 -350 -1800 Weight 71.3 kg 71.3 kg Intake: IV 450 Intake, IV Titration 112.333 250 Amount Diltiazem 125 mg In 112.333 Sodium Chloride 0.9% 100 ml @ 10 MG/HR 10 mls/hr IV .[id number] SUNNY Rx#: [id number] Heparin Sod,Pork in 0.45% 250 NaCl 25,000 unit In 0.45 % NaCl 1 250ml.bag @ 12 UNITS/KG/HR 6.96 mls/hr IV .Q24H SUNNY Rx#: [id number] Oral 840 Output: Urine 600 1100 Pleural Fluid 1150 Other: Voiding Method Toilet # Voids 2 1 - Exam GENERAL EXAM: Alert, pleasant, 88-year-old white female, 4 L of oxygen with a pulse ox of 94%, comfortable in no apparent distress. HEAD: Normocephalic/atraumatic. EYES: Normal reaction of pupils, equal size. Conjunctiva pink, sclera white. NOSE: Clear with pink turbinates. THROAT: No erythema or exudates. NECK: No masses, no JVD, no thyroid enlargement, no adenopathy. CHEST: No chest wall deformity. Symmetrical expansion. LUNGS: Equal air entry with diminished breath sounds at the right base with the scattered bibasilar crackles CVS: Regular rate and rhythm, normal S1 and S2, no gallops, no murmurs, no rubs ABDOMEN: Soft, nontender. No hepatosplenomegaly, normal bowel sounds, no guarding or rigidity. EXTREMITIES: No clubbing, no edema, no cyanosis, 2+ pulses and upper and lower extremities. MUSCULOSKELETAL: Muscle strength and tone normal. SPINE: No scoliosis or deformity SKIN: No rashes CENTRAL NERVOUS SYSTEM: Alert and oriented -3. No focal deficits, tone is normal in all 4 extremities. PSYCHIATRIC: Alert and oriented -3. Appropriate affect. Intact judgment and insight. - Labs CBC & Chem 7: 02/14/19 06:48 02/14/19 06:48 Labs: Abnormal Lab Results - Last 24 Hours (Table) 02/13/19 02/13/19 02/14/19 Range/Units 17:30 19:53 06:11 RDW (11.5-15.5) % Neutrophils # (1.3-7.7) k/uL Lymphocytes # (1.0-4.8) k/uL APTT (22.0-30.0) sec Sodium (137-145) mmol/L Chloride (98-107) mmol/L Carbon Dioxide (22-30) mmol/L BUN (7-17) mg/dL Glucose (74-99) mg/dL POC Glucose (mg/dL) 152 H 162 H 159 H (75-99) mg/dL 02/14/19 02/14/19 02/14/19 Range/Units 06:48 06:48 06:48 RDW 16.3 H (11.5-15.5) % Neutrophils # 9.8 H (1.3-7.7) k/uL Lymphocytes # 0.3 L (1.0-4.8) k/uL APTT 63.8 H (22.0-30.0) sec Sodium 134 L (137-145) mmol/L Chloride 91 L (98-107) mmol/L Carbon Dioxide 36 H (22-30) mmol/L BUN 51 H (7-17) mg/dL Glucose 164 H (74-99) mg/dL POC Glucose (mg/dL) (75-99) mg/dL 02/14/19 Range/Units 11:55 RDW (11.5-15.5) % Neutrophils # (1.3-7.7) k/uL Lymphocytes # (1.0-4.8) k/uL APTT (22.0-30.0) sec Sodium (137-145) mmol/L Chloride (98-107) mmol/L Carbon Dioxide (22-30) mmol/L BUN (7-17) mg/dL Glucose (74-99) mg/dL POC Glucose (mg/dL) 144 H (75-99) mg/dL Assessment and Plan Plan: Assessment: 1 acute on chronic shortness of breath mainly due to reactivation of a right- sided pleural effusion and development of rapid ventricular response in the setting of chronic atrial fibrillation. The patient had a chest x-ray that s howed a moderate to large right-sided pleural effusion. The atrial fibrillation is being controlled with a Cardizem drip for now 2 acute on chronic hypoxic respiratory failure secondary to above 3 stage IV poorly differentiated adenocarcinoma of the lung currently on treatment. The patient had malignant right-sided pleural effusion and she is post thoracentesis on 12/28/2018 were a total of 1.2 L of pleural fluid was drained from the right lung 4. 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 5. Chronic atrial fibrillation on chronic anticoagulation 6. History of peripheral vascular disease 7. Coronary artery disease 8. Hypertension 9. Hyperlipidemia 10. History of CVA/TIA 11. History of nicotine dependence, currently in remission, carries 25- [id number] smoking history Plan: Pleurx catheter has been placed, with removal of 1150 of pleural fluid. Patient is quite weak, she needs to be encouraged to deep breathe and cough, some scattered rhonchi, encouraged to use of incentive spirometer, follow-up chest x- ray has been reviewed showing significant interval improvement in the appearance of right-sided consolidation and pleural effusion. Venous of pneumothorax, vital signs are stable, patient has decided to stop chemotherapy, and she is going to [facility] on the [place], with the consideration for hospice at some time. I performed a history & physical examination of the patient and discussed their management with my nurse practitioner, Angelica Cross. I reviewed the nurse practitioner's note and agree with the documented findings and plan of care. Lung sounds are positive for diminished breath sounds at the right base, with b ibasilar crackles. The findings and the impression was discussed with the patient. I attest to the documentation by the nurse practitioner. Time with Patient: Less than 30
[2019-02-14] MEDS: LORazepam 0.5 MG TAB PO SCH (16:56)
[2019-02-14 16:58] LABS: Glucose,Whole Blood 286 mg/dL (75-99)
--- NOTE | 2019-02-14 17:01 | OP ---
OPERATIVE REPORT DATE OF SURGERY: 02/14/2019 PREOPERATIVE DIAGNOSIS: Malignant right pleural effusion. POSTOPERATIVE DIAGNOSIS: Malignant right pleural effusion. PROCEDURE: Placement of right PleurX catheter under fluoroscopic guidance. SURGEON: Jay Sheridan MD. ASSISTANTS: None. ANESTHESIA: Local with IV sedation. ESTIMATED BLOOD LOSS: Minimal. INDICATION: The patient is an 88-year-old female who presented to the hospital with shortness of breath. Workup revealed a large right pleural effusion. This was then drained on 2 separate occasions. Of note, she does have a history of recently diagnosed lung cancer and breast cancer. Cytology from the fluid was consistent with metastatic adenocarcinoma. Placement of a PleurX catheter was recommended. The risks, benefits and alternatives to this procedure were discussed with the patient and her daughter. All of their questions were answered. Consent was obtained. FINDINGS: Approximately 1500 mL of serosanguineous fluid was drained from the right pleural space. PROCEDURE IN DETAIL: The patient was taken to the operating room and placed at a 30 degree angle on the operating table. She could not lie completely flat due to dyspnea. The right chest and flank were then prepped and draped in the usual sterile fashion. IV sedation was administered. Local anesthetic was infiltrated in the rib space along the anterior axillary line on the right side. Using a finder needle, fluid was initially drained. A counter incision was created and local anesthetic was infiltrated along the tract. Using standard Seldinger technique, the tract was dilated and a break-away sheath was placed over the wire. This was all performed under fluoroscopic guidance. The catheter was then introduced in the right pleural space. A small amount of fluid was drained, but not nearly as much as I had expected, given her imaging studies. Fluoroscopy revealed that the PleurX catheter was in the pleural space. At this point, I decided to place a second PleurX catheter. Slightly superior and posterior to the first location, local anesthetic was again infiltrated. Using a finder needle, serosanguineous fluid was easily drained. A guidewire was placed under fluoroscopic guidance. Again the wire was in the pleural space. A counter incision was created and the tract infiltrated with local anesthetic. The PleurX catheter was tunneled through the subcutaneous tissue. Under fluoroscopic guidance, the tract was serially dilated and a break-away sheath was placed. The catheter was then introduced into the right pleural space without difficulty. Approximately 1500 mL of serosanguineous fluid was then drained from the pleural space. Fluoroscopy confirmed good placement of the PleurX catheter. The first PleurX catheter was then removed. The incisions involving this catheter were closed with absorbable suture. Absorbable suture was used to close the second PleurX catheter entry spot. A silk suture was used to secure the catheter to the skin. Follow-up imaging studies revealed no pneumothorax. A sterile dressing was applied. The patient appeared to tolerate the procedure well. There were no immediate complications. She returned to the recovery room in stable condition. MMODL / IJN: [id number] / MTDD
[2019-02-14 17:50] LABS: Glucose,Whole Blood 284 mg/dL (75-99)
[2019-02-14 20:50] LABS: Glucose,Whole Blood 267 mg/dL (75-99)
[2019-02-14] MEDS: LORazepam 1 MG TAB PO SCH (22:58)
[2019-02-14 23:05] VITALS: RESP 24
[2019-02-15] MEDS: PIPERACILLIN-TAZOBACTAM 3.375 GM in SODIUM CHLORIDE 0.9% 100 ML IVPB SCH ×2 (00:02→07:50)
[2019-02-15] MEDS: methylPREDNISolone SOD SUCCI 125 MG/2 ML VIAL IV SCH ×3 (00:03→11:41)
[2019-02-15] MEDS: PROCHLORPERAZINE 10 MG TAB PO SCH ×2 (00:03→07:50)
[2019-02-15] MEDS ORDERED: LORazepam 1 MG TAB PO STA (05:46)
[2019-02-15 06:19] VITALS: BP 168/91; PULSE 98; TEMP 98
[2019-02-15 07:21] LABS: Glucose,Whole Blood 129 mg/dL (75-99)
--- NOTE | 2019-02-15 07:47 | XR ---
EXAMINATION TYPE: XR chest 1V portable DATE OF EXAM: 02/15/2019 COMPARISON: 02/14/2019 HISTORY: Status post pleural catheter placement. Evaluate tubing. TECHNIQUE: Single frontal view of the chest is obtained. FINDINGS: There is been interval development of bibasilar opacities and trace pleural effusions blun ting the costophrenic angles. Diffuse osseous demineralization is seen and there is redemonstration o f partial visualization of an old right humeral fracture. Cardiomediastinal silhouette appears enlarg ed and more prominent within the right paratracheal space that on the prior exam, possibly related to rotation or engorgement of the superior vena cava/azygos vein confluence. Right-sided pleural cathet er is unchanged in position overall with no visible pneumothorax. IMPRESSION: 1. Interval development of bibasilar opacities, likely atelectasis and trace pleural effusions. 2. Prominence of the right paratracheal space that could relate to fluid overload and engorgement of the superior vena cava/azygos confluence. Attention on follow-up exams.
[2019-02-15] MEDS: FUROSEMIDE 10 MG/ML 4 ML VIAL IV SCH (07:50)
[2019-02-15] MEDS: POTASSIUM CHLORIDE ER 10 MEQ TAB.ER.PRT PO SCH (07:50)
[2019-02-15] MEDS: ANASTROZOLE 1 MG TAB PO SCH (07:50)
[2019-02-15] MEDS: ASPIRIN 81 MG PO SCH (07:50)
[2019-02-15] MEDS: MULTIVITAMINS, THERA 1 EACH TAB PO SCH (07:50)
[2019-02-15] MEDS: PANTOPRAZOLE 40 MG TABLET PO SCH (07:50)
[2019-02-15] MEDS: DOCUSATE 100 MG CAP PO SCH (07:50)
[2019-02-15] MEDS: FOLIC ACID 1 MG TAB PO SCH (07:51)
[2019-02-15] MEDS: cloNIDine HCL 0.1 MG TAB PO SCH (07:51)
[2019-02-15] MEDS: METOPROLOL TARTRATE 50 MG TAB PO SCH (07:51)
[2019-02-15] MEDS: INSULIN ASPART (NovoLOG) 100 UNIT/ML VIAL SQ SCH ×2 (07:54→12:20)
[2019-02-15] MEDS: IPRATROPIUM-ALBUTEROL 3 ML NEB INHALATION SCH ×2 (08:24→12:48)
[2019-02-15] MEDS: FORMOTEROL FUMARATE 20 MCG/2 ML NEBU INHALATION SCH (08:24)
[2019-02-15] MEDS: BUDESONIDE 1 MG/2 ML NEBU INHALATION SCH (08:24)
[2019-02-15] MEDS ORDERED: APIXABAN 2.5 MG TABLET PO SCH (09:00)
[2019-02-15] MEDS ORDERED: GLYCERIN ADULT SUPPOSITORY 1 EACH RECTAL STA (10:59)
--- NOTE | 2019-02-15 11:17 | P.PN ---
Subjective Progress Note Date: 02/15/19 Principal diagnosis: Recurrent right malignant pleural effusion, history of recent diagnosis of stage IV non-small cell lung cancer with a right upper lobe mass, recurrent right-si ded pleural effusion status post thoracentesis on 12/22/2018 with 950 ml of fluid removed and on 12/29/2017 with 1.2 L of fluid removed, history of recent diagnosis of right breast lesion with biopsy positive for infiltrating ductal carcinoma, hypertension, hyperlipidemia, coronary artery coronary disease, history of CVA/TIA with residual right upper extremity weakness and chronic atrial fibrillation on chronic anticoagulation Eliquis at home. POD #1 placement of right Pleurx catheter under fluoroscopic guidance. The patient is laying in bed on the fourth floor medical surgical unit. She is in no acute distress. She denies any complaints of pain and reports her shortness of breath has much improved since the placement of her drainage catheter was placed yesterday. Oxygen saturations are 93% on 5 L nasal cannula. Her right Pleurx catheter dressing is clean, dry and intact. The patient's , [id number] and son are at her bedside. The patient is being discharged to [facility] today per her . Pleurx catheter teaching was completed with the patient, her and her [id number]. Their questions were answered to the best my ability. 350 mL of thin serosanguineous drainage draining from the Pleurx catheter this morning. Objective - Vital Signs Vital signs: Vital Signs Temp 98 F 02/15/19 06:00 Pulse 98 02/15/19 06:00 Resp 24 02/15/19 06:00 BP 168/91 02/15/19 06:00 Pulse Ox 93 L 02/15/19 06:00 Intake & Output 02/14/19 02/15/19 02/15/19 18:59 06:59 18:59 Intake Total 450 200 Output Total 2250 400 Balance -1800 -200 Weight 71.3 kg Intake: IV 450 Oral 200 Output: Urine 1100 400 Pleural Fluid 1150 Other: Voiding Method Toilet - Constitutional General appearance: Present: cooperative, no acute distress - Respiratory Details: Lung sounds are clear but diminished throughout, few scattered crackles to her right lower lobe. Respirations are symmetrical and nonlabored. Oxygen saturation are 93% on 5 L nasal cannula. Right Pleurx catheter tube with dressing clean, dry and intact. 350 mL of thin serosanguineous drainage drained this morning. - Cardiovascular Details: Irregular rhythm and with controlled rate, consistent with atrial fibrillation. S1 and S2 present, negative for S3, gallop or murmur. - Gastrointestinal Gastrointestinal Comment(s): Abdomen is soft, nontender and nondistended. No guarding or rigidity. Hy poactive bowel sounds present all 4 abdominal quadrants. No organomegaly appreciated. - Genitourinary Genitourinary Comment(s): Purewick in place, draining clear yellow urine. - Integumentary Integumentary Comment(s): Skin is warm and dry. No clubbing or cyanosis is present. No rash or abnormal pigmentation is present. Right Pleurx catheter site dressing clean, dry and intact. - Neurologic Neurologic: Present: CNII-XII intact - Musculoskeletal Musculoskeletal: Present: generalized weakness, strength equal bilaterally - Psychiatric Psychiatric Comment(s): Flat affect Psychiatric: Present: A&O x's 3, intact judgment & insight - Labs CBC & Chem 7: 02/14/19 06:48 02/14/19 06:48 Labs: Abnormal Lab Results - Last 24 Hours (Table) 02/14/19 02/14/19 02/14/19 Range/Units 11:55 16:43 17:46 POC Glucose (mg/dL) 144 H 286 H 284 H (75-99) mg/dL 02/14/19 02/15/19 Range/Units 20:46 07:20 POC Glucose (mg/dL) 267 H 129 H (75-99) mg/dL - Imaging and Cardiology Chest x-ray: report reviewed, image reviewed Assessment and Plan Assessment: 1. Recurrent right-sided malignant effusion, status post right Pleurx catheter placement 2. Acute on chronic dyspnea 3. Stage IV poorly differentiated adenocarcinoma of the lung, status post one treatment of chemotherapy 4. 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 Hypertension 6. Hyperlipidemia 7. History of CVA/TIA, residual right upper extremity weakness 8. Coronary artery disease 9. Chronic atrial fibrillation, on chronic anticoagulation 10. Remote history of nicotine dependence quit smoking about 25-30 years ago Plan: 1. Pleurx catheter teaching was completed with the patient, her and [id number]. Questions were answered to the best my ability. 2. Nain restarted this morning. 3. Encourage use of her incentive spirometry every hour while awake. 4. Pleurx catheter drainage frequency dictated by the patient's symptoms, may be every day, every other day, weekly or as needed if the patient is symptomatic. Once the drainage is less than 50 mL 3 times in a row, notify the surgery office for possible removal. 5. Do not draining more than 1 L or 1000 mL from the Pleurx catheter and 24 hour period. 6. Atrial fibrillation management per cardiology recommendations. 7. May shower after 24 hours of the Pleurx catheter placement, no baths/hot tubs. 8. Ok by the cardiothoracic surgery standpoint to be discharged to [facility] when okay with primary care service. Time with Patient: Greater than 30
--- NOTE | 2019-02-15 11:25 | P.PN ---
Progress Note - Text Patient reports an order for transfer to extended care facility has been accepted to [facility]
[2019-02-15 12:20] LABS: Glucose,Whole Blood 147 mg/dL (75-99)
[2019-02-15 12:46] LABS: HCT 39.4 % (34.0-46.0); HGB 12.4 gm/dL (11.4-16.0); Hypochromasia Slight; MCH 26.6 pg (25.0-35.0); MCHC 31.6 g/dL (31.0-37.0); MCV 84.3 fL (80.0-100.0); Mean Platelet Volume 7.7; Platelet Count 169 k/uL (150-450); RBC 4.67 m/uL (3.80-5.40); RDW 15.2 % (11.5-15.5)
[2019-02-15 12:51] LABS: Potassium 3.2 mmol/L (3.5-5.1)
[2019-02-15] MEDS: LORazepam 0.5 MG TAB PO SCH (13:38)
--- NOTE | 2019-02-15 13:53 | P.PN ---
Subjective Progress Note Date: 02/15/19 Principal diagnosis: Right-sided pleural effusion 88-year-old female patient presented to the ED complaining of shortness of breath. The patient had some increased dyspnea sore throat. No fever. No chills. No chest pain. No angina no swelling lower extremities. She is known to have stage IV non-small cell lung cancer and this was diagnosed during an earlier evaluation where the patient was found to have a right upper lobe mass and the right-sided pleural effusion during which the patient underwent a thoracentesis at a total of 1.2 L of pleural fluid was aspirated from the right lung and fluid cytology was positive for lung cancer. The right upper lobe biopsy was also positive for lung cancer which was in the form of poor differentiated adenocarcinoma of lung primary. During the workup in the hospital the patient was also found to have a breast lesion and a biopsy of the breast lesion showed infiltrating ductal carcinoma and this was done on the right. She is known to have multiple other medical problems included coronary artery disease, hypertension, hyperlipidemia, previous history of CVA and chronic atrial fibrillation. She was referred for hematology oncology and she was started on treatment with systemic chemotherapy. The patient apparently too k her first session. I'm not sure this is a conventional chemotherapy versus immunotherapy. During this current admission, the patient was already seen by cardiology. Echocardiogram was done and it showed an EF around 55-60%. The patient continued to have difficult to control atrial fibrillation with increased ventricular rate and she was given Cardizem bolus and following that she was placed on a Cardizem drip. Troponin was normal. BNP level was 2300. Chest x- ray showed a recurrence of the right-sided pleural effusion. Currently Cardizem running at 10 mg an hour. The white cell count is at 15.2. BUN is at 22 creatinine 0.7. On 02/11/2019 patient seen in follow-up on selective care unit, she is awake and alert, in no acute distress, she is currently on 3 L of oxygen with a pulse ox of 94%, denies any chest pain, denies any worsening shortness of breath, remains in A. fib with a rate of 103-126, on Cardizem drip for rate control, she is on Eliquis, we will start patient on IV heparin for anticoagulation, we will consult surgical services for placement of right-sided Pleurx catheter. The patient said that she decided to stop chemotherapy related to extreme weakness, patient is hardly able to walk. She remains on IV diuretics, 40 mg and she is in positive fluid balance. These labs have been reviewed, CBC is pretty unremarkable, sodium is 131, potassium is 4.2, chloride is 88, CO2 31, B1 is 26 and creatinine 0.96 On 02/13/2019 patient seen in follow-up on selective care unit. She is resting in bed, currently dyspneic, but no acute distress, she is currently on 4 L of oxygen and the pulse ox of 94%, hemodynamically stable, slightly tachycardic at times, she is in atrial fibrillation, and her heart rate is in the low 100s. Follow-up chest x-ray today was obtained, showing stable findings of the right hemithorax opacification related to a large recurrent right-sided plural effusion. Patient is scheduled for Pleurx catheter tomorrow by CT surgery, in the meanwhile she continues on IV Lasix daily, she is on Cardizem and heparin drip, and IV steroids at 60 mg every 6 hours. On 02/14/2019 patient is seen in follow-up on selective care unit, she had a Ple urx catheter placed in the right pleural space, and there has been 1150 ML of pleural fluid drained. Patient states she still short of breath, as a week congested cough, she is not able to clear secretions very well, she is on 4 L of oxygen with a pulse ox of 98%, slightly tachycardic with a heart rate of 103 to 118 BPM. Denies chest pain, lung sounds reveal diffuse rhonchi throughout the lung hernandez, better air entry noted bilaterally, no fever or chills, incentive spirometry effort is barely 200. Patient states she feels foggy, for the last 2 days, weak, her appetite has been poor. Hemodynamically stable, hemodynamically stable, follow-up chest x-ray after the Pleurx catheter insertion showed significant interval reduction in the amount of right-sided consolidation and pleural effusion. On 02/15/2019 patient seen in follow-up on medical surgical floor. More awake today, more conversant, currently on 4 L of oxygen, has a occasional congested nonproductive cough, but overall sounds last rhonchorous on today's exam, good air entry noted bilaterally, she is afebrile, she had a Pleurx catheter placed in the right pleural space, and large amount of pleural fluid was removed after the placement of the Pleurx catheter. Patient remains stable overnight, she was supposed to be discharged to [facility] on the [place] however she was not accepted related to presence of Pleurx catheter, and currently social work is working on placement possibly to [facility] and rehab. Objective - Vital Signs Vital signs: Vital Signs Temp 98 F 02/15/19 06:00 Pulse 98 02/15/19 06:00 Resp 24 02/15/19 06:00 BP 168/91 02/15/19 06:00 Pulse Ox 93 L 02/15/19 06:00 Intake & Output 02/14/19 02/15/19 02/15/19 18:59 06:59 18:59 Intake Total 450 200 Output Total 2250 400 900 Balance -1800 -200 -900 Weight 71.3 kg Intake: IV 450 Oral 200 Output: Urine 1100 400 900 Pleural Fluid 1150 Other: Voiding Method Toilet # Bowel Movements 0 - Exam GENERAL EXAM: Alert, pleasant, 88-year-old white female, 4 L of oxygen with a pulse ox of 94%, comfortable in no apparent distress. HEAD: Normocephalic/atraumatic. EYES: Normal reaction of pupils, equal size. Conjunctiva pink, sclera white. NOSE: Clear with pink turbinates. THROAT: No erythema or exudates. NECK: No masses, no JVD, no thyroid enlargement, no adenopathy. CHEST: No chest wall deformity. Symmetrical expansion. LUNGS: Equal air entry with diminished breath sounds at the right base with the scattered bibasilar crackles CVS: Regular rate and rhythm, normal S1 and S2, no gallops, no murmurs, no rubs ABDOMEN: Soft, nontender. No hepatosplenomegaly, normal bowel sounds, no guarding or rigidity. EXTREMITIES: No clubbing, no edema, no cyanosis, 2+ pulses and upper and lower extremities. MUSCULOSKELETAL: Muscle strength and tone normal. SPINE: No scoliosis or deformity SKIN: No rashes CENTRAL NERVOUS SYSTEM: Alert and oriented -3. No focal deficits, tone is normal in all 4 extremities. PSYCHIATRIC: Alert and oriented -3. Appropriate affect. Intact judgment and insight. - Labs CBC & Chem 7: 02/15/19 11:55 02/15/19 11:55 Labs: Abnormal Lab Results - Last 24 Hours (Table) 02/14/19 02/14/19 02/14/19 Range/Units 16:43 17:46 20:46 Sodium (137-145) mmol/L Potassium (3.5-5.1) mmol/L Chloride (98-107) mmol/L Carbon Dioxide (22-30) mmol/L BUN (7-17) mg/dL Glucose (74-99) mg/dL POC Glucose (mg/dL) 286 H 284 H 267 H (75-99) mg/dL 02/15/19 02/15/19 02/15/19 Range/Units 07:20 11:55 12:17 Sodium 135 L (137-145) mmol/L Potassium 3.2 L (3.5-5.1) mmol/L Chloride 86 L (98-107) mmol/L Carbon Dioxide 40 H (22-30) mmol/L BUN 54 H (7-17) mg/dL Glucose 148 H (74-99) mg/dL POC Glucose (mg/dL) 129 H 147 H (75-99) mg/dL Assessment and Plan Plan: Assessment: 1 acute on chronic shortness of breath mainly due to reactivation of a right- sided pleural effusion and development of rapid ventricular response in the setting of chronic atrial fibrillation. The patient had a chest x-ray that showed a moderate to large right-sided pleural effusion. The atrial fibrillation is being controlled with a Cardizem drip for now 2 acute on chronic hypoxic respiratory failure secondary to above 3 stage IV poorly differentiated adenocarcinoma of the lung currently on treatment. The patient had malignant right-sided pleural effusion and she is post thoracentesis on 12/28/2018 were a total of 1.2 L of pleural fluid was drained from the right lung 4. 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 5. Chronic atrial fibrillation on chronic anticoagulation 6. History of peripheral vascular disease 7. Coronary artery disease 8. Hypertension 9. Hyperlipidemia 10. History of CVA/TIA 11. History of nicotine dependence, currently in remission, carries 23-30-npxr-year smoking history Plan: Continue encouraging deep breathing and coughing, incentive spirometry use, patient is generally weak, her appetite is poor, but appears to be a bit more awake and conversant today. Case management is working on placement to subacute rehab. Possibly to [facility] and rehab. Patient is stable for discharge once the arrangements are complete I performed a history & physical examination of the patient and discussed their management with my nurse practitioner, Angelica Cross. I reviewed the nurse practitioner's note and agree with the documented findings and plan of care. Lung sounds are positive for diminished breath sounds at the right base, with bibasilar crackles. The findings and the impression was discussed with the patient. I attest to the documentation by the nurse practitioner. Time with Patient: Less than 30
== END 2019-02-15 14:13 | DRG 180 ==
LOC: EC 18:54 → 3SCARD 20:29 → 4MS4W 02-14 17:24
PROVIDERS: ADMIT Family Medicine; ATTEND Family Medicine
PROC: 0W9930Z Drainage of Right Pleural Cavity with Drainage Device, Percutaneous Approach (ICD-10-PCS; principal; 2019-02-14 09:00)
DX: C34.11 Malignant neoplasm of upper lobe, right bronchus or lung (principal); J18.1 Lobar pneumonia, unspecified organism; J96.21 Acute and chronic respiratory failure with hypoxia; J96.22 Acute and chronic respiratory failure with hypercapnia; I69.351 Hemiplegia and hemiparesis following cerebral infarction affecting right dominant side; I87.1 Compression of vein; J44.0 Chronic obstructive pulmonary disease with (acute) lower respiratory infection; J44.1 Chronic obstructive pulmonary disease with (acute) exacerbation; J91.0 Malignant pleural effusion; J98.11 Atelectasis; E22.2 Syndrome of inappropriate secretion of antidiuretic hormone; C50.911 Malignant neoplasm of unspecified site of right female breast; E78.5 Hyperlipidemia, unspecified; F41.9 Anxiety disorder, unspecified; I07.1 Rheumatic tricuspid insufficiency; I11.0 Hypertensive heart disease with heart failure; I25.10 Atherosclerotic heart disease of native coronary artery without angina pectoris; I48.2 Chronic atrial fibrillation; I49.3 Ventricular premature depolarization; I50.9 Heart failure, unspecified; I71.2 Thoracic aortic aneurysm, without rupture; I73.9 Peripheral vascular disease, unspecified; K21.9 Gastro-esophageal reflux disease without esophagitis; K59.00 Constipation, unspecified; T45.1X5A Adverse effect of antineoplastic and immunosuppressive drugs, initial encounter; E86.0 Dehydration; Z79.01 Long term (current) use of anticoagulants; Z79.811 Long term (current) use of aromatase inhibitors; Z79.82 Long term (current) use of aspirin; Z79.899 Other long term (current) drug therapy; Z87.891 Personal history of nicotine dependence; Z90.49 Acquired absence of other specified parts of digestive tract; Z98.42 Cataract extraction status, left eye; Z98.41 Cataract extraction status, right eye; Z96.1 Presence of intraocular lens; Z99.81 Dependence on supplemental oxygen; Z79.4 Long term (current) use of insulin; Z88.5 Allergy status to narcotic agent; Z88.8 Allergy status to other drugs, medicaments and biological substances
CPT/HCPCS: 36415; 71045; 71046; 76000; 80048; 80053; 81001; 82550; 83735; 83880; 84484; 85025; 85027; 85610; 85730; 93005; 93306; 94640; 96360; 96361; 99285